=== PATIENT | female | born 1940 | race Caucasian/White ===

== ENCOUNTER 2019-08-17 18:22 | Emergency (ER) | payer MEDICARE, SELFPAY ==
--- NOTE | ~2019-08-17 | XR_ITS ---
XR hip RT min 3V w AP pelvis 08/17/2019 20:36 Indication: Hip pain after trauma Procedure: 4 views right hip including AP pelvis Comparison: 01/08/2009 Findings: Pelvic rings intact. Sacral foramen are symmetric. There are mild degenerative changes of t he hips. Serial calcifications are present. No significant soft tissue abnormality. No acute fracture or traumatic malalignment. Impression: 1: No acute fracture. Reviewed, dictated and finalized at location A. Impression: 1: No acute fracture.
[2019-08-17 18:25] VITALS: BP 128/76; PULSE 92; RESP 18; TEMP 36.8; O2SAT 100
--- NOTE | 2019-08-17 20:06 | ED.EXTPRO ---
HPI - Extremity Problem General Chief complaint: Unspecified Stated complaint: jimmy hip pain x1 wk Time Seen by Provider: 08/17/19 19:20 Source: patient Mode of arrival: EMS Limitations: no limitations History of Present Illness HPI Narrative: The pt is an 79 y/o female who presents to the ED, via EMS, c/o bilateral hip pain onset 2 weeks ago. Pt states that the right hip is worse than the left. Pt states that she called her PCP, Dr. Cantu, who recommended she get Lidocaine patches that did not provide relief. She states that she has also taken Tylenol without relief. She notes that she has not suffered any trauma. Pt denies N/V, fever, chills, cough, and SOB. Pt states that she lives alone. Pt notes that her hedge trimmer is Dr. Valladares, and she saw him earlier today. Complaint: joint paint (Bilateral hips ) Onset (ago): week(s) (2) Location: left, right and other (Hips, right worse than left) Relieving factors: nothing Associated symptoms: denies other symptoms Related Data Home Medications Medication Instructions Recorded Confirmed alendronate 70 mg tablet 70 mg PO WEEKLY 05/19/19 08/17/19 bupropion HCl 150 mg 24 hr tablet, 150 mg PO QAM 05/19/19 08/17/19 extended release metoclopramide HCl 5 mg tablet 5 mg PO Q6H tablet 05/19/19 08/17/19 omeprazole 40 mg capsule,delayed 40 mg PO BID 05/19/19 08/17/19 release polyethylene glycol 3350 17 17 gm PO DAILY 05/19/19 08/17/19 gram/dose oral powder Allergies Allergy/AdvReac Type Severity Reaction Status Date / Time No Known Allergies Allergy Verified 08/17/19 15:12 Review of Systems Review of Systems: All systems reviewed & are unremarkable except as noted in HPI and below Constitutional: Constitutional: Denies chills and Denies fever(s) Respiratory: Respiratory: Denies cough and Denies dyspnea Gastrointestinal: Gastrointestinal: Denies nausea and Denies vomiting Musculoskeletal: Musculoskeletal: Reports arthralgias (Bilateral hips, right worse than left ) PMFSH Past Medical History Medical History (Updated 08/17/19 @ 20:25 by Rekha Casper MD) Chronic GERD Essential hypertension Gastroparesis Generalized anxiety disorder Heart murmur Hyperlipidemia, unspecified Lumbar disc disease with radiculopathy Neuropathy EDWARD (obstructive sleep apnea) Osteoporosis Primary osteoarthritis involving multiple joints Right inguinal hernia Spinal cord stimulator status Stable angina pectoris UTI (urinary tract infection) Surgical History Surgical History History of right knee surgery Hx of cholecystectomy Status post blepharoplasty of both eyes Social History Social History (Updated 08/17/19 @ 20:11 by Beni Dobson) Smoking status: Never smoker Second hand tobacco smoke exposure: No Alcohol intake: never Living arrangements: alone Gender identity (if verbalized by the patient): Female Comments PCP: Dr. Cantu Full Charge Bookkeeper: Dr. Valladares Exam Narrative: Exam Narrative: General appearance: Well-developed, well-nourished, no family member at the bedside, patient does not look in pain or distress, her cane at the bedside. Skin: Normal color Head: Normocephalic, nontraumatic Eyes: Clear conjunctiva ENT: Oropharynx normal, ears normal, nose normal Neck: Supple, nontender Chest and respiratory: Airway patent, no respiratory distress, no accessory muscle use Heart: Regular rate/rhythm Abdomen: Soft, nontender, no organomegaly, quiet bowel sounds Vascular: Normal peripheral pulses, normal capillary refill. Musculoskeletal: Normal range of motion, nontender back Neurologic: Alert and oriented ?3, MATRIX BATH ATTENDANT is normal as tested, no gross motor deficit
[2019-08-17] MEDS: KETOROLAC (*BKC) 60 MG/2 ML VIAL IM (20:40)
[2019-08-17 20:50] VITALS: BP 143/93; PULSE 89; RESP 16; O2SAT 100
[2019-08-17 21:22] VITALS: BP 136/79; PULSE 85; RESP 18; TEMP 36.8; O2SAT 100
== END 2019-08-17 21:34 | disposition home or self-care (01) ==
PROVIDERS: Emergency Provider Emergency Medicine; PCP Family Medicine
DX: M16.0 Bilateral primary osteoarthritis of hip (principal); K21.9 Gastro-esophageal reflux disease without esophagitis; I10 Essential (primary) hypertension; K31.84 Gastroparesis; E78.5 Hyperlipidemia, unspecified; G47.33 Obstructive sleep apnea (adult) (pediatric); F41.1 Generalized anxiety disorder; M81.0 Age-related osteoporosis without current pathological fracture; Z87.440 Personal history of urinary (tract) infections
CPT/HCPCS: 73502; 96372; 99283; A9270; J1885

== ENCOUNTER 2020-02-24 01:00 | Outpatient (CLI) | payer MEDICARE, SELFPAY ==
[2020-02-24 18:37] LABS: SARS-CoV-2 RNA PCR Negative
== END 2020-02-24 01:01 | disposition home or self-care (01) ==
LOC: ANHCOVIDDT 01:01
PROVIDERS: Visit Provider Internal Medicine Gastroenterology
DX: Z01.812 Encounter for preprocedural laboratory examination (principal); Z20.828 Contact with and (suspected) exposure to other viral communicable diseases
CPT/HCPCS: 87635; C9803; U0003

== ENCOUNTER 2020-02-27 01:11 | Day surgery (SDC) | payer MEDICARE, SELFPAY ==
[2020-02-22 10:46] VITALS: BMI 32.1
--- NOTE | 2020-02-22 12:57 | PC.NURSE ---
spoke with patient concerning discharge and transportation after procedure . she states it is okay to call abimael flor and let her know that patient had procedure/anesthesia and is being transported via [facility] to and into her house, setup with drink and food, and ask her to call and check on patient later in day. message left with abimael to verify.
[2020-02-27 08:06] VITALS: BP 145/62; PULSE 70; RESP 18; TEMP 36.4; O2SAT 99; BMI 28.0
[2020-02-27] MEDS: LACTATED RINGERS 1,000 ML 150 ML IV CONT (08:27)
--- NOTE | 2020-02-27 08:35 | P.PNAN_ITS ---
Anes - Initial Pre Proc Eval Procedure: Operation Date: 02/27/20 09:30 Proposed Procedures p Esophagogastroduodenoscopy & Screening Colonoscopy - Samuel Laura MD Date/Time: 02/27/20 08:35 Surgeon: Samuel Toro MD Pre Op Diagnosis: Abdominal Pain/ Neoplasm Screening Patient Data Age: 79 Gender: F Height: 5 ft 1 in Weight: 67.5 kg Last Vital Signs Temp 97.6 F 02/27/20 08:06 Pulse 70 02/27/20 08:06 Resp 18 02/27/20 08:06 BP 145/62 H 02/27/20 08:06 Pulse Ox 99 02/27/20 08:06 Allergies Allergy/AdvReac Type Severity Reaction Status Date / Time No Known Allergies Allergy Verified 02/27/20 08:03 Home Medications Medication Instructions Recorded Confirmed Type atorvastatin 20 mg tablet 20 mg PO DAILY #90 tablet 08/17/19 02/27/20 Rx metoprolol succinate 25 mg 25 mg PO DAILY #90 each 08/17/19 02/27/20 Rx tablet,extended release 24 hr niacin 500 mg tablet See Rx Instructions .ROUTE 08/17/19 02/27/20 Rx .COMPLEX #90 each alendronate 70 mg tablet 70 mg PO WEEKLY #12 tablet 09/20/19 02/27/20 Rx buspirone 10 mg tablet See Rx Instructions .ROUTE 09/20/19 02/27/20 Rx .COMPLEX #180 each meloxicam 7.5 mg tablet 7.5 mg PO BID PRN #180 tablet 09/20/19 02/27/20 Rx omeprazole 40 mg capsule,delayed 40 mg PO BID PRN #180 cap 09/20/19 02/27/20 Rx release calcium carbonate 200 mg calcium 200 mg PO BID 11/23/19 02/27/20 History (500 mg) chewable tablet gabapentin 300 mg capsule 300 mg PO BID #180 cap 11/23/19 02/27/20 Rx multivitamin,rn-zcjr-esfgwbts 1 tablet PO DAILY 11/23/19 02/27/20 History aspirin 81 mg tablet,delayed 81 mg PO DAILY #90 tablet 02/01/20 02/27/20 Rx release peg 3350-electrolytes 236 240 ml PO Q10M #4000 ml 02/01/20 02/27/20 Rx gram-22.74 gram-6.74 gram-5.86 gram solution bupropion HCl 300 mg 24 hr tablet, 300 mg PO QAM #90 tablet 02/09/20 02/27/20 Rx extended release Patient hx anesthesia problems: none Family hx anesthesia problems: none PMFSH Social History Social History Smoking packs per day: 1 Smoking cigarettes per day: 20.0 Smoking status: Former smoker Tobacco type: cigarettes Second hand tobacco smoke exposure: No Additional smoking assessment comments: [facility] Alcohol intake: former Substance use: never Substance use type: does not use Living arrangements: alone Gender identity (if verbalized by the patient): Female Spiritual care concerns: No Anes - Eval Final PreProcedure Day of Procedure 02/27/20 08:35 Patient weight: overweight Heart: regular rate and rhythm Lungs: clear to auscultation Airway: Mallampati scale class III Neurological: alert and oriented Last oral intake: >/= 8 hours and 4 hours (had black coffee this am at 0600 hrs) ASA classification: III Emergent: no Anesthetic plan: proceed Anesthesia type and monitoring: general GIVS and standard monitoring Informed Consent: The patient's anesthetic plan and its attendant risks and benefits were discussed with the patient/family/POA. Questions were solicited and answers provided to the satisfaction of the patient/family/POA.
--- NOTE | 2020-02-27 08:53 | PM.HPGS ---
History of Present Illness History of Present Illness Consent: Risks, benefits, and alternatives have been discussed and questions answered. Patient agrees to proceed with procedure. Chief complaint: Abdominal Pain/ Neoplasm Screening Narrative: Shanita Perez is a 79 year old female with chronic abdominal pain Review of Systems Constitutional: Constitutional: Denies headache(s) and Denies weakness Eyes: Eyes: Denies blurry vision ENT: Reports Normal hearing present, Denies headache(s) and Denies neck pain Cardiovascular: Cardiovascular: Denies chest pain and Denies dyspnea Respiratory: Respiratory: Denies dyspnea Gastrointestinal: Gastrointestinal: Reports no additional gastrointestinal complaints Genitourinary: Genitourinary: Denies dysuria Musculoskeletal: Musculoskeletal: Denies neck pain Integumentary/Breasts: Skin/Breast: Denies dry skin Neurologic: Reports Normal hearing present, Denies headache(s) and Denies weakness Psychiatric: Psychiatric: Denies anxiety Endocrine: Endocrine: Denies change in body appearance Hematologic/Lymphatic: Hematologic/Lymphatic: Denies easy bleeding Allergic/Immunologic: Allergic/Immunologic: Denies urticaria PMFSH Social History Social History Smoking packs per day: 1 Smoking cigarettes per day: 20.0 Smoking status: Former smoker Tobacco type: cigarettes Second hand tobacco smoke exposure: No Additional smoking assessment comments: [facility] Alcohol intake: former Substance use: never Substance use type: does not use Living arrangements: alone Gender identity (if verbalized by the patient): Female Spiritual care concerns: No Meds Home Medications and Allergies Home Medications Medication Instructions Recorded Confirmed Type atorvastatin 20 mg tablet 20 mg PO DAILY #90 tablet 08/17/19 02/27/20 Rx metoprolol succinate 25 mg 25 mg PO DAILY #90 each 08/17/19 02/27/20 Rx tablet,extended release 24 hr niacin 500 mg tablet See Rx Instructions .ROUTE 08/17/19 02/27/20 Rx .COMPLEX #90 each alendronate 70 mg tablet 70 mg PO WEEKLY #12 tablet 09/20/19 02/27/20 Rx buspirone 10 mg tablet See Rx Instructions .ROUTE 09/20/19 02/27/20 Rx .COMPLEX #180 each meloxicam 7.5 mg tablet 7.5 mg PO BID PRN #180 tablet 09/20/19 02/27/20 Rx omeprazole 40 mg capsule,delayed 40 mg PO BID PRN #180 cap 09/20/19 02/27/20 Rx release calcium carbonate 200 mg calcium 200 mg PO BID 11/23/19 02/27/20 History (500 mg) chewable tablet gabapentin 300 mg capsule 300 mg PO BID #180 cap 11/23/19 02/27/20 Rx multivitamin,eu-huyg-oybzenie 1 tablet PO DAILY 11/23/19 02/27/20 History aspirin 81 mg tablet,delayed 81 mg PO DAILY #90 tablet 02/01/20 02/27/20 Rx release peg 3350-electrolytes 236 240 ml PO Q10M #4000 ml 02/01/20 02/27/20 Rx gram-22.74 gram-6.74 gram-5.86 gram solution bupropion HCl 300 mg 24 hr tablet, 300 mg PO QAM #90 tablet 02/09/20 02/27/20 Rx extended release Allergies Allergy/AdvReac Type Severity Reaction Status Date / Time No Known Allergies Allergy Verified 02/27/20 08:03 Vital Signs Vital Signs - 24 hr 02/27/20 08:06 Temperature 97.6 F Pulse Rate 70 Respiratory Rate 18 Blood Pressure 145/62 H Pulse Oximetry 99 Exam Const: General: comfortable and no acute distress HENMT: General nose exam: Normal nares present Eyes: General: appearance normal, both eyes and all related structures Neck: Neck: no JVD Resp: Auscultation: clear to auscultation bilaterally Cardio: Rate: regular rate Rhythm: regular rhythm GI: Inspection: non-distended GI Palp: Yes Soft to palpation Skin: General skin exam: normal color Neuro: General: gait normal Speech: normal speech Extrem: General: normal to inspection Psych: Mental Status: mental status grossly normal Assessment and Plan Assessment and plan (1) Chronic GERD: Code(s): K21.9 - Susan
[2020-02-27 09:24] VITALS: BP 116/51; PULSE 72; RESP 19; O2SAT 93
[2020-02-27 09:34] VITALS: BP 125/74; PULSE 76; RESP 19; O2SAT 96
[2020-02-27 09:54] VITALS: BP 135/66; PULSE 70; RESP 20; O2SAT 96
== END 2020-02-27 10:42 | disposition home or self-care (01) ==
PROVIDERS: Visit Provider Internal Medicine Gastroenterology
PROC: 0DJ08ZZ Inspection of Upper Intestinal Tract, Via Natural or Artificial Opening Endoscopic (ICD-10-PCS; CPT 43235; principal; 2020-02-27 09:30)
DX: K29.50 Unspecified chronic gastritis without bleeding (principal); K31.84 Gastroparesis; K57.30 Diverticulosis of large intestine without perforation or abscess without bleeding; K44.9 Diaphragmatic hernia without obstruction or gangrene; K64.8 Other hemorrhoids; K21.9 Gastro-esophageal reflux disease without esophagitis; Z87.891 Personal history of nicotine dependence; Z79.82 Long term (current) use of aspirin
CPT/HCPCS: 43239; 45378; 88305; J2704; J7120

== ENCOUNTER 2020-03-25 11:02 | Outpatient (CLI) | payer MEDICARE, SELFPAY ==
--- NOTE | ~2020-03-25 | CT_ITS ---
EXAMINATION: CT chest wo con DATE: 03/25/2020 11:46 INDICATION: R91.1 - Solitary pulmonary nodule TECHNIQUE: Computed tomography (CT) of the chest was performed without intravenous contrast. Addition al 3D reconstructions utilizing coronal maximum intensity projection (MIP) were performed. Automated exposure control and iterative reconstruction technique were employed. The dose-length product was 79 .54 mGy-cm. COMPARISON: 08/12/2018 FINDINGS: Multiple calcified nodules in the left lower lobe along with calcified left hilar and subcarinal lymp h nodes consistent with old granulomatous disease. No interval change in a flat 4 mm likely intrafiss ural lymph node along the left major fissure. Also unchanged are a few additional 3 mm smaller noncal cified nodules in the left lower, right middle and apical right upper lobe. No new or enlarging pulmo nary nodules, pneumonia, pulmonary edema or pleural effusion. Borderline heart size. Atherosclerotic coronary artery calcification. No pericardial effusion. 4.1 cm fusiform ectasia of the ascending thor acic aorta. Multiple hepatic and splenic allegations consistent with old granulomatous disease. Small sliding-type hiatal hernia. Mild to moderate thoracic spondylosis with spinal stimulator lead positi on in the posterior central canal at the level of T8 and T9. IMPRESSION: 1. No interval change in a several calcified and a few tiny noncalcified pulmonary nodules likely seq uela of old granulomatous disease. 2. Ectatic ascending thoracic aorta measuring up to 4.1 cm. 3. Borderline heart size. Reviewed, dictated and finalized at location A. IMPRESSION: 1. No interval change in a several calcified and a few tiny noncalcified pulmon love nodules likely sequela of old granulomatous disease. 2. Ectatic ascending thoracic aorta measuring up to 4.1 cm. 3. Borderline heart size.
== END 2020-03-25 11:03 | disposition home or self-care (01) ==
PROVIDERS: Visit Provider Nurse Practitioner Family
DX: R91.1 Solitary pulmonary nodule (principal); R91.8 Other nonspecific abnormal finding of lung field
CPT/HCPCS: 71250

== ENCOUNTER 2020-08-09 10:53 | Outpatient (CLI) | payer MEDICARE, SELFPAY | END 2020-08-09 10:54 | disposition home or self-care (01) | LOC: ANHCOVIDVC 10:53 | DX: Z23 Encounter for immunization (principal) | CPT/HCPCS: 0001A; 91300 ==

== ENCOUNTER 2020-08-30 10:47 | Outpatient (CLI) | payer MEDICARE, SELFPAY | END 2020-08-30 10:48 | disposition home or self-care (01) | LOC: ANHCOVIDVC 10:47 | DX: Z23 Encounter for immunization (principal) | CPT/HCPCS: 0002A; 91300 ==

== ENCOUNTER 2020-09-10 10:19 | Emergency (ER) | payer MEDICARE, SELFPAY ==
[2020-09-10] VITALS (25 sets, daily range): BP systolic 110–154; BP diastolic 65–94; PULSE 85–105; RESP 12–24; TEMP 36.6; O2SAT 92–98
--- NOTE | ~2020-09-10 | XR_ITS ---
EXAMINATION: XR chest 2V DATE: 09/10/2020 11:01 INDICATION: Dyspnea. TECHNIQUE: Frontal and lateral views of the chest were obtained. COMPARISON: Chest 2 views 08/24/2018, chest CT 03/25/2020 FINDINGS: Calcified left lung lung nodules and calcified left hilar lymph nodes are consistent with o ld granulomatous disease. No pleural effusion or pneumothorax. Cardiomegaly is noted. The bone minera l electrodes are noted. Surgical clips in the right upper quadrant are likely from cholecystectomy. IMPRESSION: 1. Cardiomegaly. Reviewed, dictated and finalized at location A. IMPRESSION: 1. Cardiomegaly.
--- NOTE | 2020-09-10 10:32 | ED.CHESTPAIN ---
HPI - Chest Pain General Chief Complaint: Chest Pain Stated Complaint: cp Time Seen by Provider: 09/10/20 10:31 Source: patient Mode of arrival: ambulatory Limitations: no limitations History of Present Illness HPI narrative: The patient is a 80-year-old female with a past medical history of HTN, hyperlipidemia, dementia, chronic lumbar pain, arthritis, anxiety who presents to the emergency department for evaluation of chest pain. Chest pain has been over the past 3 days, constant in nature described as a heaviness over the front of the patient's chest. No associated nausea or vomiting, neck pain, arm pain, shoulder or jaw pain. No ripping or tearing sensation to the pain. Pain is rated as moderate in nature. She has had some associated shortness of breath. Denies new or worsening cough. Denies fever or chills. She denies lower leg swelling. She reports worsening dyspnea with exertion. Related Data Home Medications Medication Instructions Recorded Confirmed calcium carbonate 200 mg calcium 200 mg PO BID 11/23/19 09/02/20 (500 mg) chewable tablet multivitamin,dq-npml-izwuovit 1 tablet PO DAILY 11/23/19 09/02/20 omega 4-axj-cbq-fish oil 1,000 mg 1 cap PO DAILY 03/27/20 09/02/20 (120 mg-180 mg) capsule Allergies Allergy/AdvReac Type Severity Reaction Status Date / Time No Known Allergies Allergy Verified 09/02/20 13:09 Review of Systems Review of Systems: Narrative: CONSTITUTIONAL: Denies fever, chills, or sweats. ENT: Denies rhinorrhea, congestion, sore throat, or otalgia. CARDIOVASCULAR: Reports chest pain without palpitations, denies edema RESPIRATORY: Reports cough and shortness of breath GASTROINTESTINAL: Denies abdominal pain, nausea, vomiting, or diarrhea. GENITOURINARY: Denies dysuria or hematuria. SKIN: Denies rash or itching. MUSCULOSKELETAL: Denies back pain, joint pain, or myalgia. NEUROLOGIC: Denies headache, numbness, or weakness. PSYCHIATRIC: History of anxiety [facility] Past Medical History Medical History Chronic GERD Essential hypertension Gastroparesis Generalized anxiety disorder Heart murmur Hyperlipidemia, unspecified Lumbar disc disease with radiculopathy Neuropathy EDWARD (obstructive sleep apnea) Osteoporosis Primary osteoarthritis involving multiple joints Pulmonary nodule Right inguinal hernia Spinal cord stimulator status Stable angina pectoris UTI (urinary tract infection) Weight loss, unintentional Surgical History Surgical History History of right knee surgery Hx of cholecystectomy Status post blepharoplasty of both eyes Family History Family History Other Family history of cardiovascular disease Social History Social History Smoking packs per day: 0 Smoking cigarettes per day: 0.0 Smoking status: Never smoker Tobacco type: cigarettes Second hand tobacco smoke exposure: No Additional smoking assessment comments: [facility] Alcohol intake: former Substance use: never Substance use type: does not use Gender identity (if verbalized by the patient): Female Spiritual care concerns: No Exam Narrative: Exam Narrative: GENERAL: Awake, alert, conversant HEAD: Normocephalic, atraumatic. EYES: PERRLA and EOMI. ENT: Nares clear, no rhinorrhea or epistaxis. Mucous membranes moist. NECK: Supple. CHEST: No respiratory distress, breathing even and non labored, coarse breath sounds HEART: Regular rate, sinus rhythm ABDOMEN:Non distended, non tender EXTREMITIES: Normal range of motion. No edema. SKIN: Pale, warm, dry, no rash. NEURO:No focal deficits. Alert and oriented x3 Course Vital Signs Vital signs: Vital Signs Temperature 36.6 C 09/10/20 10:41 Pulse Rate 95 09/10/20 10:41 Respiratory Rate 15 09/10/20 10:41 Blood Pre
--- NOTE | 2020-09-10 10:41 | PC.NURSE ---
POORNIMA VILLATORO AT BEDSIDE.
--- NOTE | 2020-09-10 10:49 | ECG_ITS ---
Measurements Intervals [place] Rate: 92 P: 42 VT: 188 QRS: -40 QRSD: 106 T: 82 QT: 350 QTc: 434 Interpretive Statements SINUS RHYTHM LEFT AXIS DEVIATION LOW QRS VOLTAGE IN PRECORDIAL LEADS LEFT VENTRICULAR HYPERTROPHY WITH ST-T CHANGE ANTEROSEPTAL INFARCT, AGE INDETERMINATE INFERIOR INFARCT, AGE INDETERMINATE ABNORMAL ECG Electronically Signed On 09-10-2020 11:02:21 CDT by Ralph Valladares D.O.
[2020-09-10 10:55] LABS: Basophils Absolute Auto 0.1 K/mm3 (0.0-0.1); Basophils Percent Auto 0.6 % (0.2-1.2); Eosinophils Absolute Auto 0.2 K/mm3 (0-0.3); Eosinophils Percent Auto 2.4 % (0-4.4); Hematocrit 41.5 % (37.0-47.0); Immature Granulocyte Absolute 0.04 K/mm3 (0.00-0.031); Immature Granulocyte Percent A 0.5 % (0-0.5); Lymphocytes Absolute Auto 1.87 K/mm3 (0.9-3.2); Mean Corpuscular HGB Conc 33.7 g/dl (32-36); Mean Corpuscular Hemoglobin 30.2 pg (26-34); Mean Corpuscular Volume 89.4 fl (80-100); Mean Platelet Volume 9.3 fl (7.4-10.4); Monocytes Absolute Auto 0.6 K/mm3 (0.1-0.6); Monocytes Percent Auto 8.2 % (2.6-8.5); Neutrophils Percent Auto 64.3 % (45.5-73.1); Platelet Count Result 223 k/mm3 (150-375); Red Blood Count 4.64 M/mm3 (4.2-5.4); Red Cell Distribution Width 15.6 % (11.5-14.5); White Blood Count 7.8 K/mm3 (4.5-10.0)
--- NOTE | 2020-09-10 11:01 | PC.NURSE ---
Pt to radiology, will medicated per provider order upon return.
[2020-09-10] MEDS: ONDANSETRON INJ 4 MG/2 ML VIAL IV PUSH (11:27)
[2020-09-10] MEDS: ASPIRIN 81 MG CHEWABLE TABLET 324 MG PO (11:27)
[2020-09-10] MEDS: MORPHINE SULFATE (*CRX) 2 MG/ML INJ IV PUSH (11:27)
--- NOTE | 2020-09-10 11:40 | PC.NURSE ---
pT REPORT TO WU CAIN HE HAS ASSUMED PT CARE.
[2020-09-10 11:44] LABS: INR 0.9; Partial Thromboplastin Time 27.9 SECONDS (22.3-36.8); Prothrombin Time 12.5 Seconds (11.1-14.7)
[2020-09-10 11:46] LABS: Alanine Aminotransferase 37 U/L (4-35); Albumin Level 3.7 g/dL (3.5-5.1); Alkaline Phosphatase 90 U/L (38-126); Anion Gap 7 mmol/L (8-16); Aspartate Amino Transferase 44 U/L (14-36); Bilirubin,Total 0.2 mg/dL (0.2-1.3); Blood Urea Nitrogen 16 mg/dL (7-17); Calcium 8.3 mg/dL (8.4-10.2); Carbon Dioxide 25 mmol/L (22-30); Chloride 108 mmol/L (98-107); Estimated CRCL calculation 38 ml/min; Estimated Glomerular Filt Rate 60; Glucose 109 mg/dL (65-105); Sodium 140 mmol/L (137-145)
[2020-09-10 11:58] LABS: NT Pro B Type Natriuretic Pept 303 PG/ML (5-100); Troponin I < 0.012 ng/mL (0.000-0.034)
[2020-09-10 12:01] LABS: D Dimer < 0.22 ug/mL (<0.48)
[2020-09-10 14:24] LABS: Troponin I < 0.012 ng/mL (0.000-0.034)
== END 2020-09-10 15:15 | disposition home or self-care (01) ==
PROVIDERS: Emergency Provider Emergency Medicine; PCP Family Medicine
DX: R07.9 Chest pain, unspecified (principal); K21.9 Gastro-esophageal reflux disease without esophagitis; F41.9 Anxiety disorder, unspecified; E78.5 Hyperlipidemia, unspecified; M19.90 Unspecified osteoarthritis, unspecified site; Z87.440 Personal history of urinary (tract) infections; F03.90 Unspecified dementia, unspecified severity, without behavioral disturbance, psychotic disturbance, mood disturbance, and anxiety; I10 Essential (primary) hypertension; K31.84 Gastroparesis; G62.9 Polyneuropathy, unspecified; M81.0 Age-related osteoporosis without current pathological fracture; G47.33 Obstructive sleep apnea (adult) (pediatric); Z87.442 Personal history of urinary calculi; R94.31 Abnormal electrocardiogram [ECG] [EKG]; I51.7 Cardiomegaly
CPT/HCPCS: 36415; 71046; 80053; 83880; 84484; 85025; 85380; 85610; 85730; 93005; 96374; 96375; 99284; A9270; J2270; J2405

== ENCOUNTER 2020-09-17 15:19 | Observation (INO) | payer MEDICARE, SELFPAY ==
[2020-09-17] VITALS (19 sets, daily range): BP systolic 113–137; BP diastolic 60–92; PULSE 63–84; RESP 12–21; TEMP 36.1–36.9; O2SAT 88–100; BMI 30.2
--- NOTE | ~2020-09-17 | NM_ITS ---
EXAMINATION: NM michelle stress w perfusion EXAM DATE: 09/18/2020 10:53 INDICATION: Chest pain. Ischemic chest pain. TECHNIQUE: Rest images were obtained following intravenous administration of 10.2 mCi Tc99m tetrofosm in (Myoview). The patient was infused intravenously with Lexiscan (regadenoson). Then, 33 mCi Tc99m t etrofosmin (Myoview) was administered intravenously, and stress images were obtained. Data was recons tructed into short axis and horizontal and vertical long axis SPECT images. Gated SPECT images were a lso obtained. There is no prior study for comparison. FINDINGS: There is no definite reversible or fixed perfusion abnormality to suggest ischemia or infar ction. There is normal left ventricular wall motion. End diastolic volume: 31 mL. End-systolic volume: 16 mL. Left ventricular ejection fraction: 48th%. IMPRESSION: 1. Normal myocardial perfusion at rest and during stress. 2. Left ventricular ejection fraction measuring 48%. Reviewed, dictated and finalized at location A.
--- NOTE | ~2020-09-17 | US_ITS ---
EXAMINATION: US right upper quadrant DATE: 09/18/2020 14:16 INDICATION: Right upper quadrant pain TECHNIQUE: Multiple grayscale and Doppler ultrasound images of the abdomen were obtained. COMPARISON: CT, 11/04/2018 FINDINGS: The head and body of the pancreas are normal. The pancreatic tail is obscured by bowel gas. The liver demonstrates increased echogenicity, heterogenous echotexture, and decreased through trans mission. No surface nodularity. Normal hepatopetal flow in the main portal vein. The gallbladder is s urgically absent. The normal common bile duct measures 4 mm. IMPRESSION: 1. Diffuse hepatic steatosis. Reviewed, dictated and finalized at location B.
--- NOTE | ~2020-09-17 | XR_ITS ---
XR chest 2V DATE: 09/17/2020 16:06 INDICATION: Chest midline pressure TECHNIQUE: PA and lateral upright views COMPARISON: 09/10/2020 AP and lateral chest FINDINGS: Mild cardiomegaly. Aortic calcification. No hilar or mediastinal enlargement. Calcified lef t pulmonary granulomas. Status post cholecystectomy. Electrodes overlie the lower mid back. Electrodes are noted in the mid to lower thoracic spinal canal posteriorly. Diffuse osteopenia. IMPRESSION: Mild cardiomegaly Aortic atherosclerosis Reviewed, dictated and finalized at location A.
--- NOTE | 2020-09-17 15:28 | ECG_ITS ---
Measurements Intervals [place] Rate: 81 P: 43 LA: 209 QRS: -32 QRSD: 106 T: 65 QT: 364 QTc: 423 Interpretive Statements SINUS RHYTHM BORDERLINE AV CONDUCTION DELAY INFERIOR INFARCT, AGE INDETERMINATE ANTEROSEPTAL INFARCT, AGE INDETERMINATE BASELINE ARTIFACT- I, II, AVR, AVL ABNORMAL ECG Electronically Signed On 09-17-2020 16:55:46 CDT by Ralph Valladares D.O.
[2020-09-17] MEDS: ASPIRIN 81 MG CHEWABLE TABLET 324 MG PO (16:09)
--- NOTE | 2020-09-17 16:09 | ED.CHESTPAIN ---
HPI - Chest Pain General Chief Complaint: Chest Pain Stated Complaint: cp Time Seen by Provider: 09/17/20 15:23 Source: patient, EMS and RN notes reviewed Mode of arrival: EMS Limitations: no limitations History of Present Illness HPI narrative: Patient is 80 years old white female came to the emergency room by ambulance complaining of retrosternal chest pressure, tightness on exertion since September 10. Patient lives alone with her dog, does not have a car, came to our emergency room with the same symptoms on September 10 and was discharged home at that time. Patient denies any fever, chills, nausea, vomiting, abdominal pain, back pain. Currently patient is asymptomatic Related Data Home Medications Medication Instructions Recorded Confirmed calcium carbonate 200 mg calcium 200 mg PO BID 11/23/19 09/02/20 (500 mg) chewable tablet multivitamin,ei-hlug-twrruyzf 1 tablet PO DAILY 11/23/19 09/02/20 omega 2-mdg-gsr-fish oil 1,000 mg 1 cap PO DAILY 03/27/20 09/02/20 (120 mg-180 mg) capsule Allergies Allergy/AdvReac Type Severity Reaction Status Date / Time No Known Allergies Allergy Verified 09/17/20 15:27 Review of Systems Review of Systems: Narrative: CONSTITUTIONAL: Denies fever, chills, or sweats. EYES: Denies visual changes, redness, or discharge. ENT: Denies rhinorrhea, congestion, sore throat, or otalgia. CARDIOVASCULAR: Denies chest pain, palpitations, or edema. RESPIRATORY: Denies cough or dyspnea. GASTROINTESTINAL: Denies abdominal pain, nausea, vomiting, or diarrhea. GENITOURINARY: Denies dysuria or hematuria. SKIN: Denies rash or itching. MUSCULOSKELETAL: Denies back pain, joint pain, or myalgia. NEUROLOGIC: Denies headache, numbness, or weakness. PSYCHIATRIC: Denies anxiety or depression. [facility] Past Medical History Medical History Chronic GERD Essential hypertension Gastroparesis Generalized anxiety disorder Heart murmur Hyperlipidemia, unspecified Lumbar disc disease with radiculopathy Neuropathy EDWARD (obstructive sleep apnea) Osteoporosis Primary osteoarthritis involving multiple joints Pulmonary nodule Right inguinal hernia Spinal cord stimulator status Stable angina pectoris UTI (urinary tract infection) Weight loss, unintentional Surgical History Surgical History History of right knee surgery Hx of cholecystectomy Status post blepharoplasty of both eyes Family History Family History Other Family history of cardiovascular disease Social History Social History Smoking packs per day: 0 Smoking cigarettes per day: 0.0 Smoking status: Never smoker Tobacco type: cigarettes Second hand tobacco smoke exposure: No Additional smoking assessment comments: [facility] Alcohol intake: former Substance use: never Substance use type: does not use Gender identity (if verbalized by the patient): Female Spiritual care concerns: No Exam Narrative: Exam Narrative: General appearance: Well-developed, well-nourished Skin: Normal color Head: Normocephalic, nontraumatic Eyes: Clear conjunctiva ENT: Oropharynx normal, ears normal, nose normal Neck: Supple, nontender Chest and respiratory: Airway patent, no respiratory distress, no accessory muscle use, diffuse tenderness across chest, no bruises, no rash Heart: Regular rate/rhythm Abdomen: Soft, nontender, no organomegaly, quiet bowel sounds Vascular: Normal peripheral pulses, normal capillary refill. Musculoskeletal: Normal range of motion, nontender back Neurologic: Alert and oriented ?3, WOOD TURNING LATHE OPERATOR is normal as tested, no gross motor deficit
[2020-09-17 16:25] LABS: Basophils Absolute Auto 0.1 K/mm3 (0.0-0.1); Basophils Percent Auto 0.9 % (0.2-1.2); Eosinophils Absolute Auto 0.2 K/mm3 (0-0.3); Eosinophils Percent Auto 2.9 % (0-4.4); Hematocrit 42.2 % (37.0-47.0); Hemoglobin 14.2 g/dL (12.0-15.0); Immature Granulocyte Absolute 0.03 K/mm3 (0.00-0.031); Immature Granulocyte Percent A 0.4 % (0-0.5); Lymphocytes Absolute Auto 1.83 K/mm3 (0.9-3.2); Lymphocytes Percent Auto 26.6 % (18.3-44.2); Mean Corpuscular HGB Conc 33.6 g/dl (32-36); Mean Corpuscular Hemoglobin 29.9 pg (26-34); Mean Corpuscular Volume 88.8 fl (80-100); Mean Platelet Volume 8.9 fl (7.4-10.4); Monocytes Absolute Auto 0.7 K/mm3 (0.1-0.6); Monocytes Percent Auto 9.9 % (2.6-8.5); Neutrophils Absolute Auto 4.1 K/mm3 (1.3-6.7); Neutrophils Percent Auto 59.3 % (45.5-73.1); Platelet Count Result 257 k/mm3 (150-375); Red Blood Count 4.75 M/mm3 (4.2-5.4); White Blood Count 6.9 K/mm3 (4.5-10.0)
[2020-09-17 16:34] LABS: INR 0.9; Prothrombin Time 12.7 Seconds (11.1-14.7)
[2020-09-17 16:35] LABS: Partial Thromboplastin Time 29.2 SECONDS (22.3-36.8)
[2020-09-17 16:36] LABS: Anion Gap 8 mmol/L (8-16); Blood Urea Nitrogen 17 mg/dL (7-17); Calcium 8.8 mg/dL (8.4-10.2); Carbon Dioxide 23 mmol/L (22-30); Chloride 107 mmol/L (98-107); Estimated Glomerular Filt Rate > 60; Glucose 96 mg/dL (65-105); Potassium 4.3 mmol/L (3.4-5.0); Sodium 138 mmol/L (137-145)
[2020-09-17 16:48] LABS: Troponin I < 0.012 ng/mL (0.000-0.034)
[2020-09-17] MEDS: METOPROLOL TARTRATE 25 MG TABLET PO (16:59)
--- NOTE | 2020-09-17 19:36 | ADMGEN ---
This patient, Shanita Perez, was admitted to [facility]. Patient/family oriented to hospital policies and general routines including ID bracelet, bed and alarms, visiting hours, pain management, procedures, bathroom and other care routines, personal items, smoking policy, room service/diet, and visiting hours. Information on how to activate the Rapid Response Team has been discussed. Patient/Family are encouraged to report perceived risks to care and to ask questions if they do not understand what they are told or what they should do.
[2020-09-17 20:33] LABS: Troponin I < 0.012 ng/mL (0.000-0.034)
--- NOTE | 2020-09-17 21:04 | PM.IMHP ---
H&P: HPI History of Present Illness Date/Time: 09/17/20 21:04 this is a 80-year-old female patient who has a history of having chest pain with exertion. The patient states when she rests then the pain goes away. She sees Dr. raymundo and stated that she is supposed to have a stress test. The patient lives home alone with her dog. She said she is also short of breath with exertion. The patient stated that she has not had any past history of coronary artery disease. The patient does have sleep apnea and uses a CPAP machine. Chest x-ray reads as mild cardiomegaly the patient had a chest CT back on 03/25/2020 which was read as a a tactic ascending thoracic aortic measuring up to 4.1 cm. Borderline heart size the patient stated that the chest pain is more like up heavy pressure on her sternum and this occurs with exertion and goes away with rest. She also has a history of having GERD and has been belching a lot lately. Patient stated that she has some mild chest discomfort but is worse with ambulation. The patient is on an aspirin at home. The patient was given an aspirin and metoprolol in the emergency room. For observation services on 09/17/2020. Chief Complaint: chest pain Review of Systems Review of Systems: All systems reviewed & are unremarkable except as noted in HPI and below Constitutional: Constitutional: Reports as per HPI and Reports no additional constitutional complaints Eyes: Eyes: Reports as per HPI and Reports no additional eye complaints ENT: Reports system reviewed and no additional complaints, except as documented and Reports Normal hearing present Cardiovascular: Cardiovascular: Reports no additional cardiovascular complaints Respiratory: Respiratory: Reports no additional respiratory complaints and Reports no additional respiratory complaints Gastrointestinal: Gastrointestinal: Reports as per HPI and Reports no additional gastrointestinal complaints Musculoskeletal: Musculoskeletal: Reports no additional musculoskeletal complaints Integumentary/Breasts: Skin/Breast: Reports system reviewed and no additional complaints, except as docu and Reports as per HPI Neurologic: Reports system reviewed and no additional complaints, except as documented, Reports as per HPI and Reports Normal hearing present Psychiatric: Psychiatric: Reports no additional psychiatric complaints and Reports as per HPI Endocrine: Endocrine: Reports no additional endocrine complaints Hematologic/Lymphatic: Hematologic/Lymphatic: Reports no additional hematologic/lymphatic complaints Allergic/Immunologic: Allergic/Immunologic: Reports no additional allergic/immunologic complaints [facility] Past Medical History Medical History (Updated 09/17/20 @ 21:25 by Samantha Stewart NP) Chronic GERD Congestive heart failure Last echo was 01/03/2019 which shows a grade 1 diastolic impairment and an EF of 60-65%. Essential hypertension Gastroparesis Generalized anxiety disorder Heart murmur Hyperlipidemia, unspecified Lumbar disc disease with radiculopathy Neuropathy EDWARD (obstructive sleep apnea) Osteoporosis Primary osteoarthritis involving multiple joints Pulmonary nodule Right inguinal hernia Stable angina pectoris UTI (urinary tract infection) Weight loss, unintentional Surgical History Surgical History (Updated 09/17/20 @ 21:14 by Samantha Stewart NP) History of tonsillectomy Family History Family History (Updated 09/17/20 @ 21:15 by Samantha Stewart NP) Unknown Unknown family medical history Other Family history of cardiovascular disease Social History Social History (Updated 09/17/20 @ 21:15 by Samantha Stewart NP) Social History: The patient stated that she is and she has no children. She does not have a durable power claim attorney for healthcare. 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 The patient desires to be a full code and does not have a durable power claim attorney for healthcare. Patient i
[2020-09-17] MEDS: FUROSEMIDE INJ 40 MG/4 ML VIAL 20 MG IV PUSH (21:36)
[2020-09-17] MEDS: PANTOPRAZOLE 40 MG TABLET PO (22:09)
[2020-09-17] MEDS: ENOXAPARIN 40 MG/0.4 ML SYRINGE SUB-Q (22:09)
[2020-09-17] MEDS: hydrOXYzine HCL 10 MG TABLET PO (23:00)
[2020-09-18] VITALS (15 sets, daily range): BP systolic 108–134; BP diastolic 63–71; PULSE 62–86; RESP 12–18; TEMP 36.1–36.7; O2SAT 95–99
--- NOTE | 2020-09-18 | ECHO_ITS ---
Patient Info Name: Shanita Perez Age: 80 years : 1940 Gender: Female Ht: 61 in Wt: 159 lbs BSA: 1.79 m2 HR: 66 bpm BP: 134 / 67 mmHg Technical Quality: Good Exam Date: 09/18/2020 7:37 AM Exam Location: [facility] Pulmonary Patient Status: Inpatient Admit Date: 09/17/2020 Staff Ordering Physician: Samantha Stewart NP Composition Professor: Beni Smiley RDCS, RT Attending Provider: Gadiel Silverio MD Referring Physician: Pat SPRING; Exam Type: CA echo doppler color flow Study Info Indications R07.89 - Other chest pain Complete two-dimensional, color flow and Doppler transthoracic echocardiogram is performed. Strain analysis performed. Summary 1. Complete two-dimensional, color flow and Doppler transthoracic echocardiogram is performed. 2. Left ventricular chamber dimension is normal. 3. Left ventricular systolic function is normal, estimated at 65-70%. 4. There is mildly increased left ventricular wall thickness. 5. The left ventricular diastolic function is grade I diastolic dysfunction. 6. E/e' 20 elevated. 7. Global longitudinal strain is normal at -17.1%. Left Ventricle E/e' 20 elevated. Global longitudinal strain is normal at -17.1%. Left ventricular chamber dimension is normal. Left ventricular systolic function is normal, estimated at 65-70%. There is mildly increased left ventricular wall thickness. The left ventricular diastolic function is grade I diastolic dysfunction. Right Ventricle Right ventricular systolic function is normal with normal TAPSE 1.7 cm. Right ventricular chamber dimension is normal. Left Atria Left atrial chamber dimension is normal. Right Atria Right atrial chamber dimension is normal. Aortic Valve The aortic valve is trileaflet. There is no aortic valve stenosis. There is no aortic valve regurgitation. Pulmonic Valve There is no pulmonic regurgitation. Mitral Valve There is no mitral valve stenosis. There is no mitral valve regurgitation. Tricuspid Valve There is no tricuspid valve regurgitation. Pericardium/Pleural There is no pericardial effusion. Inferior Vena Cava Normal inferior vena cava with >50% collapse upon inspiration consistent with normal right atrial pressure, 5 mmHg. Aorta The aortic root size at the sinus of Valsalva is normal. Left Ventricular Outflow Tract Name Value Normal LVOT 2D LVOT Diameter 1.9 cm LVOT Doppler LVOT Peak Gradient 8 mmHg LVOT Mean Gradient 5 mmHg LVOT VTI 34 cm LVOT VTI/AV VTI Ratio 0.8 LVOT Stroke Volume 96 ml LVOT CO 6.3 l/min LVOT CI 3.5 l/min/m2 Mitral Valve Name Value Normal MV Doppler MV Decel [place]
[2020-09-18 00:07] LABS: Troponin I < 0.012 ng/mL (0.000-0.034)
[2020-09-18 05:43] LABS: Basophils Absolute Auto 0.1 K/mm3 (0.0-0.1); Basophils Percent Auto 0.9 % (0.2-1.2); Eosinophils Absolute Auto 0.2 K/mm3 (0-0.3); Eosinophils Percent Auto 3.1 % (0-4.4); Hemoglobin 13.8 g/dL (12.0-15.0); Immature Granulocyte Absolute 0.03 K/mm3 (0.00-0.031); Immature Granulocyte Percent A 0.5 % (0-0.5); Lymphocytes Absolute Auto 1.71 K/mm3 (0.9-3.2); Lymphocytes Percent Auto 29.8 % (18.3-44.2); Mean Corpuscular HGB Conc 33.7 g/dl (32-36); Mean Corpuscular Hemoglobin 29.8 pg (26-34); Mean Corpuscular Volume 88.6 fl (80-100); Mean Platelet Volume 9.2 fl (7.4-10.4); Monocytes Absolute Auto 0.6 K/mm3 (0.1-0.6); Monocytes Percent Auto 9.9 % (2.6-8.5); Neutrophils Absolute Auto 3.2 K/mm3 (1.3-6.7); Neutrophils Percent Auto 55.8 % (45.5-73.1); Platelet Count Result 259 k/mm3 (150-375); Red Blood Count 4.63 M/mm3 (4.2-5.4); Red Cell Distribution Width 15.3 % (11.5-14.5); White Blood Count 5.7 K/mm3 (4.5-10.0)
[2020-09-18 05:49] LABS: Alanine Aminotransferase 315 U/L (4-35); Albumin Level 3.9 g/dL (3.5-5.1); Alkaline Phosphatase 230 U/L (38-126); Anion Gap 6 mmol/L (8-16); Aspartate Amino Transferase 469 U/L (14-36); Bilirubin,Total 0.5 mg/dL (0.2-1.3); Blood Urea Nitrogen 21 mg/dL (7-17); Calcium 8.9 mg/dL (8.4-10.2); Carbon Dioxide 31 mmol/L (22-30); Chloride 104 mmol/L (98-107); Estimated CRCL calculation 30 ml/min; Estimated Glomerular Filt Rate 43; Glucose 101 mg/dL (65-105); Magnesium 1.8 mg/dL (1.6-2.3); Sodium 141 mmol/L (137-145)
--- NOTE | 2020-09-18 07:30 | PC.NURSE ---
DR. MAN HERE TO SEE PT.
--- NOTE | 2020-09-18 07:40 | PC.NURSE ---
ECHO IN PROGRESS AT BEDSIDE.
--- NOTE | 2020-09-18 07:55 | PM.CNCAR ---
Assessment and Plan Assessment and plan (1) Chest pain: Qualifiers: Chest pain type: unspecified Qualified Code(s): R07.9 - Chest pain, unspecified Code(s): R07.9 - Chest pain, unspecified Status: Acute Assessment and Plan: Atypical. She has been ruled out for [place] by troponins and EKG. Is it referred pain from gallbladder? She is scheduled for nuclear stress test and echo already. (2) Dyslipidemia: Code(s): E78.5 - Hyperlipidemia, unspecified Status: Acute Assessment and Plan: Hold statin due to liver enzyme elevation. (3) Essential hypertension: Code(s): I10 - Essential (primary) hypertension Status: Chronic Assessment and Plan: Stable. (4) Abdominal pain: Qualifiers: Abdominal location: generalized Qualified Code(s): R10.84 - Generalized abdominal pain Code(s): R10.9 - Unspecified abdominal pain Status: Acute Assessment and Plan: History of erosive gastritis on EGD. Liver enzyme and alk phos elevation suggestive of cholecystitis. Will need workup for this. History of Present Illness History of Present Illness Consult date/time: 09/18/20 07:55 Reason for consult: Chest pain. Patient is a 80 yr old woman who is my regular cardiology patient presents to ED for chest pain. She has a history of EDWARD on CPAP, dyslipidemia, obesity, diastolic dysfunction. Reports chest pain that goes across her chest since last week. She came to ER and had negative troponins and unremarkable EKG and sent home. She returns now with similar pains. Troponins are negative and EKG is unchanged. She admits to epigastric abdominal pain and states she has gastritis. Denies RUQ abd pain. AST 469, ALT 315 and alk phos 230. States she has severe right hip pain 10/10 that is worse when she stands up or walks. She cannot walk much with her cane due to hip pain. Denies chest pain, sob, palpitations, edema, orthopnea. Cardiovascular Procedures Echo/MUGA:: 08/13/18 Echo: EF 60-65%, grade I diastolic dysfunction, severe RVH, mild LAE, trace MR/TR, mod right sided pericardial effusion. \Echo (EF >70%, grade I diastolic dysfunction, mild LAE, trace MR/TR.) - 10/06/2017 Echo (EF 55-60%, grade I diastolic dysfunction (E/E' 23), mild MR/TR, moderate pericardial effusion located adjacent to right ventricle, trace- mild AI.) - 01/16/2016 Echo (EF 80%, LVH, diastolic dysfunction.) - 10/27/2008 Electrophysiology:: EKG (Sinus rhythm, PVC's, anteroseptal infarct, inferior infarct, age indeterminate.) - 12/16/2016 EKG (Sinus rhythm, PVC's, anteroseptal infarct, age indeterminate, baseline artifact- i, ii, iii, avr, avl,avf.) - 12/25/2015 EKG (Sinus rhythm, anteroseptal infarct, age indeterminate, ST abnormality consider lateral ischemia.) - 12/21/2015 Stress Tests:: 07/13/18 Lexiscan myoview: negative for ischemia. MPI (Lexiscan myoview: negative for ischemia.) - 01/11/2017 MPI (Lexiscan myoview: Negative for ischemia.) - 01/16/2016 03/25/20 CT chest: 4.1 cm ascending aorta ectasia. Reason For Visit: chest pain Review of Systems Constitutional: Constitutional: Reports as per HPI, Denies chills and Denies fever(s) Cardiovascular: Cardiovascular: Reports as per HPI, Reports chest pain, Denies leg edema, Denies lightheadedness and Reports dyspnea on exertion Respiratory: Respiratory: Reports as per HPI and Reports dyspnea on exertion Gastrointestinal: Gastrointestinal: Reports as per HPI and Denies abdominal pain Genitourinary: Genitourinary: Reports as per HPI and Denies dysuria Musculoskeletal: Musculoskeletal: Reports as per HPI and Reports arthralgias Neurologic: Reports as per HPI, Denies dizziness and Denies syncope [facility] Past Medical History Medical History (Updated 09/17/20 @ 21:25 by Samantha Stewart NP) Chronic GERD Congestive heart failure Last echo was 01/03/2019 which shows a grade 1 diastolic impairment and an EF of 60-65%. Essential hypertension Gastroparesis Ge
--- NOTE | 2020-09-18 08:53 | PC.NURSE ---
TO LEXISCAN STRESS TEST VIA WC AT THIS TIME.
--- NOTE | 2020-09-18 10:40 | PC.NURSE ---
RETURNS TO LAUNDERETTE ATTENDANT 6 FROM STRESS TEST.
[2020-09-18] MEDS: buPROPion HCL XL (24 HR) 150 MG TABCR 300 MG PO (11:05)
[2020-09-18] MEDS: CALCIUM CARBONATE (TUMS) 500 MG (200 MG ELEMENTAL) PO ×2 (11:05→16:01)
[2020-09-18] MEDS: OMEGA 3 POLYUNSAT FATTY ACIDS 1 GM CAP PO (11:05)
[2020-09-18] MEDS: ASPIRIN 81 MG CHEWABLE TABLET PO (11:06)
[2020-09-18] MEDS: METOPROLOL SUCCINATE EXT REL 25 MG TABCR PO (11:06)
[2020-09-18] MEDS: NIACIN SA 500 MG TABLET PO (11:06)
[2020-09-18] MEDS: busPIRone HCL 10 MG TABLET PO ×2 (11:07→16:01)
[2020-09-18] MEDS: PANTOPRAZOLE 40 MG TABLET PO ×2 (11:07→22:44)
[2020-09-18] MEDS: GABAPENTIN 300 MG CAPSULE PO ×2 (11:07→16:01)
[2020-09-18 12:01] LABS: NT Pro B Type Natriuretic Pept 254 PG/ML (5-100)
--- NOTE | 2020-09-18 12:45 | PC.NURSE ---
NOTIFIED DR. VERMA OF RESULTS OF ECHO AND STRESS TEST. TO COME SEE PT.
--- NOTE | 2020-09-18 13:05 | PC.NURSE ---
RESULTS OF STRESS TEST AND ECHO CALLED TO DR. MAN. PER DR. MAN, DISPOSITION OF PT. PER HOSPITALIST.
--- NOTE | 2020-09-18 13:10 | PC.NURSE ---
DR. VERMA HERE TO SEE PT. PT. C/O ACHY AND HEAVINESS TO CENTER OF CHEST, LOWER CHEST. ORDER RECEIVED FOR US OF R.UQ ABDOMEN.
--- NOTE | 2020-09-18 14:50 | PC.NURSE ---
Addendum entered by Alma Boswell, WU 09/18/20 20:33: ALSO RECEIVED ORDER FOR PT. TO DOWNGRADE TO MEDICAL STATUS AT THIS TIME. KE Original Note: PT. HAS BEEN DOWN FOR US R. UQ ABDOMEN. RESULTS AVAILABLE AND CALLED TO DR. VERMA.
--- NOTE | 2020-09-18 15:05 | PC.NURSE ---
ORDER RECEIVED FROM DR. VERMA TO CONSULT GI, DR. HILARIO. CALL PLACED TO HIS OFFICE, MAU, TO REQUEST CONSULT.
--- NOTE | 2020-09-18 15:50 | PC.NURSE ---
DR. HILARIO HERE TO SEE PT FOR GI CONSULT.
--- NOTE | 2020-09-18 16:08 | PM.IMPN ---
Progress Note: A&P Assessment and Plan (1) Abnormal LFTs (liver function tests): Code(s): R94.5 - Abnormal results of liver function studies Status: Acute Assessment and Plan: PATIENT WITH ELEVATED AST AND ALT WELL ALK PHOS BILIRUBIN IS NORMAL RIGHT UPPER QUADRANT ULTRASOUND NOTED GI CONSULT (2) Right upper quadrant abdominal pain: Code(s): R10.11 - Right upper quadrant pain Status: Acute Assessment and Plan: UNCLEAR ETIOLOGY SUPPORTIVE CARE (3) Essential hypertension: Code(s): I10 - Essential (primary) hypertension Status: Chronic Assessment and Plan: CONTINUE TO MONITOR CONTINUE HOME MEDS (4) Chronic GERD: Code(s): K21.9 - Gastro-esophageal reflux disease without esophagitis Status: Chronic Assessment and Plan: CONTINUE PPI (5) Gastroparesis: Code(s): K31.84 - Gastroparesis Status: Chronic Assessment and Plan: SUPPORTIVE CARE (6) EDWARD (obstructive sleep apnea): Code(s): G47.33 - Obstructive sleep apnea (adult) (pediatric) Status: Chronic Assessment and Plan: CPAP AT NIGHTTIME (7) Stable angina pectoris: Code(s): I20.8 - Other forms of angina pectoris Status: Chronic Assessment and Plan: PATIENT HAD CARDIAC WORKUP WITHOUT WAS ESSENTIALLY NONREVEALING LEXISCAN STRESS TEST NOTED SERIAL TROPONIMS NOTED Subjective Date/time seen: 09/18/20 16:08 PATIENT IS COMPLAINING OF RIGHT UPPER QUADRANT PAIN Review of Systems Review of Systems: Narrative: RIGHT UPPER QUADRANT PAIN Constitutional: Comments: NO FEVERS NO RIGORS NO CHILLS Cardiovascular: Comments: NO PND NO ORTHOPNEA Respiratory: Comments: NO SHORTNESS OF BREATH NO COUGH NO SPUTUM PRODUCTION Gastrointestinal: Comments: RIGHT UPPER QUADRANT PAIN Musculoskeletal: Comments: NO MUSCLE PAIN OR JOINT PAIN Integumentary/Breasts: Comments: NO RASHES Exam Narrative: Exam Narrative: PATIENT IS LAYING IN BED IN NO ACUTE DISTRESS Const: General: cooperative, comfortable, no acute distress, well developed, alert, awake and other (WELL-APPEARING) Nutritional Appearance: overweight Orientation/consciousness: patient oriented x3 HENMT: Head: normal to inspection, normocephalic and atraumatic Ears: hearing grossly normal bilaterally Face and sinus: normal facial exam Eyes: General: appearance normal, both eyes and all related structures Pupils: Equal, round and reactive pupils present EOM: EOMs intact bilaterally Neck: Neck: full ROM, no lymphadenopathy and no JVD Thyroid: thyroid normal Lymphatic: no lymphadenopathy noted Resp: Effort & Inspection: normal respiratory effort and able to speak in complete sentences Auscultation: clear to auscultation bilaterally Cardio: Jugular venous distension: no JVD Rate: regular rate Rhythm: regular rhythm Heart sounds: S1 normal heart sound present and S2 normal heart sound present GI: GI Palp: Yes Soft to palpation, Yes Tenderness to palpation present (GI) (WEBSTER POSITIVE) and Yes No hepatosplenomegaly present : General: Yes deferred Skin: Rashes: no rashes Wounds: no wounds Neuro: General: patient oriented x3 and CN's II-XI intact bilaterally Cranial nerves: Yes CN's II-XII intact bilaterally and Yes Equal, round and reactive pupils present Cognition (Neuro): normal cognition Speech: normal speech Gait exam (Neuro): Normal gait present Motor exam (neuro): 5/5 motor strength present throughout Extrem: General: normal to inspection, full ROM, no joint enlargement and no pedal edema Objective Data Vital Signs Vital Signs: Vital Signs - 24 hr 09/17/20 16:59 09/17/20 17:00 09/17/20 17:16 Temperature Pulse Rate 77 77 77 Respiratory Rate 21 H 17 Blood Pressure 124/79 125/71 Pulse Oximetry 96 94 09/17/20 17:31 09/17/20 17:46 09/17/20 18:01 Temperature Pulse Rate 75 70 70 Respiratory Rate 15 13 16 Blood Pressure 124/68 123/71 114/67 Pulse
--- NOTE | 2020-09-18 16:21 | WPDGICN ---
Assessment and Plan Assessment and plan (1) Non-cardiac chest pain: Code(s): R07.89 - Other chest pain Status: Acute Assessment and Plan: cardiac work up negative noted elevated liver enzymes, ultrasound only fatty liver with normal bile duct size (she is also post cholecystectomy) will see if she can get MRCP to assess biliary system (she has pain stimulator in abdomen and I do not know if will be contraindication for mri) she has known chronic abdominal pain and she is poor historian (does not remember previous surgeries or medical history, questionable compliance and poor memory) exam is benign, only mild upper abdominal pain (2) Abnormal LFTs (liver function tests): Code(s): R94.5 - Abnormal results of liver function studies Status: Acute Assessment and Plan: trend liver enzymes get hepatitis panel (3) Chronic upper abdominal pain: Code(s): R10.10 - Upper abdominal pain, unspecified; G89.29 - Other chronic pain Status: Acute Assessment and Plan: may need to repeat egd again (last time had erosive gastritis) (4) Gastroparesis: Code(s): K31.84 - Gastroparesis Status: Chronic (5) Gastritis: Code(s): K29.70 - Gastritis, unspecified, without bleeding Status: Acute Assessment and Plan: continue with ppi for now GI Consult Note Consult date/time: 09/18/20 16:21 Reason for consult: non-cardiac chest pain, elevated lft HPI: Shanita Perez is a 80 year old female with history of history of EDWARD on CPAP, dyslipidemia, obesity, diastolic dysfunction and also chronic abdominal pain with previous colonoscopy [address] Agee, then egd ~2018. She also has seen by GI at [facility] [address] a/p diverticulosis without acute findings. Then CTA chest/abd/pelvis no PE, no acute findings, absent B, calcified multiple arteries. Also had endometrial thickening but evaluated by aeronautical inspector with unremarkable pelvic ultrasound and bx. She also had GES 09/23 that showed delayed emptying. Finally I performed EGD and colonoscopy 02/2020 as outpatient, mild diverticulosis and moderate erosive gastritis, she came to see us in the office 03/2020 but could not tell us if she was following instructions (take omeprazole and discontinue nsaid's). She came to the ER last week with chest pain across her chest, had negative troponins and unremarkable EKG and sent home. She returned with similar complaint, also upper abdominal discomfort. Troponins are negative and EKG is unchanged. She also had epigastric discomfort. AST 469, ALT 315 and alk phos 230 (higher than usual). She is poor historian, she denies any surgical history but she had cholecystectomy, also pain stimulator in abdomen (when I performed abdominal exam and I asked about it, she says that did not remember and did not have an idea). Abdominal ultrasound s/p cholecystectomy, normal bile duct size, fatty liver (reviewed) Review of Systems Constitutional: Constitutional: Denies chills Eyes: Eyes: Denies blurry vision ENT: Reports Normal hearing present Cardiovascular: Cardiovascular: Reports chest pain Respiratory: Respiratory: Denies dyspnea Gastrointestinal: Gastrointestinal: Reports abdominal pain, Denies nausea and Denies vomiting Genitourinary: Genitourinary: Denies hematuria Musculoskeletal: Musculoskeletal: Denies neck pain Integumentary/Breasts: Skin/Breast: Denies dry skin Neurologic: Denies headache(s) Psychiatric: Psychiatric: Denies behavioral changes [facility] Past Medical History Medical History (Updated 09/18/20 @ 16:35 by Samuel Toro MD) Chronic GERD Chronic upper abdominal pain Congestive heart failure Last echo was 01/03/2019 which shows a grade 1 diastolic impairment and an EF of 60-65%. Essential hypertension Gastritis Gastroparesis Generalized anxiety disorder Heart murmur Hyperlipidemia, unspecified Lumbar disc disease with radiculopathy Neuropathy Non-cardi
--- NOTE | 2020-09-18 17:00 | PC.NURSE ---
NOTIFIED DR. HILARIO THAT MRI - MRCP CANCELLED BY THE DEPARTMENT BECAUSE UNABLE TO PERFORM DUE TO PT'S IMPLANT.
--- NOTE | 2020-09-18 21:12 | EST_ITS ---
Patient Info Name: Shanita Perez Age: 80 years : 1940 Gender: Female Ht: 61 in Wt: 159 lbs BSA: 1.79 m2 Exam Date: 09/18/2020 9:45 AM Exam Location: [facility] Stress Patient Status: Inpatient Admit Date: 09/17/2020 Staff Ordering Physician: Samantha Stewart NP Tax Compliance Representative: Aleena Hackett CT Attending Provider: Gadiel Silverio MD Exercise Technologist: Aleena Hackett CT Exercise Physician: Ralph Valladares DO Exam Type: CA stress michelle w NM Study Info A regadenoson stress test was performed. Summary 1. 1. Negative lexiscan stress test for ischemic ST changes by ECG criteria. 2. 2. Stable hemodynamics throughout the test. 3. 3. Nuclear scan to follow and will be reported separately. Please correlate with it. 4. 4. Patient informed of the above results. Protocol: Lexiscan Stress ECG Details Stage: REST Duration (min): 1 min : 5 sec Jiang: --- Speed (mph): 0.0 Grade (%): 0 HR (bpm): 66 SBP (mmHg): 154 DBP (mmHg): 79 METS: --- Stage: REST Duration (min): 6 min : 26 sec Jiang: --- Speed (mph): 0.0 Grade (%): 0 HR (bpm): 67 SBP (mmHg): 154 DBP (mmHg): 79 METS: --- Stage: STAGE 1 Duration (min): 0 min : 59 sec Jiang: --- Speed (mph): 0.0 Grade (%): 0 HR (bpm): 80 SBP (mmHg): 105 DBP (mmHg): 73 METS: --- Stage: RECOVERY Duration (min): 1 min : 0 sec Jiang: --- Speed (mph): 0.0 Grade (%): 0 HR (bpm): 89 SBP (mmHg): 105 DBP (mmHg): 73 METS: --- Stage: RECOVERY Duration (min): 1 min : 50 sec Jiang: --- Speed (mph): 0.0 Grade (%): 0 HR (bpm): 87 SBP (mmHg): 114 DBP (mmHg): 71 METS: --- Rest HR: 67 bpm Peak HR: 90 bpm Rest Sys BP: 154 mmHg Peak Sys BP: 114 mmHg Max Pred HR: 139 bpm % Max Pred HR: 65 % Target HR: 118 bpm Max RPP: 10,260 bpm*mmHg Alejandro Score: -4 Termination Reason: Completed protocol Cardiac Symptoms: Shortness of breath Max ST Seg Deviation: 1 mm Total Time: 1 min : 0 sec Rest Marie BP: 79 mmHg Peak Marie BP: 71 mmHg Angina Score: None Total Dose: 0.4 mg Total METS: 1.0 Resting ECG Sinus rhythm, consider inferior infarct, age indeterminate, anteroseptal infarct, age indeterminate. Stress ECG No ST changes. Arrhythmias None. Report Signatures
[2020-09-18] MEDS: hydrOXYzine HCL 10 MG TABLET PO (22:44)
[2020-09-18] MEDS: ENOXAPARIN 40 MG/0.4 ML SYRINGE SUB-Q (22:45)
[2020-09-19] VITALS (7 sets, daily range): BP systolic 90–122; BP diastolic 38–79; PULSE 73–80; RESP 13–27; TEMP 36.2; O2SAT 90–100
[2020-09-19 06:14] LABS: Alanine Aminotransferase 206 U/L (4-35); Albumin Level 3.8 g/dL (3.5-5.1); Alkaline Phosphatase 207 U/L (38-126); Anion Gap 6 mmol/L (8-16); Aspartate Amino Transferase 120 U/L (14-36); Bilirubin,Total 0.6 mg/dL (0.2-1.3); Blood Urea Nitrogen 24 mg/dL (7-17); Calcium 8.9 mg/dL (8.4-10.2); Carbon Dioxide 31 mmol/L (22-30); Chloride 102 mmol/L (98-107); Estimated CRCL calculation 32 ml/min; Estimated Glomerular Filt Rate 48; Glucose 100 mg/dL (65-105); Potassium 4.2 mmol/L (3.4-5.0); Sodium 139 mmol/L (137-145)
[2020-09-19 07:14] LABS: Hepatitis B Surface Antigen Negative (Negative)
[2020-09-19 07:20] LABS: HAV RESULT Negative (Negative); Hepatitis B Core IgM Result Negative (Negative)
[2020-09-19 07:31] LABS: Hepatitis C Virus Antibody Negative (Negative)
--- NOTE | 2020-09-19 09:15 | PM.PNCARD ---
Progress Note: A&P Assessment and Plan (1) Chest pain: Qualifiers: Chest pain type: unspecified Qualified Code(s): R07.9 - Chest pain, unspecified Code(s): R07.9 - Chest pain, unspecified Status: Acute Assessment and Plan: Atypical. Could be GI related. She has been ruled out for OK by troponins and EKG. Unremarkable nuclear stress test and echo on 09/18/20. Will sign off. Have her f/u with me in 1-2 weeks after discharge. (2) Dyslipidemia: Code(s): E78.5 - Hyperlipidemia, unspecified Status: Acute Assessment and Plan: Hold statin due to liver enzyme elevation. (3) Essential hypertension: Code(s): I10 - Essential (primary) hypertension Status: Chronic Assessment and Plan: Stable. (4) Abdominal pain: Qualifiers: Abdominal location: generalized Qualified Code(s): R10.84 - Generalized abdominal pain Code(s): R10.9 - Unspecified abdominal pain Status: Acute Assessment and Plan: History of erosive gastritis on EGD. Liver enzyme and alk phos elevation suggestive of cholecystitis. GI following. Subjective Date/time seen: 09/19/20 09:15 At the moment she does not have chest pain, sob, or abdominal pain, but she states it comes and goes. Exam Const: General: cooperative, healthy appearing and comfortable Resp: Auscultation: clear to auscultation bilaterally, no crackles, no rales, no rhonchi and no wheezes Cardio: Jugular venous distension: no JVD Rate: regular rate Rhythm: regular rhythm Heart sounds: no murmurs Peripheral pulses: dorsalis pedis present GI: GI Palp: No abdominal tenderness and Yes Soft to palpation Neuro: General: oriented to person, oriented to place and oriented to time Extrem: Right lower extremity: no edema Left lower extremity: no edema Objective Data Vital Signs Vital Signs: Vital Signs - 24 hr 09/18/20 11:03 09/18/20 11:06 09/18/20 12:00 Temperature 97.3 F L Pulse Rate 73 75 69 Respiratory Rate 14 Blood Pressure 115/68 Pulse Oximetry 99 09/18/20 14:00 09/18/20 16:00 09/18/20 18:00 Temperature 97.8 F Pulse Rate 76 77 86 Respiratory Rate 16 Blood Pressure 133/63 Pulse Oximetry 99 09/18/20 20:00 09/18/20 23:15 09/18/20 23:46 Temperature 97.0 F L 98.0 F Pulse Rate 83 77 81 Respiratory Rate 18 18 14 Blood Pressure 108/71 113/70 Pulse Oximetry 96 95 95 09/19/20 04:00 Temperature 97.2 F L Pulse Rate 78 Respiratory Rate 16 Blood Pressure 116/70 Pulse Oximetry 100 Intake/Output Intake/Output: Intake & Output 09/16/20 09/17/20 09/18/20 09/19/20 23:59 23:59 23:59 23:59 Intake Total 940 240 Output Total 500 100 Balance -500 840 240 Meds/Results Medications: Active Medications Generic Name Dose Route Start Last Admin Trade Name Freq PRN Reason Stop Dose Admin Alendronate Sodium 70 mg 09/23/20 06:30 Alendronate Sodium 70 Mg Tablet PO Mo@0630 MARCELA Aspirin 81 mg 09/18/20 08:00 09/18/20 11:06 Aspirin 81 Mg Chewable Tablet PO 81 mg DAILY@0800 MARCELA Administration Atorvastatin Calcium 20 mg 09/18/20 09:00 Atorvastatin 20 Mg Tablet PO DAILY MARCELA Bupropion HCl 300 mg 09/18/20 09:00 09/18/20 11:05 Bupropion Hcl Xl (24 Hr) 150 Mg Tabcr PO 300 mg DAILY MARCELA Administration Buspirone HCl 10 mg 09/18/20 09:00 09/18/20 16:01 Buspirone Hcl 10 Mg Tablet PO 10 mg BID@0900,1400 MARCELA Administration Calcium Carbonate 200 mg 09/18/20 09:00 09/18/20 16:01 Calcium Carbonate (Tums) 500 Mg (200 Mg Elemental) PO 200 mg BID MARCELA Administration Dicyclomine HCl 10 mg 09/17/20 21:24 Dicyclomine Hcl 10 Mg Capsule PO BID PRN stomach cramping Enoxaparin Sodium 40 mg 09/17/20 21:00 09/18/20 22:45 Enoxaparin 40 Mg/0.4 Ml Syringe SUB-Q 40 mg Q24H MARCELA Administration Fish Oil 1 gm 09/18/20 09:00 09/18/20 11:05 Thornton 3 Polyunsat Fatty Acids 1 Gm Cap PO 1 g
[2020-09-19] MEDS: LACTATED RINGERS 1,000 ML 150 ML IV CONT (11:14)
--- NOTE | 2020-09-19 11:31 | WPDANESEPPF ---
Anes - Initial Pre Proc Eval Procedure: Operation Date: 09/19/20 12:00 Proposed Procedures p Esophagogastroduodenoscopy - Samuel Toro MD Date/Time: 09/19/20 11:31 Surgeon: Gadiel Silverio MD Pre Op Diagnosis: chest pain Patient Data Age: 80 Gender: F Height: 5 ft 1 in Weight: 71.6 kg Last Vital Signs Temp 97.2 F L 09/19/20 11:15 Pulse 78 09/19/20 11:15 Resp 20 09/19/20 11:15 BP 117/67 09/19/20 11:15 Pulse Ox 100 09/19/20 11:15 Allergies Allergy/AdvReac Type Severity Reaction Status Date / Time No Known Allergies Allergy Verified 09/19/20 11:04 Home Medications Medication Instructions Recorded Confirmed Type alendronate 70 mg tablet 70 mg PO WEEKLY #12 tablet 09/20/19 09/17/20 Rx calcium carbonate 200 mg calcium 200 mg PO BID 11/23/19 09/17/20 History (500 mg) chewable tablet omega 0-rea-mmw-fish oil 1,000 mg 1 cap PO DAILY 03/27/20 09/17/20 History (120 mg-180 mg) capsule hydroxyzine HCl 10 mg tablet 10 mg PO .1-2 tablets at night PRN 04/08/20 09/17/20 Rx #180 tablet gabapentin 300 mg capsule 300 mg PO BID #180 cap 04/17/20 09/17/20 Rx dicyclomine 10 mg capsule 10 mg PO BID PRN #180 cap 09/02/20 09/17/20 Rx aspirin [Adult Low Dose Aspirin] 81 mg PO DAILY 09/17/20 09/17/20 History atorvastatin 20 mg PO DAILY 09/17/20 09/17/20 History bupropion HCl 300 mg PO DAILY 09/17/20 09/17/20 History buspirone 10 mg PO BID 09/17/20 09/17/20 History meloxicam 7.5 mg PO BID PRN 09/17/20 09/17/20 History metoclopramide HCl [Reglan] 5 mg PO Q6H PRN 09/17/20 09/17/20 History metoprolol succinate 25 mg PO DAILY 09/17/20 09/17/20 History niacin 500 mg PO DAILY 09/17/20 09/17/20 History omeprazole 40 mg PO DAILY 09/17/20 09/17/20 History ondansetron [Zofran ODT] 4 mg PO Q6H PRN 09/17/20 09/17/20 History Laboratory Tests 09/18/20 09/19/20 09/19/20 05:24 05:08 05:08 Sodium 139 mmol/L mmol/L (137-145) Potassium 4.2 mmol/L mmol/L (3.4-5.0) Chloride 102 mmol/L mmol/L (98-107) Carbon Dioxide 31 mmol/L H mmol/L (22-30) Anion Gap 6 mmol/L L mmol/L (8-16) BUN 24 mg/dL H mg/dL (7-17) Creatinine 1.10 mg/dL H mg/dL (0.7-1.0) Estim Creat Clear Calc 32 ml/min ml/min Estimated GFR 48 L (59 - ) Glucose 100 mg/dL mg/dL (65-105) Calcium 8.9 mg/dL mg/dL (8.4-10.2) Total Bilirubin 0.6 mg/dL mg/dL (0.2-1.3) AST 120 U/L H U/L (14-36) ALT 206 U/L H U/L (4-35) Alkaline Phosphatase 207 U/L H U/L (38-126) NT-Pro-B Natriuret Pep 254 PG/ML H PG/ML (5-100) Total Protein 7.0 g/dL g/dL (6.3-8.2) Albumin 3.8 g/dL g/dL (3.5-5.1) Hepatitis A IgM Ab Negative (Negative) Hep Bs Antigen Negative (Negative) Hep B Core IgM Ab Negative (Negative) Hepatitis C Ab Screen Negative (Negative) Patient hx anesthesia problems: none Family hx anesthesia problems: none PMFSH Past Medical History Medical History (Updated 09/18/20 @ 16:35 by Samuel Toro MD) Chronic GERD Chronic upper abdominal pain Congestive heart failure Last echo was 01/03/2019 which shows a grade 1 diastolic impairment and an EF of 60-65%. Essential hypertension Gastritis Gastroparesis Generalized anxiety disorder Heart murmur Hyperlipidemia, unspecified Lumbar disc disease with radiculopathy Neuropathy Non-cardiac chest pain EDWARD (obstructive sleep apnea) Osteoporosis Primary osteoarthritis involving multiple joints Pulmonary nodule Right inguinal hernia Stable angina pectoris UTI (urinary tract infection) Weight loss, unintentional Surgical History Surgical History (Updated 09/17/20 @ 21:14 by Samantha Stewart NP) History of tonsillectomy Family History Family History (Updated 09/17/20 @ 21:15 by Samantha Stewart NP) Unknown Unknown family m
--- NOTE | 2020-09-19 13:02 | PM.DS ---
DS: Admitting Diagnosis Admitting Diagnosis Admitting Diagnosis: (1) Chest pain: (2) Congestive heart failure: (3) EDWARD (obstructive sleep apnea): (4) Chronic GERD: (5) Essential hypertension: (6) Dyslipidemia: (7) Generalized anxiety disorder: Code(s): DS: Discharge Diagnosis Discharge Diagnosis (1) Gastritis: Code(s): K29.70 - Gastritis, unspecified, without bleeding Status: Acute Assessment and Plan: Avoid NSAID's continue PPI (2) Chronic upper abdominal pain: Code(s): R10.10 - Upper abdominal pain, unspecified; G89.29 - Other chronic pain Status: Acute Assessment and Plan: status post EGD MRCP was not able to be done because of patient's implanted pain stimulator (3) Non-cardiac chest pain: Code(s): R07.89 - Other chest pain Status: Acute Assessment and Plan: patient had extensive workup from the cardiac standpoint with a stress test Lexiscan which was basically nonrevealing (4) Abnormal LFTs (liver function tests): Code(s): R94.5 - Abnormal results of liver function studies Status: Acute Assessment and Plan: patient with elevated liver function test she is status post cholecystectomy MRCP not able to do due to implanted pain stimulator (5) Right upper quadrant abdominal pain: Code(s): R10.11 - Right upper quadrant pain Status: Acute Assessment and Plan: right upper quadrant ultrasound noted significant for fatty liver (6) Congestive heart failure: Code(s): I50.9 - Heart failure, unspecified Status: Chronic Assessment and Plan: appears to be compensated (7) EDWARD (obstructive sleep apnea): Code(s): G47.33 - Obstructive sleep apnea (adult) (pediatric) Status: Chronic Assessment and Plan: continue the use of CPAP at night (8) Essential hypertension: Code(s): I10 - Essential (primary) hypertension Status: Chronic Assessment and Plan: continue to monitor continue home meds follow-up in outpatient setting (9) Chronic GERD: Code(s): K21.9 - Gastro-esophageal reflux disease without esophagitis Status: Chronic Assessment and Plan: continue PPI (10) Gastroparesis: Code(s): K31.84 - Gastroparesis Status: Chronic Assessment and Plan: diet modifications (11) Generalized anxiety disorder: Code(s): F41.1 - Generalized anxiety disorder Status: Chronic Assessment and Plan: continue bupropion (12) Neuropathy: Code(s): G62.9 - Polyneuropathy, unspecified Status: Chronic Assessment and Plan: continue gabapentin (13) Osteoporosis: Code(s): M81.0 - Age-related osteoporosis without current pathological fracture Status: Chronic Assessment and Plan: continue alendronate DS: Summary Hospital Course Reason for hospitalization: abdominal pain Hospital Course: this is an 80-year-old female with past medical history significant for chronic abdominal pain implanted pain stimulator osteoporosis hypertension gastro paresis generalized anxiety disorder peripheral neuropathy dyslipidemia. patient presented to the emergency room complaining of epigastric pain localized to the retrosternal area. she was admitted to chest pain center and she had serial troponins which were normal and Lexiscan stress test was normal. then a consult with GI was obtained. patient underwent EGD findings were significant for hiatal hernia and gastritis patient was advised to avoid NSAID's there was talk of MRCP however patient has an implanted pain stimulator which would prevent from obtaining it. procedures done: EGD see reports somewhere else consult obtained: GI consult Status at Discharge Cognitive/behavioral status at discharge: AAOX3 Functional status at discharge: independent ambulation Time Spent with Patient T
== END 2020-09-19 14:53 | disposition home or self-care (01) ==
LOC: ANHED 16:32 → ANHCPC 18:17
PROVIDERS: Internal Medicine Gastroenterology; Nurse Practitioner; Admitting Provider Internal Medicine; Emergency Provider Emergency Medicine; PCP Family Medicine; Visit Provider Internal Medicine
PROC: 0DJ08ZZ Inspection of Upper Intestinal Tract, Via Natural or Artificial Opening Endoscopic (ICD-10-PCS; CPT 43235; principal; 2020-09-19 12:00)
DX: K29.50 Unspecified chronic gastritis without bleeding (principal); R10.11 Right upper quadrant pain; R07.89 Other chest pain; R06.02 Shortness of breath; K21.9 Gastro-esophageal reflux disease without esophagitis; K44.9 Diaphragmatic hernia without obstruction or gangrene; I11.0 Hypertensive heart disease with heart failure; I50.9 Heart failure, unspecified; E78.5 Hyperlipidemia, unspecified; F41.1 Generalized anxiety disorder; G47.33 Obstructive sleep apnea (adult) (pediatric); R94.5 Abnormal results of liver function studies; Z90.49 Acquired absence of other specified parts of digestive tract
CPT/HCPCS: 43239; 36415; 71046; 76705; 78452; 80048; 80053; 80074; 83735; 83880; 84443; 84484; 85025; 85610; 85730; 88305; 93005; 93017; 93306; 96360; 96372; 99285; A9270; A9502; G0378; J1650; J1940; J2704; J2785; J7120

== ENCOUNTER 2020-12-09 14:42 | Emergency (ER) | payer MEDICARE, SELFPAY ==
[2020-12-09 14:50] VITALS: BP 105/64; PULSE 128; RESP 20; TEMP 36.3; O2SAT 98
--- NOTE | 2020-12-09 15:12 | ED.GENADULT ---
HPI - General Adult General Chief complaint: Abdominal Pain Stated complaint: Body and Abdominal pain Time Seen by Provider: 12/09/20 15:15 Source: patient and RN notes reviewed Mode of arrival: ambulatory Limitations: no limitations History of Present Illness HPI narrative: 80-year-old female presents with concern for bilateral upper quadrant abdominal pain, back pain. Reports symptoms started 2 to 3 days ago. She reports stomach pain with eating, drinking. She reports belching when eating and drinking. She denies vomiting, constipation, diarrhea, fever. MD complaint: Abdominal pain Related Data Home Medications Medication Instructions Recorded Confirmed calcium carbonate 200 mg calcium 200 mg PO BID 11/23/19 10/07/20 (500 mg) chewable tablet omega 5-kye-ndw-fish oil 1,000 mg 1 cap PO DAILY 03/27/20 10/07/20 (120 mg-180 mg) capsule metoprolol succinate 25 mg PO DAILY 09/17/20 10/07/20 omeprazole 40 mg PO DAILY 09/17/20 10/07/20 Allergies Allergy/AdvReac Type Severity Reaction Status Date / Time No Known Allergies Allergy Verified 10/07/20 11:22 Review of Systems Review of Systems: Narrative: CONSTITUTIONAL: Denies malaise, chills, sweats, or fever. CARDIOVASCULAR: Denies chest pain, palpitations, or edema. RESPIRATORY: Denies cough or dyspnea. GASTROINTESTINAL: Reports upper abdominal pain, belching, nausea. Denies vomiting, diarrhea, bloody, or mucous stools. GENITOURINARY: Denies dysuria or hematuria. MUSCULOSKELETAL: Denies myalgia. NEUROLOGIC: Denies numbness, weakness, or headache. All systems reviewed & are unremarkable except as noted in HPI and below PMFSH Past Medical History Medical History Chronic GERD Chronic upper abdominal pain Congestive heart failure Last echo was 01/03/2019 which shows a grade 1 diastolic impairment and an EF of 60-65%. Essential hypertension Gastritis Gastroparesis Generalized anxiety disorder Heart murmur History of recurrent UTI (urinary tract infection) Hyperlipidemia, unspecified Lumbar disc disease with radiculopathy Neuropathy EDWARD (obstructive sleep apnea) Osteoporosis Primary osteoarthritis involving multiple joints Pulmonary nodule Right inguinal hernia Stable angina pectoris UTI (urinary tract infection) Weight loss, unintentional Surgical History Surgical History History of tonsillectomy Family History Family History Unknown Unknown family medical history Other Family history of cardiovascular disease Social History Social History Social History: The patient stated that she is and she has no children. She does not have a durable power benefits counselor for healthcare. 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 The patient desires to be a full code and does not have a durable power benefits counselor for healthcare. Patient is lifelong nonsmoker. She does not use alcohol marijuana illicit drugs. Smoking packs per day: 0 Smoking cigarettes per day: 0.0 Smoking status: Never smoker Tobacco type: cigarettes Second hand tobacco smoke exposure: No Additional smoking assessment comments: [facility] Alcohol intake: former Substance use: never Substance use type: does not use Gender identity (if verbalized by the patient): Female Spiritual care concerns: No Comments At time of signature, agree with nursing past medical, surgical, social and family history. There is no relevant family history pertinent to the presenting complaint Exam Narrative: Exam Narrative: GENERAL: Well-appearing, well-nourished, and in no acute distress. HEAD: Normocephalic. EYES: PERRLA, conjunctivae clear. NECK: Supple. No lymphadenopathy CHEST: Clear to auscultation. No respiratory distress. HEART: Regular rate and r
== END 2020-12-09 15:35 | disposition short-term general hospital (02) ==
PROVIDERS: Emergency Provider Nurse Practitioner; PCP Family Medicine
DX: R10.11 Right upper quadrant pain (principal); R10.12 Left upper quadrant pain; M54.9 Dorsalgia, unspecified; K21.9 Gastro-esophageal reflux disease without esophagitis; I11.0 Hypertensive heart disease with heart failure; I50.9 Heart failure, unspecified; R01.1 Cardiac murmur, unspecified; G47.33 Obstructive sleep apnea (adult) (pediatric); M81.0 Age-related osteoporosis without current pathological fracture; M19.90 Unspecified osteoarthritis, unspecified site; I20.9 Angina pectoris, unspecified
CPT/HCPCS: 81003; 87086; 87088; 99213; G0463

== ENCOUNTER 2020-12-09 16:06 | Emergency (ER) | payer MEDICARE, SELFPAY ==
[2020-12-09] VITALS (7 sets, daily range): BP systolic 89–142; BP diastolic 62–77; PULSE 66–98; RESP 16–20; TEMP 36.5–37.1; O2SAT 96–100
--- NOTE | ~2020-12-09 | CT_ITS ---
EXAMINATION: CT abdomen pelvis w con EXAM DATE: 12/09/2020 20:50 INDICATION: Upper abdominal, epigastric pain. TECHNIQUE: Spiral CT of the abdomen and pelvis was performed following intravenous injection of 100 m L Omnipaque 350. Axial, coronal and sagittal images of the abdomen and pelvis were reviewed. The do se-length product (DLP) for this examination was 466.25 mGy-cm. The exposure was tailored according to patient size (auto mA exposure control), and iterative reconstruction (ASIR) was used as additiona l dose reduction technique. Comparison is made to prior examination from 11/04/2018. FINDINGS: The liver, spleen, adrenal glands and pancreas are unremarkable. There are cholecystectomy clips. Portal and splenic veins are patent. Kidneys enhance symmetrically. There is no hydronephr osis. The uterus is unremarkable. The bladder is unremarkable. There is no retroperitoneal or pe lvic lymphadenopathy. There is mild scattered arteriosclerotic disease. The appendix is normal. The stomach and small bowel are unremarkable. There is expected amount of c olonic stool. No free intraperitoneal gas. There is cardiomegaly. There is calcified left lower l obe granuloma. The lung bases are unremarkable. There is about 6 mm anterolisthesis L4 on L5 withou t spondylolysis. Spine stimulator device. IMPRESSION: 1. No acute intra-abdominal findings. Reviewed, dictated and finalized at location G.
[2020-12-09 16:49] LABS: Basophils Absolute Auto 0.1 K/mm3 (0.0-0.1); Basophils Percent Auto 0.7 % (0.2-1.2); Eosinophils Absolute Auto 0.2 K/mm3 (0-0.3); Eosinophils Percent Auto 2.6 % (0-4.4); Hematocrit 41.5 % (37.0-47.0); Hemoglobin 13.7 g/dL (12.0-15.0); Immature Granulocyte Absolute 0.01 K/mm3 (0.00-0.031); Immature Granulocyte Percent A 0.1 % (0-0.5); Lymphocytes Absolute Auto 1.95 K/mm3 (0.9-3.2); Lymphocytes Percent Auto 26.2 % (18.3-44.2); Mean Corpuscular Hemoglobin 29.5 pg (26-34); Mean Corpuscular Volume 89.4 fl (80-100); Mean Platelet Volume 9.1 fl (7.4-10.4); Monocytes Absolute Auto 0.8 K/mm3 (0.1-0.6); Monocytes Percent Auto 10.3 % (2.6-8.5); Neutrophils Absolute Auto 4.5 K/mm3 (1.3-6.7); Neutrophils Percent Auto 60.1 % (45.5-73.1); Platelet Count Result 226 k/mm3 (150-375); Red Blood Count 4.64 M/mm3 (4.2-5.4); Red Cell Distribution Width 14.9 % (11.5-14.5); White Blood Count 7.4 K/mm3 (4.5-10.0)
[2020-12-09 16:58] LABS: Alanine Aminotransferase 28 U/L (4-35); Alkaline Phosphatase 81 U/L (38-126); Anion Gap 7 mmol/L (8-16); Aspartate Amino Transferase 46 U/L (14-36); Bilirubin,Total 0.4 mg/dL (0.2-1.3); Blood Urea Nitrogen 13 mg/dL (7-17); Carbon Dioxide 26 mmol/L (22-30); Chloride 106 mmol/L (98-107); Estimated CRCL calculation 174 ml/min; Estimated Glomerular Filt Rate 60; Glucose 91 mg/dL (65-105); Lipase 134 U/L (23-300); Potassium 4.4 mmol/L (3.4-5.0); Sodium 139 mmol/L (137-145)
[2020-12-09] MEDS: SODIUM CHLORIDE 0.9% IV 1,000 ML 999 ML IV CONT (21:12)
--- NOTE | 2020-12-09 22:31 | ED.ABDPAIN ---
HPI - Abdominal Pain General Chief Complaint: Abdominal Pain Stated Complaint: Abd Pain Time Seen by Provider: 12/09/20 20:06 Source: patient and RN notes reviewed Mode of arrival: ambulatory Limitations: no limitations History of Present Illness HPI narrative: Patient is 80 years old white female presented to the ED from home by private car, patient lives alone complaining of abdominal pain Patient denies any fever, chills, nausea, vomiting, diarrhea, constipation, urinary symptoms. Related Data Home Medications Medication Instructions Recorded Confirmed calcium carbonate 200 mg calcium 200 mg PO BID 11/23/19 10/07/20 (500 mg) chewable tablet omega 9-hfb-xhy-fish oil 1,000 mg 1 cap PO DAILY 03/27/20 12/09/20 (120 mg-180 mg) capsule metoprolol succinate 25 mg PO DAILY 09/17/20 12/09/20 omeprazole 40 mg PO DAILY 09/17/20 12/09/20 atorvastatin 12/09/20 Allergies Allergy/AdvReac Type Severity Reaction Status Date / Time No Known Allergies Allergy Verified 12/09/20 18:51 Review of Systems Review of Systems: Narrative: CONSTITUTIONAL: Denies fever, chills, or sweats. EYES: Denies visual changes, redness, or discharge. ENT: Denies rhinorrhea, congestion, sore throat, or otalgia. CARDIOVASCULAR: Denies chest pain, palpitations, or edema. RESPIRATORY: Denies cough or dyspnea. GASTROINTESTINAL: Intermittent abdominal pain for months a. GENITOURINARY: Denies dysuria or hematuria. SKIN: Denies rash or itching. MUSCULOSKELETAL: Denies back pain, joint pain, or myalgia. NEUROLOGIC: Denies headache, numbness, or weakness. PSYCHIATRIC: Denies anxiety or depression. [facility] Past Medical History Medical History Chronic GERD Chronic upper abdominal pain Congestive heart failure Last echo was 01/03/2019 which shows a grade 1 diastolic impairment and an EF of 60-65%. Essential hypertension Gastritis Gastroparesis Generalized anxiety disorder Heart murmur History of recurrent UTI (urinary tract infection) Hyperlipidemia, unspecified Lumbar disc disease with radiculopathy Neuropathy EDWARD (obstructive sleep apnea) Osteoporosis Primary osteoarthritis involving multiple joints Pulmonary nodule Right inguinal hernia Stable angina pectoris UTI (urinary tract infection) Weight loss, unintentional Surgical History Surgical History History of tonsillectomy Family History Family History Unknown Unknown family medical history Other Family history of cardiovascular disease Social History Social History Social History: The patient stated that she is and she has no children. She does not have a durable power trade mark attorney for healthcare. 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 The patient desires to be a full code and does not have a durable power trade mark attorney for healthcare. Patient is lifelong nonsmoker. She does not use alcohol marijuana illicit drugs. Smoking packs per day: 0 Smoking cigarettes per day: 0.0 Smoking status: Never smoker Tobacco type: cigarettes Second hand tobacco smoke exposure: No Additional smoking assessment comments: [facility] Alcohol intake: former Substance use: never Substance use type: does not use Gender identity (if verbalized by the patient): Female Spiritual care concerns: No Exam Narrative: Exam Narrative: General appearance: Well-developed, well-nourished Skin: Normal color Head: Normocephalic, nontraumatic Eyes: Clear conjunctiva ENT: Oropharynx normal, ears normal, nose normal Neck: Supple, nontender Chest and respiratory: Airway patent, no respiratory distress, no accessory muscle use Heart: Regular rate/rhythm Abdomen: Soft, diffuse abdominal tenderness, no rebound, no guarding, quiet bowel sounds Vascular: Normal perip
[2020-12-09 22:51] LABS: Add Urine Microscopic? YES; Appearance Urine Clear (Clear); Bacteria Urine Trace /hpf; Bilirubin Urine Negative (Negative); Blood Urine Negative (Negative); Color Urine Yellow (Yellow); Glucose Urine UA Negative (Negative); Ketones Urine Negative (Negative); Leukocyte Esterase Ur 3+ LEU/UL (Negative); Mucus Urine Rare /lpf; Nitrate Urine Negative (Negative); Protein Urine Negative (Negative); RBC Urine 21-50 /hpf (0-2); Squamous Epithelial Cell Urine Occasional /hpf (Few); Urobilinogen Urine Negative mg/dL (<2.0); WBC Urine 31-50 /hpf
[2020-12-09 22:52] LABS: Specific Grav Ur > 1.060 (1.001-1.035)
--- NOTE | 2020-12-09 23:33 | PC.NURSE ---
Assumed care of pt. at this time. report from WU Boateng
[2020-12-10 00:15] VITALS: BP 108/70; PULSE 65; RESP 12; O2SAT 99
--- NOTE | 2020-12-10 00:15 | PC.NURSE ---
contacted Grace An [phone] to pick up man pt. states she will be here approx. [phone].
== END 2020-12-10 00:15 | disposition home or self-care (01) ==
PROVIDERS: Emergency Provider Emergency Medicine; PCP Family Medicine
DX: N39.0 Urinary tract infection, site not specified (principal); R10.84 Generalized abdominal pain; I11.0 Hypertensive heart disease with heart failure; I50.30 Unspecified diastolic (congestive) heart failure; E78.5 Hyperlipidemia, unspecified
CPT/HCPCS: 36415; 74177; 80053; 81001; 81003; 83690; 85025; 87086; 87088; 96360; 99284; J7030; Q9967

== ENCOUNTER 2021-05-31 06:49 | Emergency (ER) | payer MEDICARE, SELFPAY ==
[2021-05-31] VITALS (8 sets, daily range): BP systolic 134–160; BP diastolic 69–85; PULSE 83–87; RESP 15–22; TEMP 35.9; O2SAT 95–99
--- NOTE | ~2021-05-31 | CT_ITS ---
EXAMINATION: CT abdomen pelvis w con DATE: 05/31/2021 08:25 INDICATION: Lower abdominal pain, left upper quadrant abdominal pain. Nausea and vomiting. TECHNIQUE: Computed tomography (CT) of the abdomen and pelvis was performed with 100 cc Omnipaque 350 intravenous contrast. Automated exposure control and iterative reconstruction technique were employe d. Exam dose: 507.36 mGy-cm total exam DLP. COMPARISON: 12/09/2020 CT abdomen pelvis / right upper quadrant ultrasound examination FINDINGS: The lung bases are clear of infiltrate or consolidation. Cardiomegaly. No pericardial or pl eural effusion. Small sliding hiatal hernia. Mild prominence of the bile ducts, likely due to prior cholecystectomy. Normal caliber of the pancrea tic duct. No hepatic or pancreatic space-occupying mass lesion or pancreatic calcification. There are numerous hepatic and splenic calcified granulomas. No splenomegaly. Normal morphology of the adrenal glands. No renal mass lesion or urinary tract calculus or hydroureteronephrosis. Normal caliber of the abdominal aorta. No intraperitoneal or retroperitoneal or pelvic mass lesion or adenopathy or ascites. There is diverticulosis of the sigmoid colon; no CT evidence of diverticulitis. No bowel obstruction, bowel wall thickening, pneumatosis or intraperitoneal free air is noted. The appendix is normal. The urinary bladder, uterus and adnexal areas are unremarkable. Battery pack in the subcutaneous is tissues of the left anterior abdominal wall with leads extending to the dorsal thoracic spinal canal. Chronic moderate anterior wedge compression fracture deformity of L3. Multilevel degenerative disc disease of the lumbar spine, most prominent at L5-S1. There is grade 1 anterolisthesis at L2-3 and L4-5 due to degenerative change at the apophyseal joints . IMPRESSION: Small sliding hiatal hernia Status post cholecystectomy Diverticulosis of the sigmoid colon; no CT evidence of diverticulitis Chronic L3 fracture deformity Reviewed, dictated and finalized at [facility]. Reviewed, dictated and finalized at location [facility]. A R SPECIALIST
--- NOTE | 2021-05-31 07:26 | ECG_ITS ---
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
[2021-05-31 07:42] LABS: Basophils Absolute Auto 0.1 K/mm3 (0.0-0.1); Basophils Percent Auto 0.7 % (0.2-1.2); Eosinophils Absolute Auto 0.2 K/mm3 (0-0.3); Eosinophils Percent Auto 2.5 % (0-4.4); Hematocrit 42.6 % (37.0-47.0); Hemoglobin 14.3 g/dL (12.0-15.0); Immature Granulocyte Absolute 0.02 K/mm3 (0.00-0.031); Immature Granulocyte Percent A 0.3 % (0-0.5); Lymphocytes Absolute Auto 1.46 K/mm3 (0.9-3.2); Lymphocytes Percent Auto 21.8 % (18.3-44.2); Mean Corpuscular HGB Conc 33.6 g/dl (32-36); Mean Corpuscular Hemoglobin 31.7 pg (26-34); Mean Corpuscular Volume 94.5 fl (80-100); Mean Platelet Volume 9.3 fl (7.4-10.4); Monocytes Absolute Auto 0.5 K/mm3 (0.1-0.6); Monocytes Percent Auto 7.5 % (2.6-8.5); Neutrophils Absolute Auto 4.5 K/mm3 (1.3-6.7); Neutrophils Percent Auto 67.2 % (45.5-73.1); Platelet Count Result 211 k/mm3 (150-375); Red Blood Count 4.51 M/mm3 (4.2-5.4); Red Cell Distribution Width 14.3 % (11.5-14.5); White Blood Count 6.7 K/mm3 (4.5-10.0)
[2021-05-31] MEDS: SODIUM CHLORIDE 0.9% IV 1,000 ML 999 ML IV CONT (07:51)
[2021-05-31] MEDS: ONDANSETRON INJ 4 MG/2 ML VIAL IV PUSH (07:51)
[2021-05-31 07:52] LABS: Alanine Aminotransferase 27 U/L (4-35); Alkaline Phosphatase 76 U/L (38-126); Anion Gap 7 mmol/L (8-16); Aspartate Amino Transferase 39 U/L (14-36); Bilirubin,Total 0.3 mg/dL (0.2-1.3); Blood Urea Nitrogen 12 mg/dL (7-17); Calcium 8.5 mg/dL (8.4-10.2); Carbon Dioxide 23 mmol/L (22-30); Chloride 108 mmol/L (98-107); Estimated CRCL calculation 42 ml/min; Estimated Glomerular Filt Rate > 60; Glucose 111 mg/dL (65-110); Lipase 93 U/L (23-300); Potassium 4.1 mmol/L (3.4-5.0); Sodium 138 mmol/L (137-145)
[2021-05-31] MEDS: MORPHINE SULFATE (*CRX) 4 MG/ML INJ IV PUSH (07:52)
[2021-05-31 08:03] LABS: Troponin I < 0.012 ng/mL (0.000-0.034)
[2021-05-31 08:12] LABS: INR 0.9; Prothrombin Time 12.4 Seconds (11.1-14.7)
--- NOTE | 2021-05-31 08:25 | ED.GENADULT ---
HPI - General Adult General Chief complaint: Nausea/Vomiting/Diarrhea Stated complaint: N/V Time Seen by Provider: 05/31/21 07:26 Source: patient Mode of arrival: ambulatory Limitations: no limitations History of Present Illness HPI narrative: Patient presents with upper abdominal pain mainly on the left side started 1 hour prior to arrival to the emergency room. Patient reported having similar symptoms when somebody accusing her of doing something wrong or when she is distressed. Patient denies any fever, chills, nausea, vomiting, diarrhea, constipation, urinary symptoms. Currently feeling much better, patient lives alone with her dog. Today is the , no family members around patient is fully vaccinated for COVID Related Data Home Medications Medication Instructions Recorded Confirmed calcium carbonate 200 mg calcium 200 mg PO BID 11/23/19 02/18/21 (500 mg) chewable tablet omega 4-tjm-cvk-fish oil 1,000 mg 1 cap PO DAILY 03/27/20 02/18/21 (120 mg-180 mg) capsule Allergies Allergy/AdvReac Type Severity Reaction Status Date / Time No Known Allergies Allergy Verified 05/31/21 07:00 Review of Systems Review of Systems: CONSTITUTIONAL: Denies fever, chills, or sweats. EYES: Denies visual changes, redness, or discharge. ENT: Denies rhinorrhea, congestion, sore throat, or otalgia. CARDIOVASCULAR: Denies chest pain, palpitations, or edema. RESPIRATORY: Denies cough or dyspnea. GASTROINTESTINAL: Denies abdominal pain, nausea, vomiting, or diarrhea. GENITOURINARY: Denies dysuria or hematuria. SKIN: Denies rash or itching. MUSCULOSKELETAL: Denies back pain, joint pain, or myalgia. NEUROLOGIC: Denies headache, numbness, or weakness. PSYCHIATRIC: Denies anxiety or depression. [facility] Past Medical History Medical History Chronic GERD Chronic upper abdominal pain Congestive heart failure Last echo was 01/03/2019 which shows a grade 1 diastolic impairment and an EF of 60-65%. Essential hypertension Gastritis Gastroparesis Generalized anxiety disorder Heart murmur History of recurrent UTI (urinary tract infection) Hyperlipidemia, unspecified Lumbar disc disease with radiculopathy Neuropathy EDWARD (obstructive sleep apnea) Osteoporosis Primary osteoarthritis involving multiple joints Pulmonary nodule Right inguinal hernia Stable angina pectoris Weight loss, unintentional Surgical History Surgical History History of tonsillectomy Family History Family History Unknown Unknown family medical history Other Family history of cardiovascular disease Social History Social History Social History: The patient stated that she is and she has no children. She does not have a durable power hvac technician for healthcare. 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 The patient desires to be a full code and does not have a durable power hvac technician for healthcare. Patient is lifelong nonsmoker. She does not use alcohol marijuana illicit drugs. Smoking packs per day: 0 Smoking cigarettes per day: 0.0 Smoking status: Never smoker Tobacco type: cigarettes Second hand tobacco smoke exposure: No Additional smoking assessment comments: [facility]ORY Alcohol intake: former Substance use: never Substance use type: does not use Gender identity (if verbalized by the patient): Female Spiritual care concerns: No Exam Narrative: General appearance: Well-developed, well-nourished Skin: Normal color Head: Normocephalic, nontraumatic Eyes: Clear conjunctiva ENT: Oropharynx normal, ears normal, nose normal Neck: Supple, nontender Chest and respiratory: Airway patent, no respiratory distress, no accessory muscle use Heart: Regular rate/rhythm Abdomen: Soft, mild tendernes
[2021-05-31 09:15] LABS: Add Urine Microscopic? YES; Appearance Urine Clear (Clear); Bilirubin Urine Negative (Negative); Blood Urine Negative (Negative); Color Urine Colorless (Yellow); Glucose Urine UA Negative (Negative); Ketones Urine Negative (Negative); Leukocyte Esterase Ur Trace LEU/UL (Negative); Mucus Urine Rare /lpf; Nitrate Urine Negative (Negative); Protein Urine Negative (Negative); RBC Urine 0-2 /hpf (0-2); Squamous Epithelial Cell Urine Rare /hpf (Few); Urobilinogen Urine Negative mg/dL (<2.0)
[2021-05-31 09:16] LABS: Specific Grav Ur 1.044 (1.001-1.035)
== END 2021-05-31 10:20 | disposition home or self-care (01) ==
PROVIDERS: Emergency Provider Emergency Medicine; PCP Family Medicine
DX: R10.10 Upper abdominal pain, unspecified (principal); I11.0 Hypertensive heart disease with heart failure; I50.30 Unspecified diastolic (congestive) heart failure
CPT/HCPCS: 36415; 74177; 80053; 81001; 83690; 84484; 85025; 85610; 85730; 93005; 96361; 96374; 96375; 99284; J2270; J2405; J7030; Q9967

== ENCOUNTER 2021-06-05 12:15 | Emergency (ER) | payer MEDICARE, SELFPAY ==
--- NOTE | ~2021-06-05 | CT_ITS ---
EXAMINATION: CT abdomen pelvis w con INDICATION: Abdominal pain TECHNIQUE: Computed tomographic images of the abdomen and pelvis were obtained after the administrati on of 100 cc of Omnipaque 350 intravenous contrast. The dose-length product (DLP) was 459.83 mGy-cm. Automated exposure control and iterative reconstruction technique were employed. COMPARISON: None available FINDINGS: The lung bases are clear. The heart size is normal. The gallbladder is surgically absent. T here is mild enlargement of the common bile duct and central intrahepatic ducts which is likely due t o post cholecystectomy state. Punctate calcifications in the liver and spleen likely represent healed granulomatous disease. The pancreas and adrenal glands are unremarkable. The kidneys are normal. The re is no free intraperitoneal gas or evidence of bowel obstruction. No pathologically enlarged abdomi nal or pelvic lymph nodes are identified. There is a chronic L3 compression fracture. IMPRESSION: 1. No CT correlate for the patient's symptoms. Reviewed, dictated and finalized at location [facility]. RAL RESOURCES ENGINEER
[2021-06-05 12:20] VITALS: BP 121/71; PULSE 76; RESP 18; TEMP 36.2; O2SAT 97
[2021-06-05 16:25] LABS: Basophils Absolute Auto 0.1 K/mm3 (0.0-0.1); Eosinophils Absolute Auto 0.1 K/mm3 (0-0.3); Eosinophils Percent Auto 1.6 % (0-4.4); Hematocrit 42.3 % (37.0-47.0); Hemoglobin 14.8 g/dL (12.0-15.0); Immature Granulocyte Absolute 0.02 K/mm3 (0.00-0.031); Immature Granulocyte Percent A 0.3 % (0-0.5); Lymphocytes Percent Auto 35.5 % (18.3-44.2); Mean Corpuscular Hemoglobin 32.1 pg (26-34); Mean Corpuscular Volume 91.8 fl (80-100); Mean Platelet Volume 9.6 fl (7.4-10.4); Monocytes Absolute Auto 0.7 K/mm3 (0.1-0.6); Monocytes Percent Auto 9.6 % (2.6-8.5); Neutrophils Absolute Auto 3.8 K/mm3 (1.3-6.7); Platelet Count Result 210 k/mm3 (150-375); Red Blood Count 4.61 M/mm3 (4.2-5.4); Red Cell Distribution Width 14.4 % (11.5-14.5); White Blood Count 7.3 K/mm3 (4.5-10.0)
[2021-06-05 16:41] LABS: Lactic Acid Reflex 1.2 mmol/L (0.7-2.1)
[2021-06-05 17:21] LABS: Alanine Aminotransferase 24 U/L (4-35); Alkaline Phosphatase 67 U/L (38-126); Anion Gap 8 mmol/L (8-16); Aspartate Amino Transferase 47 U/L (14-36); Bilirubin,Total 0.4 mg/dL (0.2-1.3); Blood Urea Nitrogen 16 mg/dL (7-17); Carbon Dioxide 24 mmol/L (22-30); Chloride 105 mmol/L (98-107); Estimated CRCL calculation 39 ml/min; Estimated Glomerular Filt Rate 60; Glucose 104 mg/dL (65-110); Potassium 4.1 mmol/L (3.4-5.0); Sodium 137 mmol/L (137-145)
[2021-06-05 17:35] LABS: Add Urine Microscopic? YES; Amorphous Sediment Urine Few; Appearance Urine Clear (Clear); Bilirubin Urine Negative (Negative); Blood Urine Negative (Negative); Color Urine Yellow (Yellow); Glucose Urine UA Negative (Negative); Ketones Urine Trace mg/dL (Negative); Leukocyte Esterase Ur 1+ LEU/UL (Negative); Mucus Urine Few /lpf; Nitrate Urine Negative (Negative); Protein Urine Negative (Negative); RBC Urine 0-2 /hpf (0-2); Squamous Epithelial Cell Urine Rare /hpf (Few); Urobilinogen Urine Negative mg/dL (<2.0)
--- NOTE | 2021-06-05 18:17 | ECG_ITS ---
Measurements Intervals [place] Rate: 82 P: 51 [place]: 188 QRS: -38 QRSD: 102 T: -35 QT: 405 QTc: 474 Interpretive Statements SINUS RHYTHM LEFT AXIS DEVIATION LEFT VENTRICULAR HYPERTROPHY WITH ST-T CHANGE ANTEROSEPTAL INFARCT, AGE INDETERMINATE CONSIDER INFERIOR INFARCT, AGE INDETERMINATE BORDERLINE ST ABNORMALITY- LATERAL LEADS BASELINE ARTIFACT- I, II, III, AVR, AVL, AVF ABNORMAL ECG Electronically Signed On 06-05-2021 18:48:14 INTERNET MARKETING CONSULTANT by Ralph Valladares D.O.
[2021-06-05] MEDS: methylPREDNISolone SOD SUCC 125 MG VIAL IV PUSH (18:23)
[2021-06-05 18:28] VITALS: BP 145/104; PULSE 91; RESP 18; O2SAT 100
--- NOTE | 2021-06-05 18:29 | ED.GENADULT ---
HPI - General Adult General Chief complaint: Abdominal Pain Stated complaint: abd pain, constipation Time Seen by Provider: 06/05/21 15:53 Source: patient Mode of arrival: ambulatory Limitations: no limitations History of Present Illness HPI narrative: Patient is 80-year-old female with chief complaint of lower abdominal pain over the past 3 days. Patient reports she has not had constipation or any issues with her bowels. Patient denies having nausea or vomiting. Patient denies fever, chills, chest pain, shortness of breath, urinary symptoms or any other symptoms. Patient has not taken anything to alleviate her symptoms. Patient denies have any prior abdominal surgeries. Patient is a poor historian. Related Data Home Medications Medication Instructions Recorded Confirmed calcium carbonate 200 mg calcium 200 mg PO BID 11/23/19 02/18/21 (500 mg) chewable tablet omega 2-yxn-isn-fish oil 1,000 mg 1 cap PO DAILY 03/27/20 02/18/21 (120 mg-180 mg) capsule Allergies Allergy/AdvReac Type Severity Reaction Status Date / Time No Known Allergies Allergy Verified 05/31/21 07:00 Review of Systems Review of Systems: CONSTITUTIONAL: Denies fever, chills, or sweats. EYES: Denies visual changes, redness, or discharge. ENT: Denies rhinorrhea, congestion, sore throat, or otalgia. CARDIOVASCULAR: Denies chest pain, palpitations, or edema. RESPIRATORY: Denies cough or dyspnea. GASTROINTESTINAL: Reports abdominal pain, denies nausea, vomiting, constipation or diarrhea. GENITOURINARY: Denies dysuria or hematuria. SKIN: Denies rash or itching. MUSCULOSKELETAL: Denies back pain, joint pain, or myalgia. NEUROLOGIC: Denies headache, numbness, dizziness, or weakness. PSYCHIATRIC: Denies anxiety or depression. [facility] Past Medical History Medical History Chronic GERD Chronic upper abdominal pain Congestive heart failure Last echo was 01/03/2019 which shows a grade 1 diastolic impairment and an EF of 60-65%. Essential hypertension Gastritis Gastroparesis Generalized anxiety disorder Heart murmur History of recurrent UTI (urinary tract infection) Hyperlipidemia, unspecified Lumbar disc disease with radiculopathy Neuropathy EDWARD (obstructive sleep apnea) Osteoporosis Primary osteoarthritis involving multiple joints Pulmonary nodule Right inguinal hernia Stable angina pectoris Weight loss, unintentional Surgical History Surgical History History of tonsillectomy Family History Family History Unknown Unknown family medical history Other Family history of cardiovascular disease Social History Social History Social History: The patient stated that she is and she has no children. She does not have a durable power youth pastor for healthcare. 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 The patient desires to be a full code and does not have a durable power youth pastor for healthcare. Patient is lifelong nonsmoker. She does not use alcohol marijuana illicit drugs. Smoking packs per day: 0 Smoking cigarettes per day: 0.0 Smoking status: Never smoker Tobacco type: cigarettes Second hand tobacco smoke exposure: No Additional smoking assessment comments: [facility]ORY Alcohol intake: former Substance use: never Substance use type: does not use Gender identity (if verbalized by the patient): Female Spiritual care concerns: No Exam Narrative: GENERAL: Well-appearing, well-nourished, and in no acute distress. HEAD: Normocephalic, atraumatic. EYES: PERRLA and EOMI. CHEST: Clear to auscultation. No respiratory distress. No no tachypnea ABDOMEN: Soft, patient verbalizes tenderness with palpation of lower quadrant but does not guard, nondistended, normal active bowel sounds. EXTREMITIES: N
--- NOTE | 2021-06-05 19:01 | PC.NURSE ---
Patient went down for CT scan. Rapid response was called overhead. This nurse was called by CT scan to inform me it was my patient. This nurse and provider PA went to see patient. Verbal orders recieved at time for medication. Pulled. Patient back to room. Complains of chest burning. Medication given. EKG was ordered and completed. Will continue to monitor patient.
[2021-06-05 19:51] VITALS: BP 131/72; PULSE 74; RESP 18; O2SAT 96
== END 2021-06-05 19:52 | disposition home or self-care (01) ==
PROVIDERS: Physician Assistant; Emergency Provider Emergency Medicine; PCP Family Medicine
DX: R10.30 Lower abdominal pain, unspecified (principal); N30.00 Acute cystitis without hematuria; I10 Essential (primary) hypertension; E78.5 Hyperlipidemia, unspecified; G62.9 Polyneuropathy, unspecified; G47.33 Obstructive sleep apnea (adult) (pediatric); K31.84 Gastroparesis; K21.9 Gastro-esophageal reflux disease without esophagitis; F41.1 Generalized anxiety disorder; M19.90 Unspecified osteoarthritis, unspecified site; I51.7 Cardiomegaly; R94.31 Abnormal electrocardiogram [ECG] [EKG]
CPT/HCPCS: 36415; 74177; 80053; 81001; 83605; 85025; 87086; 87088; 93005; 96374; 99284; J1200; J2930; Q9967

== ENCOUNTER 2021-07-05 09:05 | Emergency (ER) | payer MEDICARE, SELFPAY ==
[2021-07-05] VITALS (13 sets, daily range): BP systolic 109–143; BP diastolic 49–80; PULSE 69–96; RESP 14–31; TEMP 36.6; O2SAT 92–100
--- NOTE | ~2021-07-05 | XR_ITS ---
EXAMINATION: XR chest 2V DATE: 07/05/2021 09:37 INDICATION: Shortness of breath. Chest tightness. Palpitations. TECHNIQUE: Frontal and lateral views of the chest were obtained. COMPARISON: Chest 2 views 09/17/2020, CT abdomen and pelvis 06/05/2021 FINDINGS: Calcified left lung nodule and calcified left hilar lymph nodes are consistent with old gra nulomatous disease. No pleural effusion or pneumothorax. Cardiomegaly is noted. There are epidural el ectrodes in thoracic spine. There are surgical clips in the abdomen. IMPRESSION: 1. Cardiomegaly. Reviewed, dictated and finalized at location [facility]. BLANK GAUGER IMPRESSION: 1. Cardiomegaly.
--- NOTE | ~2021-07-05 | CT_ITS ---
EXAMINATION: CT abdomen pelvis wo con DATE: 07/05/2021 11:34 INDICATION: Generalized abdominal pain. TECHNIQUE: Computed tomography (CT) of the abdomen and pelvis was performed without intravenous contr ast. Automated exposure control and iterative reconstruction technique were employed. The dose-length product was 506.77 mGy-cm. COMPARISON: CT abdomen and pelvis 06/05/21 FINDINGS: The visualized portions of the lung bases demonstrate mild atelectasis. There is a small gr oundglass opacity in right middle lobe, likely inflammation or infection. No pleural effusion. Cardio megaly is noted. No pericardial effusion. There is a small sliding hiatal hernia. Calcifications in t he liver and spleen are consistent with old granulomatous disease. There are changes of cholecystecto my. There is a 13 mm cyst in the gallbladder fossa. The pancreas, adrenal glands, and kidneys are nor mal. There is no urolithiasis. There is diverticulosis of the colon without evidence of diverticuliti s. There are no dilated loops of bowel. The appendix is normal. There are no pathologically enlarged lymph nodes. There is no free intraperitoneal fluid. Epidural electrodes are noted. There is lumbar l evoscoliosis and severe spondylosis. There is a chronic compression fracture of L3. IMPRESSION: 1. Small sliding hiatal hernia. 2. Small groundglass opacity in right lung middle lobe, likely inflammation or infection. Reviewed, dictated and finalized at location [facility]. RAIT PHOTOGRAPHER
--- NOTE | 2021-07-05 09:17 | ECG_ITS ---
Measurements Intervals [place] Rate: 69 P: 47 [place]: 188 QRS: -28 QRSD: 103 T: 45 QT: 405 QTc: 435 Interpretive Statements SINUS RHYTHM ATRIAL PREMATURE COMPLEX ANTEROSEPTAL INFARCT, AGE INDETERMINATE INFERIOR INFARCT, AGE INDETERMINATE BORDERLINE ST ABNORMALITY- HIGH LATERAL LEADS BASELINE ARTIFACT- I, II, III, AVR, AVL, AVF, V1 ABNORMAL ECG Electronically Signed On 07-06-2021 16:15:02 SENIOR WEB ENGINEER by Ralph Valladares D.O.
[2021-07-05 09:32] LABS: Basophils Absolute Auto 0.1 K/mm3 (0.0-0.1); Basophils Percent Auto 0.8 % (0.2-1.2); Eosinophils Absolute Auto 0.2 K/mm3 (0-0.3); Eosinophils Percent Auto 1.9 % (0-4.4); Hematocrit 38.9 % (37.0-47.0); Hemoglobin 13.3 g/dL (12.0-15.0); Immature Granulocyte Absolute 0.03 K/mm3 (0.00-0.031); Immature Granulocyte Percent A 0.4 % (0-0.5); Lymphocytes Percent Auto 22.5 % (18.3-44.2); Mean Corpuscular HGB Conc 34.2 g/dl (32-36); Mean Corpuscular Hemoglobin 32.3 pg (26-34); Mean Corpuscular Volume 94.4 fl (80-100); Mean Platelet Volume 9.2 fl (7.4-10.4); Monocytes Absolute Auto 0.7 K/mm3 (0.1-0.6); Monocytes Percent Auto 8.6 % (2.6-8.5); Neutrophils Absolute Auto 5.3 K/mm3 (1.3-6.7); Neutrophils Percent Auto 65.8 % (45.5-73.1); Platelet Count Result 212 k/mm3 (150-375); Red Blood Count 4.12 M/mm3 (4.2-5.4); Red Cell Distribution Width 14.8 % (11.5-14.5)
[2021-07-05 09:43] LABS: Alanine Aminotransferase 23 U/L (4-35); Albumin Level 4.1 g/dL (3.5-5.1); Alkaline Phosphatase 67 U/L (38-126); Anion Gap 7 mmol/L (8-16); Aspartate Amino Transferase 35 U/L (14-36); Bilirubin,Total 0.7 mg/dL (0.2-1.3); Blood Urea Nitrogen 11 mg/dL (7-17); Calcium 9.2 mg/dL (8.4-10.2); Carbon Dioxide 25 mmol/L (22-30); Chloride 105 mmol/L (98-107); Estimated CRCL calculation 39 ml/min; Estimated Glomerular Filt Rate 60; Glucose 106 mg/dL (65-110); Lipase 66 U/L (23-300); Potassium 3.8 mmol/L (3.4-5.0); Sodium 137 mmol/L (137-145)
[2021-07-05 09:45] LABS: Prothrombin Time 12.6 Seconds (11.1-14.7)
[2021-07-05 09:46] LABS: Partial Thromboplastin Time 26.9 SECONDS (22.3-36.8)
[2021-07-05] MEDS: ASPIRIN 81 MG CHEWABLE TABLET 324 MG PO (09:47)
[2021-07-05 09:55] LABS: Troponin I < 0.012 ng/mL (0.000-0.034)
[2021-07-05 10:00] LABS: Lactic Acid Reflex 1.2 mmol/L (0.7-2.1)
--- NOTE | 2021-07-05 10:06 | ED.CHESTPAIN ---
HPI - Chest Pain General Chief Complaint: Chest Pain Stated Complaint: CHEST FEELS FUNNY Time Seen by Provider: 07/05/21 09:09 Source: patient, RN notes reviewed and old records reviewed Mode of arrival: EMS Limitations: no limitations History of Present Illness HPI narrative: This is an 80 year old female who presents for evaluation of chest pain. Patient reports sudden onset substernal chest pain that started this morning prior to calling EMS. Her pain has been constant and she reports she has some radiating pain to upper chest. She has associated shortness of breath. She denies nausea, vomiting, fever, cough, or chills. She denies heart disease or history of chest pain. She reports loose stools this morning. Denies history of DVT, PE. MD complaint: chest pain Related Data Home Medications Medication Instructions Recorded Confirmed omega 4-afg-fjp-fish oil 1,000 mg 1 cap PO DAILY 03/27/20 06/17/21 (120 mg-180 mg) capsule Allergies Allergy/AdvReac Type Severity Reaction Status Date / Time No Known Allergies Allergy Verified 06/16/21 13:37 Review of Systems Review of Systems: All systems reviewed & are unremarkable except as noted in HPI and below PMFSH Past Medical History Medical History Chronic GERD Chronic upper abdominal pain Congestive heart failure Last echo was 01/03/2019 which shows a grade 1 diastolic impairment and an EF of 60-65%. Essential hypertension Gastritis Gastroparesis Generalized anxiety disorder Heart murmur History of recurrent UTI (urinary tract infection) Hyperlipidemia, unspecified Lumbar disc disease with radiculopathy Neuropathy EDWARD (obstructive sleep apnea) Osteoporosis Primary osteoarthritis involving multiple joints Pulmonary nodule Right inguinal hernia Stable angina pectoris Weight loss, unintentional Surgical History Surgical History History of tonsillectomy Family History Family History Unknown Unknown family medical history Other Family history of cardiovascular disease Social History Social History Social History: The patient stated that she is and she has no children. She does not have a durable power cell manager for healthcare. 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 Patient is lifelong nonsmoker. She does not use alcohol marijuana illicit drugs. Smoking packs per day: 0 Smoking cigarettes per day: 0.0 Smoking status: Never smoker Tobacco type: cigarettes Second hand tobacco smoke exposure: No Additional smoking assessment comments: [facility]ORY Alcohol intake: former Substance use: never Substance use type: does not use Gender identity (if verbalized by the patient): Female Spiritual care concerns: No Exam Const: General: alert Orientation/consciousness: patient oriented x3 Other: mild distress due to pain Eyes: EOM: EOMs intact bilaterally Chest: Chest palpation & inspection: normal inspection of the chest Resp: Effort & Inspection: normal respiratory effort and no retractions Auscultation: clear to auscultation bilaterally Cardio: Rate: regular rate Rhythm: regular rhythm Heart sounds: no murmurs GI: Inspection: distended GI Palp: Yes Soft to palpation, Yes Tenderness to palpation present (GI) (diffuse), Yes Guarding due to palpation present (GI) and No Rigid due to palpation Auscultation: normal bowel sounds Back/Spine/Pelvis: Back: no CVA tenderness Skin: General skin exam: normal color Rashes: no rashes Neuro: General: patient oriented x3, moves all extremities and CN's II-XI intact bilaterally Psych: Mental Status: mental status grossly joan
[2021-07-05 10:22] LABS: D Dimer 0.35 ug/mL (<0.48)
[2021-07-05] MEDS: ONDANSETRON INJ 4 MG/2 ML VIAL IV PUSH (10:46)
[2021-07-05] MEDS: MORPHINE SULFATE (*CRX) 2 MG/ML INJ IV PUSH (10:46)
[2021-07-05 12:14] LABS: Add Urine Microscopic? YES; Appearance Urine Clear (Clear); Bacteria Urine Trace /hpf; Bilirubin Urine Negative (Negative); Blood Urine 1+ (Negative); Color Urine Yellow (Yellow); Glucose Urine UA Negative (Negative); Ketones Urine Negative (Negative); Leukocyte Esterase Ur Negative LEU/UL (Negative); Nitrate Urine Negative (Negative); Protein Urine Negative (Negative); RBC Urine 0-2 /hpf (0-2); Specific Grav Ur 1.009 (1.001-1.035); Urobilinogen Urine Negative mg/dL (<2.0); WBC Urine 0-3 /hpf
[2021-07-05 12:49] LABS: Troponin I < 0.012 ng/mL (0.000-0.034)
[2021-07-05] MEDS: BELLADONNA ALK/PHENOB ELIX 10 ML, MAG HYDROX/ALUMINUM HYD/SIMETH 30 ML, LIDOCAINE HCL 2... PO (14:20)
--- NOTE | 2021-07-05 15:34 | PC.NURSE ---
Lunch tray given po.
--- NOTE | 2021-07-05 15:53 | PC.NURSE ---
Pt finishes all of lunch tray states feels better at present.
--- NOTE | 2021-07-05 15:56 | PC.NURSE ---
Attempt to call Grace An at [phone] x2 and [facility] number not available. Pt made aware, [facility] does not have another number for Grace to give her a ride home. States Grace was watching her dog and attempt made to call pt's home # at [phone]. No answer at this number either.
--- NOTE | 2021-07-05 16:12 | PC.NURSE ---
Pt becoming more vocal regarding abdominal pain. Dr. Escobar made aware and orders received.
[2021-07-05] MEDS: DICYCLOMINE HCL 10 MG CAPSULE 20 MG PO (16:16)
--- NOTE | 2021-07-05 16:30 | PC.NURSE ---
Pt continues to loudly grunt and belch, c/o needing to go to bathroom. Assisted to restroom via w/c.
--- NOTE | 2021-07-05 16:44 | PC.NURSE ---
Pt assisted back from bathroom, only voided, no bm. Assisted with getting dressed. Will attempt to call ride again.
--- NOTE | 2021-07-05 17:13 | PC.NURSE ---
Attempt to call Grace An at number earlier. caller not available at this time . Pt has no other numbers.
--- NOTE | 2021-07-05 17:23 | PC.NURSE ---
Call to patient's friend Marcela and she states she will get attempt to get ahold of Grace.
--- NOTE | 2021-07-05 19:13 | PC.NURSE ---
Continue to await pt's ride home. Report to [facility], to continue care.
--- NOTE | 2021-07-05 19:41 | PC.NURSE ---
Grace here to give pt a ride home. Pt assisted to car via wc. Amb to car without difficulty.
== END 2021-07-05 19:42 | disposition home or self-care (01) ==
PROVIDERS: Emergency Provider General Practice; PCP Family Medicine
DX: R07.89 Other chest pain (principal); I50.9 Heart failure, unspecified; I11.0 Hypertensive heart disease with heart failure; E78.5 Hyperlipidemia, unspecified; G47.33 Obstructive sleep apnea (adult) (pediatric); K31.84 Gastroparesis; K21.9 Gastro-esophageal reflux disease without esophagitis; M81.0 Age-related osteoporosis without current pathological fracture; M19.90 Unspecified osteoarthritis, unspecified site; G62.9 Polyneuropathy, unspecified; F41.1 Generalized anxiety disorder; Z87.440 Personal history of urinary (tract) infections
CPT/HCPCS: 36415; 51701; 71046; 74176; 80053; 81001; 83605; 83690; 84484; 85025; 85380; 85610; 85730; 93005; 96374; 96375; 99284; A9270; J2270; J2405

== ENCOUNTER 2021-08-06 10:05 | Emergency (ER) | payer MEDICARE, SELFPAY ==
--- NOTE | ~2021-08-06 | CT_ITS ---
EXAMINATION: CT brain wo con DATE: 08/06/2021 12:28 INDICATION: Abnormal gait. Generalized weakness. TECHNIQUE: Computed tomography (CT) of the head was performed without intravenous contrast. The mA wa s adjusted according to patient size. Iterative reconstruction technique was employed. The dose-lengt h product was 908.00 mGy-cm. COMPARISON: Head CT 10/13/2006 FINDINGS: There are scattered areas of low attenuation in the cerebral white matter. There is an old infarct in right frontal lobe. There is an old infarct in right frontoparietal region. There is no in tracranial hemorrhage, acute infarction, or abnormal intracranial mass lesion. The ventricles are nor mal in size. There is mild mucosal thickening in the ethmoid sinuses. There are likely changes of ocu lar lens replacement surgeries. The mastoid air cells are normal. IMPRESSION: 1. 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 2. Moderate nonspecific cerebral white matter disease, which likely represents chronic small vessel i schemic disease. Reviewed, dictated and finalized at location A. TING GATE DRIVER IMPRESSION: 1. 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 2. Moderate nonspecific cerebral white matter disease, which likely represents chronic small vessel ischemic disease.
--- NOTE | ~2021-08-06 | XR_ITS ---
EXAMINATION: XR chest 2V DATE: 08/06/2021 12:43 INDICATION: Weakness, transient alteration of awareness TECHNIQUE: AP and lateral views of the chest are obtained. COMPARISON: 07/05/2021 FINDINGS: The lungs are free of acute opacities. A calcified nodule of the left lower lobe is consist ent with old granulomatous disease. There is no pleural effusion or pneumothorax. The cardiomediastin al silhouette is normal. There is mild thoracic spondylosis. Neurostimulator leads project over the m idthoracic spine. Surgical clips in the right upper quadrant are likely from prior cholecystectomy. IMPRESSION: 1. No acute cardiopulmonary abnormality. Reviewed, dictated and finalized at location D. ON CLEANER
--- NOTE | ~2021-08-06 | CT_ITS ---
EXAMINATION: CT abdomen pelvis w con DATE: 08/06/2021 12:33 INDICATION: Abdominal pain. Generalized weakness. TECHNIQUE: Computed tomography (CT) of the abdomen and pelvis was performed with 100 mL Omnipaque 350 intravenous contrast. Automated exposure control and iterative reconstruction technique were employe d. The dose-length product was 637.66 mGy-cm. COMPARISON: CT abdomen and pelvis 07/05/2021 FINDINGS: Again seen is peripheral septal thickening in the lungs. Again seen is a small groundglass opacity in right middle lobe, likely benign. No pleural effusion. Cardiomegaly is noted. No pericardi al effusion. There is a small sliding hiatal hernia. Calcifications in the liver and spleen are consi stent with old granulomatous disease. There are changes of cholecystectomy. There is a 1.4 cm cyst of the liver in the gallbladder fossa. The pancreas and adrenal glands are normal. There is cortical th inning of the kidneys. The bladder is markedly distended. There is diverticulosis of the colon withou t evidence of diverticulitis. The appendix is normal. There are no pathologically enlarged lymph node s. There is no free intraperitoneal fluid. Epidural electrodes are noted. There is severe lumbar spon dylosis. There is a chronic partial fracture of L3. IMPRESSION: 1. Markedly distended bladder. 2. Small sliding hiatal hernia. Reviewed, dictated and finalized at location A. END DESIZING MACHINE OPERATOR
[2021-08-06 10:11] VITALS: BP 143/87; PULSE 72; RESP 18; TEMP 36.4; O2SAT 98
--- NOTE | 2021-08-06 10:23 | ECG_ITS ---
Measurements Intervals [place] Rate: 72 P: 20 [place]: 196 QRS: -45 QRSD: 107 T: 73 QT: 380 QTc: 418 Interpretive Statements SINUS RHYTHM INFERIOR MYOCARDIAL INFARCTION , OF INDETERMINATE AGE [40+ ms Q WAVE AND/OR ST/T ABNORMALITY IN II/aVF] ANTEROSEPTAL MYOCARDIAL INFARCTION , OF INDETERMINATE AGE [40+ ms Q WAVE IN V1-V4] ABNORMAL EKG COMPARED TO ECG 07/05/2021 09:23:49 NO SIGNIFICANT CHANGES Electronically Signed On 08-06-2021 14:02:25 AUTOMOTIVE MACHINIST by Jostin Arias M.D.
[2021-08-06 10:52] LABS: Basophils Absolute Auto 0.1 K/mm3 (0.0-0.1); Basophils Percent Auto 0.7 % (0.2-1.2); Eosinophils Absolute Auto 0.1 K/mm3 (0-0.3); Eosinophils Percent Auto 1.9 % (0-4.4); Hematocrit 43.2 % (37.0-47.0); Immature Granulocyte Absolute 0.02 K/mm3 (0.00-0.031); Immature Granulocyte Percent A 0.3 % (0-0.5); Lymphocytes Absolute Auto 1.59 K/mm3 (0.9-3.2); Lymphocytes Percent Auto 21.3 % (18.3-44.2); Mean Corpuscular HGB Conc 32.4 g/dl (32-36); Mean Corpuscular Hemoglobin 31.5 pg (26-34); Mean Corpuscular Volume 97.1 fl (80-100); Mean Platelet Volume 9.4 fl (7.4-10.4); Monocytes Absolute Auto 0.5 K/mm3 (0.1-0.6); Neutrophils Absolute Auto 5.2 K/mm3 (1.3-6.7); Neutrophils Percent Auto 68.8 % (45.5-73.1); Platelet Count Result 221 k/mm3 (150-375); Red Blood Count 4.45 M/mm3 (4.2-5.4); White Blood Count 7.5 K/mm3 (4.5-10.0)
[2021-08-06 11:03] LABS: Prothrombin Time 12.6 Seconds (11.1-14.7)
[2021-08-06 11:04] LABS: Alanine Aminotransferase 25 U/L (4-35); Albumin Level 4.4 g/dL (3.5-5.1); Alkaline Phosphatase 93 U/L (38-126); Anion Gap 5 mmol/L (8-16); Aspartate Amino Transferase 43 U/L (14-36); Bilirubin,Total 0.6 mg/dL (0.2-1.3); Blood Urea Nitrogen 7 mg/dL (7-17); Calcium 8.9 mg/dL (8.4-10.2); Carbon Dioxide 28 mmol/L (22-30); Chloride 103 mmol/L (98-107); Estimated CRCL calculation 42 ml/min; Estimated Glomerular Filt Rate > 60; Glucose 105 mg/dL (65-110); Partial Thromboplastin Time 20.7 SECONDS (22.3-36.8); Potassium 4.2 mmol/L (3.4-5.0); Sodium 136 mmol/L (137-145)
--- NOTE | 2021-08-06 11:25 | ED.AMS ---
HPI - Altered Mental Status General Chief Complaint: Altered Mental Status Stated Complaint: weakness/mental status changes Time Seen by Provider: 08/06/21 11:25 Source: patient Mode of arrival: ambulatory Limitations: no limitations History of Present Illness HPI narrative: Patient is an 81-year-old female with a history of hypertension, osteoarthritis, urinary tract infections, presenting to the emergency department for evaluation of possible altered mentation. However, at time of assessment, patient is alert and oriented without confusion. This morning, reportedly, patient was supposed to go to a dental appointment this morning when a driving agency picked her up for her transportation. The catering driver thought that the patient was confused per the patient. The patient was noted to have a shuffling gait when she typically is able to ambulate without difficulty. Pt states that she has been walking normally with her walker. The patient did go to her dental visit. She denies any medications taken at the office. The patient was then brought to this emergency department for evaluation. Patient states that she is having some mild abdominal pain and lower back pain. She reports that her lower back pain is chronic. She denies any saddle anesthesia. No difficulty with bowel or bladder function. She denies any fever or chills. She denies any dysuria, frequency, hematuria. She denies fever, chills, nausea, vomiting. She denies focal weakness or numbness. Patient states that she did go to her dental appointment this morning which was otherwise uneventful. She denies any speech difficulty. She is not dizzy. Related Data Home Medications Medication Instructions Recorded Confirmed alendronate mg PO 08/06/21 atorvastatin 08/06/21 bupropion HCl mg PO 08/06/21 buspirone mg 08/06/21 dicyclomine mg 08/06/21 gabapentin 08/06/21 hydroxyzine HCl 08/06/21 metoprolol succinate PO 08/06/21 niacin 08/06/21 omeprazole 08/06/21 Allergies Allergy/AdvReac Type Severity Reaction Status Date / Time No Known Allergies Allergy Verified 06/16/21 13:37 Review of Systems Review of Systems: CONSTITUTIONAL: Denies fever, chills, or sweats. EYES: Denies visual changes, redness, or discharge. ENT: Denies rhinorrhea, congestion, sore throat, or otalgia. CARDIOVASCULAR: Denies chest pain, palpitations, or edema. RESPIRATORY: Denies cough or dyspnea. GASTROINTESTINAL: Reports central abdominal pain, reports back pain, denies nausea or vomiting GENITOURINARY: Denies dysuria or hematuria. SKIN: Denies rash or itching. MUSCULOSKELETAL: Denies back pain, joint pain, or myalgia. NEUROLOGIC: Denies headache, numbness, reports feeling diffusely weak, reports difficulty with gait PMFSH Past Medical History Medical History Chronic GERD Chronic upper abdominal pain Congestive heart failure Last echo was 01/03/2019 which shows a grade 1 diastolic impairment and an EF of 60-65%. Essential hypertension Gastritis Gastroparesis Generalized anxiety disorder Heart murmur History of recurrent UTI (urinary tract infection) Hyperlipidemia, unspecified Lumbar disc disease with radiculopathy Neuropathy EDWARD (obstructive sleep apnea) Osteoporosis Primary osteoarthritis involving multiple joints Pulmonary nodule Right inguinal hernia Stable angina pectoris Weight loss, unintentional Surgical History Surgical History History of tonsillectomy Family History Family History Unknown Unknown family medical history Other Family history of cardiovascular disease Social History Social History Social History: The patient stated that she is and she has no children. She does not have a durable power ip technology transactions attorney for healthcare. 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
[2021-08-06] MEDS: SODIUM CHLORIDE 0.9% IV 1,000 ML 999 ML IV CONT (12:10)
[2021-08-06 13:30] LABS: Add Urine Microscopic? NO; Appearance Urine Clear (Clear); Bilirubin Urine Negative (Negative); Blood Urine Negative (Negative); Color Urine Colorless (Yellow); Glucose Urine UA Negative (Negative); Ketones Urine Negative (Negative); Leukocyte Esterase Ur Negative LEU/UL (Negative); Nitrate Urine Negative (Negative); Protein Urine Negative (Negative); Specific Grav Ur 1.024 (1.001-1.035); Urobilinogen Urine Negative mg/dL (<2.0)
[2021-08-06 15:13] LABS: SARS-CoV-2 RNA PCR Negative
[2021-08-06 15:30] VITALS: BP 132/89; PULSE 75; RESP 18; TEMP 36.2; O2SAT 97
== END 2021-08-06 15:30 | disposition home or self-care (01) ==
PROVIDERS: Emergency Provider Emergency Medicine; PCP Family Medicine
DX: R53.1 Weakness (principal); Z20.822 Contact with and (suspected) exposure to COVID-19; I50.9 Heart failure, unspecified; I11.0 Hypertensive heart disease with heart failure; E78.5 Hyperlipidemia, unspecified; G62.9 Polyneuropathy, unspecified; G47.33 Obstructive sleep apnea (adult) (pediatric); K21.9 Gastro-esophageal reflux disease without esophagitis; K31.84 Gastroparesis; M19.90 Unspecified osteoarthritis, unspecified site; M81.0 Age-related osteoporosis without current pathological fracture; M51.06 Intervertebral disc disorders with myelopathy, lumbar region; Z87.440 Personal history of urinary (tract) infections; R90.82 White matter disease, unspecified; K44.9 Diaphragmatic hernia without obstruction or gangrene; F41.1 Generalized anxiety disorder; R94.31 Abnormal electrocardiogram [ECG] [EKG]
CPT/HCPCS: 36415; 51701; 70450; 71046; 74177; 80053; 81003; 84443; 85025; 85610; 85730; 93005; 96360; 96361; 99284; C9803; J7030; Q9967; U0003; U0005

== ENCOUNTER 2021-08-12 09:13 | Emergency (ER) | payer MEDICARE, SELFPAY ==
--- NOTE | ~2021-08-12 | CT_ITS ---
EXAMINATION: CT brain wo con DATE: 08/12/2021 10:38 INDICATION: Confusion. Fall. TECHNIQUE: Computed tomography (CT) of the head was performed without intravenous contrast. The mA wa s adjusted according to patient size. Iterative reconstruction technique was employed. The dose-lengt h product was 605.33 mGy-cm. COMPARISON: Head CT 08/06/2021 FINDINGS: There are scattered areas of low attenuation in the cerebral white matter. There are old in farcts in the right frontal lobe and right frontoparietal region. There is an acute subdural hematoma at left cerebellar tentorium and the falx with maximum thickness of 3 mm. There is acute subarachnoi d hemorrhage in sulci in the medial posterior frontal lobes. There is acute hematoma in the fourth ve ntricle and the occipital horns of the lateral ventricles. Hematoma in the fourth ventricle is contig uous with acute subarachnoid hemorrhage inferior and posterior to the cerebellum via the foramen of L uschka. The ventricles are normal in size. The paranasal sinuses are clear. The mastoid air cells are normal. There are likely changes of ocular lens replacement surgeries. IMPRESSION: 1. Acute intracranial hemorrhage including small subdural hematoma at the left cerebellar tentorium a nd falx, intraventricular hemorrhage in the lateral ventricles and fourth ventricle, and subarachnoid hemorrhage in the medial posterior frontal lobes and overlying the right cerebellum. I called this r esult to Yesenia Maurer. 2. Old infarcts in the right frontal lobe and right frontoparietal region. 3. Stable moderate nonspecific cerebral white matter disease, which likely represents chronic small v essel ischemic disease. Reviewed, dictated and finalized at location A. NING SPECIALIST IMPRESSION: 1. Acute intracranial hemorrhage including small subdural hematoma at the left cerebellar tentorium and falx, intraventricular hemorrhage in the lateral ventr icles and fourth ventricle, and subarachnoid hemorrhage in the medial posterior frontal lobes and overlying the right cerebellum. I called this result to Ronald Maurer. 2. Old infarcts in the right frontal lobe and right frontoparietal region. 3. Stable moderate nonspecific cerebral white matter disease, which likely repr esents chronic small vessel ischemic disease.
--- NOTE | ~2021-08-12 | XR_ITS ---
EXAMINATION: XR hip BI 2V w AP pelvis DATE: 08/12/2021 10:18 INDICATION: Pelvic pain after fall TECHNIQUE: AP view the pelvis and two views of each hip were obtained. COMPARISON: 08/17/2019 FINDINGS: Bone alignment is normal. There is no fracture. There is mild osteoarthritis of the hips. C alcified atherosclerosis is noted. There are phleboliths in the pelvis. IMPRESSION: 1. No acute osseous abnormality. Reviewed, dictated and finalized at location B. WARE ENGINEERING MANAGER
--- NOTE | ~2021-08-12 | CT_ITS ---
EXAMINATION: CT thoracic lumbar wo con EXAM DATE: 08/12/2021 10:38 INDICATION: back pain, fall TECHNIQUE: Spiral CT thoracolumbar spine was performed without contrast. Axial, coronal and sagittal images of the thoracic spine were reviewed. Axial, coronal and sagittal images of the lumbar spine we re reviewed. The dose-length product (DLP) for this examination was 1788.42 mGy-cm. The exposure was tailored according to patient size (auto mA exposure control), and iterative reconstruction (ASIR) w as used as additional dose reduction technique. Correlation is made to CT abdomen pelvis from 2018. FINDINGS: THORACIC SPINE: Spine stimulator leads, tips at the midthoracic level. There is mild to moderate diff use thoracic disc disease and mild to moderate facet arthropathy. Evidence of no more than mild centr al canal or neural foraminal stenosis at any given level. Mild compression fracture superior endplate of T1 suspected to be subacute or chronic. There are no acute fractures identified. Left lower lobe calcified granuloma. LUMBAR SPINE: There is an S3 segment nondisplaced subacute or chronic sacral fracture, no adjacent he matoma. Sacroiliac joints are intact. Mild to moderate chronic appearing L3 compression fracture. The re is 5 mm anterolisthesis L4 on L5 without spondylolysis. There is no evidence of acute lumbar fract ure. There is no disc space widening or traumatic vertebral body subluxation suspected. Paraspinal soft tissue is unremarkable. There is moderate to severe loss of the L5-S1 disc height, moderate at L4-5 and mild to moderate at the other lumbar levels. L4-5 has severe central canal stenosis, facet a rthropathy and bilateral neural foraminal stenosis. Less spondylosis other levels. A detailed level b y level evaluation of spondylosis can be added as addendum if requested. IMPRESSION: 1. T1 mild subacute or chronic compression fracture. 2. S3 segment subacute or chronic nondisplaced sacral fracture. 3. Chronic appearing L3 mild to moderate compression fracture. 4. L4-5 grade 1 anterolisthesis, severe facet arthropathy and central canal and neural foraminal ivis nosis. 5. Lesser spondylosis other levels. 6. No acute fracture identified. Reviewed, dictated and finalized at location A. ET WORKER IMPRESSION: 1. T1 mild subacute or chronic compression fracture. 2. S3 segment subacute or chronic nondisplaced sacral fracture. 3. Chronic appearing L3 mild to moderate compression fracture. 4. L4-5 grade 1 anterolisthesis, severe facet arthropathy and central canal an d neural foraminal stenosis. 5. Lesser spondylosis other levels. 6. No acute fracture identified.
--- NOTE | ~2021-08-12 | CT_ITS ---
EXAMINATION: CT cervical spine wo con DATE: 08/12/2021 10:38 INDICATION: Head injury. Fall. TECHNIQUE: Computed tomography (CT) of the cervical spine was performed without intravenous contrast. Automated exposure control and iterative reconstruction technique were employed. The dose-length pro duct was 229.78 mGy-cm. COMPARISON: CT cervical spine 09/16/2015, chest CT 03/25/2020 FINDINGS: There is 18 degrees dextroscoliosis of cervical spine. There is kyphosis of cervical spine. There is 2 mm anterolisthesis of C3 on C4 and C4 on C5. There is mildly decreased disc height at C3- C4 and C4-C5 and severely decreased disc height at C5-C6 and C6-C7 with endplate remodeling. There is a compression fracture of T1 with less than 1/5 loss of height. The following disc levels are specif ically discussed: C2-C3: There is mild left uncovertebral joint osteoarthritis. There is severe bilateral facet joint o steoarthritis. There is mild bilateral neural foraminal stenosis. There is mild central canal stenosi s. C3-C4: There is mild right and severe left uncovertebral joint osteoarthritis. There is severe bilate ral facet joint osteoarthritis. There is mild right and moderate left neural foraminal stenosis. Ther e is mild central canal stenosis. C4-C5: There is mild left uncovertebral joint osteoarthritis. There is severe bilateral facet joint o steoarthritis. There is mild right and moderate left neural foraminal stenosis. There is mild central canal stenosis. C5-C6: There is severe right and moderate left uncovertebral joint osteoarthritis. There is severe bi lateral facet joint osteoarthritis. There is moderate bilateral neural foraminal stenosis. There is m ild central canal stenosis. C6-C7: There is severe bilateral uncovertebral joint osteoarthritis. There is severe right and modera te left facet joint osteoarthritis. There is mild bilateral neural foraminal stenosis. There is mild central canal stenosis. C7-T1: There is no uncovertebral joint osteoarthritis. There is severe bilateral facet joint osteoart hritis. There is moderate right and mild left neural foraminal stenosis. There is no central canal st enosis. IMPRESSION: 1. T1 compression fracture, new from 03/25/2020, but most likely chronic. 2. Severe cervical spondylosis. 3. Cervical dextroscoliosis and kyphosis. Reviewed, dictated and finalized at location A. S POLISHER
--- NOTE | ~2021-08-12 | XR_ITS ---
EXAMINATION: XR chest 2V DATE: 08/12/2021 10:18 INDICATION: Weakness, fall TECHNIQUE: AP and crosstable lateral views of the chest are obtained. COMPARISON: 08/06/2021 FINDINGS: The lungs are free of acute opacities. A calcified nodule of the left lower lobe is consist ent with old granulomatous disease. There is no pleural effusion or pneumothorax. The cardiomediastin al silhouette is normal. There are stimulator leads project over the midthoracic spine. Surgical clip s in the right upper quadrant are likely from prior cholecystectomy. There is mild thoracic spondylos is. IMPRESSION: 1. No acute cardiopulmonary abnormality. Reviewed, dictated and finalized at location B. NE EQUIPMENT PRESERVATION INSPECTOR
[2021-08-12 09:14] VITALS: BP 138/63; PULSE 92; RESP 18; TEMP 36.4; O2SAT 96
[2021-08-12 09:46] VITALS: BP 112/59; PULSE 91; RESP 16; O2SAT 99
--- NOTE | 2021-08-12 09:52 | ECG_ITS ---
Measurements Intervals [place] Rate: 92 P: 53 MN: 217 QRS: -34 QRSD: 121 T: 119 QT: 370 QTc: 458 Interpretive Statements SINUS RHYTHM WITH FIRST DEGREE AV BLOCK LEFT BUNDLE BRANCH BLOCK Electronically Signed On 08-12-2021 11:22:14 VIBRATION ANALYST by Ihsan Smith M.D.
--- NOTE | 2021-08-12 10:00 | ED.FALL ---
HPI - Fall General Chief Complaint: Fall Stated Complaint: fall Time Seen by Provider: 08/12/21 09:52 Source: patient Mode of arrival: EMS Limitations: clinical condition History of Present Illness HPI Narrative: This is a 81-year-old female that presents to the emergency department via EMS after a fall. Reportedly patient was found on the floor by her home health nurse. She does not know how she got on the floor. She is not sure how long she was on the floor. EMS reports her home was in complete disarray. Patient reports of pain mainly in her back. Denies fever, vision changes, vomiting, or focal numbness or weakness. Related Data Home Medications Medication Instructions Recorded Confirmed alendronate mg PO 08/06/21 atorvastatin 08/06/21 bupropion HCl mg PO 08/06/21 buspirone mg 08/06/21 dicyclomine mg 08/06/21 gabapentin 08/06/21 hydroxyzine HCl 08/06/21 metoprolol succinate PO 08/06/21 niacin 08/06/21 omeprazole 08/06/21 Allergies Allergy/AdvReac Type Severity Reaction Status Date / Time No Known Allergies Allergy Verified 08/12/21 09:25 Review of Systems Review of Systems: CONSTITUTIONAL: Denies fever CARDIOVASCULAR: Denies chest pain, or edema. RESPIRATORY: Denies dyspnea. GASTROINTESTINAL: Denies vomiting MUSCULOSKELETAL: Reports back pain, joint pain, and myalgia. NEUROLOGIC: Denies numbness, or weakness. All systems reviewed & are unremarkable except as noted in HPI and below PMFSH Past Medical History Medical History Chronic GERD Chronic upper abdominal pain Congestive heart failure Last echo was 01/03/2019 which shows a grade 1 diastolic impairment and an EF of 60-65%. Essential hypertension Gastritis Gastroparesis Generalized anxiety disorder Heart murmur History of recurrent UTI (urinary tract infection) Hyperlipidemia, unspecified Lumbar disc disease with radiculopathy Neuropathy EDWARD (obstructive sleep apnea) Osteoporosis Primary osteoarthritis involving multiple joints Pulmonary nodule Right inguinal hernia Stable angina pectoris Weight loss, unintentional Surgical History Surgical History History of tonsillectomy Family History Family History Unknown Unknown family medical history Other Family history of cardiovascular disease Social History Social History Social History: The patient stated that she is and she has no children. She does not have a durable power corporate associate attorney for healthcare. 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 The patient desires to be a full code and does not have a durable power corporate associate attorney for healthcare. Patient is lifelong nonsmoker. She does not use alcohol marijuana illicit drugs. Smoking packs per day: 0 Smoking cigarettes per day: 0.0 Smoking status: Never smoker Tobacco type: cigarettes Second hand tobacco smoke exposure: No Additional smoking assessment comments: [facility] Alcohol intake: former Substance use: never Substance use type: does not use Gender identity (if verbalized by the patient): Female Spiritual care concerns: No Exam Narrative: GENERAL: Disheveled, well-nourished, and in no acute distress. HEAD: Normocephalic, atraumatic. EYES: PERRLA and EOMI. ENT: Nares clear, no rhinorrhea or epistaxis. Mucous membranes moist. Oropharynx without tonsillar hypertrophy exudate or other lesions. Bilateral TMs pearly starks non-bulging NECK: Supple. No adenopathy or masses. CHEST: Clear to auscultation. No respiratory distress. No wheezes rales or rhonchi HEART: Regular rate and rhythm. No murmur heard. Normal peripheral pulses. ABDOMEN: Soft, nontender, nondistended, normal active bowel sounds. BACK: Tender to palpation of midline thoracic and lumbar spine
[2021-08-12] MEDS: SODIUM CHLORIDE 0.9% IV 500 ML 999 ML IV CONT (10:51)
[2021-08-12 10:57] LABS: Basophils Percent Auto 0.3 % (0.2-1.2); Eosinophils Absolute Auto 0.1 K/mm3 (0-0.3); Eosinophils Percent Auto 0.5 % (0-4.4); Hematocrit 40.7 % (37.0-47.0); Hemoglobin 13.6 g/dL (12.0-15.0); Immature Granulocyte Absolute 0.04 K/mm3 (0.00-0.031); Immature Granulocyte Percent A 0.4 % (0-0.5); Lymphocytes Absolute Auto 1.63 K/mm3 (0.9-3.2); Mean Corpuscular HGB Conc 33.4 g/dl (32-36); Mean Corpuscular Volume 95.8 fl (80-100); Mean Platelet Volume 9.6 fl (7.4-10.4); Monocytes Absolute Auto 1.1 K/mm3 (0.1-0.6); Monocytes Percent Auto 10.1 % (2.6-8.5); Neutrophils Percent Auto 73.7 % (45.5-73.1); Platelet Count Result 199 k/mm3 (150-375); Red Blood Count 4.25 M/mm3 (4.2-5.4); Red Cell Distribution Width 13.9 % (11.5-14.5); White Blood Count 10.8 K/mm3 (4.5-10.0)
[2021-08-12 11:07] LABS: Prothrombin Time 12.9 Seconds (11.1-14.7)
[2021-08-12 11:16] LABS: Alanine Aminotransferase 29 U/L (4-35); Albumin Level 4.1 g/dL (3.5-5.1); Alkaline Phosphatase 83 U/L (38-126); Anion Gap 13 mmol/L (8-16); Aspartate Amino Transferase 101 U/L (14-36); Bilirubin,Total 0.9 mg/dL (0.2-1.3); Blood Urea Nitrogen 12 mg/dL (7-17); Calcium 8.7 mg/dL (8.4-10.2); Carbon Dioxide 21 mmol/L (22-30); Chloride 101 mmol/L (98-107); Estimated Glomerular Filt Rate > 60; Glucose 69 mg/dL (65-110); Potassium 3.8 mmol/L (3.4-5.0); Sodium 135 mmol/L (137-145)
[2021-08-12 11:17] LABS: Creatine Kinase 2849 U/L (30-135)
[2021-08-12 11:40] LABS: Add Urine Microscopic? YES; Appearance Urine Clear (Clear); Bilirubin Urine Negative (Negative); Blood Urine Negative (Negative); Color Urine Yellow (Yellow); Glucose Urine UA Negative (Negative); Ketones Urine 1+ mg/dL (Negative); Leukocyte Esterase Ur Trace LEU/UL (Negative); Mucus Urine Rare /lpf; Nitrate Urine Negative (Negative); Protein Urine Negative (Negative); Specific Grav Ur 1.016 (1.001-1.035); Urobilinogen Urine Negative mg/dL (<2.0); WBC Urine 0-3 /hpf
[2021-08-12 11:49] VITALS: BP 125/76; PULSE 76; RESP 16; TEMP 36.8; O2SAT 100
== END 2021-08-12 11:53 | disposition short-term general hospital (02) ==
PROVIDERS: Physician Assistant; Emergency Provider Emergency Medicine; PCP Family Medicine
DX: S06.6X0A Traumatic subarachnoid hemorrhage without loss of consciousness, initial encounter (principal); S06.5X0A Traumatic subdural hemorrhage without loss of consciousness, initial encounter; T79.6XXA Traumatic ischemia of muscle, initial encounter; I50.9 Heart failure, unspecified; I11.0 Hypertensive heart disease with heart failure; K31.84 Gastroparesis; G47.33 Obstructive sleep apnea (adult) (pediatric); E78.5 Hyperlipidemia, unspecified; M81.0 Age-related osteoporosis without current pathological fracture; M19.90 Unspecified osteoarthritis, unspecified site; K21.9 Gastro-esophageal reflux disease without esophagitis; Z87.440 Personal history of urinary (tract) infections; M47.812 Spondylosis without myelopathy or radiculopathy, cervical region; M47.816 Spondylosis without myelopathy or radiculopathy, lumbar region; R90.82 White matter disease, unspecified; I44.0 Atrioventricular block, first degree; I44.7 Left bundle-branch block, unspecified; W19.XXXA Unspecified fall, initial encounter
CPT/HCPCS: 36415; 51701; 70450; 71046; 72125; 72128; 72131; 73521; 80053; 81001; 82550; 85025; 85610; 85730; 93005; 96365; 99291; J0131; J7040; L0140

== ENCOUNTER 2021-09-01 19:49 | Emergency (ER) | payer MEDICARE, SELFPAY ==
--- NOTE | ~2021-09-01 | XR_ITS ---
[id number] DATE: 09/01/2021 20:14 INDICATION: Right rib pain. Unwitnessed fall. TECHNIQUE: PA chest. 3 views of the right ribs. COMPARISON: None FINDINGS: There is a fracture at the anterior aspect of the right sixth, seventh and eighth ribs whic h appear recent. Diffuse osteopenia. Cardiomegaly. Mild aortic tortuosity. No pulmonary infiltrate or consolidation, pleural effusion or pulmonary vascular congestion or pneumo thorax is evident. Electrodes overlie the thoracic spinal canal. Status post cholecystectomy. Small and large bowel air-fluid levels are noted. IMPRESSION: Recent anterior right sixth through eighth rib fractures Cardiomegaly, aortic atherosclerosis Osteopenia Cardiomegaly Reviewed, dictated and finalized at Location A. Reviewed, dictated and finalized at location A.
--- NOTE | 2021-09-01 19:51 | ED.FALL ---
HPI - Fall General Chief Complaint: Fall Stated Complaint: Left rib pain Time Seen by Provider: 09/01/21 19:51 Source: patient, RN notes reviewed and other (Family friend) History of Present Illness HPI Narrative: Patient is an 81-year-old female who presents the urgent care with a family friend with complaints of right rib pain. Patient was discharged from rehab yesterday and they are assuming that the patient fell at home, unwitnessed and is now complaining of right rib pain since early this morning. Patient was seen at [facility] on 12 August due to a fall and had multiple CT scans and x-rays completed. Patient was then transferred to [facility] and was in the hospital for approximately 4 days and discharged to outpatient rehab up until 24 hours ago. Patient states that she has increased pain with deep breathing. Denies of any shortness of breath or chest pain. Patient has not taken anything [id number] for her pain. No other acute complaints. No acute distress noted. Patient and family friend aware of the plan of care. Some parts of this dictation were generated by voice recognition software and may contain typographical and/or grammatical inaccuracies. Related Data Home Medications Medication Instructions Recorded Confirmed alendronate mg PO 08/06/21 atorvastatin 08/06/21 bupropion HCl mg PO 08/06/21 buspirone mg 08/06/21 dicyclomine mg 08/06/21 gabapentin 08/06/21 hydroxyzine HCl 08/06/21 metoprolol succinate PO 08/06/21 niacin 08/06/21 omeprazole 08/06/21 Allergies Allergy/AdvReac Type Severity Reaction Status Date / Time No Known Allergies Allergy Verified 08/12/21 09:25 Review of Systems Review of Systems: CONSTITUTIONAL: Denies fever, chills, or sweats. EYES: Denies visual changes, redness, or discharge. ENT: Denies rhinorrhea, congestion, sore throat, or otalgia. CARDIOVASCULAR: Denies chest pain, palpitations, or edema. RESPIRATORY: Denies cough or dyspnea. Reports of right rib pain GASTROINTESTINAL: Denies abdominal pain, nausea, vomiting, or diarrhea. GENITOURINARY: Denies dysuria or hematuria. SKIN: Denies rash or itching. MUSCULOSKELETAL: Denies back pain, joint pain, or myalgia. NEUROLOGIC: Denies headache, numbness, or weakness. All other systems reviewed are negative, except as documented in HPI. [facility] Past Medical History Medical History Chronic GERD Chronic upper abdominal pain Congestive heart failure Last echo was 01/03/2019 which shows a grade 1 diastolic impairment and an EF of 60-65%. Essential hypertension Gastritis Gastroparesis Generalized anxiety disorder Heart murmur History of recurrent UTI (urinary tract infection) Hyperlipidemia, unspecified Lumbar disc disease with radiculopathy Neuropathy EDWARD (obstructive sleep apnea) Osteoporosis Primary osteoarthritis involving multiple joints Pulmonary nodule Right inguinal hernia Stable angina pectoris Weight loss, unintentional Surgical History Surgical History History of tonsillectomy Family History Family History Unknown Unknown family medical history Other Family history of cardiovascular disease Social History Social History Social History: The patient stated that she is and she has no children. She does not have a durable power banking center manager for healthcare. 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 The patient desires to be a full code and does not have a durable power banking center manager for healthcare. Patient is lifelong nonsmoker. She does not use alcohol marijuana illicit drugs. Smoking packs per day: 0 Smoking cigarettes per day: 0.0 Smoking status: Never smoker Tobacco type: cigarettes Second hand tobacco smoke exposure: No Additional smo
[2021-09-01 20:03] VITALS: BP 156/72; PULSE 103; RESP 16; TEMP 36.1; O2SAT 98
== END 2021-09-01 20:38 | disposition home or self-care (01) ==
PROVIDERS: Emergency Provider Nurse Practitioner Family; PCP Family Medicine
DX: S20.211A Contusion of right front wall of thorax, initial encounter (principal); X58.XXXA Exposure to other specified factors, initial encounter; K21.9 Gastro-esophageal reflux disease without esophagitis; I11.0 Hypertensive heart disease with heart failure; I50.9 Heart failure, unspecified; R01.1 Cardiac murmur, unspecified; E78.5 Hyperlipidemia, unspecified; G47.33 Obstructive sleep apnea (adult) (pediatric); M81.0 Age-related osteoporosis without current pathological fracture; I20.9 Angina pectoris, unspecified; G62.9 Polyneuropathy, unspecified; M19.90 Unspecified osteoarthritis, unspecified site
CPT/HCPCS: 71101; 99213; G0463

== ENCOUNTER 2021-09-04 15:34 | Observation (INO) | payer MEDICARE, SELFPAY ==
--- NOTE | ~2021-09-04 | CT_ITS ---
EXAMINATION: CT lumbar spine wo con DATE: 09/04/2021 19:09 INDICATION: Low back pain. TECHNIQUE: Computed tomography (CT) of the lumbar spine was performed without intravenous contrast. A utomated exposure control and iterative reconstruction technique were employed. The dose-length produ ct was 626.24 mGy-cm. COMPARISON: CT lumbar spine 08/12/2021 FINDINGS: There is a small sliding hiatal hernia. There is 12 degrees levoscoliosis of lumbar spine. There is a chronic burst fracture of L3 with 2/5 loss of height and retropulsion of bone 3 mm into ce ntral spinal canal. There is 5 mm anterolisthesis of L4 on L5. There is an old fracture deformity of S3. There is moderately decreased disc height at L2-L3, mildly decreased disc height at L3-L4, modera tely decreased disc height at L4-L5, and severely decreased disc height at L5-S1. There are epidural electrodes in thoracic spine. The following disc levels are specifically discussed: L1-L2: The disc is mildly bulging. There is moderate bilateral facet joint osteoarthritis. There is m ild bilateral neural foraminal stenosis. There is no central canal stenosis. L2-L3: The disc is bulging. There is severe right and moderate left facet joint osteoarthritis. There is moderate bilateral neural foraminal stenosis. There is mild central canal stenosis. L3-L4: The disc is bulging. There is moderate bilateral facet joint osteoarthritis. There is moderate right and mild left neural foraminal stenosis. There is mild central canal stenosis. L4-L5: The disc is bulging. There is severe bilateral facet joint osteoarthritis. There is moderate b ilateral neural foraminal stenosis. There is moderate central canal stenosis. L5-S1: The disc is bulging. There is severe bilateral facet joint osteoarthritis. There is mild right and moderate left neural foraminal stenosis. There is mild central canal stenosis. IMPRESSION: 1. Severe lumbar spondylosis. 2. Lumbar levoscoliosis. Reviewed, dictated and finalized at location A.
--- NOTE | ~2021-09-04 | XR_ITS ---
EXAMINATION: XR chest 2V DATE: 09/04/2021 18:24 INDICATION: Transient alteration of awareness. TECHNIQUE: Frontal and lateral views of the chest were obtained. COMPARISON: Chest 2 views 08/12/2021, CT abdomen and pelvis 08/06/2021 FINDINGS: Calcified left lung nodules and calcified left hilar lymph nodes are consistent with old gr anulomatous disease. There are mild airspace opacities in right lower lung zone. No pleural effusion or pneumothorax. Cardiomegaly is noted. There are prominent paracardial fat pads. Epidural electrodes are noted. Surgical clips in the right upper quadrant are likely from cholecystectomy. IMPRESSION: 1. Mild airspace opacities in right lower lung zone, consistent with atelectasis versus pneumonia. 2. Cardiomegaly. Reviewed, dictated and finalized at location A. IMPRESSION: 1. Mild airspace opacities in right lower lung zone, consistent with atelectasi s versus pneumonia. 2. Cardiomegaly.
--- NOTE | ~2021-09-04 | XR_ITS ---
EXAMINATION: XR chest 1V portable INDICATION: Cough and shortness of breath TECHNIQUE: Portable AP chest at 1009 hours COMPARISON: 09/04/2021 FINDINGS: The lungs are free of acute opacities. There is no pleural effusion or pneumothorax. The ca rdiomediastinal silhouette is normal. A calcified nodule of the left lower lobe is consistent with ol d granulomatous disease. Neurostimulator leads project over the midthoracic spine. IMPRESSION: 1. No acute cardiopulmonary abnormality. Reviewed, dictated and finalized at location A.
--- NOTE | ~2021-09-04 | CT_ITS ---
EXAMINATION: CT brain wo con DATE: 09/04/2021 19:08 INDICATION: Confusion. TECHNIQUE: Computed tomography (CT) of the head was performed without intravenous contrast. The mA wa s adjusted according to patient size. Iterative reconstruction technique was employed. The dose-lengt h product was 605.33 mGy-cm. COMPARISON: Head CT 08/12/2021 FINDINGS: There are old infarcts in right frontal lobe and right frontoparietal region. There are sca ttered areas of low attenuation in the cerebral white matter. There is no intracranial hemorrhage, ac wainwright infarction, or abnormal intracranial mass lesion. The ventricles are normal in size. There are li baldo changes of ocular lens replacement surgeries. There is mild mucosal thickening in the ethmoid si nuses. The mastoid air cells are normal. IMPRESSION: 1. 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 2. Stable moderate nonspecific cerebral white matter disease, which likely represents chronic small v essel ischemic disease. Reviewed, dictated and finalized at location A. IMPRESSION: 1. 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 2. Stable moderate nonspecific cerebral white matter disease, which likely repr esents chronic small vessel ischemic disease.
[2021-09-04 15:39] VITALS: BP 137/91; PULSE 98; RESP 16; TEMP 36.8; O2SAT 98
--- NOTE | 2021-09-04 17:54 | ECG_ITS ---
Measurements Intervals [place] Rate: 85 P: 51 HI: 199 QRS: -24 QRSD: 105 T: 65 QT: 391 QTc: 467 Interpretive Statements SINUS RHYTHM INFERIOR MYOCARDIAL INFARCTION , PROBABLY OLD [40+ ms Q WAVE AND/OR ST/T ABNORMALITY IN II/aVF] ANTEROSEPTAL MYOCARDIAL INFARCTION , OF INDETERMINATE AGE [40+ ms Q WAVE IN V1-V4] NONSPECIFIC IVCD ABNORMAL ECG COMPARED TO ECG 08/12/2021 09:23:59 MYOCARDIAL INFARCT FINDING NOW PRESENT AND LBBB CRITERIA ARE NOT MET. Electronically Signed On 09-05-2021 17:03:54 CDT by Cy Cruz M.D.
--- NOTE | 2021-09-04 18:13 | ED.GENADULT ---
HPI - General Adult General Chief complaint: Unspecified Stated complaint: unable to care for self Time Seen by Provider: 09/04/21 17:53 Source: patient Mode of arrival: EMS Limitations: altered mental status History of Present Illness HPI narrative: This is an 81-year-old female that presents to the emergency department for possible placement. Reportedly patient's primary was concerned that she is unable to care for herself at home. She has had multiple recent falls resulting in serious injuries. Patient is not really sure why she was sent here. She does not remember who called EMS. She does not have any complaints currently. She does admit that she has trouble getting around lately and is having to use a walker. She does not know what medication she takes, nobody helps her with her medicines. She does not have any family in the area, but does have some friends in the area. Denies fever, vision changes, vomiting, numbness or weakness. Related Data Home Medications Medication Instructions Recorded Confirmed alendronate mg PO 08/06/21 atorvastatin 08/06/21 buspirone mg 08/06/21 gabapentin 08/06/21 hydroxyzine HCl 08/06/21 metoprolol succinate PO 08/06/21 niacin 08/06/21 omeprazole 08/06/21 Allergies Allergy/AdvReac Type Severity Reaction Status Date / Time No Known Allergies Allergy Verified 08/12/21 09:25 Review of Systems Review of Systems: CONSTITUTIONAL: Denies fever CARDIOVASCULAR: Reports rib pain. Denies edema. RESPIRATORY: Denies dyspnea. GASTROINTESTINAL: Denies abdominal pain, nausea, vomiting MUSCULOSKELETAL: Reports back pain, joint pain, and myalgia. NEUROLOGIC: Denies headache, numbness, or weakness. All systems reviewed & are unremarkable except as noted in HPI and below PMFSH Past Medical History Medical History Chronic GERD Chronic upper abdominal pain Congestive heart failure Last echo was 01/03/2019 which shows a grade 1 diastolic impairment and an EF of 60-65%. Essential hypertension Gastritis Gastroparesis Generalized anxiety disorder Heart murmur History of recurrent UTI (urinary tract infection) Hyperlipidemia, unspecified Lumbar disc disease with radiculopathy Neuropathy EDWARD (obstructive sleep apnea) Osteoporosis Primary osteoarthritis involving multiple joints Pulmonary nodule Right inguinal hernia Stable angina pectoris Weight loss, unintentional Surgical History Surgical History History of tonsillectomy Family History Family History Unknown Unknown family medical history Other Family history of cardiovascular disease Social History Social History Social History: The patient stated that she is and she has no children. She does not have a durable power city attorney for healthcare. 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 The patient desires to be a full code and does not have a durable power city attorney for healthcare. Patient is lifelong nonsmoker. She does not use alcohol marijuana illicit drugs. Smoking packs per day: 0 Smoking cigarettes per day: 0.0 Smoking status: Never smoker Tobacco type: cigarettes Second hand tobacco smoke exposure: No Additional smoking assessment comments: [facility] Alcohol intake: former Substance use: never Substance use type: does not use Gender identity (if verbalized by the patient): Female Spiritual care concerns: No Exam Narrative: GENERAL: Elderly, well-nourished, and in no acute distress. HEAD: Normocephalic, atraumatic. EYES: PERRLA and EOMI. ENT: Nares clear, no rhinorrhea or epistaxis. Mucous membranes moist. Oropharynx without tonsillar hypertrophy exudate or other lesions. Bilateral TMs pearly starks non-bulging NECK: Supple. No adenopath
[2021-09-04 18:30] LABS: Basophils Absolute Auto 0.1 K/mm3 (0.0-0.1); Basophils Percent Auto 0.9 % (0.2-1.2); Eosinophils Absolute Auto 0.2 K/mm3 (0-0.3); Eosinophils Percent Auto 2.9 % (0-4.4); Hematocrit 42.3 % (37.0-47.0); Immature Granulocyte Absolute 0.02 K/mm3 (0.00-0.031); Immature Granulocyte Percent A 0.4 % (0-0.5); Lymphocytes Absolute Auto 1.65 K/mm3 (0.9-3.2); Lymphocytes Percent Auto 29.6 % (18.3-44.2); Mean Corpuscular HGB Conc 33.1 g/dl (32-36); Mean Corpuscular Hemoglobin 31.5 pg (26-34); Mean Corpuscular Volume 95.1 fl (80-100); Monocytes Absolute Auto 0.6 K/mm3 (0.1-0.6); Monocytes Percent Auto 10.9 % (2.6-8.5); Neutrophils Absolute Auto 3.1 K/mm3 (1.3-6.7); Neutrophils Percent Auto 55.3 % (45.5-73.1); Platelet Count Result 292 k/mm3 (150-375); Red Blood Count 4.45 M/mm3 (4.2-5.4); Red Cell Distribution Width 14.5 % (11.5-14.5); White Blood Count 5.6 K/mm3 (4.5-10.0)
[2021-09-04 18:39] LABS: Alanine Aminotransferase 19 U/L (4-35); Albumin Level 4.3 g/dL (3.5-5.1); Alkaline Phosphatase 141 U/L (38-126); Anion Gap 9 mmol/L (8-16); Aspartate Amino Transferase 31 U/L (14-36); Bilirubin,Total 0.9 mg/dL (0.2-1.3); Blood Urea Nitrogen 6 mg/dL (7-17); Carbon Dioxide 26 mmol/L (22-30); Chloride 105 mmol/L (98-107); Estimated CRCL calculation 49 ml/min; Estimated Glomerular Filt Rate > 60; Glucose 93 mg/dL (65-110); Potassium 3.6 mmol/L (3.4-5.0); Sodium 140 mmol/L (137-145)
[2021-09-04 19:56] VITALS: BP 132/76; PULSE 88; RESP 16; O2SAT 100
[2021-09-04 19:56] LABS: Add Urine Microscopic? YES; Appearance Urine Clear (Clear); Bilirubin Urine Negative (Negative); Blood Urine Negative (Negative); Color Urine Yellow (Yellow); Glucose Urine UA Negative (Negative); Ketones Urine Negative (Negative); Leukocyte Esterase Ur Negative LEU/UL (Negative); Mucus Urine Rare /lpf; Nitrate Urine Negative (Negative); Protein Urine Negative (Negative); RBC Urine 0-2 /hpf (0-2); Specific Grav Ur 1.013 (1.001-1.035)
--- NOTE | 2021-09-04 21:04 | PC.NURSE ---
Pt able to walk without any difficulty or assistance.
--- NOTE | 2021-09-04 22:11 | PM.IMHP ---
H&P: HPI History of Present Illness Date/Time: 09/04/21 22:11 Chief Complaint: Unable to care for self. Narrative: This is an 81-year-old female with past medical history significant for GERD, osteoporosis, chronic abdominal pain, essential hypertension, gastroparesis, generalized anxiety disorder, obstructive sleep apnea, stable angina pectoris. Patient was brought to emergency room for evaluation after concerns for the patient not being able to care for herself apparently this has been going on for a while now according to medical records and prior or visits to the emergency room and primary care physician's office there has been concerns from family from out of state as patient is not able to take her medications. At the time of my visit patient denied any discomfort and was not quite sure why she is in the emergency room. Preliminary workup was significant for chest x-ray with infiltrates, a CT of the head showed old infarcts and white matter disease, CT of the lumbar area with no acute fractures. Patient is been admitted for further evaluation management and treatment. Review of Systems Review of Systems: ROS unobtainable: Yes unobtainable due to mental status (Mild cognitive impairment does not know wishes in the emergency room) [facility] Past Medical History Medical History Chronic GERD Chronic upper abdominal pain Congestive heart failure Last echo was 01/03/2019 which shows a grade 1 diastolic impairment and an EF of 60-65%. Essential hypertension Gastritis Gastroparesis Generalized anxiety disorder Heart murmur History of recurrent UTI (urinary tract infection) Hyperlipidemia, unspecified Lumbar disc disease with radiculopathy Neuropathy EDWARD (obstructive sleep apnea) Osteoporosis Primary osteoarthritis involving multiple joints Pulmonary nodule Right inguinal hernia Stable angina pectoris Weight loss, unintentional Surgical History Surgical History History of tonsillectomy Family History Family History Unknown Unknown family medical history Other Family history of cardiovascular disease Social History Social History Social History: The patient stated that she is and she has no children. She does not have a durable power civil rights attorney for healthcare. 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 The patient desires to be a full code and does not have a durable power civil rights attorney for healthcare. Patient is lifelong nonsmoker. She does not use alcohol marijuana illicit drugs. Smoking status: Never smoker Second hand tobacco smoke exposure: No Additional smoking assessment comments: pt is a poor historian. Alcohol intake: former Substance use: never Substance use type: does not use Gender identity (if verbalized by the patient): Female Spiritual care concerns: No Meds Home Medications and Allergies Home Medications Medication Instructions Recorded Confirmed Type alendronate mg PO 08/06/21 History atorvastatin 08/06/21 History buspirone mg 08/06/21 History gabapentin 08/06/21 History hydroxyzine HCl 08/06/21 History metoprolol succinate PO 08/06/21 History niacin 08/06/21 History omeprazole 08/06/21 History dicyclomine 10 mg capsule See Rx Instructions .ROUTE 09/03/21 Rx .COMPLEX #180 capsule bupropion HCl 300 mg 24 hr tablet, See Rx Instructions .ROUTE 09/04/21 Rx extended release .COMPLEX #90 tablet Allergies Allergy/AdvReac Type Severity Reaction Status Date / Time No Known Allergies Allergy Verified 08/12/21 09:25 Vital Signs Vital Signs - 24 hr 09/04/21 15:39 09/04/21 19:56 Temperature 98.2 F Pulse Rate 98 88 Respiratory Rate 16 16 Blood Pressure 137/91 H 132/76 Pulse Oximetry 98 100 Exam Narrativ
[2021-09-04 22:14] VITALS: BP 132/88; PULSE 70; RESP 16; O2SAT 98
[2021-09-04 23:05] VITALS: BP 128/66; PULSE 78; RESP 18; O2SAT 100
--- NOTE | 2021-09-04 23:13 | PC.NURSE ---
Report given to Jen Acuña RN
--- NOTE | 2021-09-05 00:16 | ADMGEN ---
This patient, Shanita Perez, was admitted to 3 Med Surg Room 304-01. Patient/family oriented to hospital policies and general routines including ID bracelet, bed and alarms, visiting hours, pain management, procedures, bathroom and other care routines, personal items, smoking policy, room service/diet, and visiting hours. Information on how to activate the Rapid Response Team has been discussed. Patient/Family are encouraged to report perceived risks to care and to ask questions if they do not understand what they are told or what they should do.
[2021-09-05 00:20] VITALS: BP 164/70; PULSE 76; RESP 18; TEMP 36.8; O2SAT 100
[2021-09-05 00:21] VITALS: BMI 27.5
--- NOTE | 2021-09-05 00:23 | PC.NURSE ---
09/05/21 Kanu joseph -main contact for pt [phone].
--- NOTE | 2021-09-05 00:43 | PC.NURSE ---
09/05/21 0043 unable to verify pt's home meds pt is a poor historian.
[2021-09-05] MEDS: cefTRIAXone 2 GM in SODIUM CHLORIDE 0.9% IV 100 ML 200 ML IVPB ×2 (03:52→21:00)
[2021-09-05] MEDS: FAMOTIDINE 20 MG/2 ML VIAL IV PUSH (04:20)
[2021-09-05 05:31] VITALS: BP 117/52; PULSE 101; RESP 18; TEMP 36.5; O2SAT 95
[2021-09-05 08:01] LABS: Basophils Absolute Auto 0.1 K/mm3 (0.0-0.1); Basophils Percent Auto 0.9 % (0.2-1.2); Eosinophils Absolute Auto 0.2 K/mm3 (0-0.3); Eosinophils Percent Auto 4.2 % (0-4.4); Hematocrit 36.4 % (37.0-47.0); Hemoglobin 12.6 g/dL (12.0-15.0); Immature Granulocyte Absolute 0.01 K/mm3 (0.00-0.031); Immature Granulocyte Percent A 0.2 % (0-0.5); Lymphocytes Absolute Auto 1.37 K/mm3 (0.9-3.2); Mean Corpuscular HGB Conc 34.6 g/dl (32-36); Mean Corpuscular Hemoglobin 32.4 pg (26-34); Mean Corpuscular Volume 93.6 fl (80-100); Mean Platelet Volume 9.7 fl (7.4-10.4); Monocytes Absolute Auto 0.7 K/mm3 (0.1-0.6); Monocytes Percent Auto 13.9 % (2.6-8.5); Neutrophils Absolute Auto 2.9 K/mm3 (1.3-6.7); Neutrophils Percent Auto 54.8 % (45.5-73.1); Platelet Count Result 285 k/mm3 (150-375); Red Blood Count 3.89 M/mm3 (4.2-5.4); Red Cell Distribution Width 14.5 % (11.5-14.5); White Blood Count 5.3 K/mm3 (4.5-10.0)
[2021-09-05 08:12] LABS: Alanine Aminotransferase 16 U/L (4-35); Albumin Level 3.7 g/dL (3.5-5.1); Alkaline Phosphatase 110 U/L (38-126); Anion Gap 8 mmol/L (8-16); Aspartate Amino Transferase 26 U/L (14-36); Bilirubin,Total 0.5 mg/dL (0.2-1.3); Blood Urea Nitrogen 10 mg/dL (7-17); Calcium 8.3 mg/dL (8.4-10.2); Carbon Dioxide 26 mmol/L (22-30); Chloride 104 mmol/L (98-107); Estimated CRCL calculation 48 ml/min; Estimated Glomerular Filt Rate > 60; Glucose 78 mg/dL (65-110); Potassium 3.7 mmol/L (3.4-5.0); Sodium 138 mmol/L (137-145)
--- NOTE | 2021-09-05 10:37 | PM.IMPN ---
Progress Note: A&P Assessment and Plan (1) Infiltrate of lung present on chest x-ray: Code(s): R91.8 - Other nonspecific abnormal finding of lung field Status: Acute Assessment and Plan: Monitor vital signs, I&Os, neuro status and patient is a fall risk Follow WBC, serum electrolytes, temperature curves and cultures Send sputum cultures Oxygen via NC; wean as tolerated. Keep SpO2 greater than 88% Ceftriaxone 2 gram IV q24H and Azithromycin 500mg IV q24H DuoNeb q6H and Albuterol q2H PRN P.r.n. Tylenol, Zofran, and melatonin (2) Adult failure to thrive: Code(s): R62.7 - Adult failure to thrive Status: Acute Assessment and Plan: PT/OT eval and treat (3) Dementia: Qualifiers: Dementia type: unspecified type Dementia behavioral disturbance: without behavioral disturbance Qualified Code(s): F03.90 - Unspecified dementia without behavioral disturbance Code(s): F03.90 - Unspecified dementia without behavioral disturbance Status: Acute Assessment and Plan: Patient is not on medications for this. Namenda initiated (4) Chronic upper abdominal pain: Code(s): R10.10 - Upper abdominal pain, unspecified; G89.29 - Other chronic pain Status: Acute Assessment and Plan: Unchanged Continue to monitor (5) Congestive heart failure: Qualifiers: Heart failure type: unspecified Heart failure chronicity: acute on chronic Qualified Code(s): I50.9 - Heart failure, unspecified Code(s): I50.9 - Heart failure, unspecified Status: Chronic Assessment and Plan: Appears euvolemic Continue to monitor daily intake and output. (6) EDWARD (obstructive sleep apnea): Code(s): G47.33 - Obstructive sleep apnea (adult) (pediatric) Status: Chronic Assessment and Plan: Unclear if patient uses CPAP at nighttime (7) Osteoporosis: Code(s): M81.0 - Age-related osteoporosis without current pathological fracture Status: Chronic Assessment and Plan: Patient is currently on alendronate Follow-up in outpatient setting (8) Essential hypertension: Code(s): I10 - Essential (primary) hypertension Status: Chronic Assessment and Plan: Patient is on metoprolol Continue to monitor (9) Chronic GERD: Code(s): K21.9 - Gastro-esophageal reflux disease without esophagitis Status: Chronic Assessment and Plan: Continue PPI Subjective Date/time seen: 09/05/21 10:37 Patient is a poor historian. She is alert to self. Disoriented to time and situation. Patient is unable to complete full sentences. Although she has previous right frontal lobe infarcts as well as a frontoparietal region. Patient currently lives at home alone, she would benefit from physical therapy and occupational therapy and possibly placement. A chest x-ray was performed in the emergency department which revealed mild airspace opacities in the right lower lung zones consistent with atelectasis versus pneumonia, therefore she was empirically started on Rocephin and azithromycin. Patient has had a recent rib fracture on 09/01/2021. To the right 6th through the 8th rib. At that time there is no opacities visualized in the imaging. Patient has had multiple falls or inability to manage her care. Patient also has severe cervical spondylosis and severe lumbar spondylosis. She denies any loss of bowel or bladder, rectal tone intact. Review of Systems Review of Systems: All systems reviewed & are unremarkable except as noted in HPI and below Exam Narrative: General: No acute distress. Mental Status: Awake, alert and oriented to person, disoriented to place, and time with clear speech. Skin: Skin in warm, dry and intact without rashes or lesions. Scattered bruising along the right lateral chest wall Head: Normocephalic and atraumatic. Eyes: Conjunctivae are clear without exudates or hemorrhage. Sclera is non-icteric. E
[2021-09-05 14:00] VITALS: BP 122/63; PULSE 101; RESP 20; TEMP 36.8; O2SAT 99
[2021-09-05] MEDS: busPIRone HCL 10 MG TABLET PO (17:24)
[2021-09-05] MEDS: GABAPENTIN 300 MG CAPSULE PO (20:31)
[2021-09-05 22:00] VITALS: BP 146/87; PULSE 104; RESP 16; TEMP 36.1; O2SAT 98
[2021-09-06] VITALS (10 sets, daily range): BP systolic 117–147; BP diastolic 64–72; PULSE 72–92; RESP 16–18; TEMP 35.7–36.9; O2SAT 94–99
[2021-09-06 06:05] LABS: Basophils Absolute Auto 0.1 K/mm3 (0.0-0.1); Basophils Percent Auto 1.1 % (0.2-1.2); Eosinophils Absolute Auto 0.2 K/mm3 (0-0.3); Eosinophils Percent Auto 4.4 % (0-4.4); Hematocrit 37.4 % (37.0-47.0); Hemoglobin 12.8 g/dL (12.0-15.0); Immature Granulocyte Absolute 0.02 K/mm3 (0.00-0.031); Immature Granulocyte Percent A 0.4 % (0-0.5); Lymphocytes Absolute Auto 1.82 K/mm3 (0.9-3.2); Lymphocytes Percent Auto 33.3 % (18.3-44.2); Mean Corpuscular HGB Conc 34.2 g/dl (32-36); Mean Corpuscular Hemoglobin 32.1 pg (26-34); Mean Corpuscular Volume 93.7 fl (80-100); Mean Platelet Volume 9.5 fl (7.4-10.4); Monocytes Absolute Auto 0.6 K/mm3 (0.1-0.6); Monocytes Percent Auto 11.2 % (2.6-8.5); Neutrophils Absolute Auto 2.7 K/mm3 (1.3-6.7); Neutrophils Percent Auto 49.6 % (45.5-73.1); Platelet Count Result 269 k/mm3 (150-375); Red Blood Count 3.99 M/mm3 (4.2-5.4); Red Cell Distribution Width 14.3 % (11.5-14.5); White Blood Count 5.5 K/mm3 (4.5-10.0)
[2021-09-06 06:44] LABS: Alanine Aminotransferase 15 U/L (4-35); Albumin Level 3.7 g/dL (3.5-5.1); Alkaline Phosphatase 107 U/L (38-126); Anion Gap 5 mmol/L (8-16); Aspartate Amino Transferase 21 U/L (14-36); Bilirubin,Total 0.3 mg/dL (0.2-1.3); Blood Urea Nitrogen 10 mg/dL (7-17); Calcium 8.6 mg/dL (8.4-10.2); Carbon Dioxide 26 mmol/L (22-30); Chloride 108 mmol/L (98-107); Estimated CRCL calculation 48 ml/min; Estimated Glomerular Filt Rate > 60; Glucose 99 mg/dL (65-110); Magnesium 1.9 mg/dL (1.6-2.3); Potassium 3.8 mmol/L (3.4-5.0); Sodium 139 mmol/L (137-145)
[2021-09-06] MEDS: GABAPENTIN 300 MG CAPSULE PO ×2 (08:43→20:04)
[2021-09-06] MEDS: NIACIN SA 500 MG TABLET PO (08:43)
[2021-09-06] MEDS: buPROPion HCL XL (24 HR) 150 MG TABCR 300 MG PO (08:43)
[2021-09-06] MEDS: METOPROLOL SUCCINATE EXT REL 25 MG TABCR PO (08:44)
[2021-09-06] MEDS: ATORVASTATIN 20 MG TABLET PO (08:44)
[2021-09-06] MEDS: PANTOPRAZOLE 40 MG TABLET PO (08:44)
[2021-09-06] MEDS: busPIRone HCL 10 MG TABLET PO ×2 (08:45→17:57)
--- NOTE | 2021-09-06 10:58 | PM.IMPN ---
Progress Note: A&P Assessment and Plan (1) Infiltrate of lung present on chest x-ray: Code(s): R91.8 - Other nonspecific abnormal finding of lung field Status: Acute Assessment and Plan: Monitor vital signs, I&Os, neuro status and patient is a fall risk Follow WBC, serum electrolytes, temperature curves and cultures Send sputum cultures Oxygen via NC; wean as tolerated. Keep SpO2 greater than 88% Ceftriaxone 2 gram IV q24H and Azithromycin 500mg IV q24H stopped, transition to doxycycline b.i.d. on 09/06/2021 DuoNeb q6H and Albuterol q2H PRN P.r.n. Tylenol, Zofran, and melatonin (2) Adult failure to thrive: Code(s): R62.7 - Adult failure to thrive Status: Acute Assessment and Plan: PT/OT eval and treat (3) Dementia: Qualifiers: Dementia type: unspecified type Dementia behavioral disturbance: without behavioral disturbance Qualified Code(s): F03.90 - Unspecified dementia without behavioral disturbance Code(s): F03.90 - Unspecified dementia without behavioral disturbance Status: Acute Assessment and Plan: Patient is not on medications for this. Namenda initiated (4) Chronic upper abdominal pain: Code(s): R10.10 - Upper abdominal pain, unspecified; G89.29 - Other chronic pain Status: Acute Assessment and Plan: Unchanged Continue to monitor (5) Congestive heart failure: Qualifiers: Heart failure type: unspecified Heart failure chronicity: acute on chronic Qualified Code(s): I50.9 - Heart failure, unspecified Code(s): I50.9 - Heart failure, unspecified Status: Chronic Assessment and Plan: Appears euvolemic Continue to monitor daily intake and output. (6) EDWARD (obstructive sleep apnea): Code(s): G47.33 - Obstructive sleep apnea (adult) (pediatric) Status: Chronic Assessment and Plan: Unclear if patient uses CPAP at nighttime (7) Osteoporosis: Code(s): M81.0 - Age-related osteoporosis without current pathological fracture Status: Chronic Assessment and Plan: Patient is currently on alendronate Follow-up in outpatient setting (8) Essential hypertension: Code(s): I10 - Essential (primary) hypertension Status: Chronic Assessment and Plan: Patient is on metoprolol Continue to monitor (9) Chronic GERD: Code(s): K21.9 - Gastro-esophageal reflux disease without esophagitis Status: Chronic Assessment and Plan: Continue PPI Subjective Date/time seen: 09/06/21 10:58 Patient is very conversational this morning. She continues to work with physical therapy and occupational therapy for rehab placement. Patient's antibiotics were deescalated. No acute events reported by RN during the night. Review of Systems Review of Systems: All systems reviewed & are unremarkable except as noted in HPI and below ROS unobtainable: Yes other (Mild cognitive impairment) Exam Narrative: General: No acute distress. Mental Status: Awake, alert and oriented to person, disoriented to place, and time with clear speech. Skin: Skin in warm, dry and intact without rashes or lesions. Scattered bruising along the right lateral chest wall Head: Normocephalic and atraumatic. Eyes: Conjunctivae are clear without exudates or hemorrhage. Sclera is non-icteric. EOM are intact, PERRLA. Ears: The external ear and canal are non-tender and without swelling or discharge. Nose: Nasal mucosa is pink and moist. Septum midline. Nares patent bilaterally. Throat: Oral mucosa pink and moist with good dentition. Tongue midline. Neck: The neck supple without adenopathy. Trachea midline. No JVD. Cardiac: S1 and S2 regular rate and rhythm. No murmurs, gallops, or rubs auscultated. Respiratory: Chest wall symmetric, tender to the right lateral chest wall due to trauma and without deformity o Respirations even and unlabored. Lung sounds are diminished, poor inspiratory effort to ausc
[2021-09-06] MEDS: DOXYCYCLINE HYCLATE 100 MG TABLET PO ×2 (12:26→20:04)
[2021-09-06] MEDS: IPRATROPIUM BR 0.02% INH SOLN 0.5 MG/2.5 ML VIAL INHALATION ×2 (14:12→20:37)
[2021-09-07] VITALS (13 sets, daily range): BP systolic 111–126; BP diastolic 53–78; PULSE 68–88; RESP 16–20; TEMP 36.2–36.5; O2SAT 94–99
[2021-09-07] MEDS: IPRATROPIUM BR 0.02% INH SOLN 0.5 MG/2.5 ML VIAL INHALATION ×3 (02:15→20:07)
[2021-09-07 06:41] LABS: Basophils Absolute Auto 0.1 K/mm3 (0.0-0.1); Basophils Percent Auto 1.1 % (0.2-1.2); Eosinophils Absolute Auto 0.2 K/mm3 (0-0.3); Eosinophils Percent Auto 4.5 % (0-4.4); Hematocrit 39.6 % (37.0-47.0); Immature Granulocyte Absolute 0.01 K/mm3 (0.00-0.031); Immature Granulocyte Percent A 0.2 % (0-0.5); Lymphocytes Absolute Auto 1.88 K/mm3 (0.9-3.2); Lymphocytes Percent Auto 35.4 % (18.3-44.2); Mean Corpuscular HGB Conc 32.8 g/dl (32-36); Mean Corpuscular Hemoglobin 31.3 pg (26-34); Mean Corpuscular Volume 95.2 fl (80-100); Mean Platelet Volume 9.8 fl (7.4-10.4); Monocytes Absolute Auto 0.6 K/mm3 (0.1-0.6); Monocytes Percent Auto 10.7 % (2.6-8.5); Neutrophils Absolute Auto 2.6 K/mm3 (1.3-6.7); Neutrophils Percent Auto 48.1 % (45.5-73.1); Platelet Count Result 268 k/mm3 (150-375); Red Blood Count 4.16 M/mm3 (4.2-5.4); Red Cell Distribution Width 14.5 % (11.5-14.5); White Blood Count 5.3 K/mm3 (4.5-10.0)
[2021-09-07 06:49] LABS: Alanine Aminotransferase 14 U/L (4-35); Albumin Level 3.9 g/dL (3.5-5.1); Alkaline Phosphatase 101 U/L (38-126); Anion Gap 6 mmol/L (8-16); Aspartate Amino Transferase 23 U/L (14-36); Bilirubin,Total 0.4 mg/dL (0.2-1.3); Blood Urea Nitrogen 15 mg/dL (7-17); Calcium 8.9 mg/dL (8.4-10.2); Carbon Dioxide 27 mmol/L (22-30); Chloride 105 mmol/L (98-107); Estimated CRCL calculation 43 ml/min; Estimated Glomerular Filt Rate > 60; Glucose 93 mg/dL (65-110); Potassium 4.3 mmol/L (3.4-5.0); Sodium 138 mmol/L (137-145)
[2021-09-07] MEDS: GABAPENTIN 300 MG CAPSULE PO ×2 (09:52→19:50)
[2021-09-07] MEDS: DOXYCYCLINE HYCLATE 100 MG TABLET PO (09:52)
[2021-09-07] MEDS: buPROPion HCL XL (24 HR) 150 MG TABCR 300 MG PO (09:53)
[2021-09-07] MEDS: METOPROLOL SUCCINATE EXT REL 25 MG TABCR PO (09:53)
[2021-09-07] MEDS: NIACIN SA 500 MG TABLET PO (09:54)
[2021-09-07] MEDS: busPIRone HCL 10 MG TABLET PO ×2 (09:54→17:49)
[2021-09-07] MEDS: ATORVASTATIN 20 MG TABLET PO (09:54)
[2021-09-07] MEDS: PANTOPRAZOLE 40 MG TABLET PO (09:54)
--- NOTE | 2021-09-07 10:00 | PM.IMPN ---
Progress Note: A&P Assessment and Plan (1) Infiltrate of lung present on chest x-ray: Code(s): R91.8 - Other nonspecific abnormal finding of lung field Status: Acute Assessment and Plan: Monitor vital signs, I&Os, neuro status and patient is a fall risk Follow WBC, serum electrolytes, temperature curves and cultures Send sputum cultures Oxygen via NC; wean as tolerated. Keep SpO2 greater than 88% DuoNeb q6H and Albuterol q2H PRN P.r.n. Tylenol, Zofran, and melatonin --Resolving, DC abx. monitor off abx therapy (2) Adult failure to thrive: Code(s): R62.7 - Adult failure to thrive Status: Acute Assessment and Plan: PT/OT eval and treat The patient would benefit from a skilled facility placement (3) Dementia: Qualifiers: Dementia type: unspecified type Dementia behavioral disturbance: without behavioral disturbance Qualified Code(s): F03.90 - Unspecified dementia without behavioral disturbance Code(s): F03.90 - Unspecified dementia without behavioral disturbance Status: Acute Assessment and Plan: Patient is not on medications for this. Namenda initiated (4) Chronic upper abdominal pain: Code(s): R10.10 - Upper abdominal pain, unspecified; G89.29 - Other chronic pain Status: Acute Assessment and Plan: Unchanged Continue to monitor (5) Congestive heart failure: Qualifiers: Heart failure type: unspecified Heart failure chronicity: acute on chronic Qualified Code(s): I50.9 - Heart failure, unspecified Code(s): I50.9 - Heart failure, unspecified Status: Chronic Assessment and Plan: Appears euvolemic Continue to monitor daily intake and output. (6) EDWARD (obstructive sleep apnea): Code(s): G47.33 - Obstructive sleep apnea (adult) (pediatric) Status: Chronic Assessment and Plan: Unclear if patient uses CPAP at nighttime (7) Osteoporosis: Code(s): M81.0 - Age-related osteoporosis without current pathological fracture Status: Chronic Assessment and Plan: Patient is currently on alendronate Follow-up in outpatient setting (8) Essential hypertension: Code(s): I10 - Essential (primary) hypertension Status: Chronic Assessment and Plan: Patient is on metoprolol Continue to monitor (9) Chronic GERD: Code(s): K21.9 - Gastro-esophageal reflux disease without esophagitis Status: Chronic Assessment and Plan: Continue PPI Subjective Date/time seen: 09/07/21 10:00 Patient is alert and very conversational this morning. Patient continues not to have a WBC. It was initially thought that the patient had a urinary tract infection given her symptoms and urinalysis. However the patient's urinalysis came back with normal jono therefore antibiotics were deescalated. Repeat chest x-ray did not reveal a pneumonia therefore her doxycycline was also discontinued. Patient is currently pending placement for a skilled facility due to her generalized weakness and physical debility after multiple prolonged hospitalizations and falls at home. Patient does have home health however it may not be a sufficient enough to maintain the patient's safety. Review of Systems Review of Systems: All systems reviewed & are unremarkable except as noted in HPI and below Exam Narrative: General: No acute distress. Mental Status: Awake, alert and oriented to person, disoriented to place, and time with clear speech. Skin: Skin in warm, dry and intact without rashes or lesions. Scattered bruising along the right lateral chest wall Head: Normocephalic and atraumatic. Eyes: Conjunctivae are clear without exudates or hemorrhage. Sclera is non-icteric. EOM are intact, PERRLA. Ears: The external ear and canal are non-tender and without swelling or discharge. Nose: Nasal mucosa is pink and moist. Septum midline. Nares patent bilaterally. Throat: Oral mucosa pink and moist
[2021-09-07] MEDS: ACETAMINOPHEN 325 MG TABLET 650 MG PO (15:27)
[2021-09-07] MEDS: ALBUTEROL SULFATE NEB 2.5 MG/0.5 ML INH 5 MG INHALATION (20:07)
[2021-09-08] VITALS (7 sets, daily range): BP systolic 103–131; BP diastolic 64–83; PULSE 73–92; RESP 16–20; TEMP 36.1–36.3; O2SAT 97–100
[2021-09-08] MEDS: ALBUTEROL SULFATE NEB 2.5 MG/0.5 ML INH 5 MG INHALATION (02:05)
[2021-09-08] MEDS: IPRATROPIUM BR 0.02% INH SOLN 0.5 MG/2.5 ML VIAL INHALATION (02:05)
[2021-09-08 06:08] LABS: Basophils Absolute Auto 0.1 K/mm3 (0.0-0.1); Basophils Percent Auto 0.9 % (0.2-1.2); Eosinophils Absolute Auto 0.3 K/mm3 (0-0.3); Eosinophils Percent Auto 5.6 % (0-4.4); Hematocrit 38.5 % (37.0-47.0); Hemoglobin 12.7 g/dL (12.0-15.0); Immature Granulocyte Absolute 0.03 K/mm3 (0.00-0.031); Immature Granulocyte Percent A 0.5 % (0-0.5); Lymphocytes Absolute Auto 2.06 K/mm3 (0.9-3.2); Lymphocytes Percent Auto 35.8 % (18.3-44.2); Mean Corpuscular Hemoglobin 31.5 pg (26-34); Mean Corpuscular Volume 95.5 fl (80-100); Mean Platelet Volume 10.2 fl (7.4-10.4); Monocytes Absolute Auto 0.6 K/mm3 (0.1-0.6); Monocytes Percent Auto 9.7 % (2.6-8.5); Neutrophils Absolute Auto 2.7 K/mm3 (1.3-6.7); Neutrophils Percent Auto 47.5 % (45.5-73.1); Platelet Count Result 273 k/mm3 (150-375); Red Blood Count 4.03 M/mm3 (4.2-5.4); Red Cell Distribution Width 14.4 % (11.5-14.5); White Blood Count 5.8 K/mm3 (4.5-10.0)
[2021-09-08 07:42] LABS: Alanine Aminotransferase 14 U/L (4-35); Albumin Level 3.8 g/dL (3.5-5.1); Alkaline Phosphatase 99 U/L (38-126); Anion Gap 7 mmol/L (8-16); Aspartate Amino Transferase 22 U/L (14-36); Bilirubin,Total 0.3 mg/dL (0.2-1.3); Blood Urea Nitrogen 16 mg/dL (7-17); Calcium 8.7 mg/dL (8.4-10.2); Carbon Dioxide 26 mmol/L (22-30); Chloride 106 mmol/L (98-107); Estimated CRCL calculation 43 ml/min; Estimated Glomerular Filt Rate > 60; Glucose 100 mg/dL (65-110); Potassium 3.9 mmol/L (3.4-5.0); Sodium 139 mmol/L (137-145)
[2021-09-08] MEDS: ENOXAPARIN 40 MG/0.4 ML SYRINGE SUB-Q (08:20)
[2021-09-08] MEDS: DICYCLOMINE HCL 10 MG CAPSULE PO (08:21)
[2021-09-08] MEDS: buPROPion HCL XL (24 HR) 150 MG TABCR 300 MG PO (08:21)
[2021-09-08] MEDS: METOPROLOL SUCCINATE EXT REL 25 MG TABCR PO (08:22)
[2021-09-08] MEDS: busPIRone HCL 10 MG TABLET PO ×2 (08:22→16:30)
[2021-09-08] MEDS: ATORVASTATIN 20 MG TABLET PO (08:22)
[2021-09-08] MEDS: GABAPENTIN 300 MG CAPSULE PO ×2 (08:23→20:32)
[2021-09-08] MEDS: PANTOPRAZOLE 40 MG TABLET PO (08:23)
[2021-09-08] MEDS: NIACIN SA 500 MG TABLET PO (08:23)
--- NOTE | 2021-09-08 09:00 | P.PNIM_ITS ---
Progress Note: A&P Assessment and Plan (1) Infiltrate of lung present on chest x-ray: Code(s): R91.8 - Other nonspecific abnormal finding of lung field Status: Acute Assessment and Plan: * Chest xray on 09/04/21 showed Mild airspace opacities in right lower lung zone, consistent with atelectasis versus pneumonia. * Chest xray on 09/07/21 showed no acute abnormality * Blood cultures no growth to date * Neb treatments ordered can probably DC at this time * WBC 5.8 today * Resolving, DC abx. monitor off abx therapy (2) Adult failure to thrive: Code(s): R62.7 - Adult failure to thrive Status: Acute Assessment and Plan: * PT/OT eval and treat * The patient would benefit from a skilled facility placement * Care coordination consulted (3) Dementia: Qualifiers: Dementia behavioral disturbance: without behavioral disturbance Dementia type: unspecified type Qualified Code(s): F03.90 - Unspecified fiona ntia without behavioral disturbance Code(s): F03.90 - Unspecified dementia without behavioral disturbance Status: Acute Assessment and Plan: * Patient is not on medications for this. * Namenda initiated (4) Congestive heart failure: Qualifiers: Heart failure chronicity: acute on chronic Heart failure type: unspecified Qualified Code(s): I50.9 - Heart failure, unspecified Code(s): I50.9 - Heart failure, unspecified Status: Chronic Assessment and Plan: * Appears euvolemic * Echo from 2020 shows EF of 65-70% with grade 1 diastolic dysfunction * Continue home metoprolol * Not on any diuretics * Continue to monitor daily intake and output * Daily weights * Looks to be a chronic diastolic heart failure (5) EDWARD (obstructive sleep apnea): Code(s): G47.33 - Obstructive sleep apnea (adult) (pediatric) Status: Chronic Assessment and Plan: * Unclear if patient uses CPAP at nighttime (6) Osteoporosis: Code(s): M81.0 - Age-related osteoporosis without current pathological fracture Status: Chronic Assessment and Plan: * Patient is currently on alendronate * Follow-up in outpatient setting (7) Essential hypertension: Code(s): I10 - Essential (primary) hypertension Status: Chronic Assessment and Plan: * Current BP is 122/83, stable * Continue home metoprolol * Trend BP * Adjust therapy as indicated (8) Chronic GERD: Code(s): K21.9 - Gastro-esophageal reflux disease without esophagitis Status: Chronic Assessment and Plan: * Continue PPI Time Spent With Patient Time with patient: Greater than 35 minutes Subjective Date/time seen: 09/08/21 0900 Interval history: Date/Time: 09/04/21 22:11 Narrative: This is an 81-year-old female with past medical history significant for GERD, osteoporosis, chronic abdominal pain, essential hypertension, gastroparesis, generalized anxiety disorder, obstructive sleep apnea, stable angina pectoris. Patient was brought to emergency room for evaluation after concerns for the patient not being able to care for herself apparently this has been going on for a while now according to medical records and prior or visits to the emergency room and primary care physician's office there has been concerns from family from out of state as patient is not able to take her medications. At the time of my
--- NOTE | 2021-09-08 09:00 | PM.IMPN ---
Progress Note: A&P Assessment and Plan (1) Infiltrate of lung present on chest x-ray: Code(s): R91.8 - Other nonspecific abnormal finding of lung field Status: Acute Assessment and Plan: Chest xray on 09/04/21 showed Mild airspace opacities in right lower lung zone, consistent with atelectasis versus pneumonia. Chest xray on 09/07/21 showed no acute abnormality Blood cultures no growth to date Neb treatments ordered can probably DC at this time WBC 5.8 today Resolving, DC abx. monitor off abx therapy (2) Adult failure to thrive: Code(s): R62.7 - Adult failure to thrive Status: Acute Assessment and Plan: PT/OT eval and treat The patient would benefit from a skilled facility placement Care coordination consulted (3) Dementia: Qualifiers: Dementia behavioral disturbance: without behavioral disturbance Dementia type: unspecified type Qualified Code(s): F03.90 - Unspecified dementia without behavioral disturbance Code(s): F03.90 - Unspecified dementia without behavioral disturbance Status: Acute Assessment and Plan: Patient is not on medications for this. Namenda initiated (4) Congestive heart failure: Qualifiers: Heart failure chronicity: acute on chronic Heart failure type: unspecified Qualified Code(s): I50.9 - Heart failure, unspecified Code(s): I50.9 - Heart failure, unspecified Status: Chronic Assessment and Plan: Appears euvolemic Echo from 2020 shows EF of 65-70% with grade 1 diastolic dysfunction Continue home metoprolol Not on any diuretics Continue to monitor daily intake and output Daily weights Looks to be a chronic diastolic heart failure (5) EDWARD (obstructive sleep apnea): Code(s): G47.33 - Obstructive sleep apnea (adult) (pediatric) Status: Chronic Assessment and Plan: Unclear if patient uses CPAP at nighttime (6) Osteoporosis: Code(s): M81.0 - Age-related osteoporosis without current pathological fracture Status: Chronic Assessment and Plan: Patient is currently on alendronate Follow-up in outpatient setting (7) Essential hypertension: Code(s): I10 - Essential (primary) hypertension Status: Chronic Assessment and Plan: Current BP is 122/83, stable Continue home metoprolol Trend BP Adjust therapy as indicated (8) Chronic GERD: Code(s): K21.9 - Gastro-esophageal reflux disease without esophagitis Status: Chronic Assessment and Plan: Continue PPI Time Spent With Patient Time with patient: Greater than 35 minutes Subjective Date/time seen: 09/08/21 0900 Interval history: Date/Time: 09/04/21 22:11 Narrative: This is an 81-year-old female with past medical history significant for GERD, osteoporosis, chronic abdominal pain, essential hypertension, gastroparesis, generalized anxiety disorder, obstructive sleep apnea, stable angina pectoris. Patient was brought to emergency room for evaluation after concerns for the patient not being able to care for herself apparently this has been going on for a while now according to medical records and prior or visits to the emergency room and primary care physician's office there has been concerns from family from out of state as patient is not able to take her medications. At the time of my visit patient denied any discomfort and was not quite sure why she is in the emergency room. Preliminary workup was significant for chest x-ray with infiltrates, a CT of the head showed old infarcts and white matter disease, CT of the lumbar area with no acute fractures. Patient is been admitted for further evaluation management and treatment. Date/time seen: 09/05/21 10:37 Patient is a poor historian. She is alert to self. Disoriented to time and situation. Patient is unable to complete full sentences. Alth
[2021-09-09] VITALS: BP 146/78; PULSE 77; RESP 18; TEMP 36.1; O2SAT 97
[2021-09-09 04:00] VITALS: BP 145/93; PULSE 92; RESP 18; TEMP 35.9; O2SAT 100
[2021-09-09 05:38] LABS: Basophils Absolute Auto 0.1 K/mm3 (0.0-0.1); Basophils Percent Auto 1.1 % (0.2-1.2); Eosinophils Absolute Auto 0.3 K/mm3 (0-0.3); Eosinophils Percent Auto 4.8 % (0-4.4); Hematocrit 38.8 % (37.0-47.0); Hemoglobin 13.6 g/dL (12.0-15.0); Immature Granulocyte Absolute 0.02 K/mm3 (0.00-0.031); Immature Granulocyte Percent A 0.3 % (0-0.5); Lymphocytes Percent Auto 22.3 % (18.3-44.2); Mean Corpuscular HGB Conc 35.1 g/dl (32-36); Mean Corpuscular Volume 94.2 fl (80-100); Mean Platelet Volume 9.6 fl (7.4-10.4); Monocytes Absolute Auto 0.6 K/mm3 (0.1-0.6); Monocytes Percent Auto 10.2 % (2.6-8.5); Neutrophils Absolute Auto 3.8 K/mm3 (1.3-6.7); Neutrophils Percent Auto 61.3 % (45.5-73.1); Platelet Count Result 263 k/mm3 (150-375); Red Blood Count 4.12 M/mm3 (4.2-5.4); White Blood Count 6.3 K/mm3 (4.5-10.0)
[2021-09-09 05:41] LABS: Alanine Aminotransferase 13 U/L (4-35); Albumin Level 3.8 g/dL (3.5-5.1); Alkaline Phosphatase 96 U/L (38-126); Anion Gap 5 mmol/L (8-16); Aspartate Amino Transferase 22 U/L (14-36); Bilirubin,Total 0.3 mg/dL (0.2-1.3); Blood Urea Nitrogen 20 mg/dL (7-17); Calcium 8.8 mg/dL (8.4-10.2); Carbon Dioxide 27 mmol/L (22-30); Chloride 105 mmol/L (98-107); Estimated CRCL calculation 43 ml/min; Estimated Glomerular Filt Rate > 60; Glucose 105 mg/dL (65-110); Magnesium 1.7 mg/dL (1.6-2.3); Potassium 4.1 mmol/L (3.4-5.0); Sodium 137 mmol/L (137-145)
[2021-09-09] MEDS: ENOXAPARIN 40 MG/0.4 ML SYRINGE SUB-Q (08:05)
[2021-09-09 08:06] VITALS: PULSE 80
[2021-09-09] MEDS: GABAPENTIN 300 MG CAPSULE PO (08:06)
[2021-09-09] MEDS: METOPROLOL SUCCINATE EXT REL 25 MG TABCR PO (08:06)
[2021-09-09] MEDS: PANTOPRAZOLE 40 MG TABLET PO (08:06)
[2021-09-09] MEDS: busPIRone HCL 10 MG TABLET PO ×2 (08:06→16:24)
[2021-09-09] MEDS: buPROPion HCL XL (24 HR) 150 MG TABCR 300 MG PO (08:06)
[2021-09-09] MEDS: ATORVASTATIN 20 MG TABLET PO (08:06)
[2021-09-09] MEDS: NIACIN SA 500 MG TABLET PO (08:07)
[2021-09-09 09:03] VITALS: O2SAT 97
--- NOTE | 2021-09-09 10:15 | P.DS_ITS ---
DS: Admitting Diagnosis Discharge Date 09/09/21 1015 Admitting Diagnosis Infiltrate of the lung DS: Discharge Diagnosis Discharge Diagnosis (1) Infiltrate of lung present on chest x-ray: Code(s): R91.8 - Other nonspecific abnormal finding of lung field Status: Acute Assessment and Plan: * Chest xray on 09/04/21 showed Mild airspace opacities in right lower lung zone, consistent with atelectasis versus pneumonia. * Chest xray on 09/07/21 showed no acute abnormality * Blood cultures no growth to date * Neb treatments ordered can probably DC at this time * WBC 5.8 today * Resolving, DC abx. monitor off abx therapy (2) Adult failure to thrive: Code(s): R62.7 - Adult failure to thrive Status: Acute Assessment and Plan: * PT/OT eval and treat * The patient would benefit from a skilled facility placement * Care coordination consulted (3) Dementia: Qualifiers: Dementia behavioral disturbance: without behavioral disturbance Dementia type: unspecified type Qualified Code(s): F03.90 - Unspecified dementia without behavioral disturbance Code(s): F03.90 - Unspecified dementia without behavioral disturbance Status: Acute Assessment and Plan: * Patient is not on medications for this. * Namenda initiated (4) Congestive heart failure: Qualifiers: Heart failure chronicity: acute on chronic Heart failure type: un specified Qualified Code(s): I50.9 - Heart failure, unspecified Code(s): I50.9 - Heart failure, unspecified Status: Chronic Assessment and Plan: * Appears euvolemic * Echo from 2020 shows EF of 65-70% with grade 1 diastolic dysfunction * Continue home metoprolol * Not on any diuretics * Continue to monitor daily intake and output * Daily weights * Looks to be a chronic diastolic heart failure (5) EDWARD (obstructive sleep apnea): Code(s): G47.33 - Obstructive sleep apnea (adult) (pediatric) Status: Chronic Assessment and Plan: * Unclear if patient uses CPAP at nighttime (6) Osteoporosis: Code(s): M81.0 - Age-related osteoporosis without current pathological fracture Status: Chronic Assessment and Plan: * Patient is currently on alendronate * Follow-up in outpatient setting (7) Essential hypertension: Code(s): I10 - Essential (primary) hypertension Status: Chronic Assessment and Plan: * Current BP is 122/83, stable * Continue home metoprolol * Trend BP * Adjust therapy as indicated (8) Chronic GERD: Code(s): K21.9 - Gastro-esophageal reflux disease without esophagitis Status: Chronic Assessment and Plan: * Continue PPI DS: Summary Hospital Course Hospital Course: Patient is an 81-year-old female with past medical history of GERD, osteoporosis, chronic abdominal pain, hypertension, gastroparesis, general anxiety disorder who presented the ED due to weakness and inability to care for herself. Chest x-ray showed infiltrates, he had CT showed old infarcts and white matter disease, lumbar area showed no acute fractures. Patient lives on her own and family is out of town. Patient is alert oriented times 1-2. She does have a known history of dementia Alzheimer's, patient states she is feeling better and was started on IV antibiotics due to infiltrate at on x-ray. This was shortly DC it after labs became
--- NOTE | 2021-09-09 10:15 | PM.DS ---
DS: Admitting Diagnosis Discharge Date 09/09/21 1015 Admitting Diagnosis Infiltrate of the lung DS: Discharge Diagnosis Discharge Diagnosis (1) Infiltrate of lung present on chest x-ray: Code(s): R91.8 - Other nonspecific abnormal finding of lung field Status: Acute Assessment and Plan: Chest xray on 09/04/21 showed Mild airspace opacities in right lower lung zone, consistent with atelectasis versus pneumonia. Chest xray on 09/07/21 showed no acute abnormality Blood cultures no growth to date Neb treatments ordered can probably DC at this time WBC 5.8 today Resolving, DC abx. monitor off abx therapy (2) Adult failure to thrive: Code(s): R62.7 - Adult failure to thrive Status: Acute Assessment and Plan: PT/OT eval and treat The patient would benefit from a skilled facility placement Care coordination consulted (3) Dementia: Qualifiers: Dementia behavioral disturbance: without behavioral disturbance Dementia type: unspecified type Qualified Code(s): F03.90 - Unspecified dementia without behavioral disturbance Code(s): F03.90 - Unspecified dementia without behavioral disturbance Status: Acute Assessment and Plan: Patient is not on medications for this. Namenda initiated (4) Congestive heart failure: Qualifiers: Heart failure chronicity: acute on chronic Heart failure type: unspecified Qualified Code(s): I50.9 - Heart failure, unspecified Code(s): I50.9 - Heart failure, unspecified Status: Chronic Assessment and Plan: Appears euvolemic Echo from 2020 shows EF of 65-70% with grade 1 diastolic dysfunction Continue home metoprolol Not on any diuretics Continue to monitor daily intake and output Daily weights Looks to be a chronic diastolic heart failure (5) EDWARD (obstructive sleep apnea): Code(s): G47.33 - Obstructive sleep apnea (adult) (pediatric) Status: Chronic Assessment and Plan: Unclear if patient uses CPAP at nighttime (6) Osteoporosis: Code(s): M81.0 - Age-related osteoporosis without current pathological fracture Status: Chronic Assessment and Plan: Patient is currently on alendronate Follow-up in outpatient setting (7) Essential hypertension: Code(s): I10 - Essential (primary) hypertension Status: Chronic Assessment and Plan: Current BP is 122/83, stable Continue home metoprolol Trend BP Adjust therapy as indicated (8) Chronic GERD: Code(s): K21.9 - Gastro-esophageal reflux disease without esophagitis Status: Chronic Assessment and Plan: Continue PPI DS: Summary Hospital Course Hospital Course: Patient is an 81-year-old female with past medical history of GERD, osteoporosis, chronic abdominal pain, hypertension, gastroparesis, general anxiety disorder who presented the ED due to weakness and inability to care for herself. Chest x-ray showed infiltrates, he had CT showed old infarcts and white matter disease, lumbar area showed no acute fractures. Patient lives on her own and family is out of town. Patient is alert oriented times 1-2. She does have a known history of dementia Alzheimer's, patient states she is feeling better and was started on IV antibiotics due to infiltrate at on x-ray. This was shortly DC it after labs became stable. Patient is unable to give a complete review of systems due to patient's mental status. Anemia labs were around and it showed patient is iron deficient. Patient is being placed in a long term residence for further management and care. Patient is stable per labs and vital signs for discharge at this time. Status at Discharge Functional status at discharge: uses cane/walker Overall status at discharge: patient is progressing back to baseline Time Spent with Patient Time attestation: Total time spent providing a
[2021-09-09 13:32] VITALS: BP 123/64; PULSE 76; RESP 18; TEMP 36.1; O2SAT 98
[2021-09-09 14:51] LABS: EDCOVIDSCREEN Negative (Negative)
[2021-09-09] MEDS: FERROUS SULFATE 324 MG TABLET PO (16:24)
== END 2021-09-09 18:00 ==
LOC: ANHED 22:33 → ANH3MEDSUR 09-05 07:33
PROVIDERS: Nurse Practitioner Family; Physician Assistant; Admitting Provider Internal Medicine; Emergency Provider Emergency Medicine; PCP Family Medicine; Visit Provider Nurse Practitioner
DX: R62.7 Adult failure to thrive (principal); I11.0 Hypertensive heart disease with heart failure; I50.9 Heart failure, unspecified; G89.29 Other chronic pain; R10.9 Unspecified abdominal pain; D50.9 Iron deficiency anemia, unspecified; K21.9 Gastro-esophageal reflux disease without esophagitis; K31.84 Gastroparesis; F41.9 Anxiety disorder, unspecified; F02.80 Dementia in other diseases classified elsewhere, unspecified severity, without behavioral disturbance, psychotic disturbance, mood disturbance, and anxiety; G47.33 Obstructive sleep apnea (adult) (pediatric); G30.9 Alzheimer's disease, unspecified; M81.0 Age-related osteoporosis without current pathological fracture; R91.8 Other nonspecific abnormal finding of lung field; Z86.73 Personal history of transient ischemic attack (TIA), and cerebral infarction without residual deficits; Z20.822 Contact with and (suspected) exposure to COVID-19
CPT/HCPCS: 36415; 51701; 70450; 71045; 71046; 72131; 80053; 81001; 83735; 85025; 87040; 87426; 93005; 94640; 96365; 96366; 96367; 96372; 96375; 97110; 97116; 97161; 97165; 97530; 97535; 99285; A9270; C9803; G0378; J0456; J0696; J1650

== ENCOUNTER 2021-10-07 10:24 | Outpatient (CLI) | payer MEDICARE, SELFPAY ==
--- NOTE | ~2021-10-07 | XR_ITS ---
EXAMINATION: XR finger 1st LT min 2V DATE: 10/07/2021 10:56 INDICATION: Left thumb pain. TECHNIQUE: 3 views of left thumb were obtained. COMPARISON: Left thumb radiograph 08/03/2005 FINDINGS: Bone alignment is normal. No fracture. There is severe osteoarthritis of triscaphe joint, f irst carpometacarpal joint, and first interphalangeal joint. There is mild osteoarthritis of first me tacarpophalangeal joint. There is chronic heterotopic ossification near first interphalangeal joint. IMPRESSION: 1. Polyarticular osteoarthritis. Reviewed, dictated and finalized at location B.
== END 2021-10-07 10:25 | disposition home or self-care (01) ==
PROVIDERS: PCP Family Medicine; Visit Provider Family Medicine
DX: M15.9 Polyosteoarthritis, unspecified (principal); M79.645 Pain in left finger(s)
CPT/HCPCS: 73140

== ENCOUNTER 2021-12-18 06:22 | Outpatient (NON) | payer MEDICARE, SELFPAY ==
[2021-12-18 06:40] LABS: Add Urine Microscopic? NO; Appearance Urine Clear (Clear); Basophils Absolute Auto 0.06 K/mm3 (0.00-0.10); Bilirubin Urine Negative (Negative); Blood Urine Negative (Negative); Color Urine Light Yellow (Yellow); Eosinophils Absolute Auto 0.19 K/mm3 (0.02-0.50); Eosinophils Percent Auto 3.3 % (1.0-6.0); Glucose Urine UA Negative (Negative); Hematocrit 40.2 % (35.0-42.0); Hemoglobin 13.5 g/dL (11.7-13.8); Immature Granulocyte Absolute 0.02 K/mm3 (0.00-0.00); Immature Granulocyte Percent A 0.3 % (0.0-0.0); Ketones Urine Negative (Negative); Leukocyte Esterase Ur Negative (Negative); Lymphocytes Absolute Auto 1.68 K/mm3 (1.10-4.50); Lymphocytes Percent Auto 28.8 % (18.0-42.0); Mean Corpuscular HGB Conc 33.6 g/dL (32.0-36.0); Mean Corpuscular Hemoglobin 30.9 pg (27.0-31.0); Mean Platelet Volume 9.7 fl (9.2-11.8); Monocytes Absolute Auto 0.61 K/mm3 (0.10-0.90); Monocytes Percent Auto 10.5 % (2.0-11.0); Neutrophils Absolute Auto 3.3 K/mm3 (1.7-7.2); Neutrophils Percent Auto 56.1 % (50.0-70.0); Nitrate Urine Negative (Negative); Platelet Count Result 241 K/mm3 (150-420); Protein Urine Negative (Negative); Red Blood Count 4.37 M/mm3 (4.20-5.40); Red Cell Distribution Width 13.8 % (11.6-14.4); Specific Grav Ur <= 1.005 (1.010-1.020); Urobilinogen Urine 0.2 mg/dL (0.2-1.0); White Blood Count 5.8 K/mm3 (4.8-10.8); pH Urine 6.5 (5.0-8.0)
[2021-12-18 07:32] LABS: Creatinine Urine 43.01 mg/dL (40-278); MALB Creatinine Ratio 30.2 mg/g (0-30); Microalbumin Urine Random < 13.0 mg/L
[2021-12-18 08:12] LABS: Alanine Aminotransferase 22 U/L (14-59); Alkaline Phosphatase 93 U/L (46-116); Anion Gap 10 mmol/L (8-16); Aspartate Amino Transferase 24 U/L (15-37); Bilirubin Direct 0.1 mg/dL (0-0.2); Bilirubin,Total 0.2 mg/dL (0.00-1.00); Blood Urea Nitrogen 19 mg/dL (7-18); Calcium 8.6 mg/dL (8.5-10.1); Carbon Dioxide 26 mmol/L (21-32); Chloride 106 mmol/L (98-108); Cholesterol 146 mg/dL (0-200); Estimated Glomerular Filt Rate 52; Glucose 93 mg/dL (70-99); HDL Direct 55 mg/dL (40-60); LDL Cholesterol Calculated 56 mg/dL (<130); Osmolality Calculated 296 mOsm/kg (285-295); Potassium 4.2 mmol/L (3.5-5.1); Sodium 142 mmol/L (136-145); Thyroid Stimulating Hormone 3.56 uIU/mL (0.36-3.74); Total Protein 6.5 g/dL (6.4-8.2); Triglycerides 175 mg/dL (0-150); Vitamin B12 377 pg/mL (193-986)
[2021-12-23 11:34] LABS: Methylmalonic Acid 190 nmol/L (87-318)
[2021-12-23 19:17] LABS: Vitamin D 25 Hydroxy 24 ng/mL (30-100)
== END 2021-12-18 06:23 | disposition home or self-care (01) ==
LOC: CHSLAB 06:24
PROVIDERS: PCP Family Medicine; Visit Provider Family Medicine
DX: D64.9 Anemia, unspecified (principal); I50.9 Heart failure, unspecified; E78.5 Hyperlipidemia, unspecified; I10 Essential (primary) hypertension; Z79.899 Other long term (current) drug therapy
CPT/HCPCS: 36415; 80048; 80061; 80076; 81003; 82043; 82306; 82607; 83921; 84443; 85025

== ENCOUNTER 2022-01-02 09:26 | Outpatient (CLI) | payer MEDICARE, SELFPAY ==
--- NOTE | ~2022-01-02 | XR_ITS ---
XR thoracolumbar DATE: 01/02/2022 09:49 INDICATION: Pain and lower thoracic and all of the lumbar spine, radiating to hips, chronic. TECHNIQUE: AP and lateral views from mid T7 to upper sacrum COMPARISON: 08/12/2021 CDT thoracic and lumbar spine 09/04/2021 CT lumbar spine FINDINGS: There is diffuse osteopenia. There is mild levoscoliosis of the lumbar spine. Included lower thoracic and lumbar pedicles are intact. There is a stable moderate anterior wedge burst fracture of L3. This is not significantly changed sin ce 09/04/2021. There is grade 1 anterolisthesis at L2-3 and L4-5. There is degenerative change at the apophyseal demetrice nts. No spondylolysis is evident. There is degenerative disc disease throughout the lumbar spine, most pronounced at L4-5 and L5-S1, wi th vacuum phenomenon at each of these levels. Left sided anterior abdominal generator device with dorsal neurotransmitter leads from T8 to upper T1 0 level. IMPRESSION: Stable L3 mild to moderate anterior wedge burst fracture Osteopenia Mild levoscoliosis Multilevel degenerative disc disease Reviewed, dictated and finalized at location B.
== END 2022-01-02 09:27 | disposition home or self-care (01) ==
LOC: CHSIMG 09:27
PROVIDERS: PCP Family Medicine; Visit Provider Family Medicine
DX: M54.9 Dorsalgia, unspecified (principal)
CPT/HCPCS: 72080

== ENCOUNTER 2022-03-12 06:33 | Outpatient (NON) | payer MEDICARE, SELFPAY ==
[2022-03-12 07:09] LABS: Basophils Absolute Auto 0.06 K/mm3 (0.00-0.10); Basophils Percent Auto 0.9 % (0.0-1.0); Eosinophils Absolute Auto 0.24 K/mm3 (0.02-0.50); Eosinophils Percent Auto 3.6 % (1.0-6.0); Hematocrit 41.8 % (35.0-42.0); Hemoglobin 13.7 g/dL (11.7-13.8); Immature Granulocyte Absolute 0.03 K/mm3 (0.00-0.00); Immature Granulocyte Percent A 0.4 % (0.0-0.0); Lymphocytes Percent Auto 25.1 % (18.0-42.0); Mean Corpuscular HGB Conc 32.8 g/dL (32.0-36.0); Mean Corpuscular Hemoglobin 29.8 pg (27.0-31.0); Mean Corpuscular Volume 90.9 fL (78.0-102.0); Mean Platelet Volume 9.5 fl (9.2-11.8); Monocytes Absolute Auto 0.76 K/mm3 (0.10-0.90); Monocytes Percent Auto 11.2 % (2.0-11.0); Neutrophils Percent Auto 58.8 % (50.0-70.0); Platelet Count Result 258 K/mm3 (150-420); Red Cell Distribution Width 15.5 % (11.6-14.4); White Blood Count 6.8 K/mm3 (4.8-10.8)
[2022-03-12 08:11] LABS: Anion Gap 8 mmol/L (8-16); Blood Urea Nitrogen 23 mg/dL (7-18); Calcium 8.6 mg/dL (8.5-10.1); Carbon Dioxide 27 mmol/L (21-32); Chloride 104 mmol/L (98-108); Estimated Glomerular Filt Rate 44; Glucose 109 mg/dL (70-99); Osmolality Calculated 292 mOsm/kg (285-295); Potassium 4.6 mmol/L (3.5-5.1); Sodium 139 mmol/L (136-145)
== END 2022-03-12 06:34 ==
LOC: CHSLAB 06:36
PROVIDERS: PCP Family Medicine; Visit Provider Family Medicine
DX: D64.9 Anemia, unspecified (principal); I50.9 Heart failure, unspecified; I10 Essential (primary) hypertension
CPT/HCPCS: 36415; 80048; 85025

== ENCOUNTER 2022-04-02 06:31 | Outpatient (NON) | payer MEDICARE, SELFPAY ==
[2022-04-06 17:32] LABS: Vitamin D 25 Hydroxy 28 ng/mL (30-100)
== END 2022-04-02 06:32 | disposition home or self-care (01) ==
LOC: CHSLAB 06:44
PROVIDERS: Visit Provider Family Medicine
DX: E55.9 Vitamin D deficiency, unspecified (principal)
CPT/HCPCS: 36415; 82306

== ENCOUNTER 2022-04-09 07:51 | Outpatient (NON) | payer MEDICARE, SELFPAY ==
[2022-04-09 07:58] LABS: Basophils Absolute Auto 0.05 K/mm3 (0.00-0.10); Basophils Percent Auto 0.6 % (0.0-1.0); Eosinophils Absolute Auto 0.23 K/mm3 (0.02-0.50); Hematocrit 40.8 % (35.0-42.0); Hemoglobin 13.2 g/dL (11.7-13.8); Immature Granulocyte Absolute 0.03 K/mm3 (0.00-0.00); Immature Granulocyte Percent A 0.4 % (0.0-0.0); Lymphocytes Absolute Auto 1.55 K/mm3 (1.10-4.50); Lymphocytes Percent Auto 19.9 % (18.0-42.0); Mean Corpuscular HGB Conc 32.4 g/dL (32.0-36.0); Mean Corpuscular Hemoglobin 29.6 pg (27.0-31.0); Mean Corpuscular Volume 91.5 fL (78.0-102.0); Mean Platelet Volume 9.8 fl (9.2-11.8); Monocytes Absolute Auto 0.76 K/mm3 (0.10-0.90); Monocytes Percent Auto 9.8 % (2.0-11.0); Neutrophils Absolute Auto 5.2 K/mm3 (1.7-7.2); Neutrophils Percent Auto 66.3 % (50.0-70.0); Platelet Count Result 242 K/mm3 (150-420); Red Blood Count 4.46 M/mm3 (4.20-5.40); Red Cell Distribution Width 15.1 % (11.6-14.4); White Blood Count 7.8 K/mm3 (4.8-10.8)
[2022-04-09 08:07] LABS: Alanine Aminotransferase 29 U/L (14-59); Albumin Level 3.2 g/dL (3.4-5.0); Alkaline Phosphatase 79 U/L (46-116); Anion Gap 6 mmol/L (8-16); Aspartate Amino Transferase 19 U/L (15-37); Bilirubin,Total 0.3 mg/dL (0.00-1.00); Blood Urea Nitrogen 27 mg/dL (7-18); Calcium 8.7 mg/dL (8.5-10.1); Carbon Dioxide 31 mmol/L (21-32); Chloride 105 mmol/L (98-108); Estimated Glomerular Filt Rate 42; Glucose 98 mg/dL (70-99); Osmolality Calculated 299 mOsm/kg (285-295); Potassium 4.7 mmol/L (3.5-5.1); Sodium 142 mmol/L (136-145); Total Protein 6.4 g/dL (6.4-8.2)
[2022-04-10 09:11] LABS: NT Pro B Type Natriuretic Pept 399 pg/mL (0-450)
== END 2022-04-09 07:52 | disposition home or self-care (01) ==
LOC: CHSLAB 07:52
PROVIDERS: Visit Provider Family Medicine
DX: I50.9 Heart failure, unspecified (principal); I10 Essential (primary) hypertension; R06.02 Shortness of breath
CPT/HCPCS: 36415; 80053; 83880; 85025

== ENCOUNTER 2022-04-09 09:17 | Outpatient (CLI) | payer MEDICARE, SELFPAY ==
--- NOTE | ~2022-04-09 | XR_ITS ---
EXAMINATION: XR chest 2V 04/09/2022 09:47 INDICATION: Heart failure PROCEDURE: 2 view chest COMPARISON: Comparison to multiple prior studies sequentially, with oldest reviewed study dated 07/2021. FINDINGS: The lungs are clear. The cardiomediastinal silhouette is within normal limits. There are no pleural effusions. There is no pneumothorax suspected. There are bilateral calcified granulomas. There are spinal stimulator leads overlying the mid thoracic spine. IMPRESSION: 1: NO ACUTE CARDIOPULMONARY DISEASE. Reviewed, dictated and finalized at location A.
== END 2022-04-09 09:18 | disposition home or self-care (01) ==
LOC: CHSIMG 09:22
PROVIDERS: PCP Family Medicine; Visit Provider Family Medicine
DX: I50.9 Heart failure, unspecified (principal); R06.00 Dyspnea, unspecified
CPT/HCPCS: 71046

== ENCOUNTER 2022-05-06 12:35 | Outpatient (CLI) | payer MEDICARE, SELFPAY ==
--- NOTE | 2022-05-06 | ECHO_ITS ---
Patient Info Name: Shanita Perez Age: 81 years : 1940 Gender: Female Ht: 61 in Wt: 188 lbs BSA: 1.96 m2 HR: 88 bpm BP: 141 / 82 mmHg Technical Quality: Fair Exam Date: 05/06/2022 1:28 PM Exam Location: [facility] Patient Status: Outpatient Admit Date: 05/06/2022 Staff Ordering Physician: Sam Escobar MD Needle Control Cheniller: Autumn Diaz RCS Attending Provider: Sam Escobar MD Referring Physician: Luz VINCENT; Exam Type: CA echo doppler color flow Study Info Indications - hx/o heart failure Complete two-dimensional, color flow and Doppler transthoracic echocardiogram is performed. Summary 1. Complete two-dimensional, color flow and Doppler transthoracic echocardiogram is performed. 2. Left ventricular chamber dimension is normal. 3. Left ventricular systolic function is hyperdynamic, estimated at >70%. 4. The left ventricular diastolic function is abnormal. 5. E/e' 15 is elevated. 6. Right atrial chamber dimension is mildly enlarged. 7. The mitral valve has moderately calcified annulus. 8. No pulmonary hypertension, estimated pulmonary arterial systolic pressure is 18 mmHg. Left Ventricle E/e' 15 is elevated. Left ventricular chamber dimension is normal. Left ventricular systolic function is hyperdynamic, estimated at >70%. The left ventricular diastolic function is abnormal. Right Ventricle Right ventricular chamber dimension is not well visualized. Left Atria Left atrial chamber dimension is normal. Right Atria Right atrial chamber dimension is mildly enlarged. Aortic Valve The aortic valve is not well visualized. Cannot determine number of aortic valve leaflets. There is no aortic valve stenosis. There is no aortic valve regurgitation. Pulmonic Valve There is no pulmonic regurgitation. Mitral Valve The mitral valve has moderately calcified annulus. There is no mitral valve stenosis. There is no mitral valve regurgitation. Tricuspid Valve There is no tricuspid valve regurgitation. No pulmonary hypertension, estimated pulmonary arterial systolic pressure is 18 mmHg. Pericardium/Pleural There is no pericardial effusion. Inferior Vena Cava Normal inferior vena cava with >50% collapse upon inspiration consistent with normal right atrial pressure, 5 mmHg. Aorta The aortic root size at the sinus of Valsalva is normal. Left Ventricular Outflow Tract Name Value Normal LVOT 2D LVOT Diameter 1.9 cm LVOT Doppler LVOT Peak Gradient 7 mmHg LVOT Mean Gradient 4 mmHg LVOT VTI 24 cm LVOT VTI/AV VTI Ratio 0.8 LVOT Stroke Volume 67 ml LVOT CO 16.9 l/min LVOT CI 8.6 l/min/m2 Pulmonic Valve Name Value Normal PV Doppler
== END 2022-05-06 12:36 | disposition home or self-care (01) ==
LOC: ANHCARD 12:39
PROVIDERS: PCP Family Medicine; Visit Provider Family Medicine
DX: I51.7 Cardiomegaly (principal); R93.1 Abnormal findings on diagnostic imaging of heart and coronary circulation; Z86.79 Personal history of other diseases of the circulatory system
CPT/HCPCS: 93306

== ENCOUNTER 2022-05-15 10:13 | Outpatient (CLI) | payer MEDICARE, SELFPAY | END 2022-05-15 10:14 | disposition home or self-care (01) | PROVIDERS: PCP Family Medicine; Visit Provider Family Medicine | DX: R06.00 Dyspnea, unspecified (principal) | CPT/HCPCS: 94060; 94726 ==

== ENCOUNTER 2022-06-09 06:43 | Outpatient (NON) | payer MEDICARE, SELFPAY ==
[2022-06-09 07:22] LABS: Basophils Absolute Auto 0.06 K/mm3 (0.00-0.10); Basophils Percent Auto 0.8 % (0.0-1.0); Eosinophils Absolute Auto 0.32 K/mm3 (0.02-0.50); Eosinophils Percent Auto 4.1 % (1.0-6.0); Hemoglobin 13.8 g/dL (11.7-13.8); Immature Granulocyte Absolute 0.11 K/mm3 (0.00-0.00); Immature Granulocyte Percent A 1.4 % (0.0-0.0); Lymphocytes Absolute Auto 2.23 K/mm3 (1.10-4.50); Lymphocytes Percent Auto 28.6 % (18.0-42.0); Mean Corpuscular HGB Conc 32.9 g/dL (32.0-36.0); Mean Corpuscular Hemoglobin 30.5 pg (27.0-31.0); Mean Corpuscular Volume 92.9 fL (78.0-102.0); Mean Platelet Volume 9.2 fl (9.2-11.8); Monocytes Absolute Auto 0.71 K/mm3 (0.10-0.90); Monocytes Percent Auto 9.1 % (2.0-11.0); Neutrophils Absolute Auto 4.4 K/mm3 (1.7-7.2); Platelet Count Result 258 K/mm3 (150-420); Red Blood Count 4.52 M/mm3 (4.20-5.40); Red Cell Distribution Width 14.4 % (11.6-14.4); White Blood Count 7.8 K/mm3 (4.8-10.8)
[2022-06-09 07:43] LABS: Alanine Aminotransferase 24 U/L (14-59); Alkaline Phosphatase 76 U/L (46-116); Anion Gap 7 mmol/L (8-16); Aspartate Amino Transferase 19 U/L (15-37); Bilirubin Direct 0.1 mg/dL (0-0.2); Bilirubin,Total 0.2 mg/dL (0.00-1.00); Blood Urea Nitrogen 32 mg/dL (7-18); Calcium 8.6 mg/dL (8.5-10.1); Carbon Dioxide 29 mmol/L (21-32); Chloride 105 mmol/L (98-108); Estimated Glomerular Filt Rate 37; Glucose 93 mg/dL (70-99); Osmolality Calculated 298 mOsm/kg (285-295); Potassium 4.5 mmol/L (3.5-5.1); Sodium 141 mmol/L (136-145); Total Protein 6.3 g/dL (6.4-8.2)
== END 2022-06-09 06:44 | disposition home or self-care (01) ==
LOC: CHSLAB 06:48
PROVIDERS: Visit Provider Family Medicine
DX: D64.9 Anemia, unspecified (principal); I50.9 Heart failure, unspecified
CPT/HCPCS: 36415; 80048; 80076; 85025

== ENCOUNTER 2022-07-16 06:38 | Outpatient (NON) | payer MEDICARE, SELFPAY ==
[2022-07-16 06:59] LABS: Add Urine Microscopic? YES; Appearance Urine Clear (Clear); Bilirubin Urine Negative (Negative); Blood Urine Negative (Negative); Color Urine Light Yellow (Yellow); Glucose Urine UA Trace (Negative); Ketones Urine Negative (Negative); Leukocyte Esterase Ur Negative (Negative); Nitrate Urine Negative (Negative); Protein Urine Negative (Negative); Specific Grav Ur <= 1.005 (1.010-1.020); Urobilinogen Urine 0.2 mg/dL (0.2-1.0); pH Urine 6.5 (5.0-8.0)
[2022-07-16 07:24] LABS: Bacteria Urine None seen /hpf; RBC Urine None seen /hpf (0-2); WBC Urine None seen /hpf (0-3)
== END 2022-07-16 06:39 | disposition home or self-care (01) ==
LOC: CHSLAB 06:41
PROVIDERS: Visit Provider Family Medicine
DX: N39.0 Urinary tract infection, site not specified (principal)
CPT/HCPCS: 81001

== ENCOUNTER → 2022-07-17 09:09 | Outpatient (CLI) | payer MEDICARE, SELFPAY ==
--- NOTE | ~2022-07-17 | CT_ITS ---
Non-contrast CT scan of the Abdomen and Pelvis Clinical indication: Abdominal pain Technique: 5 mm axial scans were obtained through the abdomen and pelvis without intravenous or oral contrast. Dose reduction technique was used on this scan by utilizing automated exposure control and iterative reconstruction technique. The dose-length product (DLP) was 942.09 mGy-cm. COMPARISON: 08/06/2021 Findings: Images through the lung bases reveal no abnormalities. There is no evidence of renal or ureteral calculi. The kidneys and the ureters are nondilated. Calcified hepatic and splenic granulomas are present. Cholecystectomy clips are present. The pancreas , and adrenals appear normal. There is no aortic aneurysm. There is no evidence of bowel obstruction. Images through the pelvis were performed. There is no evidence of ascites or lymphadenopathy. Urinary bladder unremarkable. No adnexal mass evident. No ascites. Stable mild compression deformity of L3. Impression: No acute abnormality. Evidence of prior granulomatous disease. Reviewed, dictated and finalized at [facility]. FREADER Impression: No acute abnormality. Evidence of prior granulomatous disease.
--- NOTE | ~2022-07-17 | XR_ITS ---
EXAMINATION: XR barium swallow DATE: 07/17/2022 10:06 INDICATION: Dysphagia TECHNIQUE: The patient drank thick barium and gas-producing crystals. Fluoroscopy of the hypopharynx and esophagus was performed. Fluoroscopy exposure time was 1.8 minutes. The DAP for this procedure wa s 11.639 Gycm2. COMPARISON: None. FINDINGS: There is no mass or stricture of the esophagus. Esophageal motility is normal. There is no hiatal hernia. There is a small amount of gastroesophageal reflux with provocative maneuvers. IMPRESSION: 1. Small amount of gastroesophageal reflux. Reviewed, dictated and finalized at location B. ICAL THERAPY NURSE
== END ==
PROVIDERS: PCP Internal Medicine; Visit Provider Family Medicine
DX: R10.9 Unspecified abdominal pain (principal); R91.8 Other nonspecific abnormal finding of lung field; K21.9 Gastro-esophageal reflux disease without esophagitis
CPT/HCPCS: 74176; 74220

== ENCOUNTER 2022-07-18 06:58 | Outpatient (NON) | payer MEDICARE, SELFPAY ==
[2022-07-18 07:21] LABS: Thyroid Stimulating Hormone 2.97 uIU/mL (0.36-3.74)
== END 2022-07-18 06:59 | disposition home or self-care (01) ==
LOC: CHSLAB 07:00
PROVIDERS: Visit Provider Family Medicine
DX: R62.7 Adult failure to thrive (principal); I50.9 Heart failure, unspecified
CPT/HCPCS: 36415; 84443

== ENCOUNTER 2022-07-29 16:32 | Outpatient (NON) | payer MEDICARE, SELFPAY ==
[2022-07-29 16:41] LABS: Occult Blood Negative (Negative)
== END 2022-07-29 16:33 | disposition home or self-care (01) ==
LOC: CHSLAB 16:34
PROVIDERS: PCP Family Medicine; Visit Provider Family Medicine
DX: R10.10 Upper abdominal pain, unspecified (principal)
CPT/HCPCS: 82272

== ENCOUNTER 2022-08-21 14:28 | Observation (INO) | payer MEDICARE, SELFPAY ==
--- NOTE | ~2022-08-21 | CT_ITS ---
EXAMINATION: CTA chest PE protocol DATE: 08/21/2022 17:23 CDT INDICATION: Elevated d-dimer.. Bilateral lower extremity swelling. TECHNIQUE: Computed tomographic angiography (CTA) of the chest was performed with 100 mL Omnipaque-35 0 intravenous contrast. The dose-length product was 515.55 mGy-cm. Maximum intensity projection 3D-re constructions of the aorta and other arteries were constructed by the technologist on a separate work station. COMPARISON: CT dated 03/25/2020. FINDINGS: There is pulmonary embolism of right middle lobar, right lower lobar and segmental as well as lingular and left lower lobe lobar pulmonary arteries. Cardiomegaly. No significant pleural or per icardial effusion. There are calcified granulomas of the liver and spleen. No thoracic lymphadenopath y. There are peripheral infiltrates of the right upper lobe, most likely atelectasis or scarring. Sta ble small right upper lobe nodules measuring 3 mm or less. Calcified granuloma left mid thorax. No en dobronchial lesions. No pneumothorax. IMPRESSION: 1. Bilateral pulmonary embolism, small thrombus burden. 2: Stable small right upper lobe nodules measuring 3 mm or less, likely benign. 3: Linear infiltrate right upper lobe, most likely atelectasis/scarring. Reviewed, dictated and finalized at location A.
--- NOTE | ~2022-08-21 | XR_ITS ---
XR chest 1V portable 08/21/2022 15:18 Indication: Chest pain Procedure: AP portable chest Comparison: No prior studies for comparison. Findings: Heart size is normal. There are calcified granulomas of the left lung and left hilum. No fo aniyah air space disease, pulmonary edema, pleural effusion or suspected pneumothorax. No acute osseous abnormality. Impression: 1: No acute cardiopulmonary disease. Reviewed, dictated and finalized at location A. Impression: 1: No acute cardiopulmonary disease.
--- NOTE | 2022-08-21 15:03 | ED.GENADULT ---
HPI - General Adult General Chief complaint: Chest Pain Stated complaint: chest pains Time Seen by Provider: 08/21/22 15:03 History of Present Illness HPI narrative: the patient is an 82-year-old woman from the detention, DNR select Care, with comorbidities of depression, CHF, dementia, osteoporosis, hypertension, hyperlipidemia, and GERD. The patient presents with pedal edema over the last several days to weeks, with associated increasing shortness of breath. She does complain of chest discomfort and upper chest described as pressure. no nausea vomiting. No fevers or chills. Her voice is changed. It is more nasal. No other complaints. limited history given dementia Related Data Home Medications Medication Instructions Recorded Confirmed acetaminophen 325 mg tablet 650 mg PO BID 08/21/22 08/21/22 (Tylenol) atorvastatin 20 mg tablet 20 mg PO DAILY 08/21/22 08/21/22 bupropion HCl 300 mg 24 hr tablet, 300 mg PO DAILY 08/21/22 08/21/22 extended release buspirone 10 mg tablet 5 mg PO BID 08/21/22 08/21/22 ergocalciferol (vitamin D2) 1,250 1,250 mcg PO WEEKLY 08/21/22 08/21/22 mcg (50,000 unit) capsule gabapentin 400 mg capsule 400 mg PO BID 08/21/22 08/21/22 hydroxyzine HCl 10 mg tablet 20 mg PO BID 08/21/22 08/21/22 metoprolol succinate 25 mg 25 mg PO DAILY 08/21/22 08/21/22 tablet,extended release 24 hr omeprazole 40 mg capsule,delayed 40 mg PO DAILY 08/21/22 08/21/22 release sucralfate 1 gram tablet 1 g PO QID 08/21/22 08/21/22 Allergies Allergy/AdvReac Type Severity Reaction Status Date / Time No Known Allergies Allergy Verified 08/21/22 16:18 Review of Systems Review of Systems: All systems reviewed & are unremarkable except as noted in HPI and below Constitutional: Constitutional: Reports as per HPI, Reports no additional constitutional complaints, Denies chills, Denies excessive sweating, Denies fatigue, Denies fever(s), Denies headache(s) and Reports weakness Eyes: Eyes: Reports as per HPI, Reports no additional eye complaints, Denies change in vision and Denies photophobia ENT: Reports system reviewed and no additional complaints, except as documented, Reports as per HPI, Denies dysphagia, Denies vertigo, Denies dizziness, Denies headache(s), Denies lip swelling, Denies nasal congestion, Denies sore throat, Denies throat swelling and Denies tongue swelling Cardiovascular: Cardiovascular: Reports as per HPI, Reports no additional cardiovascular complaints, Reports chest pain, Denies syncope, Denies rapid heart rate and Reports dyspnea Comments: pedal edema Respiratory: Respiratory: Reports as per HPI, Reports no additional respiratory complaints, Denies chest congestion, Denies cough, Reports dyspnea and Denies wheezing Comments: denies cough Gastrointestinal: Gastrointestinal: Reports as per HPI, Reports no additional gastrointestinal complaints, Denies abdominal pain, Denies constipation, Denies dysphagia, Denies diarrhea, Denies nausea and Denies vomiting Genitourinary: Genitourinary: Reports as per HPI, Denies hematuria, Denies urinary frequency, Denies dysuria, Denies urinary incontinence and Denies urinary urgency Musculoskeletal: Musculoskeletal: Reports no additional musculoskeletal complaints, Denies back pain, Denies myalgias, Denies arthralgias, Denies joint swelling and Denies numbness Integumentary/Breasts: Skin/Breast: Reports system reviewed and no additional complaints, except as docu, Denies pruritus, Denies erythema, Denies rash and Denies skin ulcer Neurologic: Reports system reviewed and no additional complaints, except as documented, Reports as per HPI, Denies confusion, Denies vertigo, Denies dizziness, Denies syncope, Denies headache(s), Denies focal weakness, Denies numbness and Denies weakness Psychiatric: Psychiatric: Reports as per HPI, Denies anxiety, Denies confusion, Denies depression, Denies homicidal ideation and Denies suicidal ideation Endocrine: Endocrine:
--- NOTE | 2022-08-21 15:04 | ECG_ITS ---
Measurements Intervals [place] Rate: 84 P: 59 TN: 217 QRS: -48 QRSD: 112 T: 62 QT: 361 QTc: 427 Interpretive Statements SINUS RHYTHM WITH FIRST DEGREE AV BLOCK ATRIAL PREMATURE COMPLEXES INCOMPLETE LEFT BUNDLE BRANCH BLOCK ANTEROSEPTAL INFARCT, AGE INDETERMINATE INFERIOR INFARCT, AGE INDETERMINATE BASELINE ARTIFACT- I, II, III, AVR, AVL, AVF ABNORMAL ECG NO PREVIOUS ECG AVAILABLE FOR COMPARISON Electronically Signed On 08-21-2022 15:08:55 CDT by Ralph Valladares D.O.
[2022-08-21 15:17] LABS: Basophils Absolute Auto 0.03 K/mm3 (0.00-0.10); Basophils Percent Auto 0.4 % (0.0-1.0); Eosinophils Absolute Auto 0.13 K/mm3 (0.02-0.50); Eosinophils Percent Auto 1.7 % (1.0-6.0); Hematocrit 41.5 % (35.0-42.0); Hemoglobin 13.8 g/dL (11.7-13.8); Immature Granulocyte Absolute 0.05 K/mm3 (0.00-0.00); Immature Granulocyte Percent A 0.6 % (0.0-0.0); Lymphocytes Absolute Auto 1.73 K/mm3 (1.10-4.50); Lymphocytes Percent Auto 22.1 % (18.0-42.0); Mean Corpuscular HGB Conc 33.3 g/dL (32.0-36.0); Mean Corpuscular Hemoglobin 30.9 pg (27.0-31.0); Mean Corpuscular Volume 92.8 fL (78.0-102.0); Mean Platelet Volume 9.1 fl (9.2-11.8); Monocytes Absolute Auto 0.86 K/mm3 (0.10-0.90); Neutrophils Percent Auto 64.2 % (50.0-70.0); Platelet Count Result 238 K/mm3 (150-420); Red Blood Count 4.47 M/mm3 (4.20-5.40); Red Cell Distribution Width 14.8 % (11.6-14.4); White Blood Count 7.8 K/mm3 (4.8-10.8)
[2022-08-21 15:40] LABS: D Dimer 1.25 mg/L (0.19-0.50)
[2022-08-21 15:45] LABS: Alanine Aminotransferase 24 U/L (14-59); Albumin Level 3.2 g/dL (3.4-5.0); Alkaline Phosphatase 74 U/L (46-116); Anion Gap 7 mmol/L (8-16); Aspartate Amino Transferase 17 U/L (15-37); Bilirubin,Total 0.3 mg/dL (0.00-1.00); Blood Urea Nitrogen 23 mg/dL (7-18); Calcium 8.9 mg/dL (8.5-10.1); Carbon Dioxide 29 mmol/L (21-32); Chloride 102 mmol/L (98-108); Estimated Glomerular Filt Rate 45; Glucose 95 mg/dL (70-99); NT Pro B Type Natriuretic Pept 380 pg/mL (0-450); Osmolality Calculated 289 mOsm/kg (285-295); Potassium 4.9 mmol/L (3.5-5.1); Sodium 138 mmol/L (136-145); Total Protein 6.9 g/dL (6.4-8.2)
[2022-08-21 15:46] LABS: Troponin I 10.4 ng/L (0.00-60.4)
[2022-08-21 16:09] VITALS: BP 158/94; PULSE 84; RESP 20; TEMP 36.6; O2SAT 97
[2022-08-21] MEDS: FUROSEMIDE INJ 100 MG/10 ML VIAL 80 MG IV PUSH (17:48)
[2022-08-21 18:03] LABS: Strep Group A RT-PCR NOT DETECTED (Negative)
[2022-08-21 18:10] LABS: Influenza A QL RT-PCR Negative (Negative); Influenza B QL RT-PCR Negative (Negative); RSV RNA, RT-PCR Negative (Negative); SARS-CoV-2 RNA PCR Negative (Negative)
[2022-08-21 19:01] LABS: INR 0.9; Partial Thromboplastin Time 26.5 SEC (23.90-30.70); Prothrombin Time 10.3 Seconds (9.50-12.10)
[2022-08-21] MEDS: HEPARIN SODIUM 5,000 UNITS/ML VIAL 5000 UNITS IV PUSH (19:13)
[2022-08-21] MEDS: HEPARIN SOD/D5W 100 UNITS/ML 25,000 UNITS/250 ML BAG 12 UNITS IV CONT (19:14)
[2022-08-21 20:28] VITALS: BP 141/90; PULSE 89; RESP 16; O2SAT 96
[2022-08-21 21:10] VITALS: BP 134/81; PULSE 82; RESP 20; TEMP 36.2; O2SAT 97
--- NOTE | 2022-08-21 21:39 | ADMGEN ---
This patient, Shanita Perez, was admitted to 2nd Floor Room 206-1. Patient oriented to hospital policies and general routines including ID bracelet, bed and alarms, visiting hours, pain management, procedures, bathroom and other care routines, personal items, smoking policy, room service/diet, and visiting hours. Information on how to activate the Rapid Response Team has been discussed. Patient is encouraged to report perceived risks to care and to ask questions if they do not understand what they are told or what they should do.
[2022-08-21 21:44] VITALS: BMI 37.4
[2022-08-21] MEDS: HYDROcodone/acetaminophen (*CRX) 5-325 MG TABLET 1 TAB PO (21:56)
[2022-08-21] MEDS: SUCRALFATE 1 GM TABLET PO (21:56)
[2022-08-21 23:51] VITALS: BP 134/76; PULSE 83; RESP 18; TEMP 35.7; O2SAT 95
[2022-08-22 01:57] LABS: Basophils Absolute Auto 0.07 K/mm3 (0.00-0.10); Basophils Percent Auto 0.8 % (0.0-1.0); Eosinophils Absolute Auto 0.26 K/mm3 (0.02-0.50); Eosinophils Percent Auto 2.9 % (1.0-6.0); Hematocrit 41.2 % (35.0-42.0); Hemoglobin 13.9 g/dL (11.7-13.8); Immature Granulocyte Absolute 0.07 K/mm3 (0.00-0.00); Immature Granulocyte Percent A 0.8 % (0.0-0.0); Lymphocytes Absolute Auto 2.48 K/mm3 (1.10-4.50); Lymphocytes Percent Auto 27.2 % (18.0-42.0); Mean Corpuscular HGB Conc 33.7 g/dL (32.0-36.0); Mean Corpuscular Hemoglobin 30.9 pg (27.0-31.0); Mean Corpuscular Volume 91.6 fL (78.0-102.0); Mean Platelet Volume 8.8 fl (9.2-11.8); Monocytes Absolute Auto 0.78 K/mm3 (0.10-0.90); Monocytes Percent Auto 8.6 % (2.0-11.0); Neutrophils Absolute Auto 5.5 K/mm3 (1.7-7.2); Neutrophils Percent Auto 59.7 % (50.0-70.0); Platelet Count Result 221 K/mm3 (150-420); Red Cell Distribution Width 14.8 % (11.6-14.4); White Blood Count 9.1 K/mm3 (4.8-10.8)
[2022-08-22 02:08] LABS: Anion Gap 6 mmol/L (8-16); Blood Urea Nitrogen 23 mg/dL (7-18); Calcium 8.6 mg/dL (8.5-10.1); Carbon Dioxide 33 mmol/L (21-32); Chloride 100 mmol/L (98-108); Estimated CRCL calculation 30 ml/min; Estimated Glomerular Filt Rate 41; Glucose 100 mg/dL (70-99); Osmolality Calculated 291 mOsm/kg (285-295); Potassium 3.8 mmol/L (3.5-5.1); Sodium 139 mmol/L (136-145)
[2022-08-22 02:27] LABS: Prothrombin Time 11.4 Seconds (9.50-12.10)
[2022-08-22 04:00] VITALS: BP 110/55; PULSE 73; PULSE 80; RESP 16; TEMP 35.8; O2SAT 95
[2022-08-22 08:00] VITALS: BP 147/66; PULSE 76; RESP 18; TEMP 36.4; O2SAT 95
[2022-08-22] MEDS: PANTOPRAZOLE 40 MG TABLET PO ×2 (08:47→20:55)
[2022-08-22] MEDS: SUCRALFATE 1 GM TABLET PO ×4 (08:47→20:54)
[2022-08-22] MEDS: buPROPion HCL XL (24 HR) 150 MG TABCR 300 MG PO (08:47)
[2022-08-22] MEDS: ATORVASTATIN 10 MG TABLET 20 MG PO (08:47)
[2022-08-22 08:48] VITALS: PULSE 79
[2022-08-22] MEDS: FUROSEMIDE INJ 20 MG/2 ML VIAL IV PUSH (08:48)
[2022-08-22] MEDS: busPIRone HCL 5 MG TABLET PO ×2 (08:48→17:38)
[2022-08-22] MEDS: PANTOPRAZOLE SODIUM IV 40 MG VIAL IV PUSH (08:48)
[2022-08-22] MEDS: GABAPENTIN 400 MG CAPSULE PO ×2 (08:48→17:38)
[2022-08-22] MEDS: METOPROLOL SUCCINATE EXT REL 25 MG TABCR PO (08:48)
[2022-08-22 10:03] LABS: Partial Thromboplastin Time 82.3 SEC (23.90-30.70)
--- NOTE | 2022-08-22 12:11 | PC.NURSE ---
chunetryshamir Briseno. Patient's nice called and given update on condition. Patient spoke with her niece. MEDICAL TECHNICIAN in to see patient
[2022-08-22] MEDS: APIXABAN 2.5 MG TABLET 10 MG PO ×2 (12:58→20:54)
--- NOTE | 2022-08-22 13:14 | PM.IMHP ---
H&P: HPI History of Present Illness Date/Time: 08/22/22 13:14 Chief Complaint: shortness of breath, chest wall pain, pulmonary embolism Narrative: this 82-year-old female that [facility] complaining of some chest wall pain cardiac issues have been ruled out. Patient also is having shortness of breath D-dimer was elevated so CTA was completed with their bilateral PEs noted patient was started on a heparin drip. patient also was found to be hyponatremic, with some acute kidney injury patient never did require any oxygen in the emergency room so she came up to the floor we will monitor her. DNR select Care, with comorbidities of depression, CHF, dementia, osteoporosis, hypertension, hyperlipidemia, and GERD.? Patient does not have some edema she has does seem somewhat confused very hard of hearing. Review of Systems Review of Systems: chest wall pain , shortness of breath All systems reviewed & are unremarkable except as noted in HPI and below PMFSH Past Medical History Medical History (Updated 08/22/22 @ 14:27 by Raul Bell NP) Acute kidney injury Hyponatremia Family History Family History (Updated 08/21/22 @ 21:43 by Fiona Mcmullen RN) Other Unknown family medical history Social History Social History Smoking status: Never smoker Second hand tobacco smoke exposure: No Alcohol intake: never Substance use: never Substance use type: does not use Lack of Transportation: No Lack of Food: Never True Current Housing: I Have Housing Concerned About Future Housing: No Difficulty Paying Gas/Electric Bills: No Difficulty Paying for Meds: No Currently Unemployed: No Education: Grade School Difficulty w/ Childcare or Family Care: No Spiritual care concerns: No Meds Home Medications and Allergies Home Medications Medication Instructions Recorded Confirmed Type acetaminophen 325 mg tablet 650 mg PO BID 08/21/22 08/21/22 History (Tylenol) atorvastatin 20 mg tablet 20 mg PO DAILY 08/21/22 08/21/22 History bupropion HCl 300 mg 24 hr tablet, 300 mg PO DAILY 08/21/22 08/21/22 History extended release buspirone 10 mg tablet 5 mg PO BID 08/21/22 08/21/22 History ergocalciferol (vitamin D2) 1,250 1,250 mcg PO WEEKLY 08/21/22 08/21/22 History mcg (50,000 unit) capsule gabapentin 400 mg capsule 400 mg PO BID 08/21/22 08/21/22 History hydroxyzine HCl 10 mg tablet 20 mg PO BID 08/21/22 08/21/22 History metoprolol succinate 25 mg 25 mg PO DAILY 08/21/22 08/21/22 History tablet,extended release 24 hr omeprazole 40 mg capsule,delayed 40 mg PO DAILY 08/21/22 08/21/22 History release sucralfate 1 gram tablet 1 g PO QID 08/21/22 08/21/22 History apixaban 5 mg tablet 5 mg PO BID 30 days #60 tabs 08/23/22 Rx apixaban 5 mg tablet 10 mg PO BID 6 days #24 tabs 08/23/22 Rx Allergies Allergy/AdvReac Type Severity Reaction Status Date / Time No Known Allergies Allergy Verified 08/21/22 16:18 Vital Signs Vital Signs - 24 hr 08/21/22 16:09 08/21/22 20:28 08/21/22 21:10 Temperature 97.9 F 97.2 F L Pulse Rate 84 89 82 Respiratory Rate 20 16 20 Blood Pressure 158/94 H 141/90 H 134/81 Pulse Oximetry 97 96 97 Oxygen Delivery Room Air Room Air 08/21/22 23:51 08/21/22 23:51 08/22/22 04:00 Temperature 96.3 F L Pulse Rate 83 83 80 Respiratory Rate 18 Blood Pressure 134/76 Pulse Oximetry 95 Oxygen Delivery Room Air 08/22/22 04:00 08/22/22 08:00 08/22/22 08:00 Temperature 96.5 F L 97.6 F Pulse Rate 73 76 76 Respiratory Rate 16 18 Blood Pressure 110/55 L 147/66 H Pulse Oximetry 95 95 Oxygen Delivery Room Air Room Air 08/22/22 08:48 Temperature Pulse Rate 79 Respiratory Rate Blood Pressure Pulse Oximetry Oxygen Delivery Exam Narrative: GENERAL:Well-appearing, Obese, and in no acute distress. HEAD:Normocephalic, atraumatic. EYES: PERRLA and EOMI.
[2022-08-22 16:00] VITALS: BP 120/56; PULSE 74; RESP 16; TEMP 36.4; O2SAT 97
[2022-08-22 19:47] VITALS: PULSE 74; RESP 16; O2SAT 97
[2022-08-22] MEDS: HYDROcodone/acetaminophen (*CRX) 5-325 MG TABLET 1 TAB PO (20:55)
[2022-08-23] VITALS: BP 121/58; PULSE 72; RESP 16; TEMP 36.2; O2SAT 97
[2022-08-23 07:54] VITALS: BP 120/55; PULSE 70; RESP 14; TEMP 36.4; O2SAT 96
[2022-08-23] MEDS: APIXABAN 2.5 MG TABLET 10 MG PO (08:47)
[2022-08-23 08:48] VITALS: PULSE 71
[2022-08-23] MEDS: PANTOPRAZOLE 40 MG TABLET PO (08:48)
[2022-08-23] MEDS: METOPROLOL SUCCINATE EXT REL 25 MG TABCR PO (08:48)
[2022-08-23] MEDS: buPROPion HCL XL (24 HR) 150 MG TABCR 300 MG PO (08:48)
[2022-08-23] MEDS: SUCRALFATE 1 GM TABLET PO (08:48)
[2022-08-23] MEDS: ATORVASTATIN 10 MG TABLET 20 MG PO (08:48)
[2022-08-23] MEDS: GABAPENTIN 400 MG CAPSULE PO (08:49)
[2022-08-23] MEDS: FUROSEMIDE INJ 20 MG/2 ML VIAL IV PUSH (08:49)
[2022-08-23] MEDS: busPIRone HCL 5 MG TABLET PO (08:50)
[2022-08-23] MEDS: PANTOPRAZOLE SODIUM IV 40 MG VIAL IV PUSH (08:50)
[2022-08-23 09:41] LABS: Hematocrit 44.4 % (35.0-42.0); Hemoglobin 14.7 g/dL (11.7-13.8); Mean Corpuscular HGB Conc 33.1 g/dL (32.0-36.0); Mean Corpuscular Hemoglobin 30.7 pg (27.0-31.0); Mean Corpuscular Volume 92.7 fL (78.0-102.0); Platelet Count Result 238 K/mm3 (150-420); Red Blood Count 4.79 M/mm3 (4.20-5.40); Red Cell Distribution Width 15.1 % (11.6-14.4); White Blood Count 6.7 K/mm3 (4.8-10.8)
[2022-08-23 10:02] LABS: Anion Gap 8 mmol/L (8-16); Blood Urea Nitrogen 19 mg/dL (7-18); Calcium 8.7 mg/dL (8.5-10.1); Carbon Dioxide 32 mmol/L (21-32); Chloride 98 mmol/L (98-108); Estimated CRCL calculation 28 ml/min; Estimated Glomerular Filt Rate 37; Glucose 163 mg/dL (70-99); NT Pro B Type Natriuretic Pept 201 pg/mL (0-450); Osmolality Calculated 292 mOsm/kg (285-295); Sodium 138 mmol/L (136-145)
--- NOTE | 2022-08-23 10:09 | PM.DS ---
DS: Admitting Diagnosis Discharge Date 08/23/2022 Admitting Diagnosis Chest wall pain, Bilateral Pulmonary embolus DS: Discharge Diagnosis Discharge Diagnosis (1) Acute kidney injury: Code(s): N17.9 - Acute kidney failure, unspecified Status: Acute Assessment and Plan: avoid any nephrotoxic medication continue to monitor (2) Hyponatremia: Code(s): E87.1 - Hypo-osmolality and hyponatremia Status: Acute Assessment and Plan: IV fluids low (3) Bilateral pulmonary embolism: Code(s): I26.99 - Other pulmonary embolism without acute cor pulmonale Status: Acute Assessment and Plan: oxygen as indicated Heparin drip PTT skew 6 change to Eliquis b.i.d. (4) Pedal edema: Code(s): R60.0 - Localized edema Status: Acute Assessment and Plan: elevate legs as much as possible Raciel hose Monitor for any worsening DS: Summary Hospital Course Reason for hospitalization: pulmonary embolism, hypoxia Hospital Course: this 82-year-old female that presented to the emergency room with some hypoxia and some chest wall pain. Patient was found to have bilateral PEs in the lower lobe she was initially started on a heparin drip and converted to Eliquis oral patient will continue the Eliquis at 10 mg twice a day for 7 days and then switch to 5 mg twice a day patient will follow-up with the primary care provider as he will be directing this care. Any anticipatory knees have been given prior to discharge patient's potassium was 4.0, sodium 138, chloride 98, BUN 19 current creatinine 1.36, glucose 163, WBC 6.7, hemoglobin 14.7, platelets 238. Patient eating and drinking without any difficulty no diarrhea patient denies any chest pain and/or shortness of breath at this time Time Spent with Patient Time attestation: Total time spent providing and/or coordinating discharge services: Exam Narrative: GENERAL:Well-appearing, Obesed, and in no acute distress. HEAD:Normocephalic, atraumatic. EYES: PERRLA and EOMI. ENT: Nares clear, no rhinorrhea or epistaxis. Mucous membranes moist. CHEST: Clear to diminished auscultation. No respiratory distress. HEART: Regular rate and rhythm. Normal peripheral pulses. ABDOMEN: Soft, nontender, nondistended, normal active bowel sounds. EXTREMITIES: Normal range of motion. 1+edema. SKIN: Warm, dry, no rash. NEURO: No focal deficits. Alert and oriented x3. DS: Data Data Completed and Pending Labs on day of discharge: Labs from last 24 hours 08/23/22 08/23/22 09:35 09:35 WBC 6.7 RBC 4.79 Hgb 14.7 H Hct 44.4 H MCV 92.7 MCH 30.7 MCHC 33.1 RDW 15.1 H Plt Count 238 MPV 9.0 L Sodium 138 Potassium 4.0 Chloride 98 Carbon Dioxide 32 Anion Gap 8 BUN 19 H Creatinine 1.36 H Estim Creat Clear Calc 28 Estimated GFR 37 L Glucose 163 H Calculated Osmolality 292 Calcium 8.7 NT-Pro-B Natriuret Pep 201 Discharge Plan Discharge Attending physician on discharge: Del Thomas Consulting providers: Raul Bell ; Ralph Valladares ; Kenan Joiner Discharging Clinician: Raul Bell Anticipated Discharge Date/Time: 08/23/22 08:31 Patient Disposition: NH Retirement/Asst Living Activity: may shower Diet: regular Wound Care Instructions: follow printed instructions Discharge Instructions: You should take the Apixaban 10 mg by mouth twice a day until 08/27/2022 Then you take Apixaban 5 mg by mouth twice a day you will follow up with your PCP and you had bilateral Pulmonary Embolus. Patient Instructions: Antibiotic Form, Apixaban (By mouth), Pulmonary Embolism (DC), Acute Kidney Injury (DC), Fall Prevention for Older Adults (ED), Dyspnea (DC), Chest Wall Pain (GEN) Stand Alone Forms: General Discharge Information, Detention Discharge Follow-up/Referrals: UNKNOWN,DOCTOR [Primary Care Provider] - (Call and schedule appointment with your
--- NOTE | 2022-08-23 10:16 | PC.NURSE ---
Report called to Demetria at [facility]
--- NOTE | 2022-08-23 11:30 | PC.NURSE ---
Patient taken back to [facility] by GROUP COUNSELOR from facility. Taken by wheelchair. Transferred to wheelchair with assist of 1
--- NOTE | 2022-08-23 11:32 | PC.NURSE ---
Heparin drip stopped at 10:45 on 08/22/22
--- NOTE | 2022-08-24 11:37 | PC.NURSE ---
skilled nursing nurse state they received and understood the discharge instructions.
== END 2022-08-23 11:31 ==
LOC: CHSED 19:46 → CHS2ND 20:03
PROVIDERS: Nurse Practitioner Family; Admitting Provider Internal Medicine; Emergency Provider Emergency Medicine; Visit Provider Internal Medicine
DX: I26.99 Other pulmonary embolism without acute cor pulmonale (principal); I11.0 Hypertensive heart disease with heart failure; I50.9 Heart failure, unspecified; N17.9 Acute kidney failure, unspecified; E87.1 Hypo-osmolality and hyponatremia; E78.5 Hyperlipidemia, unspecified; K21.9 Gastro-esophageal reflux disease without esophagitis; M81.0 Age-related osteoporosis without current pathological fracture; F03.90 Unspecified dementia, unspecified severity, without behavioral disturbance, psychotic disturbance, mood disturbance, and anxiety; F32.A Depression, unspecified; Z20.822 Contact with and (suspected) exposure to COVID-19; Z79.01 Long term (current) use of anticoagulants
CPT/HCPCS: 36415; 71045; 71275; 80048; 80053; 83880; 84484; 85025; 85027; 85380; 85610; 85730; 87637; 87651; 93005; 96365; 96366; 96375; 96376; 99285; A9270; C9113; G0378; J1644; J1940; Q9967

== ENCOUNTER 2022-08-25 18:32 | Emergency (ER) | payer MEDICARE, SELFPAY ==
--- NOTE | ~2022-08-25 | XR_ITS ---
EXAMINATION: XR chest 1V portable Exam Date/Time: 08/25/2022 19:55 CDT HISTORY: DYSPHAGIA TONIGHT; CHOKED WHILE EATING DINNER. Comparison: 08/21/2022. RESULT: Lines, tubes, and devices: Stimulator leads project over the midline. Cholecystectomy clips. Lungs and pleura: No focal consolidation or pneumothorax. Senescent changes. Calcified left midlung granuloma. Cardiomediastinal silhouette: Stable. Calcified lymph nodes. Other: No acute osseous or upper abdominal finding. IMPRESSION: No acute cardiopulmonary process. Reviewed, dictated and finalized at location K.
--- NOTE | ~2022-08-25 | CT_ITS ---
EXAMINATION: CT soft tissue neck chest wo DATE: 08/25/2022 19:57 INDICATION: Dysphasia, choking while eating, history of chronic GERD, gastritis. TECHNIQUE: Computed tomography (CT) of the neck was performed without intravenous contrast. Automated exposure control and iterative reconstruction technique were employed. The dose-length product was 9 46.98 mGy-cm. COMPARISON: None FINDINGS: The thyroid gland is unremarkable. The submandibular and parotid glands are symmetric. There is n o cervical lymphadenopathy. There are no masses identified. The superior mediastinum is unremarka ble. The airway is unremarkable. Parapharyngeal and pre-glottic fat planes are preserved. Aorti c arch and bilateral carotid bifurcation calcifications. Bilateral lens replacements Right mastoid fluid, nodular mucosal thickening in the inferior bilateral maxillary sinuses, the remaining aerated spaces are clear. Mild biapical pleural scarring There is cervical spondylosis. Mid and lower thor acic stimulator packs. IMPRESSION: Unremarkable CT soft tissue neck findings. Reviewed, dictated and finalized at location K.
[2022-08-25 18:35] VITALS: BP 139/77; PULSE 77; RESP 20; TEMP 36.4; O2SAT 97
--- NOTE | 2022-08-25 18:59 | ED.GENADULT ---
HPI - General Adult General Chief complaint: Unspecified Stated complaint: choking Time Seen by Provider: 08/25/22 18:42 Source: patient and other ( alf staff) Mode of arrival: wheelchair Limitations: other ( history of dementia) History of Present Illness HPI narrative: patient is a 82-year-old white [facility] patient was eating fish this prior to admission she had a choking spell that her voice change. [place] like something was caught in her throat. Denies any chest pain back pain abdominal pain nausea vomiting or any other symptoms. She has a history of dementia so is a poor historian. Denies any problems drinking or keeping down her saliva. Denies any problems voiding or stooling. Related Data Home Medications Medication Instructions Recorded Confirmed acetaminophen 650 mg 650 mg PO Q8H 05/14/22 08/25/22 tablet,extended release (Tylenol 8 Hour) aluminum-mag hydroxide-simethicone 5 ml PO ONCE 05/14/22 08/25/22 200 mg-200 mg-20 mg/5 mL oral susp magnesium hydroxide 2,400 mg/10 mL 5 ml PO DAILY PRN Constipation 05/14/22 08/25/22 oral suspension (Milk Of Magnesia Concentrated) acetaminophen 325 mg tablet 650 mg PO BID 08/21/22 08/25/22 (Tylenol) atorvastatin 20 mg tablet 20 mg PO DAILY 08/21/22 08/25/22 bupropion HCl 300 mg 24 hr tablet, 300 mg PO DAILY 08/21/22 08/25/22 extended release buspirone 10 mg tablet 5 mg PO BID 08/21/22 08/25/22 ergocalciferol (vitamin D2) 1,250 1,250 mcg PO WEEKLY 08/21/22 08/25/22 mcg (50,000 unit) capsule gabapentin 400 mg capsule 400 mg PO BID 08/21/22 08/25/22 hydroxyzine HCl 10 mg tablet 20 mg PO BID 08/21/22 08/25/22 metoprolol succinate 25 mg 25 mg PO DAILY 08/21/22 08/25/22 tablet,extended release 24 hr omeprazole 40 mg capsule,delayed 40 mg PO DAILY 08/21/22 08/25/22 release sucralfate 1 gram tablet 1 g PO QID 08/21/22 08/25/22 Allergies Allergy/AdvReac Type Severity Reaction Status Date / Time No Known Allergies Allergy Verified 08/25/22 18:45 Review of Systems Constitutional: Constitutional: Reports no additional constitutional complaints, Denies anorexia, Denies headache(s), Denies increased appetite and Denies lethargy Eyes: Eyes: Reports no additional eye complaints ENT: Reports system reviewed and no additional complaints, except as documented Cardiovascular: Cardiovascular: Reports no additional cardiovascular complaints Respiratory: Respiratory: Reports no additional respiratory complaints, Denies cough and Denies dyspnea Gastrointestinal: Gastrointestinal: Reports no additional gastrointestinal complaints Genitourinary: Genitourinary: Reports no additional female genitourinary complaints Musculoskeletal: Musculoskeletal: Reports no additional musculoskeletal complaints Integumentary/Breasts: Skin/Breast: Reports system reviewed and no additional complaints, except as docu PMFSH Past Medical History Medical History Chronic GERD Congestive heart failure Last echo was 01/03/2019 which shows a grade 1 diastolic impairment and an EF of 60-65%. Essential hypertension Gastritis Gastroparesis Generalized anxiety disorder Heart murmur History of recurrent UTI (urinary tract infection) Hyperlipidemia, unspecified Lumbar disc disease with radiculopathy Neuropathy EDWARD (obstructive sleep apnea) Osteoporosis Primary osteoarthritis involving multiple joints Pulmonary nodule Right inguinal hernia Stable angina pectoris Weight loss, unintentional Surgical History Surgical History History of tonsillectomy Family History Family History Unknown Unknown family medical history Other Family history of cardiovascular disease Social History Social History (System 08/25/22 @ 14:26 by Elodia Eduardo) Social History: The patient stated that she is and she has
[2022-08-25] MEDS: GLUCAGON FOR INJ 1 MG VIAL 0.5 MG IV CONT (19:02)
--- NOTE | 2022-08-25 19:04 | ECG_ITS ---
Measurements Intervals [place] Rate: 81 P: 39 IN: 210 QRS: -43 QRSD: 135 T: 96 QT: 384 QTc: 448 Interpretive Statements SINUS RHYTHM WITH FIRST DEGREE AV BLOCK LEFT AXIS DEVIATION LEFT BUNDLE BRANCH BLOCK EXTENSIVE ANTERIOR INFARCT OR DUE TO LBBB BASELINE ARTIFACT- I, II, III, AVR, AVL, AVF, V1-V6 ABNORMAL ECG COMPARED TO ECG 09/04/2021 19:23:39 FIRST DEGREE AV BLOCK NOW PRESENT LEFT-AXIS DEVIATION NOW PRESENT LEFT BUNDLE BRANCH BLOCK NOW PRESENT Electronically Signed On 08-25-2022 21:56:35 CDT by Ralph Valladares D.O.
--- NOTE | 2022-08-25 19:11 | PC.NURSE ---
Report received, pt sipping on carbonated soda and able to swallow at this time. Her voice is noted to be raspy and hoarse and she states she feels like there is swelling in her throat. No difficulty breathing present, VSS.
[2022-08-25 19:18] LABS: Hematocrit 42.2 % (35.0-42.0); Hemoglobin 13.8 g/dL (11.7-13.8); Mean Corpuscular HGB Conc 32.7 g/dL (32.0-36.0); Mean Corpuscular Hemoglobin 30.7 pg (27.0-31.0); Mean Corpuscular Volume 93.8 fL (78.0-102.0); Mean Platelet Volume 9.1 fl (9.2-11.8); Platelet Count Result 219 K/mm3 (150-420); Red Cell Distribution Width 14.8 % (11.6-14.4); White Blood Count 6.8 K/mm3 (4.8-10.8)
[2022-08-25] MEDS: EPINEPHrine HCL INJ 1 MG/ML AMPUL 0.3 MG SUB-Q (19:18)
[2022-08-25] MEDS: methylPREDNISolone SOD SUCC 125 MG VIAL IV PUSH (19:24)
[2022-08-25] MEDS: GLUCAGON FOR INJ 1 MG VIAL 0.5 MG IV PUSH (19:31)
[2022-08-25 19:34] VITALS: BP 143/80; PULSE 81; RESP 20; O2SAT 98
[2022-08-25 19:38] LABS: Alanine Aminotransferase 63 U/L (14-59); Albumin Level 3.2 g/dL (3.4-5.0); Alkaline Phosphatase 115 U/L (46-116); Anion Gap 8 mmol/L (8-16); Aspartate Amino Transferase 26 U/L (15-37); Bilirubin,Total 0.2 mg/dL (0.00-1.00); Blood Urea Nitrogen 26 mg/dL (7-18); Calcium 8.6 mg/dL (8.5-10.1); Carbon Dioxide 29 mmol/L (21-32); Chloride 101 mmol/L (98-108); Estimated CRCL calculation 32 ml/min; Estimated Glomerular Filt Rate 43; Glucose 151 mg/dL (70-99); Osmolality Calculated 293 mOsm/kg (285-295); Potassium 4.2 mmol/L (3.5-5.1); Sodium 138 mmol/L (136-145); Total Protein 7.1 g/dL (6.4-8.2)
[2022-08-25 19:40] LABS: Troponin I 7.8 ng/L (0.00-60.4)
--- NOTE | 2022-08-25 19:58 | PC.NURSE ---
No change noted in voice p meds given. Pt reports still feeling like something in her throat, voice noted hoarse and raspy, VSS.
[2022-08-25 20:09] VITALS: BP 138/92; PULSE 78; RESP 16; O2SAT 96
--- NOTE | 2022-08-25 21:07 | PC.NURSE ---
Pt is able to speak in clearer voice at this time. When Dr goes into room to assess, pt will use a deep throated voice and turn it raspy sounding, when speaking c pt longer, her voice becomes more clear. No distress noted, VSS, RR even and nonlabored.
--- NOTE | 2022-08-25 21:31 | PC.NURSE ---
Call back to PA staff and updated report given. Rn state that this is pt. normal to try to speak c deep raspy and hoarse voice at times and they stated this is norm for pt. VSS , complete d/c report given to tiffanie at [facility]. They will bring w/c to take pt back to room.
[2022-08-25 21:35] VITALS: BP 130/81; PULSE 79; RESP 18; TEMP 36.6; O2SAT 96
== END 2022-08-25 21:48 | disposition home or self-care (01) ==
PROVIDERS: Emergency Provider Emergency Medicine; PCP Family Medicine
DX: R13.10 Dysphagia, unspecified (principal); R49.0 Dysphonia; I44.0 Atrioventricular block, first degree; I11.0 Hypertensive heart disease with heart failure; I50.9 Heart failure, unspecified; F03.90 Unspecified dementia, unspecified severity, without behavioral disturbance, psychotic disturbance, mood disturbance, and anxiety; E78.5 Hyperlipidemia, unspecified
CPT/HCPCS: 36415; 70490; 71045; 71250; 80053; 84484; 85027; 93005; 96372; 96374; 96375; 99284; J0171; J1610; J2930

== ENCOUNTER 2022-09-11 08:40 | Outpatient (CLI) | payer MEDICARE, SELFPAY ==
--- NOTE | ~2022-09-11 | XR_ITS ---
EXAMINATION: XR barium swallow modified DATE: 09/11/2022 09:21 INDICATION: Dysphagia. TECHNIQUE: The patient was given barium-containing material of multiple consistencies to swallow by t he speech pathologist while I performed fluoroscopy. Fluoroscopy exposure time was 1.1 minutes. The n umber of fluoroscopy images saved to the PACS was 1. Dose-area product was 1.1 Gy-cm^2. FINDINGS: The oral stage, pharyngeal stage, and cervical/esophageal stage of the swallow are normal. IMPRESSION: 1. Normal swallow. 2. Please refer to the speech therapy report for recommendations. Reviewed, dictated and finalized at location A.
--- NOTE | 2022-09-11 11:14 | REHSTMBS ---
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 She reports she is a resident of the [facility] facility in [place]. She stated that she does not feel that she has difficulty swallowing at this time however she complains of pain in her stomach when she eats 'spicy' foods like sausage and similar items. She reported that she has had an upper GI study in the past however we do not have that information in our system. She was hospitalized here about one year ago for Failure to Thrive and exhibited right-sided lung infiltrate on chest x-ray however no Speech Therapy was ordered at that time. Today, the patient reports no lower dentition but agreed to consume our solid food pieces. The patient was viewed in the lateral position to the level of C5/C6. She was presented with thin liquid contrast medum per cup and per straw, pudding mixed with semi-solid contrast medium, and then fruit pieces and vicente cracker pieces coated with the pudding mixture. Patient exhibited quick swallows with no evidence of penetration and no significant pharyngeal residue after swallowing that could contribute to risk for aspiration after swallowing. Results indicate this patient may stay on her current diet or have Regular Diet with Regular Liquids. Due to lack of lower dentition, she indicates that she has to be careful of the food items she chooses to make sure she can consume them. No further Speech Therapy is indicated at this time. Thank you for this referral.
== END 2022-09-11 08:41 | disposition home or self-care (01) ==
PROVIDERS: PCP Family Medicine; Visit Provider Family Medicine
DX: R13.10 Dysphagia, unspecified (principal)
CPT/HCPCS: 92611

== ENCOUNTER 2022-09-11 10:16 | Outpatient (NON) | payer MEDICARE, SELFPAY ==
[2022-09-11 10:26] LABS: Occult Blood Negative (Negative)
== END 2022-09-11 10:17 | disposition home or self-care (01) ==
LOC: CHSLAB 10:18
PROVIDERS: PCP Family Medicine; Visit Provider Family Medicine
DX: R10.10 Upper abdominal pain, unspecified (principal)
CPT/HCPCS: 82272

== ENCOUNTER 2022-09-12 11:35 | Outpatient (NON) | payer MEDICARE, SELFPAY ==
[2022-09-12 11:54] LABS: Occult Blood Negative (Negative)
== END 2022-09-12 11:36 | disposition home or self-care (01) ==
LOC: CHSLAB 11:37
PROVIDERS: PCP Family Medicine; Visit Provider Family Medicine
DX: D64.9 Anemia, unspecified (principal); Z79.899 Other long term (current) drug therapy
CPT/HCPCS: 82272

== ENCOUNTER 2022-09-22 06:47 | Outpatient (NON) | payer MEDICARE, SELFPAY ==
[2022-09-22 07:10] LABS: Basophils Absolute Auto 0.06 K/mm3 (0.00-0.10); Basophils Percent Auto 0.8 % (0.0-1.0); Eosinophils Absolute Auto 0.28 K/mm3 (0.02-0.50); Eosinophils Percent Auto 3.8 % (1.0-6.0); Hematocrit 42.5 % (35.0-42.0); Hemoglobin 14.1 g/dL (11.7-13.8); Immature Granulocyte Absolute 0.05 K/mm3 (0.00-0.00); Immature Granulocyte Percent A 0.7 % (0.0-0.0); Lymphocytes Absolute Auto 1.97 K/mm3 (1.10-4.50); Lymphocytes Percent Auto 27.1 % (18.0-42.0); Mean Corpuscular HGB Conc 33.2 g/dL (32.0-36.0); Mean Corpuscular Hemoglobin 31.5 pg (27.0-31.0); Mean Corpuscular Volume 94.9 fL (78.0-102.0); Mean Platelet Volume 9.6 fl (9.2-11.8); Monocytes Absolute Auto 0.75 K/mm3 (0.10-0.90); Monocytes Percent Auto 10.3 % (2.0-11.0); Neutrophils Absolute Auto 4.2 K/mm3 (1.7-7.2); Neutrophils Percent Auto 57.3 % (50.0-70.0); Platelet Count Result 269 K/mm3 (150-420); Red Blood Count 4.48 M/mm3 (4.20-5.40); Red Cell Distribution Width 14.7 % (11.6-14.4); White Blood Count 7.3 K/mm3 (4.8-10.8)
[2022-09-22 07:23] LABS: Anion Gap 7 mmol/L (8-16); Blood Urea Nitrogen 17 mg/dL (7-18); Calcium 8.9 mg/dL (8.5-10.1); Carbon Dioxide 32 mmol/L (21-32); Chloride 104 mmol/L (98-108); Estimated Glomerular Filt Rate 47; Glucose 98 mg/dL (70-99); Osmolality Calculated 297 mOsm/kg (285-295); Potassium 4.4 mmol/L (3.5-5.1); Sodium 143 mmol/L (136-145)
== END 2022-09-22 06:48 | disposition home or self-care (01) ==
LOC: CHSLAB 06:49
PROVIDERS: Visit Provider Family Medicine
DX: N17.9 Acute kidney failure, unspecified (principal); I50.30 Unspecified diastolic (congestive) heart failure; D64.9 Anemia, unspecified
CPT/HCPCS: 36415; 80048; 85025

== ENCOUNTER 2022-11-03 22:29 | Outpatient (NON) | payer MEDICARE, SELFPAY ==
[2022-11-03 22:48] LABS: Appearance Urine Clear (Clear); Bilirubin Urine Negative (Negative); Blood Urine Negative (Negative); Color Urine Light Yellow (Yellow); Glucose Urine UA Negative (Negative); Ketones Urine Negative (Negative); Leukocyte Esterase Ur Negative (Negative); Nitrate Urine Negative (Negative); Protein Urine Negative (Negative); Specific Grav Ur 1.015 (1.010-1.020); Urobilinogen Urine 0.2 mg/dL (0.2-1.0)
[2022-11-03 22:55] LABS: Add Urine Microscopic? NO
== END 2022-11-03 22:30 | disposition home or self-care (01) ==
LOC: CHSLAB 22:35
PROVIDERS: Visit Provider Family Medicine
DX: N39.0 Urinary tract infection, site not specified (principal)
CPT/HCPCS: 81003; 87086

== ENCOUNTER 2022-12-03 06:35 | Outpatient (NON) | payer MEDICARE, SELFPAY ==
[2022-12-03 07:42] LABS: Cholesterol 180 mg/dL (0-200); HDL Direct 52 mg/dL (40-60); LDL Cholesterol Calculated 71 mg/dL (<130); Triglycerides 285 mg/dL (0-150)
== END 2022-12-03 06:36 | disposition home or self-care (01) ==
LOC: CHSLAB 06:37
PROVIDERS: Visit Provider Family Medicine
DX: E78.5 Hyperlipidemia, unspecified (principal)
CPT/HCPCS: 36415; 80061

== ENCOUNTER 2022-12-15 06:49 | Outpatient (NON) | payer MEDICARE, SELFPAY ==
[2022-12-15 07:04] LABS: Basophils Absolute Auto 0.08 K/mm3 (0.00-0.10); Eosinophils Absolute Auto 0.24 K/mm3 (0.02-0.50); Eosinophils Percent Auto 3.1 % (1.0-6.0); Hematocrit 44.1 % (35.0-42.0); Hemoglobin 14.2 g/dL (11.7-13.8); Immature Granulocyte Absolute 0.07 K/mm3 (0.00-0.00); Immature Granulocyte Percent A 0.9 % (0.0-0.0); Lymphocytes Percent Auto 25.8 % (18.0-42.0); Mean Corpuscular HGB Conc 32.2 g/dL (32.0-36.0); Mean Corpuscular Hemoglobin 30.3 pg (27.0-31.0); Mean Corpuscular Volume 94.2 fL (78.0-102.0); Mean Platelet Volume 9.7 fl (9.2-11.8); Monocytes Absolute Auto 0.79 K/mm3 (0.10-0.90); Monocytes Percent Auto 10.2 % (2.0-11.0); Neutrophils Absolute Auto 4.6 K/mm3 (1.7-7.2); Platelet Count Result 277 K/mm3 (150-420); Red Blood Count 4.68 M/mm3 (4.20-5.40); Red Cell Distribution Width 14.3 % (11.6-14.4); White Blood Count 7.7 K/mm3 (4.8-10.8)
[2022-12-15 07:10] LABS: Creatinine Urine 48.56 mg/dL (40-278); MALB Creatinine Ratio 26.7 mg/g (0-30); Microalbumin Urine Random < 13.0 mg/L
[2022-12-15 07:37] LABS: Alanine Aminotransferase 28 U/L (14-59); Albumin Level 3.3 g/dL (3.4-5.0); Alkaline Phosphatase 77 U/L (46-116); Anion Gap 7 mmol/L (8-16); Aspartate Amino Transferase 16 U/L (15-37); Bilirubin Direct 0.1 mg/dL (0-0.2); Bilirubin,Total 0.3 mg/dL (0.00-1.00); Blood Urea Nitrogen 20 mg/dL (7-18); Calcium 8.9 mg/dL (8.5-10.1); Carbon Dioxide 31 mmol/L (21-32); Chloride 103 mmol/L (98-108); Cholesterol 176 mg/dL (0-200); Estimated Glomerular Filt Rate 46; Glucose 101 mg/dL (70-99); HDL Direct 49 mg/dL (40-60); LDL Cholesterol Calculated 65 mg/dL (<130); Osmolality Calculated 294 mOsm/kg (285-295); Potassium 4.2 mmol/L (3.5-5.1); Sodium 141 mmol/L (136-145); Thyroid Stimulating Hormone 3.57 uIU/mL (0.36-3.74); Total Protein 6.5 g/dL (6.4-8.2); Triglycerides 311 mg/dL (0-150)
== END 2022-12-15 06:50 | disposition home or self-care (01) ==
LOC: CHSLAB 06:51
PROVIDERS: Visit Provider Family Medicine
DX: E78.2 Mixed hyperlipidemia (principal); I10 Essential (primary) hypertension; I50.32 Chronic diastolic (congestive) heart failure
CPT/HCPCS: 36415; 80048; 80061; 80076; 82043; 84443; 85025

== ENCOUNTER 2023-01-25 10:02 | Outpatient (CLI) | payer MEDICARE, SELFPAY ==
--- NOTE | ~2023-01-25 | XR_ITS ---
XR chest 2V 01/25/2023 10:29 Indication: Wheezing and shortness of breath. Chest pain. Procedure: PA and lateral views of the chest Comparison: Comparison to multiple prior studies sequentially, with oldest reviewed study dated 08/2021. Findings: Cardiomegaly. Calcified granuloma left lung lower lobe. Spinal stimulator leads overlying t he mid thoracic spine. No focal air space disease, pulmonary edema, pleural effusion or suspected pne umothorax. There are cholecystectomy clips. Impression: 1: No acute cardiopulmonary disease. Reviewed, dictated and finalized at location B. Impression: 1: No acute cardiopulmonary disease.
== END 2023-01-25 10:03 | disposition home or self-care (01) ==
LOC: CHSIMG 10:05
PROVIDERS: PCP Family Medicine; Visit Provider Family Medicine
DX: R06.2 Wheezing (principal)
CPT/HCPCS: 71046

== ENCOUNTER 2023-03-20 06:53 | Outpatient (NON) | payer MEDICARE, SELFPAY ==
[2023-03-20 07:07] LABS: Basophils Absolute Auto 0.07 K/mm3 (0.00-0.10); Basophils Percent Auto 0.9 % (0.0-1.0); Eosinophils Absolute Auto 0.23 K/mm3 (0.02-0.50); Hematocrit 42.3 % (35.0-42.0); Hemoglobin 13.9 g/dL (11.7-13.8); Immature Granulocyte Absolute 0.08 K/mm3 (0.00-0.00); Immature Granulocyte Percent A 1.1 % (0.0-0.0); Lymphocytes Absolute Auto 1.89 K/mm3 (1.10-4.50); Lymphocytes Percent Auto 24.9 % (18.0-42.0); Mean Corpuscular HGB Conc 32.9 g/dL (32.0-36.0); Mean Corpuscular Hemoglobin 30.9 pg (27.0-31.0); Mean Platelet Volume 9.6 fl (9.2-11.8); Monocytes Absolute Auto 0.76 K/mm3 (0.10-0.90); Neutrophils Absolute Auto 4.6 K/mm3 (1.7-7.2); Neutrophils Percent Auto 60.1 % (50.0-70.0); Platelet Count Result 271 K/mm3 (150-420); Red Cell Distribution Width 14.7 % (11.6-14.4); White Blood Count 7.6 K/mm3 (4.8-10.8)
[2023-03-20 07:24] LABS: Alanine Aminotransferase 20 U/L (14-59); Alkaline Phosphatase 82 U/L (46-116); Anion Gap 8 mmol/L (8-16); Aspartate Amino Transferase 11 U/L (15-37); Bilirubin,Total 0.3 mg/dL (0.00-1.00); Blood Urea Nitrogen 15 mg/dL (7-18); Calcium 8.8 mg/dL (8.5-10.1); Carbon Dioxide 31 mmol/L (21-32); Chloride 104 mmol/L (98-108); Estimated Glomerular Filt Rate 54; Glucose 93 mg/dL (70-99); NT Pro B Type Natriuretic Pept 365 pg/mL (0-450); Osmolality Calculated 296 mOsm/kg (285-295); Potassium 4.4 mmol/L (3.5-5.1); Sodium 143 mmol/L (136-145); Total Protein 5.9 g/dL (6.4-8.2)
== END 2023-03-20 06:54 | disposition home or self-care (01) ==
LOC: CHSLAB 06:54
PROVIDERS: PCP Family Medicine; Visit Provider Family Medicine
DX: N17.9 Acute kidney failure, unspecified (principal); D64.9 Anemia, unspecified; I50.9 Heart failure, unspecified
CPT/HCPCS: 36415; 80053; 83880; 85025

== ENCOUNTER 2023-03-25 07:49 | Outpatient (NON) | payer MEDICARE, SELFPAY ==
[2023-03-25 08:00] LABS: Basophils Absolute Auto 0.09 K/mm3 (0.00-0.10); Basophils Percent Auto 1.2 % (0.0-1.0); Eosinophils Absolute Auto 0.27 K/mm3 (0.02-0.50); Eosinophils Percent Auto 3.7 % (1.0-6.0); Hematocrit 41.2 % (35.0-42.0); Hemoglobin 13.3 g/dL (11.7-13.8); Immature Granulocyte Absolute 0.07 K/mm3 (0.00-0.00); Lymphocytes Absolute Auto 1.92 K/mm3 (1.10-4.50); Lymphocytes Percent Auto 26.4 % (18.0-42.0); Mean Corpuscular HGB Conc 32.3 g/dL (32.0-36.0); Mean Corpuscular Hemoglobin 29.8 pg (27.0-31.0); Mean Corpuscular Volume 92.4 fL (78.0-102.0); Mean Platelet Volume 9.7 fl (9.2-11.8); Monocytes Absolute Auto 0.69 K/mm3 (0.10-0.90); Monocytes Percent Auto 9.5 % (2.0-11.0); Neutrophils Absolute Auto 4.2 K/mm3 (1.7-7.2); Neutrophils Percent Auto 58.2 % (50.0-70.0); Platelet Count Result 262 K/mm3 (150-420); Red Blood Count 4.46 M/mm3 (4.20-5.40); Red Cell Distribution Width 14.7 % (11.6-14.4); White Blood Count 7.3 K/mm3 (4.8-10.8)
[2023-03-25 08:02] LABS: Anion Gap 12 mmol/L (8-16); Blood Urea Nitrogen 18 mg/dL (7-18); Calcium 8.7 mg/dL (8.5-10.1); Carbon Dioxide 26 mmol/L (21-32); Chloride 105 mmol/L (98-108); Estimated Glomerular Filt Rate 52; Glucose 100 mg/dL (70-99); Osmolality Calculated 297 mOsm/kg (285-295); Potassium 4.5 mmol/L (3.5-5.1); Sodium 143 mmol/L (136-145)
== END 2023-03-25 07:50 | disposition home or self-care (01) ==
LOC: CHSLAB 07:50
PROVIDERS: Visit Provider Family Medicine
DX: D64.9 Anemia, unspecified (principal); I50.9 Heart failure, unspecified; I10 Essential (primary) hypertension
CPT/HCPCS: 36415; 80048; 85025

== ENCOUNTER 2023-04-27 07:15 | Outpatient (NON) | payer MEDICARE, SELFPAY ==
[2023-04-27 07:58] LABS: Alanine Aminotransferase 19 U/L (14-59); Albumin Level 2.6 g/dL (3.4-5.0); Alkaline Phosphatase 65 U/L (46-116); Aspartate Amino Transferase 13 U/L (15-37); Bilirubin Direct 0.1 mg/dL (0-0.2); Bilirubin,Total 0.3 mg/dL (0.00-1.00); Total Protein 5.6 g/dL (6.4-8.2)
== END 2023-04-27 07:16 | disposition home or self-care (01) ==
LOC: CHSLAB 07:16
PROVIDERS: Visit Provider Family Medicine
DX: I26.99 Other pulmonary embolism without acute cor pulmonale (principal); I10 Essential (primary) hypertension; I50.9 Heart failure, unspecified
CPT/HCPCS: 36415; 80076

== ENCOUNTER 2023-06-22 06:47 | Outpatient (NON) | payer MEDICARE, SELFPAY ==
[2023-06-22 07:37] LABS: Basophils Absolute Auto 0.04 K/mm3 (0.00-0.10); Basophils Percent Auto 0.4 % (0.0-1.0); Eosinophils Absolute Auto 0.08 K/mm3 (0.02-0.50); Eosinophils Percent Auto 0.7 % (1.0-6.0); Hematocrit 40.3 % (35.0-42.0); Hemoglobin 13.4 g/dL (11.7-13.8); Immature Granulocyte Percent A 0.9 % (0.0-0.0); Lymphocytes Absolute Auto 1.43 K/mm3 (1.10-4.50); Lymphocytes Percent Auto 12.8 % (18.0-42.0); Mean Corpuscular HGB Conc 33.3 g/dL (32.0-36.0); Mean Corpuscular Hemoglobin 29.9 pg (27.0-31.0); Monocytes Absolute Auto 1.29 K/mm3 (0.10-0.90); Monocytes Percent Auto 11.6 % (2.0-11.0); Neutrophils Absolute Auto 8.2 K/mm3 (1.7-7.2); Neutrophils Percent Auto 73.6 % (50.0-70.0); Platelet Count Result 263 K/mm3 (150-420); Red Blood Count 4.48 M/mm3 (4.20-5.40); Red Cell Distribution Width 14.9 % (11.6-14.4); White Blood Count 11.2 K/mm3 (4.8-10.8)
[2023-06-22 08:19] LABS: Alanine Aminotransferase 17 U/L (14-59); Albumin Level 2.9 g/dL (3.4-5.0); Alkaline Phosphatase 90 U/L (46-116); Anion Gap 11 mmol/L (8-16); Aspartate Amino Transferase 15 U/L (15-37); Bilirubin Direct 0.1 mg/dL (0-0.2); Bilirubin,Total 0.5 mg/dL (0.00-1.00); Blood Urea Nitrogen 11 mg/dL (7-18); Calcium 8.1 mg/dL (8.5-10.1); Carbon Dioxide 26 mmol/L (21-32); Chloride 96 mmol/L (98-108); Estimated Glomerular Filt Rate > 60; Glucose 121 mg/dL (70-99); Osmolality Calculated 276 mOsm/kg (285-295); Potassium 4.2 mmol/L (3.5-5.1); Sodium 133 mmol/L (136-145); Thyroid Stimulating Hormone 1.66 uIU/mL (0.36-3.74); Total Protein 6.1 g/dL (6.4-8.2)
== END 2023-06-22 06:48 | disposition home or self-care (01) ==
LOC: CHSLAB 06:48
PROVIDERS: Visit Provider Family Medicine
DX: D64.9 Anemia, unspecified (principal); R60.9 Edema, unspecified; E78.5 Hyperlipidemia, unspecified; I50.9 Heart failure, unspecified
CPT/HCPCS: 36415; 80048; 80076; 84443; 85025

== ENCOUNTER 2023-08-07 06:53 | Outpatient (NON) | payer MEDICARE, SELFPAY ==
[2023-08-07 08:22] LABS: Alanine Aminotransferase 21 U/L (14-59); Albumin Level 3.2 g/dL (3.4-5.0); Alkaline Phosphatase 98 U/L (46-116); Anion Gap 10 mmol/L (8-16); Aspartate Amino Transferase 15 U/L (15-37); Bilirubin Direct 0.1 mg/dL (0-0.2); Bilirubin,Total 0.2 mg/dL (0.00-1.00); Blood Urea Nitrogen 17 mg/dL (7-18); Calcium 8.5 mg/dL (8.5-10.1); Carbon Dioxide 28 mmol/L (21-32); Chloride 101 mmol/L (98-108); Cholesterol 187 mg/dL (0-200); Estimated Glomerular Filt Rate 57; Glucose 101 mg/dL (70-99); HDL Direct 48 mg/dL (40-60); LDL Cholesterol Calculated 78 mg/dL (<130); Osmolality Calculated 289 mOsm/kg (285-295); Sodium 139 mmol/L (136-145); Thyroid Stimulating Hormone 2.64 uIU/mL (0.36-3.74); Total Protein 6.7 g/dL (6.4-8.2); Triglycerides 307 mg/dL (0-150)
[2023-08-07 09:10] LABS: Basophils Absolute Auto 0.07 K/mm3 (0.00-0.10); Basophils Percent Auto 0.9 % (0.0-1.0); Eosinophils Absolute Auto 0.27 K/mm3 (0.02-0.50); Eosinophils Percent Auto 3.4 % (1.0-6.0); Hematocrit 42.7 % (35.0-42.0); Hemoglobin 13.9 g/dL (11.7-13.8); Immature Granulocyte Absolute 0.08 K/mm3 (0.00-0.00); Lymphocytes Absolute Auto 1.45 K/mm3 (1.10-4.50); Lymphocytes Percent Auto 18.5 % (18.0-42.0); Mean Corpuscular HGB Conc 32.6 g/dL (32.0-36.0); Mean Corpuscular Hemoglobin 29.8 pg (27.0-31.0); Mean Corpuscular Volume 91.4 fL (78.0-102.0); Mean Platelet Volume 9.8 fl (9.2-11.8); Monocytes Absolute Auto 0.78 K/mm3 (0.10-0.90); Monocytes Percent Auto 9.9 % (2.0-11.0); Neutrophils Absolute Auto 5.2 K/mm3 (1.7-7.2); Neutrophils Percent Auto 66.3 % (50.0-70.0); Platelet Count Result 308 K/mm3 (150-420); Red Blood Count 4.67 M/mm3 (4.20-5.40); Red Cell Distribution Width 15.9 % (11.6-14.4); White Blood Count 7.8 K/mm3 (4.8-10.8)
== END 2023-08-07 06:54 | disposition home or self-care (01) ==
LOC: CHSLAB 06:56
PROVIDERS: Visit Provider Family Medicine
DX: E78.5 Hyperlipidemia, unspecified (principal); D64.9 Anemia, unspecified; I50.9 Heart failure, unspecified; I10 Essential (primary) hypertension
CPT/HCPCS: 36415; 80048; 80061; 80076; 84443; 85025

== ENCOUNTER 2023-10-02 22:42 | Inpatient (IN) | payer MEDICARE, SELFPAY ==
[2023-10-02] VITALS (8 sets, daily range): BP systolic 124–154; BP diastolic 65–108; PULSE 86–89; RESP 20–22; TEMP 36.6; O2SAT 97–100
--- NOTE | ~2023-10-02 | CT_ITS ---
EXAMINATION: CT brain wo con DATE: 10/02/2023 23:39 INDICATION: Fall. Head injury. Frontal head pain. TECHNIQUE: Computed tomographic angiography (CTA) of the head was performed without and with 100 mL O mnipaque-350 intravenous contrast. Exam dose: 605.33 mGy-cm total exam DLP. Volume-rendered and ma ximum intensity projection 3D reconstructions of the intracranial arteries were created by the techno logist on a separate workstation. COMPARISON: 09/04/2021 CT brain FINDINGS: The examination is mildly limited due to motion artifact. Midline frontal cephalohematoma and probable laceration. No skull fracture or bone destruction is evident. Bilateral carotid siphon internal carotid artery calcifications and some vertebral and basilar artery calcifications are noted. The nonspecific diminished attenuation in the cerebral white matter, likel y due to chronic small vessel ischemic changes. No intracranial mass lesion or hemorrhage, midline shift or mass effect or subdural or epidural hemat daphney is detected. There is severe nearly complete opacification of the right maxillary sinus and prominent mucoperioste al thickening of the left maxillary sinus. Soft tissue thickening of the ethmoid septae, right greate r than left. The frontal and sphenoid sinuses are unremarkable. There is partial opacification of the right mastoid air cells. The left mastoid air cells are well ma rginated. IMPRESSION: Midline frontal cephalohematoma; no skull fracture or acute intracranial finding Reviewed, dictated and finalized at Location A. Reviewed, dictated and finalized at location A. IMPRESSION: Midline frontal cephalohematoma; no skull fracture or acute intrac ranial finding
--- NOTE | ~2023-10-02 | CT_ITS ---
EXAMINATION: CT cervical spine wo con DATE: 10/02/2023 23:40 INDICATION: Head and neck injury. TECHNIQUE: Computed tomography (CT) of the cervical spine was performed without intravenous contrast. Automated exposure control and iterative reconstruction technique were employed. Exam dose: 405.30 mGy-cm total exam DLP. COMPARISON: None FINDINGS: There is reversal of lower cervical curvature which may be due to muscle spasm. There is de xtroscoliosis. Moderate degenerative disease at C3-4 and C4-5 with grade 1 anterolisthesis at each of these levels. There is severe degenerative disc disease at C5-6 and C6-7. There is mild degenerative change biopsy of an uncovertebral joints. No fracture or dislocation or prevertebral soft tissue swelling. IMPRESSION: Reversal cervical curvature and dextroscoliosis Severe cervical spondylosis No fracture or dislocation is detected Reviewed, dictated and finalized at Location A. Reviewed, dictated and finalized at location A.
--- NOTE | ~2023-10-02 | XR_ITS ---
XR chest 1V portable DATE: 10/02/2023 23:20 INDICATION: Shortness of breath TECHNIQUE: Portable AP chest on October 02, 2023 2318 hours COMPARISON: 01/25/2023 PA and lateral chest FINDINGS: Borderline heart size. Aortic calcification. No pulmonary infiltrate or consolidation, pleural effusion or pneumothorax is evident. Pulmonary vasc ular redistribution may indicate mild pulmonary venous hypertension. Calcified left lower lung pulmonary granulomas consistent with old pulmonary granulomatous disease. There is osteopenia. Surgical clips overlie right upper quadrant of abdomen, likely due to cholecystectomy. Electrodes overlie the lower thoracic spinal canal. IMPRESSION: Borderline heart size, pulmonary vascular redistribution which may indicate mild pulmonar y venous hypertension Reviewed, dictated and finalized at location A. IMPRESSION: Borderline heart size, pulmonary vascular redistribution which may indicate mild pulmonary venous hypertension
--- NOTE | ~2023-10-02 | US_ITS ---
EXAMINATION:US venous doppler LE RT INDICATION:Leg edema TECHNIQUE: Multiple grayscale, color flow and Doppler images of the right lower extremity deep venous systems were obtained and reviewed. COMPARISON:10/26/2008 FINDINGS: The common femoral, superficial femoral and popliteal veins demonstrate normal respiratory variation, augmentation and compressibility. Color flow is also seen within the posterior tibial, pe roneal, greater saphenous and profunda veins. IMPRESSION: 1: No lower extremity deep venous thrombosis. Reviewed, dictated and finalized at location B.
--- NOTE | ~2023-10-02 | CT_ITS ---
EXAMINATION: CT soft tissue neck w con DATE: 10/03/2023 13:43 INDICATION: Neck swelling. TECHNIQUE: Computed tomography (CT) of the neck was performed with 75 mL Omnipaque-350 intravenous co ntrast. Automated exposure control and iterative reconstruction technique were employed. The dose-pippa gth product was 411.50 mGy-cm. COMPARISON: CT cervical spine 10/02/2023 FINDINGS: The pharynx and larynx are normal. There are no pathologically enlarged lymph nodes. There is mild plaque in the proximal internal carotid with 0% stenosis relative to normal distal artery lum en diameters. There are likely changes of ocular lens replacement surgeries. There is frontal scalp s oft tissue swelling. There is mucosal thickening in the paranasal sinuses, worst in the maxillary sin uses. There is severe cervical spondylosis. IMPRESSION: 1. No lymphadenopathy. Reviewed, dictated and finalized at location E. IMPRESSION: 1. No lymphadenopathy.
--- NOTE | ~2023-10-02 | XR_ITS ---
XR knee RT min 4V DATE: 10/02/2023 23:20 INDICATION: Fall. Right knee pain. TECHNIQUE: 4 views COMPARISON: None FINDINGS: Status post medial joint replacement. Right lateral bipartite patella. Mild osteoarthritic change at the lateral compartment. Moderate osteophytic change at the patellofemo ral joint. Osteopenia. Small suprapatellar knee joint effusion is suggested. No fracture or dislocation, periosteal reaction or bone destruction is detected. IMPRESSION: Suggestion of mild suprapatellar knee joint effusion Status post medial compartment arthroplasty Osteophytic change of the lateral and patellofemoral compartments Lateral bipartite patella Osteopenia Reviewed, dictated and finalized at location A.
--- NOTE | 2023-10-02 22:51 | ECG_ITS ---
SEE SCANNED COPY FOR CONFIRMED REPORT MTDD
--- NOTE | 2023-10-02 23:01 | ED.FALL ---
HPI - Fall General Chief Complaint: Fall Stated Complaint: fall Time Seen by Provider: 10/02/23 22:51 Source: patient and EMS Mode of arrival: EMS Limitations: physical limitation History of Present Illness HPI Narrative: this is 83-year-old female presents from nursing after she sustained a fall from sitting position striking her forehead causing a hematoma in the mid frontal scalp, patient did not lose consciousness, but subsequently started to develop dyspnea. Denies any chest pain no nausea vomiting no abdominal pain or flank pain no dysuria or hematuria. Patient has no fever chills. Patient has a history of CHF diastolic dysfunction with an ejection fraction around 70%, has a history of hypertension, and history of pulmonary embolism currently on Eliquis. Patient also is having lower extremity edema with right knee pain with palpation. patient has pain in her lower extremities secondary to neuropathy and swelling but has right knee pain with palpation. patient is a DNR. MD complaint: fall Onset (ago): hour(s) Fall from: chair Fall witnessed: yes, by bystander Place fall occurred: assisted/SNF Prolonged down time: no Symptoms prior to fall: none Severity: moderate Severity scale (1-10): 5 Quality: dull Associated symptoms (after fall): headache Related Data Home Medications Medication Instructions Recorded Confirmed acetaminophen 650 mg 650 mg PO Q8H 05/14/22 10/02/23 tablet,extended release (Tylenol 8 Hour) atorvastatin 20 mg tablet 20 mg PO DAILY 08/21/22 10/02/23 bupropion HCl 300 mg 24 hr tablet, 300 mg PO DAILY 08/21/22 10/02/23 extended release buspirone 10 mg tablet 5 mg PO BID 08/21/22 10/02/23 ergocalciferol (vitamin D2) 1,250 1,250 mcg PO WEEKLY 08/21/22 10/02/23 mcg (50,000 unit) capsule gabapentin 400 mg capsule 400 mg PO BID 08/21/22 10/02/23 hydroxyzine HCl 10 mg tablet 20 mg PO BID 08/21/22 10/02/23 metoprolol succinate 25 mg 25 mg PO DAILY 08/21/22 10/02/23 tablet,extended release 24 hr apixaban 5 mg PO BID 10/02/23 10/02/23 Allergies Allergy/AdvReac Type Severity Reaction Status Date / Time No Known Allergies Allergy Verified 10/02/23 23:22 Review of Systems Review of Systems: All systems reviewed & are unremarkable except as noted in HPI and below PMFSH Past Medical History Medical History Acute kidney injury Chronic GERD Congestive heart failure Last echo was 01/03/2019 which shows a grade 1 diastolic impairment and an EF of 60-65%. Essential hypertension Gastritis Gastroparesis Generalized anxiety disorder GERD (gastroesophageal reflux disease) Heart murmur History of recurrent UTI (urinary tract infection) Hyperlipidemia, unspecified Hyponatremia IBS (irritable bowel syndrome) Lumbar disc disease with radiculopathy Neuropathy EDWARD (obstructive sleep apnea) Osteoporosis Primary osteoarthritis involving multiple joints Pulmonary nodule Right inguinal hernia Stable angina pectoris Upper abdominal pain Weight loss, unintentional Surgical History Surgical History History of tonsillectomy Family History Family History Unknown Unknown family medical history Other Family history of cardiovascular disease Social History Social History Social History: The patient stated that she is and she has no children. She does not have a durable power compliance attorney for healthcare. 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 The patient desires to be a full code and does not have a durable power compliance attorney for healthcare. Patient is lifelong nonsmoker. She does not use alcohol marijuana illicit drugs. Smoking status: Never smoker Second hand tobacco smoke exposure: No Additional smoking assessment comments: pt is a poor
[2023-10-02] MEDS: IPRATROPIUM 0.5 MG/ALBUTEROL SULFATE 2.5 MG AMPUL.NEB 3 ML INHALATION (23:08)
[2023-10-02] MEDS: FUROSEMIDE INJ 40 MG/4 ML VIAL IV PUSH (23:11)
[2023-10-02] MEDS: KETOROLAC 15 MG/ML VIAL (*BKC) IV PUSH (23:11)
[2023-10-02 23:20] LABS: Basophils Absolute Auto 0.09 K/mm3 (0.00-0.10); Eosinophils Absolute Auto 0.27 K/mm3 (0.02-0.50); Hematocrit 43.6 % (35.0-42.0); Hemoglobin 13.9 g/dL (11.7-13.8); Immature Granulocyte Absolute 0.07 K/mm3 (0.00-0.00); Immature Granulocyte Percent A 0.8 % (0.0-0.0); Lymphocytes Absolute Auto 2.66 K/mm3 (1.10-4.50); Lymphocytes Percent Auto 29.8 % (18.0-42.0); Mean Corpuscular HGB Conc 31.9 g/dL (32-36); Mean Platelet Volume 9.1 fl (9.2-11.8); Monocytes Absolute Auto 0.84 K/mm3 (0.10-0.90); Monocytes Percent Auto 9.4 % (2.0-11.0); Platelet Count Result 271 K/mm3 (150-420); Red Blood Count 4.64 M/mm3 (4.20-5.40); Red Cell Distribution Width 15.1 % (11.6-14.4); White Blood Count 8.9 K/mm3 (4.8-10.8)
[2023-10-02 23:30] LABS: Partial Thromboplastin Time 29.3 Sec (23.9-30.70); Prothrombin Time 10.7 Seconds (9.50-12.1)
[2023-10-02 23:37] LABS: Lactic Acid Reflex 1.4 mmol/L (0.4-2.0)
[2023-10-02 23:39] LABS: Alanine Aminotransferase 17 U/L (14-59); Albumin Level 3.1 g/dL (3.4-5.0); Alkaline Phosphatase 90 U/L (46-116); Anion Gap 9 mmol/L (4-12); Aspartate Amino Transferase 22 U/L (15-37); Bilirubin,Total 0.2 mg/dL (0.00-1.00); Blood Urea Nitrogen 15 mg/dL (7-18); Calcium 8.5 mg/dL (8.5-10.1); Carbon Dioxide 29 mmol/L (21-32); Chloride 101 mmol/L (98-108); Estimated CRCL calculation 34 ml/min; Estimated Glomerular Filt Rate 46; Glucose 120 mg/dL (70-99); Magnesium 1.7 mg/dL (1.8-2.4); NT Pro B Type Natriuretic Pept 329 pg/mL (0-450); Osmolality Calculated 289 mOsm/kg (285-295); Potassium 4.3 mmol/L (3.5-5.1); Sodium 139 mmol/L (136-145); Total Protein 7.1 g/dL (6.4-8.2); Troponin I 7.5 ng/L (0.00-60.4)
[2023-10-03 00:05] LABS: SARS-CoV-2 RNA PCR Negative (Negative)
[2023-10-03 00:16] LABS: Appearance Urine Clear (Clear); Bilirubin Urine Negative (Negative); Blood Urine Trace-intact (Negative); Color Urine Light Yellow (Yellow); Glucose Urine UA Negative (Negative); Ketones Urine Negative (Negative); Leukocyte Esterase Ur Negative LEU/UL (Negative); Nitrate Urine Negative (Negative); Protein Urine Negative (Negative); Urobilinogen Urine 0.2 mg/dL (0.2-1.0)
[2023-10-03 00:39] VITALS: PULSE 92; RESP 17; O2SAT 97
[2023-10-03] MEDS: AZITHROMYCIN 500 MG/NS 250 ML 500 MG/250 ML BAG 250 MG IVPB (01:05)
[2023-10-03 01:13] LABS: Add Urine Microscopic? YES; RBC Urine None seen /hpf (0-2)
[2023-10-03 01:14] LABS: Influenza A QL RT-PCR Negative (Negative); Influenza B QL RT-PCR Negative (Negative); RSV RNA, RT-PCR Negative (Negative)
[2023-10-03 01:27] VITALS: BMI 37.8
[2023-10-03 05:43] LABS: Basophils Absolute Auto 0.06 K/mm3 (0.00-0.10); Basophils Percent Auto 0.7 % (0.0-1.0); Eosinophils Absolute Auto 0.26 K/mm3 (0.02-0.50); Eosinophils Percent Auto 2.8 % (1.0-6.0); Hematocrit 37.1 % (35.0-42.0); Hemoglobin 12.2 g/dL (11.7-13.8); Immature Granulocyte Absolute 0.08 K/mm3 (0.00-0.00); Immature Granulocyte Percent A 0.9 % (0.0-0.0); Mean Corpuscular HGB Conc 32.9 g/dL (32-36); Mean Corpuscular Hemoglobin 30.4 pg (27.0-31.0); Mean Corpuscular Volume 92.5 fL (78.0-102.0); Monocytes Absolute Auto 0.98 K/mm3 (0.10-0.90); Monocytes Percent Auto 10.7 % (2.0-11.0); Neutrophils Absolute Auto 5.51 K/mm3 (1.70-7.20); Neutrophils Percent Auto 59.9 % (50.0-70.0); Platelet Count Result 237 K/mm3 (150-420); Red Blood Count 4.01 M/mm3 (4.20-5.40); White Blood Count 9.2 K/mm3 (4.8-10.8)
[2023-10-03 06:07] LABS: Alanine Aminotransferase 20 U/L (14-59); Albumin Level 2.7 g/dL (3.4-5.0); Alkaline Phosphatase 68 U/L (46-116); Anion Gap 10 mmol/L (4-12); Aspartate Amino Transferase 16 U/L (15-37); Bilirubin,Total 0.2 mg/dL (0.00-1.00); Blood Urea Nitrogen 15 mg/dL (7-18); Calcium 7.9 mg/dL (8.5-10.1); Carbon Dioxide 28 mmol/L (21-32); Chloride 104 mmol/L (98-108); Estimated CRCL calculation 33 ml/min; Estimated Glomerular Filt Rate 47; Glucose 87 mg/dL (70-99); Osmolality Calculated 293 mOsm/kg (285-295); Potassium 3.7 mmol/L (3.5-5.1); Sodium 142 mmol/L (136-145)
[2023-10-03 08:00] VITALS: BP 123/44; PULSE 88; RESP 18; TEMP 36.6; O2SAT 98
[2023-10-03] MEDS: cefTRIAXone 2 GM/NS 100 ML 2 GM/100 ML BAG IVPB (09:48)
[2023-10-03] MEDS: FUROSEMIDE INJ 40 MG/4 ML VIAL IV PUSH ×2 (09:48→17:54)
[2023-10-03] MEDS: buPROPion HCL XL (24 HR) 150 MG TABCR 300 MG PO (09:51)
[2023-10-03] MEDS: hydrOXYzine HCL 25 MG TABLET PO ×2 (09:51→17:54)
[2023-10-03] MEDS: GABAPENTIN 400 MG CAPSULE PO ×2 (09:51→17:54)
[2023-10-03 09:52] VITALS: PULSE 88
[2023-10-03] MEDS: METOPROLOL SUCCINATE EXT REL 25 MG TABCR PO (09:52)
[2023-10-03] MEDS: DICYCLOMINE HCL 10 MG CAPSULE PO ×3 (09:53→17:54)
[2023-10-03] MEDS: ATORVASTATIN 10 MG TABLET 20 MG PO (09:53)
[2023-10-03] MEDS: APIXABAN 2.5 MG TABLET 5 MG PO ×2 (09:53→20:17)
[2023-10-03] MEDS: busPIRone HCL 5 MG TABLET PO ×2 (09:53→20:18)
[2023-10-03] MEDS: PANTOPRAZOLE 40 MG TABLET PO ×2 (09:53→20:17)
--- NOTE | 2023-10-03 10:38 | PM.IMHP ---
H&P: HPI History of Present Illness Date/Time: 10/03/23 10:38 Chief Complaint: fall with minor head trauma Narrative: This is an 83-year-old female patient with a past history congestive heart failure, hypertension, GERD, generalized anxiety disorder, hyperlipidemia hyponatremia and gastroparesis who is a resident [facility] the [facility]. last night patient had a fall at the nursing with a resultant hematoma to the forehead and right knee pain and swelling. Workup in the emergency department showed a bipartite right patella that was thought to be a patellar fracture initially as well as a suprapatellar knee joint effusion. CT scan of the head showed soft tissue hematoma without intracranial bleeding. CT scan of the cervical spine was clear of fracture or dislocation. During workup in the emergency department patient some transient dyspnea and chest x-ray initially felt to show atelectasis versus pneumonia but later over read as pulmonary vascular redistribution which may indicate mild pulmonary venous hypertension. Patient was started on IV antibiotics. She also has a history of congestive heart failure in her lower extremities were significantly swollen. Echocardiogram from 2021 shows hyperdynamic LV systolic function greater than 70% well as diastolic dysfunction without pulmonary artery hypertension or significant valvular disease. Patient received a dose of IV diuresis in the emergency department. Overnight patient did not having any urine output despite the IV Lasix given in the ER. Thus, Noble catheter was inserted for accurate I and and we will continue IV diuresis for lower extremity swelling with weeping. Review of Systems Review of Systems: All systems reviewed & are unremarkable except as noted in HPI and below PMFSH Past Medical History Medical History Acute kidney injury Chronic GERD Congestive heart failure Last echo was 01/03/2019 which shows a grade 1 diastolic impairment and an EF of 60-65%. Essential hypertension Gastritis Gastroparesis Generalized anxiety disorder GERD (gastroesophageal reflux disease) Heart murmur History of recurrent UTI (urinary tract infection) Hyperlipidemia, unspecified Hyponatremia IBS (irritable bowel syndrome) Lumbar disc disease with radiculopathy Neuropathy EDWARD (obstructive sleep apnea) Osteoporosis Primary osteoarthritis involving multiple joints Pulmonary nodule Right inguinal hernia Stable angina pectoris Upper abdominal pain Weight loss, unintentional Surgical History Surgical History History of tonsillectomy Family History Family History Unknown Unknown family medical history Other Family history of cardiovascular disease Social History Social History Social History: The patient stated that she is and she has no children. She does not have a durable power district attorney for healthcare. 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 The patient desires to be a full code and does not have a durable power district attorney for healthcare. Patient is lifelong nonsmoker. She does not use alcohol marijuana illicit drugs. Smoking status: Former smoker Tobacco type: cigarettes Second hand tobacco smoke exposure: No Additional smoking assessment comments: pt is a poor historian. Alcohol intake: unknown Substance use: unknown Substance use type: does not use Do You Feel Safe in your Home?: Yes Lack of Transportation: No Lack of Food: Never True Current Housing: I Have Housing Concerned About Future Housing: No Difficulty Paying Gas/Electric Bills: No Difficulty Paying for Meds: No Currently Unemployed: No Education: Grade School Difficulty w/ Childcare or Family Care: No Living arrangem
--- NOTE | 2023-10-03 12:50 | PC.NURSE ---
Patient repeatedly clearing throat, states she feels like she has food caught and cannot clear it. Able to breath and speak, responding appropriately. Coached patient in breathing and couching, given sips of water and instructed on chin tuck method.
--- NOTE | 2023-10-03 13:00 | PC.NURSE ---
Patient continues to clear throat, still reports feeling like she has food caught in her throat. RN attempted suction with no relief. Called DATABASE SECURITY EXPERT Murray Bronw, he is at [place] and unable to come see patient. Directed to call ED physician to come see patient. Dr. Comer up to floor to see patient, ordered CT of soft tissue of neck. Radiology up to get patient, when patient assisted out of bed she was able to belch and voiced some relief.
[2023-10-03 16:00] VITALS: BP 136/78; PULSE 87; RESP 16; TEMP 36.5; O2SAT 98
[2023-10-03] MEDS: ACETAMINOPHEN 325 MG TABLET 650 MG PO (20:17)
[2023-10-03] MEDS: AZITHROMYCIN 250 MG TABLET 500 MG PO (20:18)
[2023-10-04] VITALS: BP 133/73; PULSE 81; RESP 16; TEMP 36.5; O2SAT 98
[2023-10-04 07:45] LABS: Basophils Absolute Auto 0.06 K/mm3 (0.00-0.10); Basophils Percent Auto 0.7 % (0.0-1.0); Eosinophils Percent Auto 3.7 % (1.0-6.0); Hematocrit 40.3 % (35.0-42.0); Hemoglobin 13.2 g/dL (11.7-13.8); Immature Granulocyte Absolute 0.04 K/mm3 (0.00-0.00); Immature Granulocyte Percent A 0.5 % (0.0-0.0); Lymphocytes Absolute Auto 1.86 K/mm3 (1.10-4.50); Lymphocytes Percent Auto 23.2 % (18.0-42.0); Mean Corpuscular HGB Conc 32.8 g/dL (32-36); Mean Corpuscular Hemoglobin 30.3 pg (27.0-31.0); Mean Corpuscular Volume 92.6 fL (78.0-102.0); Monocytes Absolute Auto 0.73 K/mm3 (0.10-0.90); Monocytes Percent Auto 9.1 % (2.0-11.0); Neutrophils Absolute Auto 5.03 K/mm3 (1.70-7.20); Neutrophils Percent Auto 62.8 % (50.0-70.0); Platelet Count Result 251 K/mm3 (150-420); Red Blood Count 4.35 M/mm3 (4.20-5.40); Red Cell Distribution Width 15.1 % (11.6-14.4)
[2023-10-04 07:58] LABS: Albumin Level 2.8 g/dL (3.4-5.0); Anion Gap 8 mmol/L (4-12); Blood Urea Nitrogen 16 mg/dL (7-18); Calcium 8.6 mg/dL (8.5-10.1); Carbon Dioxide 32 mmol/L (21-32); Chloride 103 mmol/L (98-108); Estimated CRCL calculation 31 ml/min; Estimated Glomerular Filt Rate 44; Glucose 99 mg/dL (70-99); Magnesium 1.6 mg/dL (1.8-2.4); Osmolality Calculated 297 mOsm/kg (285-295); Phosphorus 4.6 mg/dL (2.6-4.7); Potassium 3.9 mmol/L (3.5-5.1); Sodium 143 mmol/L (136-145)
[2023-10-04 08:00] VITALS: BP 130/55; PULSE 80; RESP 16; TEMP 36.4; O2SAT 98
[2023-10-04] MEDS: cefTRIAXone 2 GM/NS 100 ML 2 GM/100 ML BAG IVPB (09:01)
[2023-10-04] MEDS: FUROSEMIDE INJ 40 MG/4 ML VIAL IV PUSH (09:02)
[2023-10-04 09:04] VITALS: PULSE 80
[2023-10-04] MEDS: GABAPENTIN 400 MG CAPSULE PO ×2 (09:04→16:41)
[2023-10-04] MEDS: ATORVASTATIN 10 MG TABLET 20 MG PO (09:04)
[2023-10-04] MEDS: PANTOPRAZOLE 40 MG TABLET PO ×2 (09:04→20:00)
[2023-10-04] MEDS: buPROPion HCL XL (24 HR) 150 MG TABCR 300 MG PO (09:04)
[2023-10-04] MEDS: METOPROLOL SUCCINATE EXT REL 25 MG TABCR PO (09:04)
[2023-10-04] MEDS: busPIRone HCL 5 MG TABLET PO ×2 (09:05→20:00)
[2023-10-04] MEDS: ACETAMINOPHEN 325 MG TABLET 650 MG PO ×2 (09:05→20:00)
[2023-10-04] MEDS: hydrOXYzine HCL 25 MG TABLET PO ×2 (09:05→16:42)
[2023-10-04] MEDS: DICYCLOMINE HCL 10 MG CAPSULE PO ×3 (09:05→16:41)
[2023-10-04] MEDS: APIXABAN 2.5 MG TABLET 5 MG PO ×2 (09:05→20:00)
[2023-10-04] MEDS: MAGNESIUM SULF 2 GM/WATER 50ML 2 GM/50 ML BAG IVPB (09:42)
[2023-10-04] MEDS: DOXYCYCLINE HYCLATE 100 MG TABLET PO ×2 (09:42→20:00)
--- NOTE | 2023-10-04 09:55 | PM.IMPN ---
Progress Note: A&P Assessment and Plan (1) CHF (congestive heart failure): Qualifiers: Heart failure chronicity: acute on chronic Heart failure type: diastolic Qualified Code(s): I50.33 - Acute on chronic diastolic (congestive) heart failure Code(s): I50.9 - Heart failure, unspecified Status: Acute Assessment and Plan: - acute on chronic diastolic congestive heart failure with 4+ lower extremity edema - IV diuresis and Noble catheter for accurate I and O, initial 500 mL when the catheter was placed 10/03: continue Noble catheter and IV diuresis (2) Head injury: Qualifiers: Encounter type: initial encounter Qualified Code(s): S09.90XA - Unspecified injury of head, initial encounter Code(s): S09.90XA - Unspecified injury of head, initial encounter Status: Acute Assessment and Plan: - frontal hematoma status post fall, negative CT scan 10/03: Bruise settling around the eyes and forehead (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 -patient seen by ER MD and CT scan soft tissue neck ordered -MBS/ST eval ordered and diet changed to pureed 10/03: MBS not available at [facility]. ST eval recommends mechanical soft diet. No dyspnea today. (5) Cellulitis of right lower extremity: Code(s): L03.115 - Cellulitis of right lower limb Status: Acute Assessment and Plan: Continue Rocephin IV, discontinue azithromycin and changed to doxycycline. Further review of chest x-ray does not appear to be pneumonia process. Doxycycline added for staph coverage cellulitis right lower extremity Plan Continue IV diuresis, changing antibiotics to better cover right lower extremity cellulitis, consider discharge tomorrow on oral antibiotics and diuretics if patient continues to diurese well. Time Spent With Patient Time with patient: Greater than 35 minutes Subjective Date/time seen: 10/04/23 09:55 Interval history: Patient had coughing episode yesterday likely food bolus does able to clear. Speech therapy saw patient today and recommended mechanical soft diet. Patient without complaints of dyspnea. Swelling in bilateral lower extremities slightly improved. Noble catheter remains in place due to increased diuresis and need for accurate I&O. Patient is able to stand and ambulate sometimes doing so without calling for help. Patient reminded to call for help before getting up. She seems to have some short-term loss which may be chronic or due to fall with minor head trauma. Review of Systems Review of Systems: All systems reviewed & are unremarkable except as noted in HPI and below Exam Const: General: no acute distress and obese Nutritional Appearance: obese Limitations: no limitations HENMT: Head: normal to inspection Other: hematoma frontal scalp with dependent bruising settling around the eyes Eyes: Conjunctivae: conjunctivae normal Neck: Neck: normal visual inspection and no meningeal signs Chest: Chest palpation & inspection: normal inspection of the chest Resp: Effort & Inspection: normal respiratory effort Auscultation: diminished lung sounds Cardio: Rate: regular rate Rhythm: regular rhythm GI: Auscultation: normal bowel sounds Urinary Catheter: Urinary Catheter: patent and draining and urine clear Skin: General skin exam: normal color and wounds noted Wounds: wounds noted Neuro: General: moves all extremities, no meningeal signs and no focal motor deficits Extrem: General: edema Other: Slight improvement in swelling bilateral legs s
[2023-10-04 16:00] VITALS: BP 131/76; PULSE 80; RESP 18; TEMP 36.6; O2SAT 98
[2023-10-04] MEDS: VANCOMYCIN 1,250 MG/NS 250 ML 1,250 MG/250 ML BAG 166.67 MG IVPB (19:47)
[2023-10-04] MEDS: VANCOMYCIN 1,000 MG/NS 250 ML 1,000 MG/250 ML BAG 250 MG IVPB (21:23)
[2023-10-04 23:01] LABS: MRSA (PCR) NOT DETECTED (NOT DETECTE)
[2023-10-05] VITALS: BP 133/59; PULSE 81; RESP 16; TEMP 36.7; O2SAT 96
[2023-10-05 07:40] LABS: Basophils Absolute Auto 0.06 K/mm3 (0.00-0.10); Basophils Percent Auto 0.7 % (0.0-1.0); Eosinophils Absolute Auto 0.36 K/mm3 (0.02-0.50); Eosinophils Percent Auto 4.3 % (1.0-6.0); Hematocrit 39.7 % (35.0-42.0); Immature Granulocyte Absolute 0.05 K/mm3 (0.00-0.00); Immature Granulocyte Percent A 0.6 % (0.0-0.0); Lymphocytes Percent Auto 15.5 % (18.0-42.0); Mean Corpuscular HGB Conc 32.7 g/dL (32-36); Mean Corpuscular Hemoglobin 30.4 pg (27.0-31.0); Monocytes Absolute Auto 0.79 K/mm3 (0.10-0.90); Monocytes Percent Auto 9.4 % (2.0-11.0); Neutrophils Absolute Auto 5.83 K/mm3 (1.70-7.20); Neutrophils Percent Auto 69.5 % (50.0-70.0); Platelet Count Result 245 K/mm3 (150-420); Red Blood Count 4.27 M/mm3 (4.20-5.40); Red Cell Distribution Width 14.9 % (11.6-14.4); White Blood Count 8.4 K/mm3 (4.8-10.8)
[2023-10-05 08:00] VITALS: BP 138/61; PULSE 88; RESP 17; TEMP 36.6; O2SAT 94
[2023-10-05 08:07] LABS: Albumin Level 2.8 g/dL (3.4-5.0); Anion Gap 4 mmol/L (4-12); Blood Urea Nitrogen 15 mg/dL (7-18); Calcium 8.1 mg/dL (8.5-10.1); Carbon Dioxide 33 mmol/L (21-32); Chloride 100 mmol/L (98-108); Estimated CRCL calculation 35 ml/min; Estimated Glomerular Filt Rate 49; Glucose 105 mg/dL (70-99); Magnesium 1.9 mg/dL (1.8-2.4); Osmolality Calculated 284 mOsm/kg (285-295); Phosphorus 3.7 mg/dL (2.6-4.7); Sodium 137 mmol/L (136-145)
--- NOTE | 2023-10-05 08:43 | PM.IMPN ---
Progress Note: A&P Assessment and Plan (1) CHF (congestive heart failure): Qualifiers: Heart failure chronicity: acute on chronic Heart failure type: diastolic Qualified Code(s): I50.33 - Acute on chronic diastolic (congestive) heart failure Code(s): I50.9 - Heart failure, unspecified Status: Acute Assessment and Plan: - acute on chronic diastolic congestive heart failure with 4+ lower extremity edema - IV diuresis and Noble catheter for accurate I and O, initial 500 mL when the catheter was placed 10/03: continue Noble catheter and IV diuresis 10/04: same (2) Head injury: Qualifiers: Encounter type: initial encounter Qualified Code(s): S09.90XA - Unspecified injury of head, initial encounter Code(s): S09.90XA - Unspecified injury of head, initial encounter Status: Acute Assessment and Plan: - frontal hematoma status post fall, negative CT scan 10/03: Bruise settling around the eyes and forehead 10/04: Unchanged (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 -patient seen by ER MD and CT scan soft tissue neck ordered -MBS/ST eval ordered and diet changed to pureed 10/03: MBS not available at [facility]. ST eval recommends mechanical soft diet. No dyspnea today. 10/04: doing well with soft diet (5) Cellulitis of right lower extremity: Code(s): L03.115 - Cellulitis of right lower limb Status: Acute Assessment and Plan: Continue Rocephin IV, discontinue azithromycin and changed to doxycycline. Further review of chest x-ray does not appear to be pneumonia process. Doxycycline added for staph coverage cellulitis right lower extremity (6) Blood bacterial culture positive: Code(s): R78.81 - Bacteremia Status: Acute Assessment and Plan: 1 bottle staph epidermis on first set 1 bottle staph capitis on second set Ordered repeat blood cultures today, continue vancomycin at this time Plan Continue IV diuresis Positive blood cultures--on vancomycin and ceftriaxone Repeat cultures ordered Time Spent With Patient Time with patient: Greater than 35 minutes Subjective Date/time seen: 10/05/23 08:43 Interval history: Patient feeling better but positive blood cultures in two sets, each with different skin staph species. Ordered repeat blood cultures and patient is on IV vancomycin for now. Continue IV diuresis. Review of Systems Review of Systems: All systems reviewed & are unremarkable except as noted in HPI and below Exam Const: General: no acute distress and obese Nutritional Appearance: obese Limitations: no limitations HENMT: Head: normal to inspection Other: hematoma frontal scalp with dependent bruising settling around the eyes Eyes: Conjunctivae: conjunctivae normal Neck: Neck: normal visual inspection and no meningeal signs Chest: Chest palpation & inspection: normal inspection of the chest Resp: Effort & Inspection: normal respiratory effort Auscultation: diminished lung sounds Cardio: Rate: regular rate Rhythm: regular rhythm GI: Auscultation: normal bowel sounds Urinary Catheter: Urinary Catheter: patent and draining and urine clear Skin: General skin exam: normal color and wounds noted Wounds: wounds noted Neuro: General: moves all extremities, no meningeal signs and no focal motor deficits Extrem: General: edema Other: improvement in swelling bilateral legs still with significant 3+ edema concern for cellulitis right lower extremity. Peripheral artery disease chronic color changes also note
[2023-10-05 09:11] VITALS: PULSE 88
[2023-10-05] MEDS: GABAPENTIN 400 MG CAPSULE PO ×2 (09:11→17:03)
[2023-10-05] MEDS: hydrOXYzine HCL 25 MG TABLET PO ×2 (09:11→17:03)
[2023-10-05] MEDS: busPIRone HCL 5 MG TABLET PO ×2 (09:11→20:02)
[2023-10-05] MEDS: APIXABAN 2.5 MG TABLET 5 MG PO ×2 (09:11→20:01)
[2023-10-05] MEDS: buPROPion HCL XL (24 HR) 150 MG TABCR 300 MG PO (09:11)
[2023-10-05] MEDS: PANTOPRAZOLE 40 MG TABLET PO ×2 (09:11→20:01)
[2023-10-05] MEDS: ATORVASTATIN 10 MG TABLET 20 MG PO (09:11)
[2023-10-05] MEDS: cefTRIAXone 2 GM/NS 100 ML 2 GM/100 ML BAG IVPB (09:11)
[2023-10-05] MEDS: DOXYCYCLINE HYCLATE 100 MG TABLET PO ×2 (09:11→20:01)
[2023-10-05] MEDS: METOPROLOL SUCCINATE EXT REL 25 MG TABCR PO (09:11)
[2023-10-05] MEDS: DICYCLOMINE HCL 10 MG CAPSULE PO ×3 (09:11→17:03)
[2023-10-05 16:00] VITALS: BP 145/68; PULSE 81; RESP 17; TEMP 36.6; O2SAT 99
[2023-10-05] MEDS: ACETAMINOPHEN 325 MG TABLET 650 MG PO (20:01)
[2023-10-06] VITALS: BP 126/65; PULSE 75; RESP 16; TEMP 36.6; O2SAT 99
[2023-10-06 05:17] LABS: Basophils Absolute Auto 0.05 K/mm3 (0.00-0.10); Basophils Percent Auto 0.7 % (0.0-1.0); Eosinophils Absolute Auto 0.33 K/mm3 (0.02-0.50); Eosinophils Percent Auto 4.7 % (1.0-6.0); Hemoglobin 12.1 g/dL (11.7-13.8); Immature Granulocyte Absolute 0.03 K/mm3 (0.00-0.00); Immature Granulocyte Percent A 0.4 % (0.0-0.0); Lymphocytes Absolute Auto 1.63 K/mm3 (1.10-4.50); Lymphocytes Percent Auto 23.1 % (18.0-42.0); Mean Corpuscular HGB Conc 32.7 g/dL (32-36); Mean Corpuscular Volume 91.8 fL (78.0-102.0); Mean Platelet Volume 9.1 fl (9.2-11.8); Monocytes Absolute Auto 0.71 K/mm3 (0.10-0.90); Monocytes Percent Auto 10.1 % (2.0-11.0); Neutrophils Absolute Auto 4.31 K/mm3 (1.70-7.20); Platelet Count Result 238 K/mm3 (150-420); Red Blood Count 4.03 M/mm3 (4.20-5.40); Red Cell Distribution Width 14.6 % (11.6-14.4); White Blood Count 7.1 K/mm3 (4.8-10.8)
[2023-10-06 05:31] LABS: Albumin Level 2.5 g/dL (3.4-5.0); Anion Gap 7 mmol/L (4-12); Blood Urea Nitrogen 12 mg/dL (7-18); Calcium 8.3 mg/dL (8.5-10.1); Carbon Dioxide 30 mmol/L (21-32); Chloride 104 mmol/L (98-108); Estimated CRCL calculation 36 ml/min; Estimated Glomerular Filt Rate 53; Glucose 97 mg/dL (70-99); Magnesium 1.8 mg/dL (1.8-2.4); Osmolality Calculated 291 mOsm/kg (285-295); Phosphorus 3.3 mg/dL (2.6-4.7); Sodium 141 mmol/L (136-145)
[2023-10-06] MEDS: VANCOMYCIN 1,500 MG/NS 500 ML 1,500 MG/500 ML BAG 250 MG IVPB (05:51)
[2023-10-06 08:00] VITALS: BP 142/68; PULSE 80; RESP 16; TEMP 36.6; O2SAT 97
--- NOTE | 2023-10-06 08:05 | PM.IMPN ---
Progress Note: A&P Assessment and Plan (1) CHF (congestive heart failure): Qualifiers: Heart failure chronicity: acute on chronic Heart failure type: diastolic Qualified Code(s): I50.33 - Acute on chronic diastolic (congestive) heart failure Code(s): I50.9 - Heart failure, unspecified Status: Acute Assessment and Plan: - acute on chronic diastolic congestive heart failure with 4+ lower extremity edema - IV diuresis and Noble catheter for accurate I and O, initial 500 mL when the catheter was placed 10/03: continue Noble catheter and IV diuresis 10/04: same 10/05: Removed Noble catheter today. 1425 ml out in the last 24 hours. BLE is much improved, now trace-+1. She does have some erythema, edema, and pain to her right fowler where there is a skin tear. Will get an US to r/o DVT given recent trauma. (2) Head injury: Qualifiers: Encounter type: initial encounter Qualified Code(s): S09.90XA - Unspecified injury of head, initial encounter Code(s): S09.90XA - Unspecified injury of head, initial encounter Status: Acute Assessment and Plan: - frontal hematoma status post fall, negative CT scan 10/03: Bruise settling around the eyes and forehead 10/04: Unchanged 10/05: No changes. Alert and orientated. Swelling is decreasing. 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 -patient seen by ER MD and CT scan soft tissue neck ordered -MBS/ST eval ordered and diet changed to pureed 10/03: MBS not available at [facility]. ST eval recommends mechanical soft diet. No dyspnea today. 10/04: doing well with soft diet 10/05: plan for ST as outpatient (5) Cellulitis of right lower extremity: Code(s): L03.115 - Cellulitis of right lower limb Status: Acute Assessment and Plan: Continue Rocephin IV, discontinue azithromycin and changed to doxycycline. Further review of chest x-ray does not appear to be pneumonia process. Doxycycline added for staph coverage cellulitis right lower extremity. (6) Blood bacterial culture positive: Code(s): R78.81 - Bacteremia Status: Acute Assessment and Plan: 1 bottle staph epidermis on first set 1 bottle staph capitis on second set Ordered repeat blood cultures today, continue vancomycin at this time 10/05: blood cultures pending preliminary read. Continue with IV antibiotics. If culture comes back negative will d/c vancomycin and restart oral doxycycline. Plan Continue IV diuresis Positive blood cultures--on vancomycin and ceftriaxone Repeat cultures ordered Subjective Date/time seen: 10/06/23 08:05 Interval history: 10/05: Patient is doing well today, sitting up in her chair in no acute distress. She is alert and orientated x 3-4 but calls the hospital the clinic she does not know the name of the hospital. She continues to have a productive cough with mares-brown sputum production. She reports dyspnea with activity at times. Her right lower extremity is very tender to the slightest touch. She does have a small skin tear to the RLE from her fall with serous drainage. Given the severity of her leg pain I will get an ultrasound to rule out DVT given recent trauma. Overall her lower leg swelling does seem to be improved. Review of Systems Review of Systems: All systems reviewed & are unremarkable except as noted in HPI and below Exam Narrative: General: well appearing, appears stated age. HEENT: normocephalic. Bilateral orbital ecchymosis, small front swelling to forehead with ecchymosis, Mucous membranes moist. EOMI, PERRL
[2023-10-06] MEDS: buPROPion HCL XL (24 HR) 150 MG TABCR 300 MG PO (09:54)
[2023-10-06] MEDS: APIXABAN 2.5 MG TABLET 5 MG PO ×2 (09:54→20:20)
[2023-10-06] MEDS: GABAPENTIN 400 MG CAPSULE PO ×2 (09:54→17:00)
[2023-10-06] MEDS: ATORVASTATIN 10 MG TABLET 20 MG PO (09:54)
[2023-10-06] MEDS: PANTOPRAZOLE 40 MG TABLET PO ×2 (09:54→20:20)
[2023-10-06] MEDS: DICYCLOMINE HCL 10 MG CAPSULE PO ×3 (09:54→17:00)
[2023-10-06] MEDS: busPIRone HCL 5 MG TABLET PO ×2 (09:54→20:21)
[2023-10-06] MEDS: hydrOXYzine HCL 25 MG TABLET PO ×2 (09:54→17:00)
[2023-10-06 09:55] VITALS: PULSE 84
[2023-10-06] MEDS: METOPROLOL SUCCINATE EXT REL 25 MG TABCR PO (09:55)
[2023-10-06] MEDS: cefTRIAXone 2 GM/NS 100 ML 2 GM/100 ML BAG IVPB (09:59)
--- NOTE | 2023-10-06 11:35 | PC.NURSE ---
Report called to Michelle at [facility] and [facility].
[2023-10-06] MEDS: guaiFENesin 12 HR 600 MG TABCR PO ×2 (13:54→20:21)
[2023-10-06 16:00] VITALS: BP 137/60; PULSE 84; RESP 16; TEMP 35.5; O2SAT 98
[2023-10-06 20:00] VITALS: PULSE 84; RESP 16; O2SAT 98
[2023-10-06] MEDS: ACETAMINOPHEN 325 MG TABLET 650 MG PO (20:21)
[2023-10-06 23:56] VITALS: BP 147/65; PULSE 76; RESP 18; TEMP 36.5; O2SAT 97
[2023-10-07 05:10] LABS: Basophils Absolute Auto 0.07 K/mm3 (0.00-0.10); Basophils Percent Auto 0.8 % (0.0-1.0); Eosinophils Absolute Auto 0.34 K/mm3 (0.02-0.50); Eosinophils Percent Auto 3.9 % (1.0-6.0); Hematocrit 39.4 % (35.0-42.0); Hemoglobin 12.8 g/dL (11.7-13.8); Immature Granulocyte Absolute 0.04 K/mm3 (0.00-0.00); Immature Granulocyte Percent A 0.5 % (0.0-0.0); Lymphocytes Absolute Auto 1.79 K/mm3 (1.10-4.50); Lymphocytes Percent Auto 20.5 % (18.0-42.0); Mean Corpuscular HGB Conc 32.5 g/dL (32-36); Mean Corpuscular Volume 92.3 fL (78.0-102.0); Monocytes Absolute Auto 0.71 K/mm3 (0.10-0.90); Monocytes Percent Auto 8.1 % (2.0-11.0); Neutrophils Absolute Auto 5.78 K/mm3 (1.70-7.20); Neutrophils Percent Auto 66.2 % (50.0-70.0); Platelet Count Result 249 K/mm3 (150-420); Red Blood Count 4.27 M/mm3 (4.20-5.40); Red Cell Distribution Width 14.6 % (11.6-14.4); White Blood Count 8.7 K/mm3 (4.8-10.8)
[2023-10-07 05:21] LABS: Albumin Level 2.7 g/dL (3.4-5.0); Anion Gap 10 mmol/L (4-12); Blood Urea Nitrogen 9 mg/dL (7-18); Calcium 8.4 mg/dL (8.5-10.1); Carbon Dioxide 28 mmol/L (21-32); Chloride 103 mmol/L (98-108); Estimated CRCL calculation 37 ml/min; Estimated Glomerular Filt Rate 53; Glucose 101 mg/dL (70-99); Magnesium 1.7 mg/dL (1.8-2.4); Osmolality Calculated 290 mOsm/kg (285-295); Phosphorus 3.4 mg/dL (2.6-4.7); Potassium 3.9 mmol/L (3.5-5.1); Sodium 141 mmol/L (136-145)
[2023-10-07 08:00] VITALS: BP 152/76; PULSE 82; RESP 18; TEMP 36.6; O2SAT 97
[2023-10-07] MEDS: APIXABAN 2.5 MG TABLET 5 MG PO ×2 (08:28→20:17)
[2023-10-07] MEDS: POTASSIUM CHLORIDE 20 MEQ ER TABLET PO (08:28)
[2023-10-07] MEDS: MAGNESIUM OXIDE 400 MG TABLET PO (08:29)
[2023-10-07] MEDS: guaiFENesin 12 HR 600 MG TABCR PO ×2 (08:29→20:17)
[2023-10-07] MEDS: DOXYCYCLINE HYCLATE 100 MG TABLET PO ×2 (08:29→20:17)
[2023-10-07] MEDS: GABAPENTIN 400 MG CAPSULE PO ×2 (08:29→16:56)
[2023-10-07] MEDS: busPIRone HCL 5 MG TABLET PO ×2 (08:29→20:17)
[2023-10-07] MEDS: DICYCLOMINE HCL 10 MG CAPSULE PO ×3 (08:29→16:56)
[2023-10-07] MEDS: PANTOPRAZOLE 40 MG TABLET PO ×2 (08:29→20:17)
[2023-10-07] MEDS: hydrOXYzine HCL 25 MG TABLET PO ×2 (08:29→16:56)
[2023-10-07] MEDS: FUROSEMIDE 20 MG TABLET PO (08:29)
[2023-10-07] MEDS: buPROPion HCL XL (24 HR) 150 MG TABCR 300 MG PO (08:29)
[2023-10-07] MEDS: ATORVASTATIN 10 MG TABLET 20 MG PO (08:29)
[2023-10-07 08:30] VITALS: PULSE 82
[2023-10-07] MEDS: METOPROLOL SUCCINATE EXT REL 25 MG TABCR PO (08:30)
--- NOTE | 2023-10-07 09:59 | PM.IMPN ---
Progress Note: A&P Assessment and Plan (1) Cellulitis of right lower extremity: Code(s): L03.115 - Cellulitis of right lower limb Status: Acute Assessment and Plan: Continue Rocephin IV, discontinue azithromycin and changed to doxycycline. Further review of chest x-ray does not appear to be pneumonia process. Doxycycline added for staph coverage cellulitis right lower extremity. 10/06: Worsening cellulitis today with concerns for pseudomonas. Will add Levaquin IV today, renally dosing q 48 hours after speaking with ID pharmacist. Will continue with doxycycline given. Wound culture ordered. (2) CHF (congestive heart failure): Qualifiers: Heart failure chronicity: acute on chronic Heart failure type: diastolic Qualified Code(s): I50.33 - Acute on chronic diastolic (congestive) heart failure Code(s): I50.9 - Heart failure, unspecified Status: Acute Assessment and Plan: - acute on chronic diastolic congestive heart failure with 4+ lower extremity edema - IV diuresis and Noble catheter for accurate I and O, initial 500 mL when the catheter was placed 10/03: continue Noble catheter and IV diuresis 10/04: same 10/05: Removed Noble catheter today. 1425 ml out in the last 24 hours. BLE is much improved, now trace-+1. She does have some erythema, edema, and pain to her right fowler where there is a skin tear. Will get an US to r/o DVT given recent trauma. 10/06: Transition to PO lasix 20 mg daily with K+ 20 meq (3) Head injury: Qualifiers: Encounter type: initial encounter Qualified Code(s): S09.90XA - Unspecified injury of head, initial encounter Code(s): S09.90XA - Unspecified injury of head, initial encounter Status: Acute Assessment and Plan: - frontal hematoma status post fall, negative CT scan 10/03: Bruise settling around the eyes and forehead 10/04: Unchanged 10/05: No changes. Alert and orientated. Swelling is decreasing. 10/06: no changes. 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 -patient seen by ER MD and CT scan soft tissue neck ordered -MBS/ST eval ordered and diet changed to pureed 10/03: MBS not available at [facility]. ST whitneyal recommends mechanical soft diet. No dyspnea today. 10/04: doing well with soft diet 10/05: plan for ST as outpatient (6) Blood bacterial culture positive: Code(s): R78.81 - Bacteremia Status: Acute Assessment and Plan: 1 bottle staph epidermis on first set 1 bottle staph capitis on second set Ordered repeat blood cultures today, continue vancomycin at this time 10/05: blood cultures pending preliminary read. Continue with IV antibiotics. If culture comes back negative will d/c vancomycin and restart oral doxycycline. 10/06: Blood cultures are NGTD. D/C vanco. Plan IV antibiotics for worsening cellulitis Subjective Date/time seen: 10/07/23 09:59 Interval history: 10/06: Patient was admitted after suffering a fall at her snf. She was found to also have bilateral lower extremity swelling with concerns for CHF exacerbation. She was treated with IV lasix. She also has a cellulitis to her RLE secondary to a skin tear suffered from the fall. She has been started on oral antibiotics for this. Her blood cultures were initially positive with two different staph bacteria thought to be contaminates. Repeat blood cultures with no growth to date. Initially I had planned to discharge her but her cellulitis actually looks worse today with increased erythema, warmth, and tenderness. There is a
[2023-10-07] MEDS: levoFLOXacin 750 MG/D5W 150 ML 750 MG/150 ML BAG 100 MG IVPB (10:33)
[2023-10-07] MEDS: ACETAMINOPHEN 325 MG TABLET 650 MG PO ×2 (12:45→20:17)
[2023-10-07 16:00] VITALS: BP 128/65; PULSE 78; RESP 20; TEMP 36.4; O2SAT 97
[2023-10-07 20:00] VITALS: PULSE 78; RESP 20; O2SAT 97
[2023-10-08] VITALS: BP 118/70; PULSE 78; RESP 18; TEMP 36.4; O2SAT 96
[2023-10-08 05:34] LABS: Basophils Absolute Auto 0.06 K/mm3 (0.00-0.10); Basophils Percent Auto 0.7 % (0.0-1.0); Eosinophils Absolute Auto 0.35 K/mm3 (0.02-0.50); Eosinophils Percent Auto 3.9 % (1.0-6.0); Hematocrit 37.7 % (35.0-42.0); Hemoglobin 12.2 g/dL (11.7-13.8); Immature Granulocyte Absolute 0.05 K/mm3 (0.00-0.00); Immature Granulocyte Percent A 0.6 % (0.0-0.0); Lymphocytes Absolute Auto 1.65 K/mm3 (1.10-4.50); Lymphocytes Percent Auto 18.6 % (18.0-42.0); Mean Corpuscular HGB Conc 32.4 g/dL (32-36); Mean Corpuscular Hemoglobin 29.9 pg (27.0-31.0); Mean Corpuscular Volume 92.4 fL (78.0-102.0); Mean Platelet Volume 9.2 fl (9.2-11.8); Monocytes Absolute Auto 0.89 K/mm3 (0.10-0.90); Neutrophils Absolute Auto 5.89 K/mm3 (1.70-7.20); Neutrophils Percent Auto 66.2 % (50.0-70.0); Platelet Count Result 238 K/mm3 (150-420); Red Blood Count 4.08 M/mm3 (4.20-5.40); Red Cell Distribution Width 14.6 % (11.6-14.4); White Blood Count 8.9 K/mm3 (4.8-10.8)
[2023-10-08 05:50] LABS: Albumin Level 2.5 g/dL (3.4-5.0); Anion Gap 7 mmol/L (4-12); Blood Urea Nitrogen 12 mg/dL (7-18); Calcium 8.6 mg/dL (8.5-10.1); Carbon Dioxide 30 mmol/L (21-32); Chloride 103 mmol/L (98-108); Estimated CRCL calculation 33 ml/min; Estimated Glomerular Filt Rate 47; Glucose 91 mg/dL (70-99); Magnesium 1.6 mg/dL (1.8-2.4); Osmolality Calculated 289 mOsm/kg (285-295); Phosphorus 3.5 mg/dL (2.6-4.7); Potassium 4.3 mmol/L (3.5-5.1); Sodium 140 mmol/L (136-145)
[2023-10-08 08:00] VITALS: BP 114/72; PULSE 74; RESP 18; TEMP 36.1; O2SAT 95
[2023-10-08] MEDS: POTASSIUM CHLORIDE 20 MEQ ER TABLET PO (08:35)
[2023-10-08] MEDS: PANTOPRAZOLE 40 MG TABLET PO (08:35)
[2023-10-08] MEDS: ATORVASTATIN 10 MG TABLET 20 MG PO (08:35)
[2023-10-08] MEDS: guaiFENesin 12 HR 600 MG TABCR PO (08:35)
[2023-10-08 08:36] VITALS: PULSE 78
[2023-10-08] MEDS: DOXYCYCLINE HYCLATE 100 MG TABLET PO (08:36)
[2023-10-08] MEDS: buPROPion HCL XL (24 HR) 150 MG TABCR 300 MG PO (08:36)
[2023-10-08] MEDS: hydrOXYzine HCL 25 MG TABLET PO (08:36)
[2023-10-08] MEDS: FUROSEMIDE 20 MG TABLET PO (08:36)
[2023-10-08] MEDS: APIXABAN 2.5 MG TABLET 5 MG PO (08:36)
[2023-10-08] MEDS: MAGNESIUM OXIDE 400 MG TABLET PO (08:36)
[2023-10-08] MEDS: DICYCLOMINE HCL 10 MG CAPSULE PO (08:36)
[2023-10-08] MEDS: busPIRone HCL 5 MG TABLET PO (08:36)
[2023-10-08] MEDS: METOPROLOL SUCCINATE EXT REL 25 MG TABCR PO (08:36)
--- NOTE | 2023-10-08 09:54 | PM.DS ---
DS: Admitting Diagnosis Discharge Date 10/06 Admitting Diagnosis fall DS: Discharge Diagnosis Discharge Diagnosis (1) CHF (congestive heart failure): Qualifiers: Heart failure chronicity: acute on chronic Heart failure type: diastolic Qualified Code(s): I50.33 - Acute on chronic diastolic (congestive) heart failure Code(s): I50.9 - Heart failure, unspecified Status: Acute Assessment and Plan: - acute on chronic diastolic congestive heart failure with 4+ lower extremity edema - IV diuresis and Noble catheter for accurate I and O, initial 500 mL when the catheter was placed 10/03: continue Noble catheter and IV diuresis 10/04: same 10/05: Removed Noble catheter today. 1425 ml out in the last 24 hours. BLE is much improved, now trace-+1. She does have some erythema, edema, and pain to her right fowler where there is a skin tear. Will get an US to r/o DVT given recent trauma. (2) Head injury: Qualifiers: Encounter type: initial encounter Qualified Code(s): S09.90XA - Unspecified injury of head, initial encounter Code(s): S09.90XA - Unspecified injury of head, initial encounter Status: Acute Assessment and Plan: - frontal hematoma status post fall, negative CT scan 10/03: Bruise settling around the eyes and forehead 10/04: Unchanged 10/05: No changes. Alert and orientated. Swelling is decreasing. 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 -patient seen by ER MD and CT scan soft tissue neck ordered -MBS/ST eval ordered and diet changed to pureed 10/03: MBS not available at [facility]. ST eval recommends mechanical soft diet. No dyspnea today. 10/04: doing well with soft diet 10/05: plan for ST as outpatient (5) Cellulitis of right lower extremity: Code(s): L03.115 - Cellulitis of right lower limb Status: Acute Assessment and Plan: Continue Rocephin IV, discontinue azithromycin and changed to doxycycline. Further review of chest x-ray does not appear to be pneumonia process. Doxycycline added for staph coverage cellulitis right lower extremity. (6) Blood bacterial culture positive: Code(s): R78.81 - Bacteremia Status: Acute Assessment and Plan: 1 bottle staph epidermis on first set 1 bottle staph capitis on second set Ordered repeat blood cultures today, continue vancomycin at this time 10/05: blood cultures pending preliminary read. Continue with IV antibiotics. If culture comes back negative will d/c vancomycin and restart oral doxycycline. Plan Continue IV diuresis Positive blood cultures--on vancomycin and ceftriaxone Repeat cultures ordered DS: Summary Hospital Course Reason for hospitalization: fall, cellulitis, acute on chronic diastolic chf exacerbation Hospital Course: Patient was admitted after suffering a fall at her correction. She was found to also have bilateral lower extremity swelling with concerns for CHF exacerbation. She was treated with IV lasix. She also has a cellulitis to her RLE secondary to a skin tear suffered from the fall. She has been started on oral antibiotics for this. Her blood cultures were initially positive with two different staph bacteria thought to be contaminates. Repeat blood cultures with no growth to date. Her labs and vitals have been reviewed and she is stable to discharge back to her correction. Status at Discharge Cognitive/behavioral status at discharge: A&O 3 Time Spent with Patient Time attestation: Total time spent providing and/or coordinating discharge services:45 Exam Na
--- NOTE | 2023-10-11 10:04 | PC.NURSE ---
Discharge call back, no concerns from senior care, dc instructions faxed and written, no questions
== END 2023-10-08 13:50 | DRG 291 ==
LOC: CHSED 10-03 00:37 → CHS2ND 10-04 07:57
PROVIDERS: Nurse Practitioner; Admitting Provider Internal Medicine; Emergency Provider Emergency Medicine; PCP Family Medicine; Visit Provider Internal Medicine
DX: I11.0 Hypertensive heart disease with heart failure (principal); I50.33 Acute on chronic diastolic (congestive) heart failure; L03.115 Cellulitis of right lower limb; I73.9 Peripheral vascular disease, unspecified; E78.5 Hyperlipidemia, unspecified; S00.83XA Contusion of other part of head, initial encounter; K58.9 Irritable bowel syndrome, unspecified; K21.9 Gastro-esophageal reflux disease without esophagitis; K31.84 Gastroparesis; G62.9 Polyneuropathy, unspecified; G47.33 Obstructive sleep apnea (adult) (pediatric); M81.0 Age-related osteoporosis without current pathological fracture; M54.16 Radiculopathy, lumbar region; M15.9 Polyosteoarthritis, unspecified; R91.1 Solitary pulmonary nodule; F41.1 Generalized anxiety disorder; W19.XXXA Unspecified fall, initial encounter; Q74.1 Congenital malformation of knee; Z79.01 Long term (current) use of anticoagulants
CPT/HCPCS: 36415; 70450; 70491; 71045; 72125; 73564; 80053; 80069; 81001; 83605; 83735; 83880; 84484; 85025; 85610; 85730; 87040; 87070; 87147; 87181; 87205; 87637; 87641; 92526; 92610; 93005; 93971; 94640; 96365; 96366; 96367; 96375; 96376; 97110; 97161; 97165; 97530; 97535; 99285; A9270; G0378; J0456; J0696; J1885; J1940; J1956; J3370; J3475; J7050; L1830; Q9967

== ENCOUNTER 2024-04-12 16:16 | Observation (INO) | payer MEDICARE, SELFPAY ==
[2024-04-12] VITALS (14 sets, daily range): BP systolic 130–162; BP diastolic 72–133; PULSE 81–88; RESP 16–18; TEMP 36.2; O2SAT 95–100; BMI 34.4
--- NOTE | ~2024-04-12 | CT_ITS ---
Clinical Indication: Pulmonary embolus, COPD CT Scan of the Chest with Contrast: Technique: Contiguous sections were acquired throughout the chest after intravenous administration of 100 cc of Omnipaque 350. Dose reduction technique was used on this scan by utilizing automated expos ure control and iterative reconstruction technique. The dose-length product (DLP) was 651.41 mGy-cm. COMPARISON: 08/25/2022 Findings: There is no evidence of any significant mediastinal, hilar or axillary lymphadenopathy. There is no f illing defect in the pulmonary arterial tree to suggest pulmonary embolus. There is no evidence of ao rtic dissection or aneurysm. There is no evidence of pleural or pericardial effusion. Calcified left upper lobe granuloma present. There is minimal bibasilar atelectatic change. Minimal g roundglass opacity in the right upper lobe noted, nonspecific. Images through the upper abdomen reveal no abnormalities. Impression: No evidence of pulmonary embolus, aortic dissection, or aortic aneurysm. Minimal right upper lobe groundglass opacity, nonspecific. Correlate for minimal pulmonary edema or f ocal mild infectious/inflammatory process. Reviewed, dictated and finalized at location . ANALYST Impression: No evidence of pulmonary embolus, aortic dissection, or aortic aneurysm. Minimal right upper lobe groundglass opacity, nonspecific. Correlate for minima l pulmonary edema or focal mild infectious/inflammatory process.
--- NOTE | 2024-04-12 16:18 | ECG_ITS ---
Test Date: 2024-04-12 16:26:30 Measurements Intervals [place] Rate: 81 P: 66 HI: 215 QRS: -44 QRSD: 99 T: 63 QT: 371 QTc: 431 Interpretive Statements SINUS RHYTHM WITH FIRST DEGREE AV BLOCK LEFT AXIS DEVIATION INCOMPLETE LEFT BUNDLE BRANCH BLOCK LOW QRS VOLTAGE IN PRECORDIAL LEADS ANTEROSEPTAL INFARCT, AGE INDETERMINATE INFERIOR INFARCT, AGE INDETERMINATE BORDERLINE ST-T WAVE ABNORMALITY- HIGH LATERAL LEADS BASELINE ARTIFACT- I, II, III, AVR, AVL, AVF, V2, V4-V6 ABNORMAL ECG No previous ECG available for comparison Electronically Signed On 04-12-2024 18:41:59 VP OF PRODUCT by Ralph Valladares D.O.
--- NOTE | 2024-04-12 16:31 | ED_ITS ---
HPI - Chest Pain General Chief Complaint: Chest Pain Stated Complaint: chest pain Time Seen by Provider: 04/12/24 16:16 Source: patient Mode of arrival: ambulatory Limitations: no limitations History of Present Illness HPI narrative: 83-year-old female with a history of dementia, dyslipidemia, subdural hematoma after a fall, GERD, generalized anxiety disorder, EDWARD, arthritis, compression fracture of lumbar vertebrae, anterolisthesis at L4/L5, GERD with erosive gastritis, negative stress test on 09/18/2020, Diastolic CHF,chronic stable angina were sent to the radiology department to get a two-view chest x-ray. While in the radiology department the patient developed acute onset -- substernal chest pain and epigastric pain. No radiation of the pain. No nausea / vomiting. -- Shortness of breath no fever or chills. MD complaint: chest pain Onset (ago): hour(s) ( started 2 hours ago.) Timing of current episode: constant Prior episodes: Yes Onset: during rest Pain location: substernal and other ( Epigastric) Severity: moderate Quality: aching Relieving factors: nothing Exacerbating factors: nothing Treatment prior to arrival: none Related Data Home Medications Medication Instructions Recorded Confirmed acetaminophen 650 mg 650 mg PO Q8H 05/14/22 04/12/24 tablet,extended release (Tylenol 8 Hour) atorvastatin 20 mg tablet (Lipitor) 20 mg PO DAILY 08/21/22 04/12/24 bupropion HCl 300 mg 24 hr tablet, 300 mg PO DAILY 08/21/22 04/12/24 extended release (Wellbutrin XL) buspirone 10 mg tablet 5 mg PO BID 08/21/22 04/12/24 ergocalciferol (vitamin D2) 1,250 1,250 mcg PO WEEKLY 08/21/22 04/12/24 mcg (50,000 unit) capsule gabapentin 400 mg capsule 400 mg PO BID 08/21/22 04/12/24 hydroxyzine HCl 10 mg tablet 20 mg PO BID 08/21/22 04/12/24 metoprolol succinate 25 mg 25 mg PO DAILY 08/21/22 04/12/24 tablet,extended release 24 hr apixaban 5 mg PO BID 10/02/23 04/12/24 Allergies Allergy/AdvReac Type Severity Reaction Status Date / Time No Known Allergies Allergy Verified 10/02/23 23:22 Review of Systems Review of Systems: All systems reviewed & are unremarkable except as noted in HPI and below Constitutional: Constitutional: Reports as per HPI and Reports no additional constitutional complaints Eyes: Eyes: Reports as per HPI and Reports no additional eye complaints ENT: Reports system reviewed and no additional complaints, except as documented and Reports as per HPI Cardiovascular: Cardiovascular: Reports as per HPI, Reports no additional cardiovascular complaints and Reports chest pain Respiratory: Respiratory: Reports as per HPI, Reports no additional respi ratory complaints and Reports dyspnea Gastrointestinal: Gastrointestinal: Reports as per HPI and Reports no additional gastrointestinal complaints Comments: epigastric pain Genitourinary: Genitourinary: Reports no additional female genitourinary complaints and Reports as per HPI Musculoskeletal: Musculoskeletal: Reports no additional musculoskeletal complaints and Reports as per HPI Integumentary/Breasts: Skin/Breast: Reports system reviewed and no additional complaints, except as docu and Reports as per HPI Neurologic: Reports system reviewed and no additional complaints, except as documented and Reports as per HPI Comments: patient is not oriented to time and place. Psychiatric: Psychiatric: Reports no additional psychiatric complaints and Reports as per HPI Endocrine: Endocrine: Reports no additional endocrine complaints and Reports as per HPI Hematologic/Lymphatic: Hematologic/Lymphatic: Reports no additional hematologic/lymphatic complaints and Reports as per HPI Allergic/Immunologic: Allergic/Immunologic: Reports no additional allergic/immunologic complaints and Reports as per HPI [facility] Past Medical History Medical History Acute kidney injury Chronic GERD Congestive heart failure Last echo was 01/03/2019 which shows a grade 1 diastolic impairment and an EF of 60-65%. Essential hypertension Gastritis Gastroparesis Generalized anxiety disorder GERD (gastroesophageal reflux disease) Heart murmur History of recurrent UTI (urinary tract infection) Hyperlipidemia, unspecified Hyponatremia IBS (irritable bowel syndrome) Lumbar disc disease with radiculopathy Neuropathy EDWARD (obstructive sleep apnea) Osteoporosis Primary osteoarthritis involving multiple joints Pulmonary nodule Right inguinal hernia Stable angina pectoris Upper abdominal pain Weight loss, unintentional Surgical History Surgical History History of tonsillectomy Family History Family History Unknown Unknown family medical history Other Family history of cardiovascular disease Social History Social History Social History: The patient stated that she is and she has no children. She does not have a durable power employment law attorney for healthcare. 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 The patient desires to be a full code and does not have a durable power employment law attorney for healthcare. Patient is lifelong nonsmoker. She does not use alcohol marijuana illicit drugs. Smoking status: Former smoker Tobacco type: cigarettes Second hand tobacco smoke exposure: No Additional smoking assessment comments: pt is a poor historian. Alcohol intake: unknown Substance use: unknown Substance use type: does not use Do You Feel Safe in your Home?: Yes Lack of Transportation: No Lack of Food: Never True Current Housing: I Have Housing Concerned About Future Housing: No Difficulty Paying Gas/Electric Bills: No Difficulty Paying for Meds: No Currently Unemployed: No Education: Grade School Difficulty w/ Childcare or Family Care: No Living arrangements: alone Occupation/Education: other Gender identity (if verbalized by the patient): Female Spiritual care concerns: No Exam Narrative: Vitals are stable. Patient is saturating 98% on room air. Pulse rate of 83. Const: General: ill appearing Nutritional Appearance: well nourished Orientation/consciousness: patient oriented x3 Other: Patient has dementia and is not oriented to time and place. HENMT: Head: normal to inspection Ears: external ears normal Face and sinus: normal facial exam Mouth: Yes Normal oral and palatal mucosa present Throat: posterior oropharynx normal Eyes: Conjunctivae: conjunctivae normal Pupils: Equal, round and reactive pupils present EOM: EOMs intact bilaterally Direct Ophthalmoscopy: no photophobia Neck: Neck: normal visual inspection, no lymphadenopathy and no meningeal signs Chest: Chest palpation & inspection: normal inspection of the chest Resp: Effort & Inspection: normal respiratory effort Auscultation: wheezes Other: Diffuse bilateral wheezing. Cardio: Rate: regular rate Rhythm: regular rhythm Heart sounds: Murmur heart sound present GI: Other: Epigastric tenderness without any rigidity / rebound. : General: Yes no CVA tenderness Back/Spine/Pelvis: Back: no CVA tenderness Skin: General skin exam: normal color Rashes: no rashes Wounds: no wounds Neuro: General: patient oriented x3, moves all extremities, no meningeal signs, no focal motor deficits and CN's II-XI intact bilaterally Cranial nerves: Yes Nystagmus not present Speech: normal speech Gait exam (Neuro): Normal gait present Extrem: General: edema Psych: Mental Status: mental status grossly normal Attitude: cooperative Course Course Emergency Course: Anterior chest pain /epigastric pain-- patient has a history of chronic stable angina. The patient presented with chest pain and subsequently did not complain of any chest pain. She has chest wall tenderness and epigastric tenderness. EKG did not show any new changes compared to a previous EKG done on 10/02/2023. Will repeat troponin. Shortness of breath-- patient did not complain of any shortness of breath but was noted to have bilateral wheezing. DuoNeb treatment did not cause any improvement in the bronchospasm. Chest x-ray revealed a questionable right lower lobe infiltrate. patient had blood work which revealed normal white cell count and a normal troponin. The BNP was elevated. patient has an ABG on room air which was noted to be 749/31/74.5 / 95% on RA. The patient has an AA gradient of 36.5. patient is on Eliquis. The patient had PFT in the past which revealed minimal obstruction without any reversibility. In view of the elevated BNP I give the patient 40 of Lasix with 800 mL of urine output. There was no significant improvement in wheezing. I believe this is secondary to CHF exacerbation. Will admit the patient for treatment of the right lower lobe pneumonia and continuation of a CHF treatment. Vital Signs Vital signs: Vital Signs Temperature 36.2 C L 04/12/24 16:16 Pulse Rate 83 04/12/24 16:16 Respiratory Rate 18 04/12/24 16:16 Blood Pressure 162/91 H 04/12/24 16:16 Pulse Oximetry 98 04/12/24 16:16 Oxygen Delivery Room Air 04/12/24 16:16 Temperature 36.2 C L 04/12/24 16:16 Pulse Rate 87 04/12/24 19:01 Respiratory Rate 18 04/12/24 16:52 Blood Pressure 143/78 H 04/12/24 19:01 Pulse Oximetry 98 04/12/24 19:01 Oxygen Delivery Room Air 04/12/24 19:01 MDM - Chest Pain MDM Narrative Medical decision making narrative: anterior chest pain/ history of chronic stable angina right lower lobe pneumonia diffuse bronchospasm possibly secondary to CHF exacerbation Differential Diagnosis Differential diagnosis: Likely pneumothorax Medical Records Data Attestation: I reviewed the patient's medical records. Lab Data Attestation: I reviewed the patient's lab results. 04/12/24 16:40 04/12/24 16:40 Labs: Lab Results 04/12/24 04/12/24 04/12/24 Range/Units 16:30 16:40 18:14 WBC 9.2 (4.8-10.8) K/mm3 RBC 4.68 (4.20-5.40) M/mm3 Hgb 13.9 H (11.7-13.8) g/dL Hct 41.7 (35.0-42.0) % MCV 89.1 (78.0-102.0) fL MCH 29.7 (27.0-31.0) pg MCHC 33.3 (32-36) g/dL RDW 14.9 H (11.6-14.4) % Plt Count 258 (150-420) K/mm3 MPV 9.2 (9.2-11.8) fl Immature Gran % (Auto) 0.4 H (0.0-0.0) % Neut % (Auto) 66.7 (50.0-70.0) % Lymph % (Auto) 18.4 (18.0-42.0) % [place] % (Auto) 10.7 (2.0-11.0) % Eos % (Auto) 3.3 (1.0-6.0) % Baso % (Auto) 0.5 (0.0-1.0) % Lymph # (Auto) 1.69 (1.10-4.50) K/mm3 [place] # (Auto) 0.98 H (0.10-0.90) K/mm3 Eos # (Auto) 0.30 (0.02-0.50) K/mm3 Baso # (Auto) 0.05 (0.00-0.10) K/mm3 Abs Immat Gran (auto) 0.04 H (0.00-0.00) K/mm3 Absolute Neuts (auto) 6.11 (1.70-7.20) K/mm3 Absolute Nucleated RBC 0.00 (0.00-0.00) K/mm3 Nucleated RBC % 0.0 (0-0.0) % Sodium 140 (136-145) mmol/L Potassium 4.4 (3.5-5.1) mmol/L Chloride 101 (98-108) mmol/L Carbon Dioxide 31 (21-32) mmol/L Anion Gap 8 (4-12) mmol/L BUN 15 (7-18) mg/dL Creatinine 1.02 (0.55-1.02) mg/dL Estim Creat Clear Calc 37 ml/min Estimated GFR 52 L (59 - ) Glucose 100 H (70-99) mg/dL Calculated Osmolality 290 (285-295) mOsm/kg Lactic Acid 1.6 (0.4-2.0) mmol/L Calcium 9.4 (8.5-10.1) mg/dL Magnesium 2.1 (1.8-2.4) mg/dL Total Bilirubin 0.3 (0.00-1.00) mg/dL AST 15 (15-37) U/L ALT 17 (14-59) U/L Alkaline Phosphatase 101 (46-116) U/L Troponin I 6.6 (0.00-60.4) ng/L NT-Pro-B Natriuret Pep 645 H (0-450) pg/mL Total Protein 7.2 (6.4-8.2) g/dL Albumin 2.9 L (3.4-5.0) g/dL Urine Color Light yellow (Yellow) Urine Appearance Clear (Clear) Urine pH 6.5 (5.0-8.0) Ur Specific [place] <= 1.005 L (1.010-1.020) Urine Protein Negative (Negative) Urine Glucose (UA) Negative (Negative) Urine Ketones Negative (Negative) Ur Blood (Man) Negative (Negative) Urine Nitrate Negative (Negative) Urine Bilirubin Negative (Negative) Urine Urobilinogen 0.2 (0.2-1.0) mg/dL Leukocyte Esterase Rfl Negative (Negative) MIRIAM/UL Influenza A (RT-PCR) Negative (Negative) Influenza B (RT-PCR) Negative (Negative) RSV (RT-PCR) Negative (Negative) SARS-CoV-2 RNA (RT-PCR) Negative (Negative) 04/12/24 Range/Units 19:38 WBC (4.8-10.8) K/mm3 RBC (4.20-5.40) M/mm3 Hgb (11.7-13.8) g/dL Hct (35.0-42.0) % MCV (78.0-102.0) fL MCH (27.0-31.0) pg MCHC (32-36) g/dL RDW (11.6-14.4) % Plt Count (150-420) K/mm3 MPV (9.2-11.8) fl Immature Gran % (Auto) (0.0-0.0) % Neut % (Auto) (50.0-70.0) % Lymph % (Auto) (18.0-42.0) % [place] % (Auto) (2.0-11.0) % Eos % (Auto) (1.0-6.0) % Baso % (Auto) (0.0-1.0) % Lymph # (Auto) (1.10-4.50) K/mm3 [place] # (Auto) (0.10-0.90) K/mm3 Eos # (Auto) (0.02-0.50) K/mm3 Baso # (Auto) (0.00-0.10) K/mm3 Abs Immat Gran (auto) (0.00-0.00) K/mm3 Absolute Neuts (auto) (1.70-7.20) K/mm3 Absolute Nucleated RBC (0.00-0.00) K/mm3 Nucleated RBC % (0-0.0) % Sodium (136-145) mmol/L Potassium (3.5-5.1) mmol/L Chloride (98-108) mmol/L Carbon Dioxide (21-32) mmol/L Anion Gap (4-12) mmol/L BUN (7-18) mg/dL Creatinine (0.55-1.02) mg/dL Estim Creat Clear Calc ml/min Estimated GFR (59 - ) Glucose (70-99) mg/dL Calculated Osmolality (285-295) mOsm/kg Lactic Acid (0.4-2.0) mmol/L Calcium (8.5-10.1) mg/dL Magnesium (1.8-2.4) mg/dL Total Bilirubin (0.00-1.00) mg/dL AST (15-37) U/L ALT (14-59) U/L Alkaline Phosphatase (46-116) U/L Troponin I 6.6 (0.00-60.4) ng/L NT-Pro-B Natriuret Pep (0-450) pg/mL Total Protein (6.4-8.2) g/dL Albumin (3.4-5.0) g/dL Urine Color (Yellow) Urine Appearance (Clear) Urine pH (5.0-8.0) Ur Specific [place] (1.010-1.020) Urine Protein (Negative) Urine Glucose (UA) (Negative) Urine Ketones (Negative) Ur Blood (Man) (Negative) Urine Nitrate (Negative) Urine Bilirubin (Negative) Urine Urobilinogen (0.2-1.0) mg/dL Leukocyte Esterase Rfl (Negative) MIRIAM/UL Influenza A (RT-PCR) (Negative) Influenza B (RT-PCR) (Negative) RSV (RT-PCR) (Negative) SARS-CoV-2 RNA (RT-PCR) (Negative) ABG Data ABG results: 04/12/24 17:54 Puncture Site Right radial ABG pH 7.49 H ABG pCO2 31.2 L ABG pO2 74.5 L ABG PO2/FiO2 Ratio Not Reportable ABG HCO3 23.1 ABG O2 Saturation 95.0 ABG O2 Content 18.9 ABG Base Excess 0.6 A-a Gradient Not Reportable Oxyhemoglobin 94.5 O2 Delivery Device Room air O2 Liters/Min 0.0 Discharge Plan Discharge Clinical Impression: Dementia, Pneumonia, Diastolic dysfunction, Stable angina pectoris Patient Disposition: Acute Care Hospital [facility] Condition: Stable Prescriptions: No Action atorvastatin [Lipitor] 20 mg tablet 20 mg PO DAILY gabapentin 400 mg capsule 400 mg PO BID buspirone 10 mg tablet 5 mg PO BID metoprolol succinate 25 mg tablet extended release 24 hr 25 mg PO DAILY ergocalciferol (vitamin D2) 1,250 mcg (50,000 unit) Capsule 1,250 mcg PO WEEKLY hydroxyzine HCl 10 mg tablet 20 mg PO BID bupropion HCl [Wellbutrin XL] 300 mg tablet extended release 24 hr 300 mg PO DAILY apixaban 5 MG tablet 5 mg PO BID magnesium oxide 400 mg (241.3 mg magnesium) Tablet 400 mg PO DAILY Qty: 30 0RF furosemide 20 mg Tablet 20 mg PO DAILY Qty: 30 0RF potassium chloride [K-Tab] 20 mEq Tablet Extended Release 20 meq PO DAILY@0800 Qty: 30 0RF acetaminophen [Tylenol 8 Hour] 650 mg tablet extended release 650 mg PO Q8H omeprazole 40 mg capsule,delayed release(DR/EC) 40 mg PO BID Qty: 60 3RF dicyclomine 10 mg capsule 10 mg PO TID Qty: 90 3RF Follow-up/Referrals: Sam Escobar MD [Primary Care Provider] - Time of Disposition: 20:11
[2024-04-12 16:42] LABS: Basophils Absolute Auto 0.05 K/mm3 (0.00-0.10); Basophils Percent Auto 0.5 % (0.0-1.0); Eosinophils Percent Auto 3.3 % (1.0-6.0); Hematocrit 41.7 % (35.0-42.0); Hemoglobin 13.9 g/dL (11.7-13.8); Immature Granulocyte Absolute 0.04 K/mm3 (0.00-0.00); Immature Granulocyte Percent A 0.4 % (0.0-0.0); Lymphocytes Absolute Auto 1.69 K/mm3 (1.10-4.50); Lymphocytes Percent Auto 18.4 % (18.0-42.0); Mean Corpuscular HGB Conc 33.3 g/dL (32-36); Mean Corpuscular Hemoglobin 29.7 pg (27.0-31.0); Mean Corpuscular Volume 89.1 fL (78.0-102.0); Mean Platelet Volume 9.2 fl (9.2-11.8); Monocytes Absolute Auto 0.98 K/mm3 (0.10-0.90); Monocytes Percent Auto 10.7 % (2.0-11.0); Neutrophils Absolute Auto 6.11 K/mm3 (1.70-7.20); Neutrophils Percent Auto 66.7 % (50.0-70.0); Platelet Count Result 258 K/mm3 (150-420); Red Blood Count 4.68 M/mm3 (4.20-5.40); Red Cell Distribution Width 14.9 % (11.6-14.4); White Blood Count 9.2 K/mm3 (4.8-10.8)
[2024-04-12] MEDS: IPRATROPIUM 0.5 MG/ALBUTEROL SULFATE 2.5 MG AMPUL.NEB 3 ML INHALATION (16:49)
[2024-04-12 17:05] LABS: Lactic Acid Reflex 1.6 mmol/L (0.4-2.0)
--- NOTE | 2024-04-12 17:06 | PC.NURSE ---
pt resting on stretecher. asking whats next plan of care discussed. given TV remote.
[2024-04-12 17:10] LABS: Alanine Aminotransferase 17 U/L (14-59); Albumin Level 2.9 g/dL (3.4-5.0); Alkaline Phosphatase 101 U/L (46-116); Anion Gap 8 mmol/L (4-12); Aspartate Amino Transferase 15 U/L (15-37); Bilirubin,Total 0.3 mg/dL (0.00-1.00); Blood Urea Nitrogen 15 mg/dL (7-18); Calcium 9.4 mg/dL (8.5-10.1); Carbon Dioxide 31 mmol/L (21-32); Chloride 101 mmol/L (98-108); Estimated CRCL calculation 37 ml/min; Estimated Glomerular Filt Rate 52; Glucose 100 mg/dL (70-99); Magnesium 2.1 mg/dL (1.8-2.4); NT Pro B Type Natriuretic Pept 645 pg/mL (0-450); Osmolality Calculated 290 mOsm/kg (285-295); Potassium 4.4 mmol/L (3.5-5.1); Sodium 140 mmol/L (136-145); Total Protein 7.2 g/dL (6.4-8.2); Troponin I 6.6 ng/L (0.00-60.4)
[2024-04-12 17:26] LABS: SARS-CoV-2 RNA PCR Negative (Negative)
[2024-04-12 17:27] LABS: Influenza A QL RT-PCR Negative (Negative); Influenza B QL RT-PCR Negative (Negative); RSV RNA, RT-PCR Negative (Negative)
--- NOTE | 2024-04-12 17:41 | PC.NURSE ---
lab at bedside for blood cultures and ABG.
[2024-04-12] MEDS: FUROSEMIDE INJ 40 MG/4 ML VIAL IV PUSH (17:47)
[2024-04-12 17:56] LABS: Base Excess ABG 0.6 mmol/L (0-2); Device ROOM AIR; HCO3 ABG 23.1 mmol/L (23-29); Modified Allen's Test Pass; Oxygen Content ABG 18.9 %vol (16.0-22.0); Oxyhemoglobin 94.5 % (94-100); PCO2 ABG 31.2 mmHg (35-45); PO2 ABG 74.5 mmHg (75-85); Site Drawn RIGHT RADIAL; pH ABG 7.49 (7.35-7.45)
--- NOTE | 2024-04-12 18:00 | PC.NURSE ---
pt given turkey sandwhich and soda. repositioned for comfort
[2024-04-12 18:18] LABS: Add Urine Microscopic? NO; Appearance Urine Clear (Clear); Bilirubin Urine Negative (Negative); Blood Urine Negative (Negative); Color Urine Light Yellow (Yellow); Glucose Urine UA Negative (Negative); Ketones Urine Negative (Negative); Leukocyte Esterase Ur Negative LEU/UL (Negative); Nitrate Urine Negative (Negative); Protein Urine Negative (Negative); Specific Grav Ur <= 1.005 (1.010-1.020); Urobilinogen Urine 0.2 mg/dL (0.2-1.0); pH Urine 6.5 (5.0-8.0)
[2024-04-12] MEDS: AZITHROMYCIN 500 MG/NS 250 ML 500 MG/250 ML BAG 250 MG IVPB (18:38)
--- NOTE | 2024-04-12 19:00 | PC.NURSE ---
assumed care. report received from tiffanie gregory
--- NOTE | 2024-04-12 19:52 | PC.NURSE ---
patient called out on the light. informed patient that she is being admitted for pneumonia. patient states well no one told me .
[2024-04-12 19:58] LABS: Troponin I 6.6 ng/L (0.00-60.4)
--- NOTE | 2024-04-12 21:23 | ADMGEN ---
This patient, Shanita Perez, was admitted to 2nd Floor Room 207-1. Patient/family oriented to hospital policies and general routines including ID bracelet, bed and alarms, visiting hours, pain management, procedures, bathroom and other care routines, personal items, smoking policy, room service/diet, and visiting hours. Information on how to activate the Rapid Response Team has been discussed. Patient/Family are encouraged to report perceived risks to care and to ask questions if they do not understand what they are told or what they should do.
[2024-04-12] MEDS: ACETAMINOPHEN 325 MG TABLET 650 MG PO (21:31)
[2024-04-12] MEDS: DICYCLOMINE HCL 10 MG CAPSULE PO (21:31)
[2024-04-12] MEDS: busPIRone HCL 5 MG TABLET PO (21:31)
[2024-04-12] MEDS: GABAPENTIN 400 MG CAPSULE PO (21:31)
[2024-04-12] MEDS: APIXABAN 2.5 MG TABLET 5 MG PO (21:31)
[2024-04-12] MEDS: PANTOPRAZOLE 40 MG TABLET PO (21:31)
[2024-04-13] VITALS (8 sets, daily range): BP systolic 121–132; BP diastolic 63–84; PULSE 74–86; RESP 16–20; TEMP 36.1–36.7; O2SAT 95–100
[2024-04-13] MEDS: IPRATROPIUM 0.5 MG/ALBUTEROL SULFATE 2.5 MG AMPUL.NEB 3 ML INHALATION ×2 (05:42→11:41)
[2024-04-13] MEDS: ACETAMINOPHEN 325 MG TABLET 650 MG PO (06:28)
[2024-04-13] MEDS: FUROSEMIDE 20 MG TABLET PO (09:02)
[2024-04-13] MEDS: busPIRone HCL 5 MG TABLET PO (09:02)
[2024-04-13] MEDS: POTASSIUM CHLORIDE 20 MEQ ER TABLET PO (09:02)
[2024-04-13] MEDS: buPROPion HCL XL (24 HR) 150 MG TABCR 300 MG PO (09:02)
[2024-04-13] MEDS: METOPROLOL SUCCINATE EXT REL 25 MG TABCR PO (09:03)
[2024-04-13] MEDS: ATORVASTATIN 10 MG TABLET 20 MG PO (09:03)
[2024-04-13] MEDS: DICYCLOMINE HCL 10 MG CAPSULE PO (09:03)
[2024-04-13] MEDS: APIXABAN 2.5 MG TABLET 5 MG PO (09:03)
[2024-04-13] MEDS: GABAPENTIN 400 MG CAPSULE PO (09:04)
[2024-04-13] MEDS: MAGNESIUM OXIDE 400 MG TABLET PO (09:04)
[2024-04-13] MEDS: PANTOPRAZOLE 40 MG TABLET PO (09:04)
[2024-04-13 09:45] LABS: Hematocrit 39.2 % (35.0-42.0); Hemoglobin 13.2 g/dL (11.7-13.8); Mean Corpuscular HGB Conc 33.7 g/dL (32-36); Mean Corpuscular Hemoglobin 29.7 pg (27.0-31.0); Mean Corpuscular Volume 88.1 fL (78.0-102.0); Mean Platelet Volume 9.1 fl (9.2-11.8); Platelet Count Result 241 K/mm3 (150-420); Red Blood Count 4.45 M/mm3 (4.20-5.40); Red Cell Distribution Width 14.8 % (11.6-14.4)
[2024-04-13 10:06] LABS: Alanine Aminotransferase 19 U/L (14-59); Albumin Level 2.7 g/dL (3.4-5.0); Alkaline Phosphatase 91 U/L (46-116); Anion Gap 9 mmol/L (4-12); Aspartate Amino Transferase 14 U/L (15-37); Bilirubin,Total 0.5 mg/dL (0.00-1.00); Blood Urea Nitrogen 13 mg/dL (7-18); Calcium 9.1 mg/dL (8.5-10.1); Carbon Dioxide 30 mmol/L (21-32); Chloride 101 mmol/L (98-108); Estimated CRCL calculation 32 ml/min; Estimated Glomerular Filt Rate 45; Glucose 140 mg/dL (70-99); Osmolality Calculated 292 mOsm/kg (285-295); Potassium 4.2 mmol/L (3.5-5.1); Sodium 140 mmol/L (136-145); Total Protein 6.6 g/dL (6.4-8.2)
--- NOTE | 2024-04-13 11:25 | P.SS_ITS ---
Same Day Admit/Disch: HPI History of Present Illness Chief complaint: PNEUMONIA DIASTOLIC CHF Narrative: Shanita Perez is a 83 year old female who initially presented to the emergency department from her fdc facility due to complaints epigastric pain / atypical chest pain. Patient has a known past medical history of CHF, HTN, anxiety, HLD, gastroparesis, gastritis, angina, anxiety, and dementia. Most information is coming from medical chart patient is not the best historian due to mental status alert and oriented to and where she is however unable to answer questions of she came to the hospital per fdc facility this is patient's baseline. patient had some complaints of epigastric pain after eating a large meal was brought to the emergency department for evaluation initial troponin was negative BNP mildly elevated at 649 initial chest x-ray did show possible new infiltrate of the right lobe which could be atelectasis versus pneumonia. Patient's labs were unremarkable but she did have some noted wheezing on auscultation. patient was given IV Lasix x1 in the emergency department as well as started on azithromycin and Rocephin for pneumonia she was then admitted to the medical unit for further evaluation and treatment of CHF exacerbation and possible underlying pneumonia. [facility] Past Medical History Medical History Acute kidney injury Chronic GERD Congestive heart failure Last echo was 01/03/2019 which shows a grade 1 diastolic impairment and an EF of 60-65%. Essential hypertension Gastritis Gastroparesis Generalized anxiety disorder GERD (gastroesophageal reflux disease) Heart murmur History of recurrent UTI (urinary tract infection) Hyperlipidemia, unspecified Hyponatremia IBS (irritable bowel syndrome) Lumbar disc disease with radiculopathy Neuropathy EDWARD (obstructive sleep apnea) Osteoporosis Primary osteoarthritis involving multiple joints Pulmonary nodule Right inguinal hernia Stable angina pectoris Upper abdominal pain Weight loss, unintentional Surgical History Surgical History History of tonsillectomy Family History Family History Unknown Unknown family medical history Other Family history of cardiovascular disease Social History Social History Social History: The patient stated that she is and she has no children. She does not have a durable power title attorney for healthcare. 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 The patient desires to be a full code and does not have a durable power title attorney for healthcare. Patient is lifelong nonsmoker. She does not use alcohol marijuana illicit drugs. Smoking status: Never smoker Tobacco type: cigarettes Second hand tobacco smoke exposure: No Additional smoking assessment comments: pt is a poor historian. Alcohol intake: never Substance use: never Substance use type: does not use Do You Feel Safe in your Home?: Yes Lack of Transportation: No Lack of Food: Never True Current Housing: I Have Housing Concerned About Future Housing: No Difficulty Paying Gas/Electric Bills: No Difficulty Paying for Meds: No Currently Unemployed: No Education: Grade School Difficulty w/ Childcare or Family Care: No Living arrangements: alone Occupation/Education: other Gender identity (if verbalized by the patient): Female Spiritual care concerns: No Same Day Admit/Disch: Med Pre-admit Medications Home Medications Medication Instructions Recorded Confirmed Type acetaminophen 650 mg 650 mg PO Q8H 05/14/22 04/12/24 History tablet,extended release (Tylenol 8 Hour) atorvastatin 20 mg tablet (Lipitor) 20 mg PO DAILY 08/21/22 04/12/24 History bupropion HCl 300 mg 24 hr tablet, 300 mg PO DAILY 08/21/22 04/12/24 History extended release (Wellbutrin XL) buspirone 10 mg tablet 5 mg PO BID 08/21/22 04/12/24 History ergocalciferol (vitamin D2) 1,250 1,250 mcg PO WEEKLY 08/21/22 04/12/24 History mcg (50,000 unit) capsule gabapentin 400 mg capsule 400 mg PO BID 08/21/22 04/12/24 History hydroxyzine HCl 10 mg tablet 20 mg PO BID 08/21/22 04/12/24 History metoprolol succinate 25 mg 25 mg PO DAILY 08/21/22 04/12/24 History tablet,extended release 24 hr omeprazole 40 mg capsule,delayed 40 mg PO BID #60 caps 02/23/23 04/12/24 Rx release dicyclomine 10 mg capsule 10 mg PO TID #90 caps 07/14/23 04/12/24 Rx apixaban 5 mg PO BID 10/02/23 04/12/24 History magnesium oxide 400 mg (241.3 mg 400 mg PO DAILY #30 tabs 10/07/23 04/12/24 Rx magnesium) tablet potassium chloride 20 mEq 20 meq PO DAILY@0800 #30 tabs 10/07/23 04/12/24 Rx tablet,extended release (K-Tab) amoxicillin 875 mg-potassium 1 tablet PO Q12H #8 tabs 04/13/24 Rx clavulanate 125 mg tablet azithromycin 250 mg tablet 250 mg PO DAILY 4 days #4 tabs 04/13/24 Rx furosemide 40 mg tablet 40 mg PO DAILY #30 tabs 04/13/24 Rx guaifenesin 1,200 mg tablet, 1,200 mg PO BID #14 tabs 04/13/24 Rx extended release 12 hr Review of Systems Review of Systems All systems reviewed & are unremarkable except as noted in HPI and below Exam Narrative: * GENERAL: Alert and oriented x 2. poor historian history of dementia, appears at baseline No acute distress. * EYES: EOMI. No scleral icterus. PERRLA. * HEENT: Moist mucous membranes. * LUNGS: wheezing throughout all lung auscultation bilaterally diminished right lobe lung sounds. No accessory muscle use. * CARDIOVASCULAR: Regular rate and rhythm. No murmur. No JVD. S1-S2 * ABDOMEN: Soft, non tenderness and non-distended. No palpable masses. * EXTREMITIES: No edema. Non-tender * SKIN: No rashes or lesions. Skin warm, dry. * NEUROLOGIC: No focal neurological deficits. CN II-XII grossly intact * PSYCHIATRIC: Appropriate mood and affect. Good judgement and insight. No visual or auditory hallucinations. No suicidal or homicidal ideation. DS: Data Data Completed and Pending Labs on day of discharge: Labs from last 24 hours 04/13/24 04/12/24 04/12/24 09:39 19:38 18:14 WBC 8.0 RBC 4.45 Hgb 13.2 Hct 39.2 MCV 88.1 MCH 29.7 MCHC 33.7 RDW 14.8 H Plt Count 241 MPV 9.1 L Immature Gran % (Auto) Neut % (Auto) Lymph % (Auto) [place] % (Auto) Eos % (Auto) Baso % (Auto) Lymph # (Auto) [place] # (Auto) Eos # (Auto) Baso # (Auto) Abs Immat Gran (auto) Absolute Neuts (auto) Absolute Nucleated RBC Nucleated RBC % Puncture Site ABG pH ABG pCO2 ABG pO2 ABG PO2/FiO2 Ratio ABG HCO3 ABG O2 Saturation ABG O2 Content ABG Base Excess A-a Gradient Oxyhemoglobin Total Hemoglobin O2 Delivery Device O2 Liters/Min Sodium 140 Potassium 4.2 Chloride 101 Carbon Dioxide 30 Anion Gap 9 BUN 13 Creatinine 1.14 H Estim Creat Clear Calc 32 Estimated GFR 45 L Glucose 140 H Calculated Osmolality 292 Lactic Acid Calcium 9.1 Magnesium Total Bilirubin 0.5 AST 14 L ALT 19 Alkaline Phosphatase 91 Troponin I 6.6 NT-Pro-B Natriuret Pep Total Protein 6.6 Albumin 2.7 L Urine Color Light yellow Urine Appearance Clear Urine pH 6.5 Ur Specific [place] <= 1.005 L Urine Protein Negative Urine Glucose (UA) Negative Urine Ketones Negative Ur Blood (Man) Negative Urine Nitrate Negative Urine Bilirubin Negative Urine Urobilinogen 0.2 Leukocyte Esterase Rfl Negative Influenza A (RT-PCR) Influenza B (RT-PCR) RSV (RT-PCR) SARS-CoV-2 RNA (RT-PCR) 04/12/24 04/12/24 04/12/24 17:54 16:40 16:30 WBC 9.2 RBC 4.68 Hgb 13.9 H Hct 41.7 MCV 89.1 MCH 29.7 MCHC 33.3 RDW 14.9 H Plt Count 258 MPV 9.2 Immature Gran % (Auto) 0.4 H Neut % (Auto) 66.7 Lymph % (Auto) 18.4 [place] % (Auto) 10.7 Eos % (Auto) 3.3 Baso % (Auto) 0.5 Lymph # (Auto) 1.69 [place] # (Auto) 0.98 H Eos # (Auto) 0.30 Baso # (Auto) 0.05 Abs Immat Gran (auto) 0.04 H Absolute Neuts (auto) 6.11 Absolute Nucleated RBC 0.00 Nucleated RBC % 0.0 Puncture Site Right radial ABG pH 7.49 H ABG pCO2 31.2 L ABG pO2 74.5 L ABG PO2/FiO2 Ratio Not Reportable ABG HCO3 23.1 ABG O2 Saturation 95.0 ABG O2 Content 18.9 ABG Base Excess 0.6 A-a Gradient Not Reportable Oxyhemoglobin 94.5 Total Hemoglobin Pending O2 Delivery Device Room air O2 Liters/Min 0.0 Sodium 140 Potassium 4.4 Chloride 101 Carbon Dioxide 31 Anion Gap 8 BUN 15 Creatinine 1.02 Estim Creat Clear Calc 37 Estimated GFR 52 L Glucose 100 H Calculated Osmolality 290 Lactic Acid 1.6 Calcium 9.4 Magnesium 2.1 Total Bilirubin 0.3 AST 15 ALT 17 Alkaline Phosphatase 101 Troponin I 6.6 NT-Pro-B Natriuret Pep 645 H Total Protein 7.2 Albumin 2.9 L Urine Color Urine Appearance Urine pH Ur Specific [place] Urine Protein Urine Glucose (UA) Urine Ketones Ur Blood (Man) Urine Nitrate Urine Bilirubin Urine Urobilinogen Leukocyte Esterase Rfl Influenza A (RT-PCR) Negative Influenza B (RT-PCR) Negative RSV (RT-PCR) Negative SARS-CoV-2 RNA (RT-PCR) Negative Preliminary micro results at discharge 04/12/24 17:40 Blood Culture - Preliminary Blood 04/12/24 17:43 Blood Culture - Preliminary Blood Imaging Radiologist's impression: CT Scan of the Chest with Contrast: Technique: Contiguous sections were acquired throughout the chest after intravenous administration of 100 cc of Omnipaque 350. Dose reduction technique was used on this scan by utilizing automated exposure control and iterative reconstruction technique. The dose-length product (DLP) was 651.41 mGy-cm. COMPARISON: 08/25/2022 Findings: There is no evidence of any significant mediastinal, hilar or axillary lymphadenopathy. There is no filling defect in the pulmonary arterial tree to suggest pulmonary embolus. There is no evidence of aortic dissection or aneurysm. There is no evidence of pleural or pericardial effusion. Calcified left upper lobe granuloma present. There is minimal bibasilar atelectatic change. Minimal groundglass opacity in the right upper lobe noted, nonspecific. Images through the upper abdomen reveal no abnormalities. Impression: No evidence of pulmonary embolus, aortic dissection, or aortic aneurysm. Minimal right upper lobe groundglass opacity, nonspecific. Correlate for minimal pulmonary edema or focal mild infectious/inflammatory process. DS: Summary Hospital Course Reason for hospitalization: CHF exacerbation/ pneumonia Hospital Course: Shanita Perez was a 83 year old female who initially presented to the emergency department from her fdc facility due to complaints epigastric pain / atypical chest pain. Patient has a known past medical history of CHF, HTN, anxiety, HLD, gastroparesis, gastritis, angina, anxiety, and dementia. Most information is coming from medical chart patient is not the best historian due to mental status alert and oriented to and where she is however unable to answer questions of she came to the hospital per fdc facility this is patient's baseline. patient had some complaints of epigastric pain after eating a large meal was brought to the emergency department for evaluation initial troponin was negative BNP mildly elevated at 649 initial chest x-ray did show possible new infiltrate of the right lobe which could be atelectasis versus pneumonia. Patient's labs were unremarkable but she did have some noted wheezing on auscultation. patient was given IV Lasix x1 in the emergency department as well as started on azithromycin and Rocephin for pneumonia she was then admitted to the medical unit for further evaluation and treatment of CHF exacerbation and possible underlying pneumonia. Patient assessed in no acute distress, denied any further epigastric pain or chest pain. Labs still unremarkable and remained afebrile overnight. patient remained on room air SpO2 in the high 90s. she was given DuoNebs, mucolytics, and azithromycin/Rocephin as well as encouraged to use incentive spirometer. CTA was completed due to patient's previous history of PE which was negative for any PE or aortic dissection however did show a minimal right upper lobe ground-glass opacity. patient with overall improvement in no acute distress or complaints felt she was at her baseline. She was discharged back to the SNF and I increased her daily Lasix to 40mg daily and oral ABX coverage for pneumonia Status at Discharge Functional status at discharge: wheelchair bound Overall status at discharge: patient is back to baseline Time Spent with Patient Time attestation: Total time spent providing and/or coordinating discharge services: Time spent: Greater than 30 minutes DS: Admitting Diagnosis Discharge Date 04/13/2024 Admitting Diagnosis CHF exacerbation/ pneumonia DS: Discharge Diagnosis Discharge Diagnosis (1) Dementia: Code(s): F03.90 - Unspecified dementia, unspecified severity, without behavioral disturbance, psychotic disturbance, mood disturbance, and anxiety Status: Acute (2) Pneumonia: Code(s): J18.9 - Pneumonia, unspecified organism Status: Acute (3) Diastolic dysfunction: Code(s): I51.89 - Other ill-defined heart diseases Status: Acute (4) Stable angina pectoris: Code(s): I20.89 - Other forms of angina pectoris Status: Acute (5) CHF (congestive heart failure): Qualifiers: Heart failure chronicity: acute on chronic Heart failure type: diastolic Qualified Code(s): I50.33 - Acute on chronic diastolic (congestive) heart failure Code(s): I50.9 - Heart failure, unspecified Status: Acute (6) Chronic GERD: Code(s): K21.9 - Gastro-esophageal reflux disease without esophagitis Status: Chronic (7) Essential hypertension: Code(s): I10 - Essential (primary) hypertension Status: Chronic Discharge Plan Discharge Attending physician on discharge: Del Thomas Discharging Clinician: Tania Perdue Anticipated Discharge Date/Time: 04/13/24 11:14 Patient Disposition: SNF Activity: may shower and as tolerated Diet: heart healthy Discharge Instructions: -------You are being discharged after evaluation and treatment for congestive heart failure exacerbation and possible pneumonia. I have transitioned you back to your Lasix tablet orally however have increased the dosage to 40mg daily. I recommended a heart healthy low-sodium diet monitor oral hydration intake as well as weight weekly if there is any significant weight gain or you develop shortness of breath I would encourage you to seek medical attention. please review attached education on congestive heart failure -------Your image showed potential Pneumonia so I have started on antibiotic to be completed as prescribe. I encourage the use of and incentive spirometer while awake well as continue with activity and supportive care. acetaminophen for fever and mild pain if you develop significant shortness of breath and worsening chest pain with high fevers recommend you seek medical attention. please review attached education on pneumonia. How can you care for yourself at home? ? Keep track of any new symptoms or changes in your symptoms. ? Rest until you feel better. ? Be safe with medicines. Take your medicines exactly as prescribed. Call your doctor if you think you are having a problem with your medicine. ? Do not drive after taking a prescription pain medicine. ? Ensure to follow-up with primary care physician as indicated and provide upda janet medication list provided to you at discharge. When should you call for help? Call 911 anytime you think you may need emergency care. For example, call if: ? You passed out (lost consciousness). Call your doctor now or seek immediate medical care if: ? You have new symptoms like fever, difficulty breathing, Chest pain, vomiting, or rash. ? You have new or different pain. ? You are confused and are having trouble thinking clearly. ? Your symptoms are getting worse. Watch closely for changes in your health, and be sure to contact your doctor if: ? You do not get better as expected. Patient Instructions: Amoxicillin/Clavulanate Potassium (By mouth), Azithromycin (By mouth), Analgesic/Antitussive/Decongestant/Expectorant Combination (By mouth), Angina (ED), Heart Failure (DC), Pulmonary Edema (DC), Fall Prevention for Older Adults (DC), Community Acquired Pneumonia (DC), Low- Sodium Diet (DC) Patient Language: B[place]wan[place] Stand Alone Forms: General Discharge Information, Fpc Discharge Follow-up/Referrals: Sam Escobar MD [Primary Care Provider] - 1 week Discharge Medications: New furosemide 40 mg tablet 40 mg PO DAILY Qty: 30 0RF azithromycin 250 mg tablet 250 mg PO DAILY 4 Days Qty: 4 0RF amoxicillin-pot clavulanate 875-125 mg tablet 1 tablet PO Q12H Qty: 8 0RF guaifenesin 1,200 mg tablet extended release 12hr 1,200 mg PO BID Qty: 14 0RF Continued atorvastatin [Lipitor] 20 mg tablet 20 mg PO DAILY gabapentin 400 mg capsule 400 mg PO BID buspirone 10 mg tablet 5 mg PO BID metoprolol succinate 25 mg tablet extended release 24 hr 25 mg PO DAILY ergocalciferol (vitamin D2) 1,250 mcg (50,000 unit) Capsule 1,250 mcg PO WEEKLY hydroxyzine HCl 10 mg tablet 20 mg PO BID bupropion HCl [Wellbutrin XL] 300 mg tablet extended release 24 hr 300 mg PO DAILY apixaban 5 MG tablet 5 mg PO BID magnesium oxide 400 mg (241.3 mg magnesium) Tablet 400 mg PO DAILY Qty: 30 0RF potassium chloride [K-Tab] 20 mEq Tablet Extended Release 20 meq PO DAILY@0800 Qty: 30 0RF acetaminophen [Tylenol 8 Hour] 650 mg tablet extended release 650 mg PO Q8H omeprazole 40 mg capsule,delayed release(DR/EC) 40 mg PO BID Qty: 60 3RF dicyclomine 10 mg capsule 10 mg PO TID Qty: 90 3RF Discontinued furosemide 20 mg Tablet 20 mg PO DAILY Qty: 30 0RF Date of admission: 04/12/24 20:13 Primary Care Provider: Sam Escobar Admitting Provider: Del Thomas Attending physician on admission: Tania Perdue Condition: Stable Quality VTE Prophylaxis VTE prophylaxis: pharmacologic ordered -Patient's previous records reviewed on admission -ER notes reviewed in detail on admission -discussed all findings and current treatment plan with patient/Family/POA -Consultations reviewed for recommendations -Patient's disposition for safe discharge discussed with welfare case worker Dictation performed by [employer] direct speech recognition software, theref ore manager cable variants and typographical errors may occur. Hospitalist MIPS Advance Care Plan I have confirmed that the patient's Advanced Care Plan is present, code status is documented, or surrogate decision maker is listed in patient medical record.: Yes Medication Reconciliation I have utilized all available resources to obtain, update and review the patients current medications (includes all prescriptions, OTC, herbals, cannabis, and nutritional supplements).: Yes The patient is not eligible for med reconciliation; the patient is in a emergent medical situation where delaying treatment would jeopardize the patients health.: No Heart Failure (Exclusion) Patient has history of Heart Transplant or Left Ventricular Assistive Device?: No IF YES, STOP HERE Heart Failure (Qualifier) Patient has current or prior documentation of LVEF less than or equal to 40%, or mod/servere depressed LVSF?: No IF NO, STOP HERE
[2024-04-13] MEDS: guaiFENesin 12 HR 600 MG TABCR PO (11:30)
--- NOTE | 2024-04-13 12:45 | PC.NURSE ---
Report given to Slime at [facility]. All questions answered. Pt will be picked up by [facility] staff at 0080
--- NOTE | 2024-04-13 13:05 | PC.NURSE ---
Elodia Nicolas updated about pt discharge.
--- NOTE | 2024-04-18 10:12 | PC.NURSE ---
[facility], no questions regarding dc instructions
== END 2024-04-13 12:45 ==
LOC: CHSED 20:12 → CHS2ND 20:35
PROVIDERS: Admitting Provider Internal Medicine; Emergency Provider Internal Medicine Critical Care Medicine; PCP Family Medicine; Visit Provider Nurse Practitioner Family
DX: J18.9 Pneumonia, unspecified organism (principal); I11.0 Hypertensive heart disease with heart failure; I50.33 Acute on chronic diastolic (congestive) heart failure; I20.89 Other forms of angina pectoris; F03.90 Unspecified dementia, unspecified severity, without behavioral disturbance, psychotic disturbance, mood disturbance, and anxiety; K21.9 Gastro-esophageal reflux disease without esophagitis; E78.5 Hyperlipidemia, unspecified; F41.1 Generalized anxiety disorder; G47.33 Obstructive sleep apnea (adult) (pediatric); K31.84 Gastroparesis; K58.9 Irritable bowel syndrome, unspecified; M81.0 Age-related osteoporosis without current pathological fracture; M15.9 Polyosteoarthritis, unspecified; M51.16 Intervertebral disc disorders with radiculopathy, lumbar region; Z20.822 Contact with and (suspected) exposure to COVID-19; Z79.01 Long term (current) use of anticoagulants; Z79.899 Other long term (current) drug therapy; Z87.891 Personal history of nicotine dependence; Z86.711 Personal history of pulmonary embolism
CPT/HCPCS: 36415; 36600; 71275; 80053; 81003; 82805; 83605; 83735; 83880; 84484; 85018; 85025; 85027; 87040; 87637; 93005; 94640; 96365; 96367; 96375; 99285; A9270; J0456; J0696; J1940; Q9967

== ENCOUNTER 2024-04-20 08:55 | Outpatient (CLI) | payer MEDICARE, SELFPAY ==
[2024-04-20 09:19] LABS: Hematocrit 42.3 % (35.0-42.0); Mean Corpuscular HGB Conc 33.1 g/dL (32-36); Mean Corpuscular Hemoglobin 29.6 pg (27.0-31.0); Mean Corpuscular Volume 89.4 fL (78.0-102.0); Mean Platelet Volume 9.3 fl (9.2-11.8); Platelet Count Result 305 K/mm3 (150-420); Red Blood Count 4.73 M/mm3 (4.20-5.40); Red Cell Distribution Width 14.7 % (11.6-14.4); White Blood Count 9.2 K/mm3 (4.8-10.8)
[2024-04-20 10:04] LABS: Alanine Aminotransferase 15 U/L (14-59); Alkaline Phosphatase 101 U/L (46-116); Anion Gap 10 mmol/L (4-12); Aspartate Amino Transferase 14 U/L (15-37); Bilirubin,Total 0.4 mg/dL (0.00-1.00); Blood Urea Nitrogen 14 mg/dL (7-18); Calcium 9.2 mg/dL (8.5-10.1); Carbon Dioxide 29 mmol/L (21-32); Chloride 102 mmol/L (98-108); Estimated Glomerular Filt Rate 49; Glucose 128 mg/dL (70-99); Osmolality Calculated 294 mOsm/kg (285-295); Potassium 4.1 mmol/L (3.5-5.1); Sodium 141 mmol/L (136-145); Total Protein 6.5 g/dL (6.4-8.2)
== END 2024-04-20 08:56 | disposition home or self-care (01) ==
LOC: CHSLAB 08:56
PROVIDERS: Nurse Practitioner Acute Care; PCP Family Medicine; Visit Provider Family Medicine
DX: J18.9 Pneumonia, unspecified organism (principal)
CPT/HCPCS: 36415; 80053; 85027

== ENCOUNTER 2024-05-12 09:02 | Outpatient (CLI) | payer MEDICARE, SELFPAY ==
--- NOTE | ~2024-05-12 | XR_ITS ---
XR chest 2V 05/12/2024 09:18 Indication: Follow-up pneumonia Procedure: 2 view chest Comparison: Comparison to multiple prior studies sequentially, with oldest reviewed study dated 08/25. Findings: Cardiomegaly. Calcified granuloma left mid thorax. No focal air space disease, pulmonary ed andrew, pleural effusion or suspected pneumothorax. There are spinal stimulator leads overlying the thor acic spine. Osteopenia. Impression: 1: No acute cardiopulmonary disease. Reviewed, dictated and finalized at location [facility]. [facility] Impression: 1: No acute cardiopulmonary disease.
== END 2024-05-12 09:03 | disposition home or self-care (01) ==
PROVIDERS: PCP Family Medicine; Visit Provider Family Medicine
DX: J18.9 Pneumonia, unspecified organism (principal)
CPT/HCPCS: 71046

== ENCOUNTER 2024-08-04 11:00 | Outpatient (CLI) | payer MEDICARE, SELFPAY ==
[2024-08-04 11:23] LABS: Appearance Urine Clear (Clear); Bilirubin Urine Negative (Negative); Blood Urine Negative (Negative); Color Urine Light Yellow (Yellow); Glucose Urine UA Negative (Negative); Ketones Urine Negative (Negative); Nitrate Urine Negative (Negative); Protein Urine Negative (Negative); Urobilinogen Urine 0.2 mg/dL (0.2-1.0); pH Urine 6.5 (5.0-8.0)
[2024-08-04 11:26] LABS: Add Urine Microscopic? NO; Leukocyte Esterase Ur Negative LEU/UL (Negative)
== END 2024-08-04 11:01 | disposition home or self-care (01) ==
PROVIDERS: PCP Family Medicine; Visit Provider Family Medicine
DX: M79.642 Pain in left hand (principal); M79.641 Pain in right hand; Z87.440 Personal history of urinary (tract) infections; M19.042 Primary osteoarthritis, left hand; M19.041 Primary osteoarthritis, right hand
CPT/HCPCS: 73130; 81003

== ENCOUNTER 2024-09-06 08:31 | Outpatient (CLI) | payer MEDICARE, SELFPAY ==
[2024-09-06 09:18] LABS: Basophils Absolute Auto 0.08 K/mm3 (0.00-0.10); Eosinophils Absolute Auto 0.21 K/mm3 (0.02-0.50); Eosinophils Percent Auto 2.5 % (1.0-6.0); Hematocrit 40.2 % (35.0-42.0); Hemoglobin 13.1 g/dL (11.7-13.8); Immature Granulocyte Absolute 0.04 K/mm3 (0.00-0.00); Immature Granulocyte Percent A 0.5 % (0.0-0.0); Lymphocytes Absolute Auto 1.84 K/mm3 (1.10-4.50); Lymphocytes Percent Auto 22.2 % (18.0-42.0); Mean Corpuscular HGB Conc 32.6 g/dL (32-36); Mean Corpuscular Volume 92.2 fL (78.0-102.0); Mean Platelet Volume 9.3 fl (9.2-11.8); Monocytes Absolute Auto 0.69 K/mm3 (0.10-0.90); Monocytes Percent Auto 8.3 % (2.0-11.0); Neutrophils Absolute Auto 5.42 K/mm3 (1.70-7.20); Neutrophils Percent Auto 65.5 % (50.0-70.0); Platelet Count Result 275 K/mm3 (150-420); Red Blood Count 4.36 M/mm3 (4.20-5.40); White Blood Count 8.3 K/mm3 (4.8-10.8)
[2024-09-06 09:41] LABS: Alanine Aminotransferase 21 U/L (14-59); Alkaline Phosphatase 90 U/L (46-116); Anion Gap 6 mmol/L (4-12); Aspartate Amino Transferase 13 U/L (15-37); Bilirubin,Total 0.3 mg/dL (0.00-1.00); Blood Urea Nitrogen 17 mg/dL (7-18); Calcium 8.5 mg/dL (8.5-10.1); Carbon Dioxide 31 mmol/L (21-32); Chloride 102 mmol/L (98-108); Estimated Glomerular Filt Rate 41; Glucose 120 mg/dL (70-99); NT Pro B Type Natriuretic Pept 292 pg/mL (0-450); Osmolality Calculated 290 mOsm/kg (285-295); Potassium 3.7 mmol/L (3.5-5.1); Sodium 139 mmol/L (136-145); Total Protein 6.2 g/dL (6.4-8.2)
== END 2024-09-06 08:32 | disposition home or self-care (01) ==
PROVIDERS: PCP Family Medicine; Visit Provider Family Medicine
DX: F03.90 Unspecified dementia, unspecified severity, without behavioral disturbance, psychotic disturbance, mood disturbance, and anxiety (principal); I50.30 Unspecified diastolic (congestive) heart failure
CPT/HCPCS: 36415; 80053; 83880; 85025

== ENCOUNTER 2024-09-09 08:06 | Emergency (ER) | payer MEDICARE, SELFPAY ==
[2024-09-09] VITALS (13 sets, daily range): BP systolic 119–146; BP diastolic 56–80; PULSE 73–86; RESP 13–24; TEMP 36.2–36.8; O2SAT 95–100
--- NOTE | ~2024-09-09 | XR_ITS ---
EXAMINATION: XR chest 1V portable DATE: 09/09/2024 09:01 INDICATION: Altered mental status TECHNIQUE: frontal view of the chest was obtained. COMPARISON: Chest radiograph dated 05/12/24 FINDINGS: Calcified left lower lobe nodules and calcified bilateral hilar lymph nodes consistent with old granu lomatous disease. No new airspace opacities, pulmonary edema, pleural effusion or pneumothorax. Cardi omegaly. Spinal stimulator leads project over the central canal the lower thoracic spine. IMPRESSION: Cardiomegaly. No other acute cardiopulmonary disease. Reviewed, dictated and finalized at location A.
--- NOTE | ~2024-09-09 | CT_ITS ---
EXAMINATION: CT brain wo con DATE: 09/09/2024 09:01 INDICATION: 15 hours of altered mental status TECHNIQUE: Computed tomography (CT) of the head was performed without intravenous contrast. Sagittal and coronal reconstructions were performed. The mA was adjusted according to patient size. Iterative reconstruction technique was employed. The dose-length product was 681.00 mGy-cm. COMPARISON: head CT dated 10/02/2023 FINDINGS: Couple small regions of encephalomalacia in the anterior right frontal lobe consistent with sequela o f old infarcts. No acute intracranial hemorrhage, acute infarction or abnormal extra axial fluid cristopher ection. There is moderate scattered white matter hypoattenuation consistent with chronic small vessel ischemic disease. Symmetric prominence of the sulci and ventricles consistent with mild to moderate age-appropriate diffuse cerebral volume loss. No mass/mass effect. Changes of bilateral intraocular l ens replacement. The orbits, paranasal sinuses and mastoid air cells are normal. IMPRESSION: 1. 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 No acute intracranial process. 2. Age-related changes including mild to moderate diffuse volume loss and moderate scattered white ma tter hypoattenuation consistent with chronic small vessel ischemic disease. Reviewed, dictated and finalized at location A. IMPRESSION: 1. 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 No acute intracran ial process. 2. Age-related changes including mild to moderate diffuse volume loss and moder ate scattered white matter hypoattenuation consistent with chronic small vessel ischemic disease.
[2024-09-09 08:13] LABS: Glucose Point of Care 115 mg/dl (65-105)
--- NOTE | 2024-09-09 08:29 | ED.AMS ---
HPI - Altered Mental Status General Chief Complaint: Altered Mental Status Stated Complaint: possible stroke Time Seen by Provider: 09/09/24 08:29 Source: EMS Mode of arrival: wheelchair Limitations: altered mental status History of Present Illness HPI narrative: 84-year-old female with a history of dementia, dyslipidemia, subdural hematoma, GERD, GERD, EDWARD, arthritis, compression fracture of lumbar vertebrae, negative stress test on 09/18/2020, diastolic dysfunction was recently admitted on 04/12/2024 for CHF exacerbation and pneumonia. She presents to the ED with -- altered mental status. The patient is normally talkative and jokes around. Today she is not talking. She is confused. She has both her upper extremities flexed. patient is awake and follows verbal commands. Patient was last known well yesterday evening. History is provided by halfway staff and by EMS. blood sugar was noted to be 115. MD complaint: altered mental status and confusion Onset (ago): hour(s) ( 12 hours) Timing confirmed by: caregiver Context: other ( history of subdural hematoma and dementia) Related Data Home Medications ?Medication ?Instructions ?Recorded ?Confirmed ?Last Taken ?Type acetaminophen 650 mg 650 mg PO Q8H 05/14/22 04/12/24 10/02/23 History tablet,extended release (Tylenol 8 Hour) atorvastatin 20 mg tablet (Lipitor) 20 mg PO DAILY 08/21/22 04/12/24 10/02/23 History bupropion HCl 300 mg 24 hr tablet, 300 mg PO DAILY 08/21/22 04/12/24 10/02/23 History extended release (Wellbutrin XL) buspirone 10 mg tablet 5 mg PO BID 08/21/22 04/12/24 10/02/23 History ergocalciferol (vitamin D2) 1,250 1,250 mcg PO WEEKLY 08/21/22 04/12/24 10/02/23 History mcg (50,000 unit) capsule gabapentin 400 mg capsule 400 mg PO BID 08/21/22 04/12/24 10/02/23 History hydroxyzine HCl 10 mg tablet 20 mg PO BID 08/21/22 04/12/24 10/02/23 History metoprolol succinate 25 mg 25 mg PO DAILY 08/21/22 04/12/24 10/02/23 History tablet,extended release 24 hr apixaban 5 mg PO BID 10/02/23 04/12/24 10/02/23 History Allergies Allergy/AdvReac Type Severity Reaction Status Date / Time No Known Allergies Allergy Verified 09/09/24 08:56 Review of Systems Review of Systems: ROS unobtainable: Yes unobtainable due to mental status [facility] Past Medical History Medical History GERD (gastroesophageal reflux disease) IBS (irritable bowel syndrome) Upper abdominal pain Acute kidney injury Hyponatremia Gastritis Congestive heart failure Last echo was 01/03/2019 which shows a grade 1 diastolic impairment and an EF of 60-65%. Pulmonary nodule History of recurrent UTI (urinary tract infection) Heart murmur Weight loss, unintentional Chronic GERD Essential hypertension Gastroparesis Generalized anxiety disorder Hyperlipidemia, unspecified Lumbar disc disease with radiculopathy Neuropathy EDWARD (obstructive sleep apnea) Osteoporosis Primary osteoarthritis involving multiple joints Right inguinal hernia Stable angina pectoris Surgical History Surgical History History of tonsillectomy Family History Family History Unknown Unknown family medical history Other Family history of cardiovascular disease Social History Social History Social History: The patient stated that she is and she has no children. She does not have a durable power post splitter for healthcare. 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 The patient desires to be a full code and does not have a durable power post splitter for healthcare. Patient is lifelong nonsmoker. She does not use alcohol marijuana illicit drugs. Smoking status: Never smoker Tobacco type: cigarettes Second hand tobacco smoke exposure: No Additional smoking assessment comments: pt is a poor historian. Alcohol intake: never Substance use: never Substance use type: does not use Do You Feel Safe in your Home?: Yes Lack of Transportation: No Lack of Food: Never True Current Housing: I Have Housing Concerned About Future Housing: No Difficulty Paying Gas/Electric Bills: No Difficulty Paying for Meds: No Currently Unemployed: No Education: Grade School Difficulty w/ Childcare or Family Care: No Living arrangements: alone Occupation/Education: other Gender identity (if verbalized by the patient): Female Spiritual care concerns: No Exam Narrative: Vitals are stable. Const: General: no acute distress Nutritional Appearance: well nourished Limitations: altered mental status HENMT: Head: normal to inspection Ears: external ears normal Face/Nose/Sinus: Normal external nose present Face and sinus: normal facial exam Mouth: Yes Normal oral and palatal mucosa present Throat: posterior oropharynx normal Eyes: Conjunctivae: conjunctivae normal Pupils: Equal, round and reactive pupils present EOM: EOMs intact bilaterally Direct Ophthalmoscopy: no photophobia Neck: Neck: normal visual inspection, no lymphadenopathy and no meningeal signs Chest: Chest palpation & inspection: normal inspection of the chest Resp: Effort & Inspection: normal respiratory effort Auscultation: clear to auscultation bilaterally Cardio: Rate: regular rate Rhythm: regular rhythm GI: GI Palp: Yes Soft to palpation Auscultation: normal bowel sounds Other: No tenderness/ rigidity / rebound. : General: Yes no CVA tenderness Back/Spine/Pelvis: Back: no CVA tenderness Skin: General skin exam: normal color Rashes: no rashes Wounds: no wounds Neuro: General: patient oriented x3, moves all extremities, no meningeal signs and CN's II-XI intact bilaterally Cranial nerves: Yes Nystagmus not present Speech: Abnormal speech present Other: Patient is awake and follows verbal commands she moves all her limbs patient is unable to talk. Extrem: General: normal to inspection and edema Other: Bilateral legs have chronic venous stasis changes. Psych: Mental Status: mental status grossly normal Affect: normal affect Attitude: cooperative Course Course Emergency Course: Altered mental status-- blood work was unremarkable. CT of the head did not show any acute findings. The patient does not have any acute focal deficit. She came in with inability to speak. Over the course of her ER stay the patient was able to eat and talk. Dementia chronic renal insufficiency Vital Signs Vital signs: Vital Signs Temperature 36.2 C L 09/09/24 08:14 Pulse Rate 80 09/09/24 08:14 Respiratory Rate 18 09/09/24 08:14 Blood Pressure 146/66 H 09/09/24 08:14 Pulse Oximetry 99 09/09/24 08:14 Oxygen Delivery Room Air 09/09/24 08:14 Temperature 36.7 C 09/09/24 09:45 Pulse Rate 73 09/09/24 09:57 Respiratory Rate 24 H 09/09/24 09:45 Blood Pressure 129/80 09/09/24 09:45 Pulse Oximetry 98 09/09/24 09:45 Oxygen Delivery Room Air 09/09/24 08:14 MDM - Altered Mental Status MDM Narrative Medical decision making narrative: dementia altered mental status CKD Differential Diagnosis Differential diagnosis: Likely subarachnoid hemorrhage and other ( CVA/TIA) Medical Records Attestation: I reviewed the patient's medical records. Lab Data Attestation: I reviewed the patient's lab results. 09/09/24 08:42 09/09/24 08:42 Labs: Lab Results 09/09/24 09/09/24 Range/Units 08:10 08:42 WBC 7.0 (4.8-10.8) K/mm3 RBC 4.42 (4.20-5.40) M/mm3 Hgb 13.1 (11.7-13.8) g/dL Hct 40.5 (35.0-42.0) % MCV 91.6 (78.0-102.0) fL MCH 29.6 (27.0-31.0) pg MCHC 32.3 (32-36) g/dL RDW 15.1 H (11.6-14.4) % Plt Count 245 (150-420) K/mm3 MPV 9.2 (9.2-11.8) fl Immature Gran % (Auto) 0.4 H (0.0-0.0) % Neut % (Auto) 62.2 (50.0-70.0) % Lymph % (Auto) 23.0 (18.0-42.0) % Harvey % (Auto) 9.7 (2.0-11.0) % Eos % (Auto) 3.7 (1.0-6.0) % Baso % (Auto) 1.0 (0.0-1.0) % Lymph # (Auto) 1.61 (1.10-4.50) K/mm3 Harvey # (Auto) 0.68 (0.10-0.90) K/mm3 Eos # (Auto) 0.26 (0.02-0.50) K/mm3 Baso # (Auto) 0.07 (0.00-0.10) K/mm3 Abs Immat Gran (auto) 0.03 H (0.00-0.00) K/mm3 Absolute Neuts (auto) 4.35 (1.70-7.20) K/mm3 Absolute Nucleated RBC 0.00 (0.00-0.00) K/mm3 Nucleated RBC % 0.0 (0-0.0) % PT 10.3 (9.50-12.1) Seconds INR 0.9 APTT 28.8 (23.9-30.70) Sec Sodium 140 (136-145) mmol/L Potassium 4.3 (3.5-5.1) mmol/L Chloride 105 (98-108) mmol/L Carbon Dioxide 30 (21-32) mmol/L Anion Gap 5 (4-12) mmol/L BUN 16 (7-18) mg/dL Creatinine 1.07 H (0.55-1.02) mg/dL Estim Creat Clear Calc Not Reportable Estimated GFR 49 L (59 - ) Glucose 100 H (70-99) mg/dL POC Capillary Glucose 115 H (65-105) mg/dl Calculated Osmolality 291 (285-295) mOsm/kg Lactic Acid 1.2 (0.4-2.0) mmol/L Calcium 8.8 (8.5-10.1) mg/dL Magnesium 2.0 (1.8-2.4) mg/dL Total Bilirubin 0.3 (0.00-1.00) mg/dL AST 11 L (15-37) U/L ALT 20 (14-59) U/L Alkaline Phosphatase 92 (46-116) U/L Troponin I 9.5 (0.00-60.4) ng/L NT-Pro-B Natriuret Pep 558 H (0-450) pg/mL Total Protein 6.8 (6.4-8.2) g/dL Albumin 3.0 L (3.4-5.0) g/dL Lipase 31 (16-77) U/L ECG Data EKG #1: ECG completion date: 09/09/24 ECG completion time: 08:37 Interpretation: . Deviation. First-degree AV block [place] interval of 25. Left bundle-branch block pattern. EKG is unchanged compared to a previous EKG in April of last year. Discharge Plan Discharge Clinical Impression: Dementia Altered mental status Qualifiers: Altered mental status type: disorientation Qualified Code(s): R41.0 - Disorientation, unspecified CKD (chronic kidney disease) stage 3, GFR 30-59 ml/min Qualifiers: Chronic kidney disease stage 3 subtype: stage 3b (GFR 30-44) Qualified Code(s): N18.32 - Chronic kidney disease, stage 3b Patient Disposition: [facility] Condition: Stable Instructions: Antibiotic Form, Chronic Kidney Disease (ED), Altered Mental Status (ED) Patient Language: Guatemalan Prescriptions: No Action atorvastatin [Lipitor] 20 mg tablet 20 mg PO DAILY gabapentin 400 mg capsule 400 mg PO BID buspirone 10 mg tablet 5 mg PO BID metoprolol succinate 25 mg tablet extended release 24 hr 25 mg PO DAILY ergocalciferol (vitamin D2) 1,250 mcg (50,000 unit) Capsule 1,250 mcg PO WEEKLY hydroxyzine HCl 10 mg tablet 20 mg PO BID bupropion HCl [Wellbutrin XL] 300 mg tablet extended release 24 hr 300 mg PO DAILY apixaban 5 MG tablet 5 mg PO BID magnesium oxide 400 mg (241.3 mg magnesium) Tablet 400 mg PO DAILY Qty: 30 0RF potassium chloride [K-Tab] 20 mEq Tablet Extended Release 20 meq PO DAILY@0800 Qty: 30 0RF furosemide 40 mg tablet 40 mg PO DAILY Qty: 30 0RF azithromycin 250 mg tablet 250 mg PO DAILY 4 Days Qty: 4 0RF amoxicillin-pot clavulanate 875-125 mg tablet 1 tablet PO Q12H Qty: 8 0RF guaifenesin 1,200 mg tablet extended release 12hr 1,200 mg PO BID Qty: 14 0RF acetaminophen [Tylenol 8 Hour] 650 mg tablet extended release 650 mg PO Q8H omeprazole 40 mg capsule,delayed release(DR/EC) 40 mg PO BID Qty: 60 3RF dicyclomine 10 mg capsule 10 mg PO TID Qty: 90 3RF Follow-up/Referrals: Sam Escobar MD [Primary Care Provider] - Time of Disposition: 10:04
--- NOTE | 2024-09-09 08:30 | ECG_ITS ---
Test Date: 2024-09-09 08:37:59 Measurements Intervals Premium Rate: 75 P: 58 MN: 225 QRS: -30 QRSD: 120 T: 47 QT: 407 QTc: 457 Interpretive Statements SINUS RHYTHM WITH FIRST DEGREE AV BLOCK INCLOMPLETE LEFT BUNDLE BRANCH BLOCK INFERIOR INFARCT, AGE INDETERMINATE ANTEROSEPTAL INFARCT, AGE INDETERMINATE BORDERLINE ST-T WAVE ABNORMALITY- HIGH LATERAL LEADS BASELINE ARTIFACT- I, II, III, AVR, AVL, AVF, V1-V6 ABNORMAL ECG Compared to ECG 04/12/2024 16:26:30 NO SIGNIFICANT CHANGE Electronically Signed On 09-09-2024 09:43:40 CDT by Ralph Valladares D.O.
[2024-09-09 08:46] LABS: Basophils Absolute Auto 0.07 K/mm3 (0.00-0.10); Eosinophils Absolute Auto 0.26 K/mm3 (0.02-0.50); Eosinophils Percent Auto 3.7 % (1.0-6.0); Hematocrit 40.5 % (35.0-42.0); Hemoglobin 13.1 g/dL (11.7-13.8); Immature Granulocyte Absolute 0.03 K/mm3 (0.00-0.00); Immature Granulocyte Percent A 0.4 % (0.0-0.0); Lymphocytes Absolute Auto 1.61 K/mm3 (1.10-4.50); Mean Corpuscular HGB Conc 32.3 g/dL (32-36); Mean Corpuscular Hemoglobin 29.6 pg (27.0-31.0); Mean Corpuscular Volume 91.6 fL (78.0-102.0); Mean Platelet Volume 9.2 fl (9.2-11.8); Monocytes Absolute Auto 0.68 K/mm3 (0.10-0.90); Monocytes Percent Auto 9.7 % (2.0-11.0); Neutrophils Absolute Auto 4.35 K/mm3 (1.70-7.20); Neutrophils Percent Auto 62.2 % (50.0-70.0); Platelet Count Result 245 K/mm3 (150-420); Red Blood Count 4.42 M/mm3 (4.20-5.40); Red Cell Distribution Width 15.1 % (11.6-14.4)
[2024-09-09 09:00] LABS: INR 0.9; Partial Thromboplastin Time 28.8 Sec (23.9-30.70); Prothrombin Time 10.3 Seconds (9.50-12.1)
[2024-09-09 09:04] LABS: Lactic Acid Reflex 1.2 mmol/L (0.4-2.0)
[2024-09-09 09:13] LABS: Alanine Aminotransferase 20 U/L (14-59); Alkaline Phosphatase 92 U/L (46-116); Anion Gap 5 mmol/L (4-12); Aspartate Amino Transferase 11 U/L (15-37); Bilirubin,Total 0.3 mg/dL (0.00-1.00); Blood Urea Nitrogen 16 mg/dL (7-18); Calcium 8.8 mg/dL (8.5-10.1); Carbon Dioxide 30 mmol/L (21-32); Chloride 105 mmol/L (98-108); Estimated Glomerular Filt Rate 49; Glucose 100 mg/dL (70-99); Lipase 31 U/L (16-77); NT Pro B Type Natriuretic Pept 558 pg/mL (0-450); Osmolality Calculated 291 mOsm/kg (285-295); Potassium 4.3 mmol/L (3.5-5.1); Sodium 140 mmol/L (136-145); Total Protein 6.8 g/dL (6.4-8.2); Troponin I 9.5 ng/L (0.00-60.4)
--- NOTE | 2024-09-09 09:28 | ECG_ITS ---
Test Date: 2024-09-09 08:59:06 Measurements Intervals [place] Rate: 75 P: 61 AR: 201 QRS: -27 QRSD: 114 T: 38 QT: 405 QTc: 453 Interpretive Statements SINUS RHYTHM WITH OCCASIONAL VENTRICULAR PREMATURE COMPLEXES BORDERLINE AV CONDUCTION DELAY INCOMPLETE LEFT BUNDLE BRANCH BLOCK ANTEROSEPTAL INFARCT, AGE INDETERMINATE INFERIOR INFARCT, AGE INDETERMINATE BORDERLINE ST-T WAVE ABNORMALITY- HIGH LATERAL LEADS BASELINE ARTIFACT- I, II, III, AVR, AVL, AVF, V1-V6 ABNORMAL ECG Compared to ECG 09/09/2024 08:37:59 NO SIGNIFICANT CHANGE Electronically Signed On 09-11-2024 06:21:34 CDT by Ralph Valladares D.O.
== END 2024-09-09 10:15 ==
PROVIDERS: Emergency Provider Internal Medicine Critical Care Medicine; PCP Family Medicine
DX: F03.90 Unspecified dementia, unspecified severity, without behavioral disturbance, psychotic disturbance, mood disturbance, and anxiety (principal); I13.0 Hypertensive heart and chronic kidney disease with heart failure and stage 1 through stage 4 chronic kidney disease, or unspecified chronic kidney disease; I50.9 Heart failure, unspecified; N18.32 Chronic kidney disease, stage 3b; E78.5 Hyperlipidemia, unspecified
CPT/HCPCS: 36415; 70450; 71045; 80053; 82948; 83605; 83690; 83735; 83880; 84484; 85025; 85610; 85730; 93005; 99284

== ENCOUNTER 2024-09-14 10:14 | Outpatient (CLI) | payer MEDICARE, SELFPAY ==
[2024-09-14 10:29] LABS: Hematocrit 39.4 % (35.0-42.0); Mean Corpuscular Hemoglobin 30.4 pg (27.0-31.0); Mean Corpuscular Volume 92.1 fL (78.0-102.0); Mean Platelet Volume 8.8 fl (9.2-11.8); Platelet Count Result 240 K/mm3 (150-420); Red Blood Count 4.28 M/mm3 (4.20-5.40); Red Cell Distribution Width 15.1 % (11.6-14.4); White Blood Count 6.9 K/mm3 (4.8-10.8)
[2024-09-14 10:46] LABS: Anion Gap 3 mmol/L (4-12); Blood Urea Nitrogen 17 mg/dL (7-18); Calcium 8.7 mg/dL (8.5-10.1); Carbon Dioxide 34 mmol/L (21-32); Chloride 104 mmol/L (98-108); Estimated Glomerular Filt Rate 47; Glucose 84 mg/dL (70-99); Osmolality Calculated 292 mOsm/kg (285-295); Potassium 4.4 mmol/L (3.5-5.1); Sodium 141 mmol/L (136-145)
== END 2024-09-14 10:15 | disposition home or self-care (01) ==
PROVIDERS: PCP Family Medicine; Visit Provider Family Medicine
DX: F03.90 Unspecified dementia, unspecified severity, without behavioral disturbance, psychotic disturbance, mood disturbance, and anxiety (principal); J18.9 Pneumonia, unspecified organism
CPT/HCPCS: 36415; 80048; 85027

== ENCOUNTER 2025-01-26 08:12 | Outpatient (NON) | payer MEDICARE, SELFPAY ==
[2025-01-26 08:49] LABS: Hematocrit 43.1 % (35.0-42.0); Hemoglobin 14.2 g/dL (11.7-13.8); Mean Corpuscular HGB Conc 32.9 g/dL (32-36); Mean Corpuscular Hemoglobin 29.9 pg (27.0-31.0); Mean Corpuscular Volume 90.7 fL (78.0-102.0); Platelet Count Result 288 K/mm3 (150-420); Red Blood Count 4.75 M/mm3 (4.20-5.40); White Blood Count 8.0 K/mm3 (4.8-10.8)
[2025-01-26 10:21] LABS: Thyroid Stimulating Hormone 1.510 uIU/mL (0.465-4.680)
[2025-01-26 10:40] LABS: Vitamin B12 372.0 pg/mL (239-931)
[2025-01-26 10:43] LABS: Hemoglobin A1C 6.2 % (<5.7)
[2025-01-26 11:59] LABS: Alanine Aminotransferase 22 U/L (6-35); Albumin Level 4.1 g/dL (3.5-5.1); Alkaline Phosphatase 72 U/L (38-126); Anion Gap 11 mmol/L (4-12); Aspartate Amino Transferase 28 U/L (14-36); Bilirubin,Total 0.7 mg/dL (0.2-1.3); Blood Urea Nitrogen 21 mg/dL (7-17); Calcium 9.5 mg/dL (8.4-10.2); Carbon Dioxide 27 mmol/L (22-30); Chloride 97 mmol/L (98-107); Cholesterol 193 mg/dL (0-200); Estimated Glomerular Filt Rate 46; Glucose 136 mg/dL (65-110); HDL Direct 44 mg/dL; Osmolality Calculated 285 mOsm/kg (285-295); Potassium 4.7 mmol/L (3.4-5.0); Sodium 135 mmol/L (137-145); Total Protein 6.5 g/dL (6.3-8.2); Triglycerides 210 mg/dL (<150)
== END 2025-01-26 08:13 | disposition home or self-care (01) ==
LOC: CHSLAB 08:16
DX: G30.1 Alzheimer's disease with late onset (principal); F33.0 Major depressive disorder, recurrent, mild; E78.5 Hyperlipidemia, unspecified; M54.2 Cervicalgia; Z13.1 Encounter for screening for diabetes mellitus
CPT/HCPCS: 36415; 80053; 80061; 82607; 82746; 83036; 84436; 84443; 85027